=== PATIENT | male | born 1945 | race Caucasian/White ===

== ENCOUNTER 2017-07-24 08:51 | Inpatient (IN) | payer MEDICARE, OTHER ==
[~2017-07-24] VITALS: Ht 167.6 cm; Wt 100.3 kg
[~2017-07-24 08:51] MED LIST: AZIT250T6 PO; CETI10TA22 PO; CLOP75TA PO; DILT120C80 PO; Enoxaparin Sodium SQ; FLUT16SP NS; FLUT1DIS5 IH; HYDR-2758 PO; HYDR25TA9 PO; INSU100V8 SQ; ISOS30TA PO; LISI40TA PO; METF-620 PO; METO25TA4 PO; MOME220A6 IH; MONT10TA6 PO; OMEP40CA5 PO; ONDA4TAB10 SL; PRED50TA PO; PROAIR HFA8.5 GM IH; PROVENTIL HFA6.7 GM IH; Promethazine Hcl/Codeine PO; SIMV20TA3 PO; TAMS0.4C2 PO; WARF-78 PO; WARF10TA45 PO; WARF3TAB54 PO
--- NOTE | 2017-07-24 09:02 | EKG ---
[facility] [address] [place] [address] Test Date: 2017-07-24 Test Time: 08:56:25 Pat Name: JOLEEN ZIMMERMAN Department: Room: Gender: Male [employer]inder: : 1945 Requested By: JODI MCINTOSH Order Number: [id number] Reading MD: Jasen Parada Measurements Intervals [place] Rate: 84 P: OK: QRS: 76 QRSD: 138 T: -26 QT: 424 QTc: 505 Interpretive Statements SR PVC RBBB NON-SPECIFIC ST/T CHANGES Electronically Signed On 08-15-2017 14:24:39 CDT by Jasen Parada
--- NOTE | 2017-07-24 09:12 | PHYS DOC ---
Past Medical History Past Medical History: A-Fib, COPD, Diabetes-Type II, GERD, Lung Disease, [place] Additional Past Medical Histor: BLOOD IN STOOL. afib new 5/2 Past Surgical History: Knee Replacement Additional Past Surgical Histo: 3 stents , neck surg, left shoulder Additional Information: 1 ppd Alcohol Use: None Drug Use: None Adult General Chief Complaint Chief Complaint: CHEST WALL PAIN HPI HPI Patient is a 72 year old male with a history of A. fib, COPD, pancreatitis, diabetes and CAD with stents placed over 5 years ago presents the ED complaining of chest pain since 8 PM last night. States he was watching TV when the chest pain occurred. States the pain is sharp and rates the pain 8 out of 10. Associated symptoms include cough, shortness of breath and sore throat. Denies nausea/vomiting, dizziness, weakness, syncope, abdominal pain. Review of Systems Review of Systems Constitutional: Denies fever or chills [] Eyes: Denies change in visual acuity, redness, or eye pain [] HENT: Denies nasal congestion. Complains of sore throat. [] Respiratory: Complains of cough and shortness of breath[] Cardiovascular: No additional information not addressed in HPI [] GI: Denies abdominal pain, nausea, vomiting, bloody stools or diarrhea [] : Denies dysuria or hematuria [] Musculoskeletal: Denies back pain or joint pain [] Integument: Denies rash or skin lesions [] Neurologic: Denies headache, focal weakness or sensory changes [] Endocrine: Denies polyuria or polydipsia [] Current Medications Current Medications Current Medications Medications (Trade) Dose Ordered Sig/Jeffry Start Time Stop Time Status Last Admin Dose Admin Albuterol/ Ipratropium (Duoneb) 3 ml 1X ONCE 07/24/17 10:00 07/24/17 10:01 DC 07/24/17 10:29 3 ML Aspirin (Olga Lidia Aspirin) 325 mg 1X ONCE 07/24/17 09:15 07/24/17 09:16 DC 07/24/17 09:26 325 MG Famotidine (Pepcid) 20 mg STK-MED ONCE 07/24/17 09:16 07/24/17 09:17 DC Morphine Sulfate 4 mg 1X ONCE 07/24/17 09:15 07/24/17 09:16 DC 07/24/17 09:32 4 MG Allergies Allergies Allergies Coded Allergies Type Severity Reaction Last Updated Verified Penicillins Allergy Intermediate Hives 12/29/14 Yes Physical Exam Physical Exam Constitutional: Well developed, well nourished, no acute distress, non-toxic appearance. [] HENT: Normocephalic, atraumatic, bilateral external ears normal, oropharynx moist, MILD PHARYNGEAL ERYTHEMA, no oral exudates, nose normal. [] Eyes: PERRLA, EOMI, conjunctiva normal, no discharge. [] Neck: Normal range of motion, no tenderness, supple, no stridor. [] Cardiovascular:Heart rate regular rhythm, no murmur [] Lungs & Thorax: Bilateral breath sounds. MILD BILATERAL WHEEZING.[] Abdomen: Bowel sounds normal, soft, no tenderness, no masses, no pulsatile masses. [] Skin: Warm, dry, no erythema, no rash. [] Back: No tenderness, no CVA tenderness. [] Extremities: No tenderness, no cyanosis, no clubbing, ROM intact, no edema. [] Neurologic: Alert and oriented X 3, normal motor function, normal sensory function, no focal deficits noted. [] Psychologic: Affect normal, judgement normal, mood normal. [] Current Patient Data Vital Signs Vital Signs Date Time Temp Pulse Resp B/P (MAP) Pulse Ox O2 Delivery O2 Flow Rate FiO2 07/24/17 09:35 78 16 140/73 (95) 94 Room Air 07/24/17 09:03 98.5 98.5 Lab Values Laboratory Tests Test 07/24/17 09:20 07/24/17 09:40 07/24/17 09:41 Prothrombin Time 23.0 SEC (11.7-14.0) H Prothrombin Time INR 2.2 (0.8-1.1) H White Blood Count 9.4 x10^3/uL (4.0-11.0) Red Blood Count 5.14 x10^6/uL (4.30-5.70) Hemoglobin 15.6 g/dL (13.0-17.5) Hematocrit 44.6 % (39.0-53.0) Mean Corpuscular Volume 87 fL (79-100) Mean Corpuscular Hemoglobin 30 pg (25-35) Mean Corpuscular Hemoglobin Concent 35 g/dL (31-37) Red Cell Distribution Width 15.2 % (11.5-14.5) H Platelet Count 231 x10^3/uL (140-400) Neutrophils (%) (Auto) 62 % (31-73) Lymphocytes (%) (Auto) 21 % (24-48) L Monocytes (%) (Auto) 12 % (0-9) H Eosinophils (%) (Auto) 4 % (0-3) H Basophils (%) (Auto) 1 % (0-3) Neutrophils # (Auto) 5.9 x10^3uL (1.8-7.7) Lymphocytes # (Auto) 2.0 x10^3/uL (1.0-4.8) Monocytes # (Auto) 1.1 x10^3/uL (0.0-1.1) Eosinophils # (Auto) 0.3 x10^3/uL (0.0-0.7) Basophils # (Auto) 0.1 x10^3/uL (0.0-0.2) Sodium Level 139 mmol/L (136-145) Potassium Level 3.9 mmol/L (3.5-5.1) Chloride Level 103 mmol/L (98-107) Carbon Dioxide Level 29 mmol/L (21-32) Anion Gap 7 (6-14) Blood Urea Nitrogen 14 mg/dL (8-26) Creatinine 1.1 mg/dL (0.7-1.3) Estimated GFR (Cockcroft-Gault) 66.0 Glucose Level 169 mg/dL (70-99) H Calcium Level 9.0 mg/dL (8.5-10.1) Total Bilirubin 0.5 mg/dL (0.2-1.0) Direct Bilirubin 0.1 mg/dL (0.0-0.2) Aspartate Amino Transferase (AST) 20 U/L (15-37) Alanine Aminotransferase (ALT) 30 U/L (16-63) Alkaline Phosphatase 119 U/L (46-116) H Creatine Kinase 153 U/L (39-308) Creatine Kinase MB (Mass) 1.7 ng/mL (0.0-3.6) Creatine Kinase MB Relative Index 1.1 % (0-4) Troponin I Quantitative < 0.017 ng/mL (0.000-0.055) Total Protein 7.3 g/dL (6.4-8.2) Albumin 3.4 g/dL (3.4-5.0) Lipase 188 U/L (73-393) POC Troponin I 0.01 ng/ml (<0.08) Laboratory Tests 07/24/17 09:40 Laboratory Tests 07/24/17 09:40 EKG EKG Irregular rhythm at 84 bpm. PVC's. RBBB. No STEMI.[] Radiology/Procedures Radiology/Procedures PROCEDURE: CHEST AP ONLY Portable chest, 07/24/2017: History: Chest pain Comparison is made to a study from 09/14/2016. The heart size and pulmonary vascularity are normal. There is calcific plaquing of the aorta. No pulmonary infiltrate is seen. There is no evidence of pleural fluid. A surgical plate and screws is evident in the lower cervical spine. IMPRESSION: No acute cardiopulmonary abnormality is detected.[] Course & Med Decision Making Course & Med Decision Making Pertinent Labs and Imaging studies reviewed. (See chart for details) []Discussed case with Pulmonology ([facility]) and Cardiology ([facility]- patient sees outpatient). Will consult and see patient. Discussed case with hospitalist, Dr. Rae. Will admit and further manage patient. Patient stable for admission. Dragon Disclaimer Dragon Disclaimer This electronic medical record was generated, in whole or in part, using a voice recognition dictation system. Departure Departure Impression: Primary Impression: Chest pain Additional Impression: COPD exacerbation Disposition: ADMITTED INPATIENT Admitting Physician: Emma Rae Condition: STABLE Referrals: MELVIN LOUIS (PCP) Problem Qualifiers JODI MCINTOSH Jul 24, 2017 09:12
[2017-07-24] MEDS ORDERED: FAMOTIDINE 20 MG/2 ML VIAL IVP ONE (09:15)
[2017-07-24] MEDS ORDERED: MORPHINE SULFATE 4 MG/ML DISP.SYRIN. IV ONE (09:15)
[2017-07-24] MEDS ORDERED: ASPIRIN 325 MG TABLET PO ONE (09:15)
[2017-07-24] MEDS ORDERED: FAMOTIDINE 20 MG/2 ML VIAL ONE (09:16)
--- NOTE | 2017-07-24 09:26 | RAD ---
Portable chest, 07/24/2017: History: Chest pain Comparison is made to a study from 09/14/2016. The heart size and pulmonary vascularity are normal. There is calcific plaquing of the aorta. No pulmonary infiltrate is seen. There is no evidence of pleural fluid. A surgical plate and screws is evident in the lower cervical spine. IMPRESSION: No acute cardiopulmonary abnormality is detected.
[2017-07-24 09:48] LABS: BASO # 0.1 x10^3/uL (0.0-0.2); BASO % 1 % (0-3); EOS % 4 % (0-3); HEMATOCRIT 44.6 % (39.0-53.0); HEMOGLOBIN 15.6 g/dL (13.0-17.5); LYMPH % 21 % (24-48); MEAN CORPUSCULAR HEMOGLOBIN 30 pg (25-35); MEAN CORPUSCULAR HGB CONC 35 g/dL (31-37); MEAN CORPUSCULAR VOLUME 87 fL (79-100); MONO % 12 % (0-9); NEUT % 62 % (31-73); PLATELET COUNT 231 x10^3/uL (140-400); RED BLOOD COUNT 5.14 x10^6/uL (4.30-5.70); RED CELL DISTRIBUTION WIDTH 15.2 % (11.5-14.5); WHITE BLOOD COUNT 9.4 x10^3/uL (4.0-11.0)
[2017-07-24 09:55] LABS: CREATININE 1.1 mg/dL (0.7-1.3); POTASSIUM 3.9 mmol/L (3.5-5.1)
[2017-07-24] MEDS ORDERED: IPRATRPIUM/ALBUTEROL 0.5/2.5MG 3 ML NEBU. NEB ONE (10:00)
[2017-07-24 10:02] LABS: ALBUMIN 3.4 g/dL (3.4-5.0); DIRECT BILIRUBIN 0.1 mg/dL (0.0-0.2); TOTAL BILIRUBIN 0.5 mg/dL (0.2-1.0); TOTAL PROTEIN 7.3 g/dL (6.4-8.2)
[2017-07-24 10:09] LABS: CKMB MASS 1.7 ng/mL (0.0-3.6)
[2017-07-24] MEDS ORDERED: ONDANSETRON PF 4 MG/2 ML VIAL. IV PRN (10:30)
[2017-07-24] MEDS ORDERED: MORPHINE SULFATE 2 MG/ML DISP.SYRIN. IV PRN (10:30)
[2017-07-24] MEDS ORDERED: HYDROmorphone 2 MG/ML VIAL IV ONE (10:30)
[2017-07-24] MEDS ORDERED: methylPREDNISolone SOD SUCC PF 125 MG/2 ML VIAL. IV ONE (10:45)
[2017-07-24 12:45] VITALS: BP 133/79
--- NOTE | 2017-07-24 13:12 | PDOC2 ---
CARDIAC CONSULT DATE OF CONSULT Date of Consult DATE: 07/24/17 TIME: 12:42 REASON FOR CONSULT Reason for Consult: CP REFERRING PHYSICIAN Referring Physician: Abhishek SOURCE Source: Chart review, Patient HISTORY OF PRESENT ILLNESS HISTORY OF PRESENT ILLNESS This is a pleasant 72 yo male admitted for complains of chest pain. Reports this as sharp mid lower chest and reproducible and nonradiating. Reports that intractable coughing started about 2 days ago with increased production of sputum. No orthopnea or PND. No n/v/diaphoresis but CP started after significant coughing. Denies any dizziness or palpitations and has been compliant with medications except that he continues to smoke tobacco. No fever or chills. PAST MEDICAL HISTORY Cardiovascular: AFIB, HTN, NE, Hyperlipidemia Pulmonary: Asthma, COPD GI: GERD, Other (pancreatitis) Renal/: UTI Endocrine: Diabetes (2) PAST SURGICAL HISTORY Past Surgical History: Arthroscopy (RTC repair), Hernia Repair, Total knee replacement, Tonsillectomy, Other (PCI/PTCA; neck surgery) FAMILY HISTORY Family History: Hypertension SOCIAL HISTORY Smoke: <1 pack per day ALCOHOL: none Drugs: None CURRENT MEDICATIONS CURRENT MEDICATIONS Current Medications Medications (Trade) Dose Ordered Sig/Jeffry Route PRN Reason Start Time Stop Time Status Last Admin Dose Admin Aspirin (Olga Lidia Aspirin) 325 mg 1X ONCE PO 07/24/17 09:15 07/24/17 09:16 DC 07/24/17 09:26 Morphine Sulfate 4 mg 1X ONCE IV 07/24/17 09:15 07/24/17 09:16 DC 07/24/17 09:32 Famotidine (Pepcid) 20 mg 1X ONCE IVP 07/24/17 09:15 07/24/17 09:16 DC 07/24/17 09:28 Albuterol/ Ipratropium (Duoneb) 3 ml 1X ONCE NEB 07/24/17 10:00 07/24/17 10:01 DC 07/24/17 10:29 Hydromorphone HCl (Dilaudid) 0.5 mg 1X ONCE IV 07/24/17 10:30 07/24/17 10:31 DC 07/24/17 10:28 Methylprednisolone Sodium Succinate (SOLU-Medrol 125MG VIAL) 125 mg 1X ONCE IV 07/24/17 10:45 07/24/17 10:46 DC 07/24/17 11:43 ALLERGIES ALLERGIES: Coded Allergies: Penicillins (Verified Allergy, Intermediate, Hives, 12/29/14) ROS Review of System 14 point ROS evaluated with pertinent positives noted per HPI PHYSICAL EXAM General: Alert, Oriented X3, Cooperative, No acute distress HEENT: Atraumatic, Mucous membr. moist/pink Lungs: Other (diminished throughout) Heart: Regular rate (SR), Normal S1, Normal S2, Other (distant heart sounds) Abdomen: Soft, No tenderness, Other (truncal obesity) Extremities: No cyanosis, No edema Skin: No breakdown, No significant lesion Neuro: Normal speech, Sensation intact Psych/Mental Status: Mental status NL, Mood NL MUSCULOSKELETAL: Osteoarthritic changes both hands VITALS VITALS Vital Signs Date Time Temp Pulse Resp B/P (MAP) Pulse Ox O2 Delivery O2 Flow Rate FiO2 07/24/17 11:43 78 20 136/81 (99) 95 Room Air 07/24/17 09:03 98.5 98.5 LABS Lab: Laboratory Tests Test 07/24/17 09:40 White Blood Count 9.4 x10^3/uL (4.0-11.0) Red Blood Count 5.14 x10^6/uL (4.30-5.70) Hemoglobin 15.6 g/dL (13.0-17.5) Hematocrit 44.6 % (39.0-53.0) Mean Corpuscular Volume 87 fL (79-100) Mean Corpuscular Hemoglobin 30 pg (25-35) Mean Corpuscular Hemoglobin Concent 35 g/dL (31-37) Red Cell Distribution Width 15.2 % (11.5-14.5) Platelet Count 231 x10^3/uL (140-400) Neutrophils (%) (Auto) 62 % (31-73) Lymphocytes (%) (Auto) 21 % (24-48) Monocytes (%) (Auto) 12 % (0-9) Eosinophils (%) (Auto) 4 % (0-3) Basophils (%) (Auto) 1 % (0-3) Neutrophils # (Auto) 5.9 x10^3uL (1.8-7.7) Lymphocytes # (Auto) 2.0 x10^3/uL (1.0-4.8) Monocytes # (Auto) 1.1 x10^3/uL (0.0-1.1) Eosinophils # (Auto) 0.3 x10^3/uL (0.0-0.7) Basophils # (Auto) 0.1 x10^3/uL (0.0-0.2) Sodium Level 139 mmol/L (136-145) Potassium Level 3.9 mmol/L (3.5-5.1) Chloride Level 103 mmol/L (98-107) Carbon Dioxide Level 29 mmol/L (21-32) Anion Gap 7 (6-14) Blood Urea Nitrogen 14 mg/dL (8-26) Creatinine 1.1 mg/dL (0.7-1.3) Estimated GFR (Cockcroft-Gault) 66.0 Glucose Level 169 mg/dL (70-99) Calcium Level 9.0 mg/dL (8.5-10.1) Total Bilirubin 0.5 mg/dL (0.2-1.0) Direct Bilirubin 0.1 mg/dL (0.0-0.2) Aspartate Amino Transf (AST/SGOT) 20 U/L (15-37) Alanine Aminotransferase (ALT/SGPT) 30 U/L (16-63) Alkaline Phosphatase 119 U/L (46-116) Creatine Kinase 153 U/L (39-308) Creatine Kinase MB (Mass) 1.7 ng/mL (0.0-3.6) Creatine Kinase MB Relative Index 1.1 % (0-4) Troponin I Quantitative < 0.017 ng/mL (0.000-0.055) Total Protein 7.3 g/dL (6.4-8.2) Albumin 3.4 g/dL (3.4-5.0) Lipase 188 U/L (73-393) ECHOCARDIOGRAM ECHOCARDIOGRAM <Conclusion> The left ventricle is normal size. Left ventricle systolic function is normal. The Ejection Fraction is 50-55%. There is no significant aortic valvular stenosis. Doppler and Color Flow revealed no significant aortic regurgitation. Doppler and Color Flow revealed no mitral valve regurgitation noted. Doppler and Color Flow revealed trace to mild tricuspid regurgitation. The PA pressure was estimated at 21 mmHg. There is no evidence of significant pericardial effusion. DATE: 02/23/15 1431 STRESS TEST STRESS TEST Conclusion 1. No EKG evidence of stress-induced ischemia. 2. Nuclear imaging shows no reversible ischemia. 3. Nuclear imaging shows an infarct in the inferior lateral region. 4. Overall normal left ventricular systolic function with ejection fraction of 53% and slight inferior hypokinesis. 5. 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 DATE: 02/24/15 1250 ASSESSMENT/PLAN ASSESSMENT/PLAN 1. Atypical CP: initial troponin normal, EKG SR with RBBB, no acute changes by comparison. Noncardiac, likely MSK 2. AECOPD with continue tobaccoism 3. PAFIB: SR with PACs. 4. CAD: Last LHC 2010, last MPI 2014 5. HTN: controlled 6. DM2/ HLP 7. Chronic coumadin therapy. Recommendations 1. Continue home cardiac regimen including amiodarone and coumadin therapy. 2. Consult pulmonary 3. Follow up TTE and will note PAP 4. [facility], defer to [facility]. 5. Smoking cessation. Problems: KESHIA BROWN APRN Jul 24, 2017 13:12
[2017-07-24 13:29] LABS: INR 2.2 (0.8-1.1)
--- NOTE | 2017-07-24 14:32 | CARD ---
APPROVED REPORT EXAM: Two-dimensional and M-mode echocardiogram with Doppler and color Doppler. Other Information Quality : Average Rhythm : NSR with PVC's INDICATION Dyspnea Atrial Fibrillation 2D DIMENSIONS RVDd3.0 (2.9-3.5cm)Left Atrium(2D)3.9 (1.6-4.0cm) IVSd1.2 (0.7-1.1cm)Aortic Root(2D)3.1 (2.0-3.7cm) LVDd5.3 (3.9-5.9cm)LVOT Diameter2.4 (1.8-2.4cm) PWd1.2 (0.7-1.1cm)LVDs3.8 (2.5-4.0cm) FS (%) 27.7 %SV72.7 ml LVEF(%)53.3 (>50%) Aortic Valve AoV Peak Srikanth.102.4cm/sAoV VTI21.3cm AO Peak GR.4.2mmHgLVOT VTI 17.09cm AO Mean GR.2mmHgAVA (VTI)3.50cm2 Mitral Valve MV E Mzhntwhi12.0cm/sMV E Peak Gr.4mmHg MV DECEL [id number] A Almlekyb955.4cm/s MV E Mean Gr.2mmHgMV BAH41ob E/A Ratio0.6MV A [id number] MVA (PHT)4.58cm2 TDI Lateral E' P. V7.80cm/sMedial E' P. V7.11cm/s E/Lateral E'8.3E/Medial E'9.1 LEFT VENTRICLE The left ventricle is normal size. There is borderline concentric left ventricular hypertrophy. Left ventricle systolic function is normal. The Ejection Fraction is 50-55%. There is normal LV segmental wall motion. Tissue Doppler imaging reveals mild left ventricular diastolic dysfunction. Transmitral Doppler flow pattern is Grade I-abnormal relaxation pattern. There is no ventricular septal defect vi sualized. RIGHT VENTRICLE The right ventricle is normal size. The right ventricular systolic function is normal. ATRIA The left atrium size is normal. The right atrium size is normal. The interatrial septum is intact wit h no evidence for an atrial septal defect or patent foramen ovale as noted on 2-D or Doppler imaging. AORTIC VALVE The aortic valve is normal in structure and function. The aortic valve is trileaflet. Doppler and Col or Flow revealed no significant aortic regurgitation. There is no significant aortic valvular stenosi s. MITRAL VALVE Mitral annular calcification is borderline. There is no mitral valve stenosis. Doppler and Color Flow revealed trace mitral regurgitation. TRICUSPID VALVE The tricuspid valve is not well visualized. Doppler and Color Flow revealed no tricuspid valve regurg itation noted. There is no tricuspid valve stenosis. PULMONIC VALVE The pulmonic valve is not well visualized. Doppler and Color Flow revealed no pulmonic valvular regur gitation. There is no pulmonic valvular stenosis. GREAT VESSELS The aortic root is normal in size. The IVC is normal in size and collapses >50% with inspiration. PERICARDIAL EFFUSION There is no evidence of significant pericardial effusion. Critical Notification Critical Value: No <Conclusion> The left ventricle is normal size. Left ventricle systolic function is normal. The Ejection Fraction is 50-55%. There is borderline concentric left ventricular hypertrophy. There is no significant aortic valvular stenosis. Doppler and Color Flow revealed no significant aortic regurgitation. Doppler and Color Flow revealed trace mitral regurgitation. Doppler and Color Flow revealed no tricuspid valve regurgitation noted. There is no evidence of significant pericardial effusion.
--- NOTE | 2017-07-24 14:41 | PDOC ---
PULMONARY PROGRESS NOTES Vitals Vital Signs Date Time Temp Pulse Resp B/P (MAP) Pulse Ox O2 Delivery O2 Flow Rate FiO2 07/24/17 12:45 97.9 72 18 133/79 (97) 93 Room Air 97.9 General: Alert, No acute distress Lungs: Clear Cardiovascular: S1 Abdomen: Soft Extremities: No Edema Labs Laboratory Tests Test 07/24/17 09:20 07/24/17 09:40 Prothrombin Time 23.0 SEC (11.7-14.0) Prothromb Time International Ratio 2.2 (0.8-1.1) White Blood Count 9.4 x10^3/uL (4.0-11.0) Red Blood Count 5.14 x10^6/uL (4.30-5.70) Hemoglobin 15.6 g/dL (13.0-17.5) Hematocrit 44.6 % (39.0-53.0) Mean Corpuscular Volume 87 fL (79-100) Mean Corpuscular Hemoglobin 30 pg (25-35) Mean Corpuscular Hemoglobin Concent 35 g/dL (31-37) Red Cell Distribution Width 15.2 % (11.5-14.5) Platelet Count 231 x10^3/uL (140-400) Neutrophils (%) (Auto) 62 % (31-73) Lymphocytes (%) (Auto) 21 % (24-48) Monocytes (%) (Auto) 12 % (0-9) Eosinophils (%) (Auto) 4 % (0-3) Basophils (%) (Auto) 1 % (0-3) Neutrophils # (Auto) 5.9 x10^3uL (1.8-7.7) Lymphocytes # (Auto) 2.0 x10^3/uL (1.0-4.8) Monocytes # (Auto) 1.1 x10^3/uL (0.0-1.1) Eosinophils # (Auto) 0.3 x10^3/uL (0.0-0.7) Basophils # (Auto) 0.1 x10^3/uL (0.0-0.2) Sodium Level 139 mmol/L (136-145) Potassium Level 3.9 mmol/L (3.5-5.1) Chloride Level 103 mmol/L (98-107) Carbon Dioxide Level 29 mmol/L (21-32) Anion Gap 7 (6-14) Blood Urea Nitrogen 14 mg/dL (8-26) Creatinine 1.1 mg/dL (0.7-1.3) Estimated GFR (Cockcroft-Gault) 66.0 Glucose Level 169 mg/dL (70-99) Calcium Level 9.0 mg/dL (8.5-10.1) Total Bilirubin 0.5 mg/dL (0.2-1.0) Direct Bilirubin 0.1 mg/dL (0.0-0.2) Aspartate Amino Transf (AST/SGOT) 20 U/L (15-37) Alanine Aminotransferase (ALT/SGPT) 30 U/L (16-63) Alkaline Phosphatase 119 U/L (46-116) Creatine Kinase 153 U/L (39-308) Creatine Kinase MB (Mass) 1.7 ng/mL (0.0-3.6) Creatine Kinase MB Relative Index 1.1 % (0-4) Troponin I Quantitative < 0.017 ng/mL (0.000-0.055) Total Protein 7.3 g/dL (6.4-8.2) Albumin 3.4 g/dL (3.4-5.0) Lipase 188 U/L (73-393) Laboratory Tests Test 07/24/17 09:20 07/24/17 09:40 Prothrombin Time 23.0 SEC (11.7-14.0) Prothromb Time International Ratio 2.2 (0.8-1.1) White Blood Count 9.4 x10^3/uL (4.0-11.0) Red Blood Count 5.14 x10^6/uL (4.30-5.70) Hemoglobin 15.6 g/dL (13.0-17.5) Hematocrit 44.6 % (39.0-53.0) Mean Corpuscular Volume 87 fL (79-100) Mean Corpuscular Hemoglobin 30 pg (25-35) Mean Corpuscular Hemoglobin Concent 35 g/dL (31-37) Red Cell Distribution Width 15.2 % (11.5-14.5) Platelet Count 231 x10^3/uL (140-400) Neutrophils (%) (Auto) 62 % (31-73) Lymphocytes (%) (Auto) 21 % (24-48) Monocytes (%) (Auto) 12 % (0-9) Eosinophils (%) (Auto) 4 % (0-3) Basophils (%) (Auto) 1 % (0-3) Neutrophils # (Auto) 5.9 x10^3uL (1.8-7.7) Lymphocytes # (Auto) 2.0 x10^3/uL (1.0-4.8) Monocytes # (Auto) 1.1 x10^3/uL (0.0-1.1) Eosinophils # (Auto) 0.3 x10^3/uL (0.0-0.7) Basophils # (Auto) 0.1 x10^3/uL (0.0-0.2) Sodium Level 139 mmol/L (136-145) Potassium Level 3.9 mmol/L (3.5-5.1) Chloride Level 103 mmol/L (98-107) Carbon Dioxide Level 29 mmol/L (21-32) Anion Gap 7 (6-14) Blood Urea Nitrogen 14 mg/dL (8-26) Creatinine 1.1 mg/dL (0.7-1.3) Estimated GFR (Cockcroft-Gault) 66.0 Glucose Level 169 mg/dL (70-99) Calcium Level 9.0 mg/dL (8.5-10.1) Total Bilirubin 0.5 mg/dL (0.2-1.0) Direct Bilirubin 0.1 mg/dL (0.0-0.2) Aspartate Amino Transf (AST/SGOT) 20 U/L (15-37) Alanine Aminotransferase (ALT/SGPT) 30 U/L (16-63) Alkaline Phosphatase 119 U/L (46-116) Creatine Kinase 153 U/L (39-308) Creatine Kinase MB (Mass) 1.7 ng/mL (0.0-3.6) Creatine Kinase MB Relative Index 1.1 % (0-4) Troponin I Quantitative < 0.017 ng/mL (0.000-0.055) Total Protein 7.3 g/dL (6.4-8.2) Albumin 3.4 g/dL (3.4-5.0) Lipase 188 U/L (73-393) Medications Active Scripts Medications Dose Route/Sig Max Daily Dose Days Date Category Hydrocodone-Apap 5-325 (Hydrocodone Bit/Acetaminophen) 1 Each Tablet 2 Tab PO PRN Q6HRS PRN 09/11/16 Rx Zofran Odt (Ondansetron) 4 Mg Tab.rapdis 1 Tab SL Q8HRS 09/11/16 Rx Advair 500-50 Diskus (Fluticasone/Salmeterol) 1 Each Disk.w.dev 1 Puff IH BID 11/30/15 Reported Coumadin (Warfarin Sodium) 10 Mg Tablet 10 Mg PO DAILY 11/30/15 Reported Tamsulosin Hcl 0.4 Mg Cap.er.24h 1 Cap PO DAILY 11/30/15 Reported Proair Hfa Inhaler (Albuterol Sulfate) 8.5 Gm Hfa.aer.ad 2 Puff IH PRN Q4-6HRS PRN 11/30/15 Reported Lantus (Insulin Glargine,Hum.rec.anlog) 100 Unit/1 Ml Vial 35 Unit SQ QHS 30 08/04/14 Rx Metformin Hcl 1,000 Mg Tablet 1 Tab PO BID 08/03/14 Reported Metoprolol Tartrate 25 Mg Tablet 1 Tab PO BID 08/02/14 Reported Lisinopril 40 Mg Tablet 1 Tab PO BID 08/02/14 Reported Omeprazole 40 Mg Capsule.dr 1 Cap PO DAILY 08/02/14 Reported Hydrochlorothiazide Tablet (Hydrochlorothiazide) 25 Mg Tablet 1 Tab PO DAILY 08/02/14 Reported Simvastatin 20 Mg Tablet 1 Tab PO QHS 08/02/14 Reported Imdur (Isosorbide Mononitrate) 30 Mg Tab.er.24h 1 Tab PO DAILY 08/02/14 Reported Clopidogrel (Clopidogrel Bisulfate) 75 Mg Tablet 1 Tab PO DAILY 08/02/14 Reported Impression . DICTATED AECOPD SEE ORDERS THANKS AMAURI MITCHELL MD Jul 24, 2017 14:41
[2017-07-24 15:10] VITALS: BP 140/99
[2017-07-24] MEDS ORDERED: HYDROcodone/APAP 5/325MG 1 TAB TABLET PO PRN (15:15)
[2017-07-24] MEDS ORDERED: ONDANSETRON ODT 4 MG TAB.RAPDIS. PO PRN (15:15)
[2017-07-24] MEDS ORDERED: NON FORMULARY ITEM (Albuterol Sulfate (Proair Hfa Inhaler) 2 PUFF) IH PRN (15:15)
[2017-07-24] MEDS ORDERED: ALBUTEROL SULFATE 2.5 MG/3 ML NEBU. NEB PRN (15:15)
[2017-07-24] MEDS ORDERED: DEXTROSE 50% 25 GM / 50ML DISP.SYRIN. IV PRN (15:15)
[2017-07-24] MEDS ORDERED: WARFARIN 10 MG TABLET. PO SCH (16:00)
[2017-07-24] MEDS: INSULIN ASPART 300 UNITS/3 ML INSULN.PEN SQ SCH (17:53)
[2017-07-24] MEDS: ALBUTEROL SULFATE 2.5 MG/3 ML NEBU. NEB SCH (19:43)
[2017-07-24] MEDS: BUDESONIDE 0.5 MG/2 ML NEBU. NEB SCH (19:43)
[2017-07-24 19:55] VITALS: BP 144/75
[2017-07-24] MEDS ORDERED: INSULIN DETEMIR 300 UNITS/3 ML INSULN.PEN. SQ SCH (21:00)
[2017-07-24] MEDS ORDERED: NON FORMULARY ITEM (Fluticasone/Salmeterol (Advair 500-50 Diskus) 1 PUFF) IH SCH (21:00)
[2017-07-24] MEDS ORDERED: SIMVASTATIN 20 MG TABLET PO SCH (21:00)
[2017-07-24] MEDS: DOXYCYCLINE HYCLATE 100 MG TABLET PO SCH (21:23)
[2017-07-24] MEDS: LISINOPRIL 40 MG TABLET. PO SCH (21:23)
[2017-07-24] MEDS: METOPROLOL TART IMMED RELEASE 25 MG TABLET. PO SCH (21:24)
--- NOTE | 2017-07-24 21:29 | CONS ---
DATE OF CONSULTATION: 07/24/2017 ATTENDING PHYSICIAN: Dr. Rae. REASON FOR CONSULTATION: The patient is seen in pulmonary consultation at the request of Dr. Rae for progressive shortness of air, chest pain. HISTORY OF PRESENT ILLNESS: The patient is a 72-year-old with history of chronic obstructive pulmonary disease, hypertension, coronary artery disease with previous myocardial infarction, presented with chest pain across the chest, reproducible with cough, not similar to his previous myocardial infarction. The patient had increasing cough productive of discolored sputum, continues to smoke. He has had 1 previous acute exacerbation of chronic obstructive pulmonary disease back in 11/2015. He denies any hemoptysis. Several days ago he had some dry heaves and he brought up some mucus mixed in with blood. He thinks that that was mainly from the dry heaves. No fever, chills, night sweats. No paroxysmal nocturnal dyspnea or pedal edema. PAST MEDICAL HISTORY: Coronary artery disease with previous myocardial infarction status post stent placement, chronic AFib, hypertension, hyperlipidemia, chronic obstructive pulmonary disease, asthma, apparently had asthma prior to smoking, gastroesophageal reflux, pancreatitis, type 2 diabetes. PAST SURGICAL HISTORY: Status post arthroscopic repair of knee. He has had previous knee replacement, hernia repair, tonsillectomy, percutaneous coronary intervention and percutaneous transluminal coronary angioplasty. FAMILY HISTORY: Hypertension. No family history of asthma. ALLERGIES: PENICILLIN. 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 No significant consumption of alcohol. MEDICATIONS: List was reviewed. He is currently not on oxygen at home. He does use Symbicort and ProAir. REVIEW OF SYSTEMS: As indicated above, otherwise a 10-point system was reviewed and negative. PHYSICAL EXAMINATION: VITAL SIGNS: The patient was on room air with no respiratory distress at this time. HEENT: Eyes, the sclerae were nonicteric. NECK: Jugular venous distention was not elevated. No lymphadenopathy. CHEST: Full expansion. LUNGS: Coarse breath sounds with no wheezes. Adequate airway flow. CARDIOVASCULAR: Regular rate and rhythm with S1, S2, no S3. ABDOMEN: Soft, obese. EXTREMITIES: No clubbing, cyanosis or pitting edema. NEUROLOGIC: The patient was awake, alert, following commands. A detailed neuro exam was not performed. LABORATORY DATA: Reviewed. Electrolytes were normal. BUN and creatinine were normal. INR was 2.2. White count was normal. Hemoglobin was normal. Chest x-ray was normal. IMPRESSION: 1. Acute exacerbation of chronic obstructive pulmonary disease. 2. Progressive dyspnea secondary to above. 3. Chest pain, atypical, suspect secondary to costochondritis, doubt myocardial infarction. 4. Coronary artery disease with previous myocardial infarction. 5. Tobacco dependence. 6. Recent echo revealing normal ejection fraction. 7. Type 2 diabetes. PLAN: 1. Continue current medical management. 2. Monitor blood sugars while on steroids. 3. The patient instructed on the importance of discontinuing tobacco use. We will offer nicotine replacement as an outpatient. 4. Once discharged, follow up as an outpatient in 2-4 weeks. 5. Add doxycycline for acute nonspecific bronchitis. 6. Follow Cardiology input. I do appreciate the privilege in sharing in the patient's care. AMAURI MITCHELL MD DR: FREDY/claritza JOB#: [id number] / [id number]
[2017-07-24] MEDS ORDERED: INSULIN ASPART 300 UNITS/3 ML INSULN.PEN SQ ONE (22:30)
[2017-07-24 22:37] VITALS: BP 136/55
[2017-07-25] MEDS ORDERED: POTA20TA82 PO (01:51)
[2017-07-25] MEDS ORDERED: LORA10TA3 PO (01:51)
[2017-07-25] MEDS ORDERED: AMIO200T2 PO (01:51)
[2017-07-25] MEDS ORDERED: AMLO10TA2 PO (01:51)
[2017-07-25] MEDS ORDERED: CARB15DR3 EACHEYE (01:51)
[2017-07-25] MEDS ORDERED: BUDE10.22 IH (01:51)
[2017-07-25 03:06] VITALS: BP 139/76
[2017-07-25 05:37] LABS: BASO % 0 % (0-3); EOS % 0 % (0-3); HEMATOCRIT 44.7 % (39.0-53.0); HEMOGLOBIN 15.2 g/dL (13.0-17.5); LYMPH % 6 % (24-48); MEAN CORPUSCULAR HEMOGLOBIN 30 pg (25-35); MEAN CORPUSCULAR HGB CONC 34 g/dL (31-37); MEAN CORPUSCULAR VOLUME 87 fL (79-100); MONO % 5 % (0-9); NEUT % 89 % (31-73); PLATELET COUNT 242 x10^3/uL (140-400); RED BLOOD COUNT 5.12 x10^6/uL (4.30-5.70); RED CELL DISTRIBUTION WIDTH 14.8 % (11.5-14.5)
[2017-07-25] MEDS: PANTOPRAZOLE 40 MG TABLET.DR. PO SCH ×2 (05:47→09:09)
[2017-07-25 06:20] LABS: ALBUMIN 3.4 g/dL (3.4-5.0); CALCIUM 8.9 mg/dL (8.5-10.1); CHOLESTEROL/HDL RATIO 4.4; CREATININE 1.1 mg/dL (0.7-1.3); POTASSIUM 4.2 mmol/L (3.5-5.1); TOTAL BILIRUBIN 0.2 mg/dL (0.2-1.0); TOTAL PROTEIN 6.7 g/dL (6.4-8.2)
[2017-07-25 06:24] LABS: INR 2.4 (0.8-1.1); PROTHROMBIN TIME PATIENT 24.3 SEC (11.7-14.0)
[2017-07-25 07:00] VITALS: BP 120/78
[2017-07-25] MEDS: ALBUTEROL SULFATE 2.5 MG/3 ML NEBU. NEB SCH ×2 (07:47→11:38)
[2017-07-25] MEDS: BUDESONIDE 0.5 MG/2 ML NEBU. NEB SCH (07:47)
[2017-07-25] MEDS ORDERED: CLOPIDOGREL BISULFATE 75 MG TABLET PO SCH (08:00)
[2017-07-25 08:32] LABS: PLT ESTIMATE ADEQUATE (ADEQUATE)
[2017-07-25] MEDS ORDERED: NON FORMULARY ITEM (Omeprazole 1 CAP) PO SCH (09:00)
[2017-07-25] MEDS ORDERED: predniSONE 10 MG TABLET PO SCH (09:00)
[2017-07-25] MEDS ORDERED: hydroCHLOROthiazide 25 MG TABLET PO SCH (09:00)
[2017-07-25] MEDS ORDERED: ISOSORBIDE MONONITRATE ER 30 MG TAB.ER.24H PO SCH (09:00)
[2017-07-25] MEDS ORDERED: TAMSULOSIN 0.4 MG CAP.ER.24H. PO SCH (09:00)
[2017-07-25] MEDS ORDERED: AMIODARONE HCL 200 MG TABLET. PO SCH (09:00)
[2017-07-25] MEDS: METOPROLOL TART IMMED RELEASE 25 MG TABLET. PO SCH (09:10)
[2017-07-25] MEDS: DOXYCYCLINE HYCLATE 100 MG TABLET PO SCH (09:11)
[2017-07-25] MEDS: LISINOPRIL 40 MG TABLET. PO SCH (09:12)
[2017-07-25] MEDS: INSULIN ASPART 300 UNITS/3 ML INSULN.PEN SQ SCH (09:19)
[2017-07-25 11:00] VITALS: BP 138/70
[2017-07-25] MEDS ORDERED: PRED-220 PO (12:46)
[2017-07-25] MEDS ORDERED: DOXY100T PO (12:46)
--- NOTE | 2017-07-25 12:53 | PDOC ---
Provider Note Provider Note Pt seen H&P done. #[id number] COLEEN LOPEZ MD Jul 25, 2017 12:53
--- NOTE | 2017-07-25 13:04 | PDOC ---
PULMONARY PROGRESS NOTES Vitals Vital Signs Date Time Temp Pulse Resp B/P (MAP) Pulse Ox O2 Delivery O2 Flow Rate FiO2 07/25/17 11:39 98 Room Air 07/25/17 11:00 97.3 71 20 138/70 (92) 97.3 General: Alert, No acute distress Lungs: Clear Cardiovascular: S1 Abdomen: Soft Extremities: No Edema Labs Laboratory Tests Test 07/24/17 09:20 07/24/17 09:40 07/24/17 09:41 07/24/17 16:35 Prothrombin Time 23.0 SEC (11.7-14.0) Prothromb Time International Ratio 2.2 (0.8-1.1) White Blood Count 9.4 x10^3/uL (4.0-11.0) Red Blood Count 5.14 x10^6/uL (4.30-5.70) Hemoglobin 15.6 g/dL (13.0-17.5) Hematocrit 44.6 % (39.0-53.0) Mean Corpuscular Volume 87 fL (79-100) Mean Corpuscular Hemoglobin 30 pg (25-35) Mean Corpuscular Hemoglobin Concent 35 g/dL (31-37) Red Cell Distribution Width 15.2 % (11.5-14.5) Platelet Count 231 x10^3/uL (140-400) Neutrophils (%) (Auto) 62 % (31-73) Lymphocytes (%) (Auto) 21 % (24-48) Monocytes (%) (Auto) 12 % (0-9) Eosinophils (%) (Auto) 4 % (0-3) Basophils (%) (Auto) 1 % (0-3) Neutrophils # (Auto) 5.9 x10^3uL (1.8-7.7) Lymphocytes # (Auto) 2.0 x10^3/uL (1.0-4.8) Monocytes # (Auto) 1.1 x10^3/uL (0.0-1.1) Eosinophils # (Auto) 0.3 x10^3/uL (0.0-0.7) Basophils # (Auto) 0.1 x10^3/uL (0.0-0.2) Sodium Level 139 mmol/L (136-145) Potassium Level 3.9 mmol/L (3.5-5.1) Chloride Level 103 mmol/L (98-107) Carbon Dioxide Level 29 mmol/L (21-32) Anion Gap 7 (6-14) Blood Urea Nitrogen 14 mg/dL (8-26) Creatinine 1.1 mg/dL (0.7-1.3) Estimated GFR (Cockcroft-Gault) 66.0 Glucose Level 169 mg/dL (70-99) Calcium Level 9.0 mg/dL (8.5-10.1) Total Bilirubin 0.5 mg/dL (0.2-1.0) Direct Bilirubin 0.1 mg/dL (0.0-0.2) Aspartate Amino Transf (AST/SGOT) 20 U/L (15-37) Alanine Aminotransferase (ALT/SGPT) 30 U/L (16-63) Alkaline Phosphatase 119 U/L (46-116) Creatine Kinase 153 U/L (39-308) Creatine Kinase MB (Mass) 1.7 ng/mL (0.0-3.6) Creatine Kinase MB Relative Index 1.1 % (0-4) Troponin I Quantitative < 0.017 ng/mL (0.000-0.055) < 0.017 ng/mL (0.000-0.055) Total Protein 7.3 g/dL (6.4-8.2) Albumin 3.4 g/dL (3.4-5.0) Lipase 188 U/L (73-393) Bedside Troponin I 0.01 ng/ml (<0.08) Test 07/24/17 16:42 07/24/17 21:10 07/24/17 22:20 07/25/17 05:01 Glucose (Fingerstick) 247 mg/dL (70-99) 405 mg/dL (70-99) Troponin I Quantitative < 0.017 ng/mL (0.000-0.055) White Blood Count 17.0 x10^3/uL (4.0-11.0) Red Blood Count 5.12 x10^6/uL (4.30-5.70) Hemoglobin 15.2 g/dL (13.0-17.5) Hematocrit 44.7 % (39.0-53.0) Mean Corpuscular Volume 87 fL (79-100) Mean Corpuscular Hemoglobin 30 pg (25-35) Mean Corpuscular Hemoglobin Concent 34 g/dL (31-37) Red Cell Distribution Width 14.8 % (11.5-14.5) Platelet Count 242 x10^3/uL (140-400) Neutrophils (%) (Auto) 89 % (31-73) Lymphocytes (%) (Auto) 6 % (24-48) Monocytes (%) (Auto) 5 % (0-9) Eosinophils (%) (Auto) 0 % (0-3) Basophils (%) (Auto) 0 % (0-3) Neutrophils # (Auto) 15.1 x10^3uL (1.8-7.7) Lymphocytes # (Auto) 1.0 x10^3/uL (1.0-4.8) Monocytes # (Auto) 0.8 x10^3/uL (0.0-1.1) Eosinophils # (Auto) 0.0 x10^3/uL (0.0-0.7) Basophils # (Auto) 0.0 x10^3/uL (0.0-0.2) Segmented Neutrophils % 89 % (35-66) Lymphocytes % 5 % (24-48) Monocytes % 6 % (0-10) Platelet Estimate Adequate (ADEQUATE) Large Platelets Occ Prothrombin Time 24.3 SEC (11.7-14.0) Prothromb Time International Ratio 2.4 (0.8-1.1) Sodium Level 142 mmol/L (136-145) Potassium Level 4.2 mmol/L (3.5-5.1) Chloride Level 106 mmol/L (98-107) Carbon Dioxide Level 26 mmol/L (21-32) Anion Gap 10 (6-14) Blood Urea Nitrogen 21 mg/dL (8-26) Creatinine 1.1 mg/dL (0.7-1.3) Estimated GFR (Cockcroft-Gault) 66.0 BUN/Creatinine Ratio 19 (6-20) Glucose Level 202 mg/dL (70-99) Calcium Level 8.9 mg/dL (8.5-10.1) Total Bilirubin 0.2 mg/dL (0.2-1.0) Aspartate Amino Transf (AST/SGOT) 18 U/L (15-37) Alanine Aminotransferase (ALT/SGPT) 32 U/L (16-63) Alkaline Phosphatase 129 U/L (46-116) Total Protein 6.7 g/dL (6.4-8.2) Albumin 3.4 g/dL (3.4-5.0) Albumin/Globulin Ratio 1.0 (1.0-1.7) Triglycerides Level 76 mg/dL (0-150) Cholesterol Level 158 mg/dL (0-200) LDL Cholesterol, Calculated 107 mg/dL (0-100) VLDL Cholesterol, Calculated 15 mg/dL (0-40) Non-HDL Cholesterol Calculated 122 mg/dL (0-129) HDL Cholesterol 36 mg/dL (40-60) Cholesterol/HDL Ratio 4.4 Thyroid Stimulating Hormone (TSH) 0.510 uIU/mL (0.358-3.74) Test 07/25/17 08:12 07/25/17 11:10 Glucose (Fingerstick) 160 mg/dL (70-99) 306 mg/dL (70-99) Laboratory Tests Test 07/24/17 16:35 07/24/17 16:42 07/24/17 21:10 07/24/17 22:20 Troponin I Quantitative < 0.017 ng/mL (0.000-0.055) < 0.017 ng/mL (0.000-0.055) Glucose (Fingerstick) 247 mg/dL (70-99) 405 mg/dL (70-99) Test 07/25/17 05:01 07/25/17 08:12 07/25/17 11:10 White Blood Count 17.0 x10^3/uL (4.0-11.0) Red Blood Count 5.12 x10^6/uL (4.30-5.70) Hemoglobin 15.2 g/dL (13.0-17.5) Hematocrit 44.7 % (39.0-53.0) Mean Corpuscular Volume 87 fL (79-100) Mean Corpuscular Hemoglobin 30 pg (25-35) Mean Corpuscular Hemoglobin Concent 34 g/dL (31-37) Red Cell Distribution Width 14.8 % (11.5-14.5) Platelet Count 242 x10^3/uL (140-400) Neutrophils (%) (Auto) 89 % (31-73) Lymphocytes (%) (Auto) 6 % (24-48) Monocytes (%) (Auto) 5 % (0-9) Eosinophils (%) (Auto) 0 % (0-3) Basophils (%) (Auto) 0 % (0-3) Neutrophils # (Auto) 15.1 x10^3uL (1.8-7.7) Lymphocytes # (Auto) 1.0 x10^3/uL (1.0-4.8) Monocytes # (Auto) 0.8 x10^3/uL (0.0-1.1) Eosinophils # (Auto) 0.0 x10^3/uL (0.0-0.7) Basophils # (Auto) 0.0 x10^3/uL (0.0-0.2) Segmented Neutrophils % 89 % (35-66) Lymphocytes % 5 % (24-48) Monocytes % 6 % (0-10) Platelet Estimate Adequate (ADEQUATE) Large Platelets Occ Prothrombin Time 24.3 SEC (11.7-14.0) Prothromb Time International Ratio 2.4 (0.8-1.1) Sodium Level 142 mmol/L (136-145) Potassium Level 4.2 mmol/L (3.5-5.1) Chloride Level 106 mmol/L (98-107) Carbon Dioxide Level 26 mmol/L (21-32) Anion Gap 10 (6-14) Blood Urea Nitrogen 21 mg/dL (8-26) Creatinine 1.1 mg/dL (0.7-1.3) Estimated GFR (Cockcroft-Gault) 66.0 BUN/Creatinine Ratio 19 (6-20) Glucose Level 202 mg/dL (70-99) Calcium Level 8.9 mg/dL (8.5-10.1) Total Bilirubin 0.2 mg/dL (0.2-1.0) Aspartate Amino Transf (AST/SGOT) 18 U/L (15-37) Alanine Aminotransferase (ALT/SGPT) 32 U/L (16-63) Alkaline Phosphatase 129 U/L (46-116) Total Protein 6.7 g/dL (6.4-8.2) Albumin 3.4 g/dL (3.4-5.0) Albumin/Globulin Ratio 1.0 (1.0-1.7) Triglycerides Level 76 mg/dL (0-150) Cholesterol Level 158 mg/dL (0-200) LDL Cholesterol, Calculated 107 mg/dL (0-100) VLDL Cholesterol, Calculated 15 mg/dL (0-40) Non-HDL Cholesterol Calculated 122 mg/dL (0-129) HDL Cholesterol 36 mg/dL (40-60) Cholesterol/HDL Ratio 4.4 Thyroid Stimulating Hormone (TSH) 0.510 uIU/mL (0.358-3.74) Glucose (Fingerstick) 160 mg/dL (70-99) 306 mg/dL (70-99) Medications Active Scripts Medications Dose Route/Sig Max Daily Dose Days Date Category Hydrocodone-Apap 5-325 (Hydrocodone Bit/Acetaminophen) 1 Each Tablet 2 Tab PO PRN Q6HRS PRN 09/11/16 Rx Zofran Odt (Ondansetron) 4 Mg Tab.rapdis 1 Tab SL Q8HRS 09/11/16 Rx Advair 500-50 Diskus (Fluticasone/Salmeterol) 1 Each Disk.w.dev 1 Puff IH BID 11/30/15 Reported Coumadin (Warfarin Sodium) 10 Mg Tablet 10 Mg PO DAILY 11/30/15 Reported Tamsulosin Hcl 0.4 Mg Cap.er.24h 1 Cap PO DAILY 11/30/15 Reported Proair Hfa Inhaler (Albuterol Sulfate) 8.5 Gm Hfa.aer.ad 2 Puff IH PRN Q4-6HRS PRN 11/30/15 Reported Lantus (Insulin Glargine,Hum.rec.anlog) 100 Unit/1 Ml Vial 35 Unit SQ QHS 30 08/04/14 Rx Metformin Hcl 1,000 Mg Tablet 1 Tab PO BID 08/03/14 Reported Metoprolol Tartrate 25 Mg Tablet 1 Tab PO BID 08/02/14 Reported Lisinopril 40 Mg Tablet 1 Tab PO BID 08/02/14 Reported Omeprazole 40 Mg Capsule. 1 Cap PO DAILY 08/02/14 Reported Hydrochlorothiazide Tablet (Hydrochlorothiazide) 25 Mg Tablet 1 Tab PO DAILY 08/02/14 Reported Simvastatin 20 Mg Tablet 1 Tab PO QHS 08/02/14 Reported Imdur (Isosorbide Mononitrate) 30 Mg Tab.er.24h 1 Tab PO DAILY 08/02/14 Reported Clopidogrel (Clopidogrel Bisulfate) 75 Mg Tablet 1 Tab PO DAILY 08/02/14 Reported Impression . DICTATED AECOPD SEE ORDERS THANKS AMAURI MITCHELL MD Jul 25, 2017 13:04
--- NOTE | 2017-07-25 14:34 | HP ---
ADMIT DATE: 07/24/2017 LOCATION: 263. ATTENDING PHYSICIAN: Dr. Lopez. PRIMARY CARE PHYSICIAN: Dr. Root. REASON FOR ADMISSION TO THE HOSPITAL: Chest pain, chronic obstructive pulmonary disease with exacerbation. HISTORY OF PRESENT ILLNESS: The patient is a 72-year-old male patient with history of CAD, previous cardiac stents at least 3, is on Coumadin for combination of stents and irregular heart rhythm, history of COPD, chronic AFib and smokes 3 packs, but cut down to 1 pack now, coming in with shortness of breath and chest pain. Cardiac enzymes and EKG was negative, was found to have COPD with exacerbation, was given IV Solu-Medrol, seen by Pulmonology and Cardiology. The patient is feeling better, is anxious to go home. PAST MEDICAL HISTORY: AFib, COPD, diabetes insulin-dependent, GERD, cardiac stents. PAST SURGICAL HISTORY: Knee replacements, 3 stents, left shoulder surgery. ALLERGIES: PENICILLIN CAUSES RASH. SOCIAL HISTORY: Cut down to 1 pack from 3 packs for 30 years[address] Denies alcohol or street drugs. MEDICATIONS AT HOME: The patient is on amiodarone 200 mg daily, amlodipine 10 mg daily, Symbicort twice a day, loratadine 10 mg daily, potassium 20 mEq daily, ProAir 2 puffs 4 times daily, Plavix 75 mg daily, Advair 250/50 twice a day, hydrochlorothiazide 25 mg daily, hydrocodone q.6, insulin 30 units at bedtime Lantus, isosorbide 30 mg daily, lisinopril 40 mg daily, metoprolol 25 mg twice a day, omeprazole 40 mg daily, Zofran for nausea, simvastatin 20 mg 2 tablets at bedtime, so total 40 mg, Flomax 0.4 daily, Coumadin 10 mg daily. FAMILY HISTORY: Positive for diabetes, heart disease and COPD. REVIEW OF SYMPTOMS: CARDIAC: Chest pain, now resolved. Has some cough, very little yellow sputum. GASTROINTESTINAL: No nausea. Rest of the 14 systems was reviewed and negative. PHYSICAL EXAMINATION: VITAL SIGNS: At the time of admission shows temperature 98, pulse 80, respirations 16, blood pressure 155/80, 95% room air. HEENT: Head is atraumatic. Pupils are equal. Oral cavity, no teeth. NECK: Supple. Thyroid not enlarged. JVD not elevated. CHEST: Symmetrical. CARDIOVASCULAR: S1, S2. LUNGS: Occasional wheezing. ABDOMEN: Soft, no mass palpable. EXTERNAL GENITALIA: No Kraus. RECTAL: Deferred. EXTREMITIES: No calf tenderness, no edema. Pulses 1+. NEUROLOGIC: Cranial nerves intact. Power 5/5 in all extremities. LABORATORY DATA: Shows a white count of 9, hemoglobin 15, platelets 231. Electrolytes: Sodium 139, potassium 3.9, chloride 103, bicarbonate 29, BUN 14, creatinine 1.1, glucose 169. LFTs normal. Troponin was negative. Lipid profile: Cholesterol 158, LDL 107, HDL 36. TSH is 0.5, INR is 2.2. Chest x-ray shows no acute abnormality. EKG done, report is pending. Echocardiogram shows a good left ventricular function 50-55, LVH, no valvular disease. FINAL IMPRESSION: 1. Chest pain, looks like more of a skeleto-muscular pain. 2. Chronic obstructive pulmonary disease with acute exacerbation. 3. Chronic smoker, at least 3 packs for 30 years, now cut down to 1 pack. 4. Atrial fibrillation, on Coumadin. 5. Cardiac stents. No evidence of acute cardiac event at this point. 6. Insulin-dependent diabetes. DISPOSITION: Home. ACTIVITY: As tolerated. Start on IV Solu-Medrol, p.o. prednisone 30 mg tapering doses, doxycycline 10 mg twice daily for 5 days, told to cut down the Coumadin to half the dose but he is on antibiotics, can resume total dose after antibiotic is stopped. The patient is up to date on flu shot and pneumonia shot and smoking counseling was done. COLEEN LOPEZ MD DR: JUAN/claritza JOB#: [id number] / [id number] MELVIN Warner
--- NOTE | 2017-07-27 09:56 | PDOC ---
Provider Note Provider Note Discharge summary dictated. #[id number] COLEEN LOPEZ MD Jul 27, 2017 09:56
--- NOTE | 2017-07-27 14:48 | DS ---
DATE OF DISCHARGE: 07/25/2017 REASON FOR ADMISSION TO THE HOSPITAL: Chest pain and COPD with exacerbation. CONSULTATIONS: Олег Talley M.D. and Luigi Rosado M.D. PROCEDURES DONE: Echocardiogram. COMPLICATIONS NOTED: Note. HOSPITAL COURSE: The patient is a 72-year-old male who is a chronic smoker, COPD and also history of cardiac stents and Coumadin anticoagulation; came with chest pain. EKG and cardiac enzymes were negative, seen by Cardiology. It was more like a pulmonary problem, was seen by Pulmonology, was given IV Solu-Medrol, later changed to oral prednisone and he was feeling better. He was anxious to go home, discharged the next day. An echocardiogram shows ejection fraction 55%, left ventricular hypertrophy, no valvular disease, and the patient was discharged on p.o. prednisone and doxycycline. The patient is on Coumadin for chronic anticoagulation because of AFib and cardiac stents. His INR is therapeutic at 2.5. FINAL DIAGNOSES: 1. Noncardiac chest pain possible GERD. 2. Chronic obstructive pulmonary disease with acute exacerbation. 3. Chronic atrial fibrillation on coumadin ,inr therapeutic. 4. H/O Cardiac stents stable. 5. Smoking addiction , counseling down DISPOSITION: Home. See [facility] for discharge medications. Smoking counseling was done. The patient is recommended to get flu and pneumonia shots from his PCP. COLEEN LOPEZ MD DR: JUAN/claritza JOB#: [id number] / [id number] MELVIN Warner
== END 2017-07-25 13:35 | disposition home or self-care (01) | DRG 392 ==
LOC: ER 08:51 → 2 SOUTH 10:23
PROVIDERS: ADMIT Internal Medicine; ATTEND Internal Medicine
DX: K21.9 Gastro-esophageal reflux disease without esophagitis (principal); J44.1 Chronic obstructive pulmonary disease with (acute) exacerbation; I48.0 Paroxysmal atrial fibrillation; E11.9 Type 2 diabetes mellitus without complications; I25.2 Old myocardial infarction; I45.10 Unspecified right bundle-branch block; I10 Essential (primary) hypertension; E78.5 Hyperlipidemia, unspecified; F17.210 Nicotine dependence, cigarettes, uncomplicated; I25.10 Atherosclerotic heart disease of native coronary artery without angina pectoris; Z82.49 Family history of ischemic heart disease and other diseases of the circulatory system; Z82.5 Family history of asthma and other chronic lower respiratory diseases; Z83.3 Family history of diabetes mellitus; Z95.5 Presence of coronary angioplasty implant and graft; Z96.659 Presence of unspecified artificial knee joint; Z88.0 Allergy status to penicillin; Z79.01 Long term (current) use of anticoagulants
CPT/HCPCS: 36415; 71010; 80048; 80053; 80061; 80076; 82550; 82553; 82962; 83036; 83690; 84443; 84484; 85007; 85025; 85610; 93005; 93306; 94250; 94640; 96374; 96375; J1170; J1815; J2270; J2930; J7512; J7613; J7620; J7626; S0028; 99285-25

== ENCOUNTER 2017-07-29 18:32 | Emergency (ER) | payer MEDICARE, OTHER ==
[~2017-07-29] VITALS: Ht 170.2 cm; Wt 100.2 kg
[~2017-07-29 18:32] MED LIST changes: +AMIO200T2 PO; +AMLO10TA2 PO; +BUDE10.22 IH; +CARB15DR3 EACHEYE; +DOXY100T PO; +LORA10TA3 PO; +POTA20TA82 PO; +PRED-220 PO
[2017-07-29 18:40] VITALS: BP 129/67
--- NOTE | 2017-07-29 18:50 | PHYS DOC ---
Past Medical History Past Medical History: A-Fib, COPD, Diabetes-Type II, GERD, Lung Disease, AR Additional Past Medical Histor: BLOOD IN STOOL. afib new 5/ Past Surgical History: Knee Replacement Additional Past Surgical Histo: 3 stents , neck surg, left shoulder Alcohol Use: None Drug Use: None Adult General Chief Complaint Chief Complaint: EARACHE/EAR PAIN [facility] HPI Patient is a 72 year old male presents to the emergency department with complaints of sinus congestion and right ear discomfort. He states symptoms began yesterday. He is taking bddn-kfh-veexwen allergy medicine. He does smoke 2 packs cigarettes a day. He has no complaints of headache, visual disturbance. He has no neck pain. No fever. Review of Systems Review of Systems Constitutional: Denies fever or chills [] Eyes: Denies change in visual acuity, redness, or eye pain [] HENT: Right ear pain, nasal congestion Respiratory: Denies cough or shortness of breath [] Cardiovascular: No additional information not addressed in HPI [] GI: Denies abdominal pain, nausea, vomiting, bloody stools or diarrhea [] : Denies dysuria or hematuria [] Musculoskeletal: Denies back pain or joint pain [] Integument: Denies rash or skin lesions [] Neurologic: Denies headache, focal weakness or sensory changes [] Endocrine: Denies polyuria or polydipsia [] Allergies Allergies Allergies Coded Allergies Type Severity Reaction Last Updated Verified Penicillins Allergy Intermediate Hives 12/29/14 Yes Physical Exam Physical Exam Constitutional: Well developed, well nourished, no acute distress, non-toxic appearance. [] HENT: Normocephalic, atraumatic, bilateral external ears normal, right tympanic membrane with effusion, clear fluid, oropharynx moist, no oral exudates, nose normal. [] Eyes: PERRLA, EOMI, conjunctiva normal, no discharge. [] Neck: Normal range of motion, no tenderness, supple, no stridor. [] Cardiovascular:Heart rate regular rhythm, no murmur [] Lungs & Thorax: Bilateral breath sounds clear to auscultation [] Abdomen: Bowel sounds normal, soft, no tenderness, no masses, no pulsatile masses. [] Skin: Warm, dry, no erythema, no rash. [] Back: No tenderness, no CVA tenderness. [] Extremities: No tenderness, no cyanosis, no clubbing, ROM intact, no edema. [] Neurologic: Alert and oriented X 3, normal motor function, normal sensory function, no focal deficits noted. [] Psychologic: Affect normal, judgement normal, mood normal. [] EKG EKG [] Radiology/Procedures Radiology/Procedures [] Course & Med Decision Making Course & Med Decision Making Pertinent Labs and Imaging studies reviewed. (See chart for details) [] Dragon Disclaimer Dragon Disclaimer This electronic medical record was generated, in whole or in part, using a voice recognition dictation system. Departure Departure Impression: Primary Impression: Eustachian tube dysfunction Disposition: HOME, SELF-CARE Condition: STABLE Referrals: MELVIN LOUIS (PCP) Patient Instructions: Otalgia Additional Instructions: Continue to usual Flonase one squirt each nostril daily. [id number] sinus decongestant. Return to the emergency department his symptoms or concerns or worsening of current condition. Problem Qualifiers Primary Impression: Eustachian tube dysfunction Laterality: right Qualified Codes: H69.81 - Other specified disorders of eustachian tube, right ear WENCESLAO GUTIERREZ INSTALLER Jul 29, 2017 18:50
== END 2017-07-29 19:03 | disposition home or self-care (01) ==
LOC: ER 18:32
DX: H69.81 Other specified disorders of Eustachian tube, right ear (principal); R09.81 Nasal congestion; I48.91 Unspecified atrial fibrillation; J44.9 Chronic obstructive pulmonary disease, unspecified; E11.9 Type 2 diabetes mellitus without complications; K21.9 Gastro-esophageal reflux disease without esophagitis; I25.2 Old myocardial infarction; Z95.5 Presence of coronary angioplasty implant and graft; Z88.0 Allergy status to penicillin
CPT/HCPCS: 99281

== ENCOUNTER → 2018-07-13 | Outpatient (CLI) | payer MEDICARE ==
[2018-07-01 10:45] VITALS: BP 132/74
[~2018-07-13] MED LIST changes: -AMIO200T2 PO; +AMIO200T4 PO; -AMLO10TA2 PO; +AMLO10TA6 PO; +AMLO5TAB7 PO; +ASPI-630 PO; +FURO20TA3 PO; +GUAI600T47 PO; +LEVO500T59 PO; +LISI-130 PO; -LISI40TA PO; -METF-620 PO; +METF10007 PO; +WARF7.5T48 PO
--- NOTE | 2018-07-13 13:55 | RAD ---
PA and lateral chest x-ray compared to portable chest exam dated June 29, 2018 for left-sided chest pain, radiating down left arm, duration one day, history of COPD. FINDINGS: Heart size within normal limits. Dense atherosclerosis of the aortic arch is seen. Discoid atelectasis is present anteriorly in the left lower lung. No pneumothorax, pleural effusion, congestive heart failure, or focal pneumonic infiltrate is identified. No significant osseous abnormalities. IMPRESSION: 1. No acute cardiopulmonary abnormality. Electronically signed by: Clark Garcia MD (07/13/2018 1:52 PM) [id number]
== END | disposition home or self-care (01) ==
LOC: RAD 13:01
PROVIDERS: ATTEND Family Medicine
DX: J44.9 Chronic obstructive pulmonary disease, unspecified (principal); I70.0 Atherosclerosis of aorta; J98.11 Atelectasis; E11.9 Type 2 diabetes mellitus without complications; E78.5 Hyperlipidemia, unspecified; E78.00 Pure hypercholesterolemia, unspecified; K21.9 Gastro-esophageal reflux disease without esophagitis; I48.2 Chronic atrial fibrillation; I25.2 Old myocardial infarction; Z96.651 Presence of right artificial knee joint; Z79.4 Long term (current) use of insulin; Z87.891 Personal history of nicotine dependence; Z88.0 Allergy status to penicillin; Z83.3 Family history of diabetes mellitus; Z82.49 Family history of ischemic heart disease and other diseases of the circulatory system; Z82.5 Family history of asthma and other chronic lower respiratory diseases
CPT/HCPCS: 71046

== ENCOUNTER 2019-09-24 19:45 | Observation (INO) | payer MEDICARE ==
[~2019-09-24] VITALS: Ht 170.2 cm; Wt 99.0 kg
[~2019-09-24 19:45] MED LIST changes: +ALBU2.5V8 IH; -AMLO10TA6 PO; +AMLO10TA8 PO; +AMLO5TAB10 PO; -AMLO5TAB7 PO; +ATOR40TA59 PO; +BRIN8DRO OP; +CHOL100014 PO; -DILT120C80 PO; +DILT120C99 PO; +HYDR-2145 PO; -HYDR-2758 PO; +HYDR-2761 PO; -HYDR25TA9 PO; +LATA2.5D3 EACHEYE; +MONT10TA49 PO; -MONT10TA6 PO; +OMEP40CA45 PO; -OMEP40CA5 PO; +POTA20TA4 PO; -POTA20TA82 PO; -PROAIR HFA8.5 GM IH; +SIMV20TA18 PO; -SIMV20TA3 PO
[2019-09-24] MEDS ORDERED: HYDROcodone/APAP 5/325MG 1 TAB TABLET PO ONE (20:00)
[2019-09-24 20:25] LABS: BASO # 0.1 x10^3/uL (0.0-0.2); BASO % 1 % (0-3); EOS # 0.3 x10^3/uL (0.0-0.7); EOS % 3 % (0-3); HEMATOCRIT 38.6 % (39.0-53.0); HEMOGLOBIN 13.2 g/dL (13.0-17.5); LYMPH % 18 % (24-48); MEAN CORPUSCULAR HEMOGLOBIN 30 pg (25-35); MEAN CORPUSCULAR HGB CONC 34 g/dL (31-37); MEAN CORPUSCULAR VOLUME 87 fL (79-100); MONO # 1.1 x10^3/uL (0.0-1.1); MONO % 10 % (0-9); NEUT # 7.4 x10^3/uL (1.8-7.7); NEUT % 68 % (31-73); PLATELET COUNT 255 x10^3/uL (140-400); RED BLOOD COUNT 4.42 x10^6/uL (4.30-5.70); RED CELL DISTRIBUTION WIDTH 15.8 % (11.5-14.5); WHITE BLOOD COUNT 10.9 x10^3/uL (4.0-11.0)
[2019-09-24 20:33] LABS: CALCIUM 8.9 mg/dL (8.5-10.1); CREATININE 1.2 mg/dL (0.7-1.3); GFR 59.3
[2019-09-24 20:38] LABS: ALBUMIN 2.7 g/dL (3.4-5.0); ALBUMIN/GLOBULIN RATIO 0.7 (1.0-1.7); TOTAL BILIRUBIN 0.3 mg/dL (0.2-1.0); TOTAL PROTEIN 6.8 g/dL (6.4-8.2)
--- NOTE | 2019-09-24 21:53 | RAD ---
Exam: CT head INDICATION: Trauma TECHNIQUE: Sequential axial images through the head were obtained without the administration of IV contrast. Comparisons: None FINDINGS: No focal parenchymal lesion or hemorrhage is identified. There is no midline shift or sulcal effacement. Patchy hypodensities are noted in the periventricular white matter, favored represent small vessel ischemic change. No acute vascular territory infarction is identified. Poole-white distinction is preserved. The ventricular system is within normal limits without compression hydrocephalus. The basal cisterns are well maintained. Extracranial soft tissue scalp contusion overlying the right frontotemporal region. Partial opacification of the right maxillary sinus. No acute fractures. IMPRESSION: 1. Extra cranial soft tissue contusion overlying the right frontotemporal region without underlying osseous or intracranial abnormality. 2. Findings chronic small vessel ischemic change. 3. Sinus disease described above. Exposure: One or more of the following in the visualized dose reduction techniques were utilized for this examination: 1. Automated exposure control 2. Adjustment of the MA and/or KV according to patient size Use of iterative of reconstructive technique Electronically signed by: Eze Pierre MD (09/24/2019 9:50 PM) [id number]
[2019-09-24] MEDS ORDERED: ONDANSETRON PF 4 MG/2 ML VIAL. IV PRN (23:00)
[2019-09-24 23:30] VITALS: BP 131/68
--- NOTE | 2019-09-24 23:30 | NUR ---
Admit from ED to orth room 205 via with DX CHF, CP, Dizzy, Syncope. A/O x 4 on arrival. VSS. Stood and ambulated to bed from with steady gait. Oriented to room and call light. Reviewed POC to include carotid doppler, lab draws, FSBS and call for assist while out of bed. Patient verbalized understanding. Resting in bed with call light at hand.
[2019-09-25] MEDS ORDERED: HYDROcodone/APAP 5/325MG 1 TAB TABLET PO PRN (00:30)
[2019-09-25] MEDS ORDERED: INSULIN GLARGINE SYRINGE. SQ SCH ×2 (00:45→21:00)
[2019-09-25 01:05] LABS: PROTHROMBIN TIME PATIENT 32.4 SEC (11.7-14.0)
--- NOTE | 2019-09-25 01:29 | RAD ---
Procedure: Bilateral Carotid Duplex examination using B-mode, color flow and spectral Doppler was performed. Indication: Syncope Findings: Within the right carotid arterial system, there is intermittent atherosclerotic calcifications with atheromatous plaque. The Doppler velocities and waveforms are normal with a peak systolic velocity of 74 cm/s in the distal internal carotid artery. The ICA/CCA ratio is 0.9. The common carotid artery has a peak systolic velocity of 83 cm/sec. The external carotid artery has a peak systolic velocity of 121 cm/sec. There is antegrade flow in the right vertebral artery. Within the left carotid arterial system, there is intermittent atherosclerotic calcifications and atheromatous plaque. The Doppler velocities and waveforms are normal with a peak systolic velocity of 84 cm/s in the mid and distal internal carotid artery. The ICA/CCA ratio is 0.9.The common carotid artery has a peak systolic velocity of 95 cm/sec. The external carotid artery has a peak systolic velocity of 158 cm/sec. There is antegrade flow in the left vertebral artery. Impression: Increased velocities within the external carotid artery bilateral suggest underlying stenosis-<70 percent. Less than 50 percent stenosis bilateral internal carotid arteries. Degree of stenosis (%) ? normal: o ICA PSV is <125 cm/sec and no plaque or intimal thickening is visible sonographically o additional criteria include ICA/CCA PSV ratio <2.0 and ICA EDV <40 cm/sec ? <50% ICA stenosis: o ICA PSV is <125 cm/sec and plaque or intimal thickening is visible sonographically o additional criteria include ICA/CCA PSV ratio <2.0 and ICA EDV <40 cm/sec ? 50-69% ICA stenosis: o ICA PSV is 125-230 cm/sec and plaque is visible sonographically o additional criteria include ICA/CCA PSV ratio of 2.0-4.0 and ICA EDV of 40-100 cm/sec ? ?70% ICA stenosis but less than near occlusion: o ICA PSV is >230 cm/sec and visible plaque and luminal narrowing are seen at preciado-scale and colour Doppler ultrasound (the higher the Doppler parameters lie above the threshold of 230 cm/sec, the greater the likelihood of severe disease) o additional criteria include ICA/CCA PSV ratio >4 and ICA EDV >100 cm/sec ? near occlusion of the ICA: o velocity parameters may not apply, since velocities may be high, low, or undetectable o diagnosis is established primarily by demonstrating a markedly narrowed lumen at colour or power Doppler ultrasound ? total occlusion of the ICA: o no detectable patent lumen at preciado-scale US and no flow with spectral, power, and colour Doppler ultrasound o there may be compensatory increased velocity in the contralateral carotid [PSV = peak systolic velocity;?EDV = end diastolic velocity; ICA = internal carotid artery; CCA = common carotid artery] Electronically signed by: Delano Grimes MD (09/25/2019 1:26 AM) [facility]
[2019-09-25 03:00] VITALS: BP 123/66
--- NOTE | 2019-09-25 04:41 | PHYS DOC ---
Past Medical History Past Medical History: A-Fib, COPD, Diabetes-Type II, GERD, Lung Disease, [place] Additional Past Medical Histor: BLOOD IN STOOL. afib new 5/2 Past Surgical History: Knee Replacement, Other Additional Past Surgical Histo: 3 stents , neck surg, left shoulder; hernia Alcohol Use: None Drug Use: None Adult General Chief Complaint Chief Complaint: CHEST PAIN-CARDIAC NATURE HPI HPI Patient is a 74 year old male with history of COPD, A. fib and cad who presents with shortness of breath dizziness and syncopal episode at home. Patient states he was sitting up with table and became dizzy also consciousness. Patient denies headache, chest pain palpitations. No abdominal pain. No fever chills or sweats. No other acute symptoms or complaints. [] Review of Systems Review of Systems ROS as per HPI All other systems were reviewed and found to be within normal limits, except as documented in this note. Current Medications Current Medications Current Medications Medications (Trade) Dose Ordered Sig/Jeffry Start Time Stop Time Status Last Admin Dose Admin Acetaminophen/ Hydrocodone Bitart (Lortab 5/325) 1 tab 1X ONCE 09/24/19 20:00 09/24/19 20:01 DC 09/24/19 20:11 1 TAB Allergies Allergies Allergies Coded Allergies Type Severity Reaction Last Updated Verified Penicillins Allergy Intermediate Hives 12/29/14 Yes Physical Exam Physical Exam Constitutional: Well developed, well nourished, no acute distress, non-toxic appearance. [] HENT: Normocephalic, atraumatic, bilateral external ears normal, oropharynx moist, no oral exudates, nose normal. [] Eyes: PERRLA, EOMI, conjunctiva normal, no discharge. [] Neck: Normal range of motion, no tenderness, supple, no stridor. [] Cardiovascular:Heart rate regular rhythm, no murmur, peripheral edema [] Lungs & Thorax: Respirations nonlabored, coarse diminished breath sounds bilate rally. [] Abdomen: Bowel sounds normal, soft, no tenderness. [] Skin: Warm, dry, no erythema, no rash. [] Back: No tenderness. [] Extremities: No tenderness, no edema. [] Neurologic: Alert and oriented X 3, normal motor function, normal sensory function, no focal deficits noted. [] Psychologic: Affect normal, judgement normal, mood normal. [] Current Patient Data Vital Signs Vital Signs Date Time Temp Pulse Resp B/P (MAP) Pulse Ox O2 Delivery O2 Flow Rate FiO2 09/24/19 22:30 73 22 129/75 (93) 96 Nasal Cannula 2.0 09/24/19 19:45 98.8 98.8 Lab Values Laboratory Tests Test 09/24/19 19:52 White Blood Count 10.9 x10^3/uL (4.0-11.0) Red Blood Count 4.42 x10^6/uL (4.30-5.70) Hemoglobin 13.2 g/dL (13.0-17.5) Hematocrit 38.6 % (39.0-53.0) L Mean Corpuscular Volume 87 fL (79-100) Mean Corpuscular Hemoglobin 30 pg (25-35) Mean Corpuscular Hemoglobin Concent 34 g/dL (31-37) Red Cell Distribution Width 15.8 % (11.5-14.5) H Platelet Count 255 x10^3/uL (140-400) Neutrophils (%) (Auto) 68 % (31-73) Lymphocytes (%) (Auto) 18 % (24-48) L Monocytes (%) (Auto) 10 % (0-9) H Eosinophils (%) (Auto) 3 % (0-3) Basophils (%) (Auto) 1 % (0-3) Neutrophils # (Auto) 7.4 x10^3/uL (1.8-7.7) Lymphocytes # (Auto) 2.0 x10^3/uL (1.0-4.8) Monocytes # (Auto) 1.1 x10^3/uL (0.0-1.1) Eosinophils # (Auto) 0.3 x10^3/uL (0.0-0.7) Basophils # (Auto) 0.1 x10^3/uL (0.0-0.2) Prothrombin Time 32.4 SEC (11.7-14.0) H Prothrombin Time INR 3.2 (0.8-1.1) H Sodium Level 141 mmol/L (136-145) Potassium Level 4.0 mmol/L (3.5-5.1) Chloride Level 105 mmol/L (98-107) Carbon Dioxide Level 27 mmol/L (21-32) Anion Gap 9 (6-14) Blood Urea Nitrogen 21 mg/dL (8-26) Creatinine 1.2 mg/dL (0.7-1.3) Estimated GFR (Cockcroft-Gault) 59.3 BUN/Creatinine Ratio 18 (6-20) Glucose Level 179 mg/dL (70-99) H Calcium Level 8.9 mg/dL (8.5-10.1) Total Bilirubin 0.3 mg/dL (0.2-1.0) Aspartate Amino Transferase (AST) 15 U/L (15-37) Alanine Aminotransferase (ALT) 55 U/L (16-63) Alkaline Phosphatase 122 U/L (46-116) H Troponin I Quantitative < 0.017 ng/mL (0.000-0.055) GC-Dlk-T-Type Natriuretic Peptide 1247 pg/mL (0-124) H Total Protein 6.8 g/dL (6.4-8.2) Albumin 2.7 g/dL (3.4-5.0) L Albumin/Globulin Ratio 0.7 (1.0-1.7) L Laboratory Tests 09/24/19 19:52 Laboratory Tests 09/24/19 19:52 EKG EKG EKG: reviewed[] Radiology/Procedures Radiology/Procedures CXR: No acute cardiopulmonary disease. CT head: No intracranial injury per radiology report[] Course & Med Decision Making Course & Med Decision Making Pertinent Labs and Imaging studies reviewed. (See chart for details) [Syncope, no arrhythmia on monitor, vital signs stable. No focal neuro dficits. Etiology unclear. Dr. Rae to admit] Dragon Disclaimer Dragon Disclaimer This electronic medical record was generated, in whole or in part, using a voice recognition dictation system. Departure Departure Impression: Primary Impression: CHF exacerbation Additional Impression: Syncope Disposition: ADMITTED INPATIENT Condition: STABLE Referrals: MELVIN LOUIS (PCP) Problem Qualifiers RAPHAELGILBERTO RAMIRES Sep 25, 2019 04:41
--- NOTE | 2019-09-25 05:39 | EKG ---
[facility] [address] [place] [address] Test Date: 2019-09-24 Test Time: 19:49:50 Pat Name: JOLEEN ZIMMERMAN Department: Room: Gender: M [employer]: : 1945 Requested By: GILBEROT LIM Order Number: [id number] Reading MD: Measurements Intervals Weikert Rate: 82 P: 90 VT: 174 QRS: 82 QRSD: 132 T: 73 QT: 428 QTc: 504 Interpretive Statements SINUS RHYTHM VENTRICULAR PREMATURE COMPLEX(ES) RIGHT BUNDLE BRANCH BLOCK ABNORMAL ECG RI6.01 No previous ECG available for comparison
[2019-09-25 05:43] LABS: BASO # 0.1 x10^3/uL (0.0-0.2); BASO % 2 % (0-3); EOS # 0.4 x10^3/uL (0.0-0.7); EOS % 5 % (0-3); HEMOGLOBIN 12.8 g/dL (13.0-17.5); LYMPH # 1.7 x10^3/uL (1.0-4.8); LYMPH % 20 % (24-48); MEAN CORPUSCULAR HEMOGLOBIN 29 pg (25-35); MEAN CORPUSCULAR HGB CONC 33 g/dL (31-37); MEAN CORPUSCULAR VOLUME 89 fL (79-100); MONO % 12 % (0-9); NEUT # 5.2 x10^3/uL (1.8-7.7); NEUT % 62 % (31-73); PLATELET COUNT 251 x10^3/uL (140-400); RED BLOOD COUNT 4.37 x10^6/uL (4.30-5.70); RED CELL DISTRIBUTION WIDTH 15.7 % (11.5-14.5); WHITE BLOOD COUNT 8.4 x10^3/uL (4.0-11.0)
[2019-09-25 06:08] LABS: ALBUMIN 2.5 g/dL (3.4-5.0); ALBUMIN/GLOBULIN RATIO 0.6 (1.0-1.7); CALCIUM 8.4 mg/dL (8.5-10.1); GFR 73.2; POTASSIUM 4.2 mmol/L (3.5-5.1); TOTAL BILIRUBIN 0.3 mg/dL (0.2-1.0); TOTAL PROTEIN 6.6 g/dL (6.4-8.2)
--- NOTE | 2019-09-25 06:43 | RAD ---
EXAM: AP View of the chest DATE: 09/24/2019 8:10 PM INDICATION: Shortness of air COMPARISON: 09/03/2019, 04/12/2019 FINDINGS: The heart is not enlarged. Aortic calcifications are seen. Mediastinal and hilar contours are stable. No lobar consolidation. Minimal left lung base opacities likely atelectasis. No pleural effusion or pneumothorax. IMPRESSION: Minimal left lung base opacities likely atelectasis. No lobar consolidation. Electronically signed by: Delano Grimes MD (09/25/2019 6:41 AM) [facility]
--- NOTE | 2019-09-25 06:58 | NUR ---
Pharmacy Warfarin Dosing Note S:Pharmacy consulted to assist with anticoagulation therapy started 09/25/19 with target INR: 2 -3 O:JOLEEN ZIMMERMAN is a 74 year old M with Atrial Fibrillation LABS: Last INR: 3.2 Last HGB: 13.2 Last HCT: 39 Last PLT: 251 Last dose of 7.5 mg given on 09/23/19 at 1600 Previous Regimen: WARFARIN 7.5MG PO DAILY Vitamin K given: Drug Interaction Changes: Ongoing Drug Interactions: A:INR of 3.2 is above desired range. Target range for this patient is: 2 -3 P: Warfarin dose: HOLD 09/26 DOSE Bridge Therapy: None Next INR due 09/27/19 0500 Pharmacy anticoagulation service will continue to follow. MISTY BILLINGS RPH, 09/25/19 0658 Signed: 09/25/19 at 0701 by MISTY BILLINGS RPH PHA
[2019-09-25] MEDS ORDERED: ANTI-COAG MONITOR BY PHARMACY. MC PRN (07:00)
[2019-09-25 07:19] VITALS: BP 101/58
[2019-09-25] MEDS ORDERED: CETIRIZINE HCL 10 MG TABLET. PO PRN (09:00)
--- NOTE | 2019-09-25 10:05 | PDOC ---
CARDIO Progress Notes Date and Time Date of Service 09/25/2019 Time of Evaluation 0940 Subjective Subjective: No Chest Pain, No shortness of breath, No Palpitations, Other (CAMPA) Vitals Vitals Vital Signs Date Time Temp Pulse Resp B/P (MAP) Pulse Ox O2 Delivery O2 Flow Rate FiO2 09/25/19 07:19 98.5 64 20 101/58 (72) 99 Room Air 98.5 09/24/19 23:30 2.0 Weight Weight [ ] Input and Output Intake and Output Intake and Output 09/25/19 07:00 Intake Total 400 ml Output Total 500 ml Balance -100 ml Intake Oral 400 ml Output Urine Total 500 ml Laboratory Labs Laboratory Tests Test 09/24/19 19:52 09/25/19 00:50 09/25/19 05:10 09/25/19 07:22 White Blood Count 10.9 x10^3/uL (4.0-11.0) 8.4 x10^3/uL (4.0-11.0) Red Blood Count 4.42 x10^6/uL (4.30-5.70) 4.37 x10^6/uL (4.30-5.70) Hemoglobin 13.2 g/dL (13.0-17.5) 12.8 g/dL (13.0-17.5) Hematocrit 38.6 % (39.0-53.0) 39.0 % (39.0-53.0) Mean Corpuscular Volume 87 fL (79-100) 89 fL (79-100) Mean Corpuscular Hemoglobin 30 pg (25-35) 29 pg (25-35) Mean Corpuscular Hemoglobin Concent 34 g/dL (31-37) 33 g/dL (31-37) Red Cell Distribution Width 15.8 % (11.5-14.5) 15.7 % (11.5-14.5) Platelet Count 255 x10^3/uL (140-400) 251 x10^3/uL (140-400) Neutrophils (%) (Auto) 68 % (31-73) 62 % (31-73) Lymphocytes (%) (Auto) 18 % (24-48) 20 % (24-48) Monocytes (%) (Auto) 10 % (0-9) 12 % (0-9) Eosinophils (%) (Auto) 3 % (0-3) 5 % (0-3) Basophils (%) (Auto) 1 % (0-3) 2 % (0-3) Neutrophils # (Auto) 7.4 x10^3/uL (1.8-7.7) 5.2 x10^3/uL (1.8-7.7) Lymphocytes # (Auto) 2.0 x10^3/uL (1.0-4.8) 1.7 x10^3/uL (1.0-4.8) Monocytes # (Auto) 1.1 x10^3/uL (0.0-1.1) 1.0 x10^3/uL (0.0-1.1) Eosinophils # (Auto) 0.3 x10^3/uL (0.0-0.7) 0.4 x10^3/uL (0.0-0.7) Basophils # (Auto) 0.1 x10^3/uL (0.0-0.2) 0.1 x10^3/uL (0.0-0.2) Prothrombin Time 32.4 SEC (11.7-14.0) Prothromb Time International Ratio 3.2 (0.8-1.1) Sodium Level 141 mmol/L (136-145) 141 mmol/L (136-145) Potassium Level 4.0 mmol/L (3.5-5.1) 4.2 mmol/L (3.5-5.1) Chloride Level 105 mmol/L (98-107) 106 mmol/L (98-107) Carbon Dioxide Level 27 mmol/L (21-32) 27 mmol/L (21-32) Anion Gap 9 (6-14) 8 (6-14) Blood Urea Nitrogen 21 mg/dL (8-26) 21 mg/dL (8-26) Creatinine 1.2 mg/dL (0.7-1.3) 1.0 mg/dL (0.7-1.3) Estimated GFR (Cockcroft-Gault) 59.3 73.2 BUN/Creatinine Ratio 18 (6-20) 21 (6-20) Glucose Level 179 mg/dL (70-99) 115 mg/dL (70-99) Calcium Level 8.9 mg/dL (8.5-10.1) 8.4 mg/dL (8.5-10.1) Total Bilirubin 0.3 mg/dL (0.2-1.0) 0.3 mg/dL (0.2-1.0) Aspartate Amino Transf (AST/SGOT) 15 U/L (15-37) 17 U/L (15-37) Alanine Aminotransferase (ALT/SGPT) 55 U/L (16-63) 48 U/L (16-63) Alkaline Phosphatase 122 U/L (46-116) 109 U/L (46-116) Troponin I Quantitative < 0.017 ng/mL (0.000-0.055) FQ-Lyh-X-Type Natriuretic Peptide 1247 pg/mL (0-124) Total Protein 6.8 g/dL (6.4-8.2) 6.6 g/dL (6.4-8.2) Albumin 2.7 g/dL (3.4-5.0) 2.5 g/dL (3.4-5.0) Albumin/Globulin Ratio 0.7 (1.0-1.7) 0.6 (1.0-1.7) Glucose (Fingerstick) 126 mg/dL (70-99) 99 mg/dL (70-99) Physical Exam HEENT: Neck Supple W Full Motion Chest: Symmetric LUNGS: Other (diffuse faint exp wheeze, diminished) Heart: RRR (SR with PVCs) Abdomen: Soft N/T Extremities: No Edema, No Calf Tenderness Neurology: alert, oriented, follow commands Assessment Assessment HPI: This is a pleasant 74 yo male admitted for complains shortness of breath and passing out. He was seen less than a month ago and actually had a [facility] with noted CAD but no intervenable lesions. No orthopnea. Reports dyspnea with exertion but at the same time he has poor endurance with activity. He does have some cough and wheeze but no more that his usual. Although he was coughing more yesterday but mainly nonproductive. He was coughing while walking yesterday and felt dizzy and sat down on the chair and was coughing still and then he passed out. It was unclear how long he was unconscious but no other focal neuro symptoms associated with it and no palpitations. No fever or chills. He continues to smoke tobacco but has been compliant with his inhalers. 1. Syncope: likely cough induced vasovagal episode 2. Dyspnea: mainly due to COPD with continued smoking and poor endurance 3. PAFIB; maintaining SR. 4. CAD: 09/05/2019 [facility] revealed 3vd with small vessel ISR to LCx and mod ISR to mid LAD negative IFR suggestive of no physiologic significance of the restenosis. CP free 5. DM2/HLP: per PCP 6. Hx of ANUPAMA; CPAP intolerant 7. HTN: controlled 8. Chronic RBBB 9. Chronic diastolic CHF: compensated Recommendations 1. Secondary prevention measures. Continue plavix and coumadin 2. Continue with amiodarone. CT chest today noncontrast to further delineate any further contributor of his dyspnea 3. MCOT as outpt 4. Wt loss, smoking cessation, orthostatic readings 5. Consider PFTs to further obtain baseline and 6 min walk. Defer to PCP 6. Potential DC this afternoon KESHIA BROWN APRN Sep 25, 2019 10:05
--- NOTE | 2019-09-25 10:09 | PDOC ---
Provider Note Provider Note Pt seen.H&P dictated.#[id number]. COLEEN LOPEZ MD Sep 25, 2019 10:09
[2019-09-25 10:10] VITALS: BP 152/71
[2019-09-25] MEDS ORDERED: DOXYCYCLINE HYCLATE 100 MG TABLET PO ONE (10:15)
[2019-09-25] MEDS ORDERED: methylPREDNISolone SOD SUCC PF 125 MG/2 ML VIAL. IV ONE (10:15)
[2019-09-25] MEDS ORDERED: DEXTROSE 50% 25 GM / 50ML DISP.SYRIN. IV PRN (10:15)
[2019-09-25] MEDS ORDERED: DOXY100T PO (10:19)
[2019-09-25] MEDS ORDERED: PRED50TA PO (10:19)
--- NOTE | 2019-09-25 10:44 | HP ---
ADMIT DATE: 09/24/2019 REASON FOR ADMISSION TO THE HOSPITAL: Syncope. HISTORY OF PRESENT ILLNESS: The patient is a 74-year-old with history of COPD; chronic atrial fibrillation, on Coumadin; he also has cardiac stents. He was admitted 2 weeks ago for chest pain. At that time, had a cardiac catheterization that shows patent stent. Yesterday, he had taken nap and was getting up, he felt dizzy and then he passed out and hit his head. Luckily, there is no hematoma, fracture or intracranial bleed. The patient came to the ER, was evaluated and was admitted for syncopal evaluation. PAST MEDICAL HISTORY: As mentioned; has history of AFib, COPD, diabetes, GERD, cardiac stents. PAST SURGICAL HISTORY: Had cardiac stents, neck surgery, shoulder surgery, hernia repair, knee replacements. ALLERGIES: PENICILLIN. MEDICATIONS AT HOME: The patient is on albuterol inhaler nebulizer machine at home, amiodarone 200 mg daily, amlodipine 5 mg daily, atorvastatin 40 mg daily, Plavix 75 mg daily, insulin Lantus 35 at bedtime, isosorbide 30 mg daily, eyedrops latanoprost daily, lisinopril 40 mg daily, Flomax 0.4 daily, Coumadin 7.5 mg daily, Symbicort twice a day, vitamin D daily, loratadine 10 mg daily, metformin 1000 mg twice a day, potassium 20 mEq daily. FAMILY HISTORY: Positive for heart disease, COPD, had diabetes. SOCIAL HISTORY: Lives with his . Has smoked for at least 50 years, at least 1 pack. Denies alcohol. Denies any street drugs. REVIEW OF SYSTEMS: Complains of no chest pain, has some wheezing and dizziness. Rest of the 14-system was reviewed and negative. PHYSICAL EXAMINATION: GENERAL: The patient is not in any distress. VITAL SIGNS: Temperature 98, pulse 80, respirations 22, blood pressure 136/73, 92% on room air. HEENT: Had some soft tissue swelling on the forehead, but no ecchymosis, no bruising. Pupils equal. Oral cavity; no congestion. NECK: Supple. Thyroid not enlarged. JVD not elevated. CHEST: Symmetrical. CARDIOVASCULAR: S1, S2. No murmurs. LUNGS: Occasional wheezing. ABDOMEN: Soft, bowel sounds present, no mass palpable. EXTERNAL GENITALIA: No Kraus. EXTREMITIES: No calf tenderness, no edema. Pulses 1+. NEUROLOGIC: Moving all extremities. No focal deficits noted. LABORATORY DATA: Shows a white count of 11, hemoglobin 13, platelets 255. INR is 3.2. Electrolytes show sodium 141, potassium 4.0, chloride 105, bicarbonate 27, BUN 21, creatinine 1.2, glucose 179. LFTs normal. CT head; no fractures, no intracranial bleed. Chest x-ray; atelectasis, chronic COPD, carotid Doppler was negative. The patient had echocardiogram 2 weeks ago, which shows normal systolic function at 55% and the patient had a cardiac catheterization 2 weeks ago, shows 3-vessel coronary artery disease, stent restenosis, distal left circumflex, moderate restenosis of the LAD stent, but good blood flow. FINAL IMPRESSION: 1. Syncope vaso vegal?. 2. Known coronary artery disease, 3-vessel disease, medical management. 3. History of previous cardiac stents, does not need any intervention at this point, medical management. 4. Chronic obstructive pulmonary disease. 5. Diabetes. 6. Chronic atrial fibrillation, rate controlled on anticoagulation. 7. Chronic smoking. PLAN: At this time, Cardiology is consulted. Probably, the patient could be discharged home with outpatient Holter monitor and also orthostatic blood pressure checkup. Continue Coumadin and his cardiac medications. Smoking counseling was done. The patient is up-to-date on flu and pneumonia shots. COLEEN LOPEZ MD DR: JUAN/claritza JOB#: [id number] / [id number] MELVIN Warner
--- NOTE | 2019-09-25 10:44 | NUR ---
SS following up with discharge planning. SS reviewed pt chart. Pt is from home with spouse. Discharge order on the chart for home with self care.
[2019-09-25 10:45] LABS: PROTHROMBIN TIME PATIENT 33.4 SEC (11.7-14.0)
[2019-09-25] MEDS ORDERED: CHOLECALCIFEROL (VITAMIN D3) 1,000 UNIT TABLET PO SCH (11:00)
[2019-09-25] MEDS ORDERED: BRIMONIDINE 0.2% OPHTH SOLUTION 5ML BOTTLE. OU SCH (11:00)
[2019-09-25] MEDS ORDERED: POTASSIUM CHLORIDE 20 MEQ TABLET.ER. PO SCH (11:00)
[2019-09-25] MEDS ORDERED: amLODIPine BESYLATE 5 MG TABLET PO SCH (11:00)
[2019-09-25] MEDS ORDERED: CLOPIDOGREL BISULFATE 75 MG TABLET PO SCH (11:00)
[2019-09-25] MEDS ORDERED: DORZOLAMIDE 2% OPHTH SOLUTION 10ML BOTTLE. OU SCH (11:00)
[2019-09-25] MEDS ORDERED: AMIODARONE HCL 200 MG TABLET. PO SCH (11:00)
[2019-09-25] MEDS ORDERED: LISINOPRIL 20 MG TABLET PO SCH (11:00)
[2019-09-25] MEDS ORDERED: ISOSORBIDE MONONITRATE ER 30 MG TAB.ER.24H PO SCH (11:00)
[2019-09-25] MEDS ORDERED: INSULIN LISPRO 300 UNITS/3 ML VIAL. SQ SCH (12:00)
[2019-09-25] MEDS: ALBUTEROL SULFATE 2.5 MG/3 ML NEBU. NEB SCH ×2 (12:39→15:51)
[2019-09-25] MEDS: metFORMIN 500 MG TABLET PO SCH ×2 (13:25→17:00)
[2019-09-25 14:09] VITALS: BP 112/54
[2019-09-25 14:11] VITALS: BP_SYST 127; BP_SYST 128; BP_DIAS 63; BP_DIAS 65
--- NOTE | 2019-09-25 16:16 | RAD ---
Chest CT without contrast Clinical indications: COPD. Amiodarone therapy. Persistent dyspnea. COMPARISON: June 29, 2018. TECHNIQUE: Noncontrast helical CT scanning of the chest was performed. Without contrast, the sensitivity to detect organ pathology is decreased. PQRS compliance Statement One or more of the following individualized dose reduction techniques were utilized for this study: 1. Automated exposure control 2. Adjustment of the mA and/or kV according to patient size 3. Use of iterative reconstruction technique FINDINGS: No enlarged thoracic lymphadenopathy is evident. No focal aneurysmal dilatation of the thoracic aorta is seen. The heart size is normal and no pericardial effusion is seen. Calcified atheromatous disease of the coronary arteries is seen. Bilateral emphysema is seen with an upper lung zone predominance. There is peripheral subpleural interstitial lung infiltrates including honeycombing consistent with pulmonary fibrosis. Ill-defined groundglass lung infiltrate is seen within the lateral aspect of the right upper lobe and the lateral inferior aspect of the right middle lobe which are new. No hyperdense lung infiltrate is seen. There is a small left upper lobe lung nodule seen on image 20 and series 3 measuring 4 mm. There is a small peripheral lung nodule measuring 3 mm in size within the inferior segment lingula seen on image 41. Both of these findings were seen previously and are unchanged. On image 22, there is a small 3 mm lung nodule within the anterior aspect of the right upper lobe which is unchanged. No new lung nodule or lung mass is seen. The proximal bronchial tree is patent. No pleural effusion or pneumothorax is seen. No lytic process is seen. No adrenal mass is seen. Upper pole right renal cyst is seen. IMPRESSION: Bilateral emphysema and pulmonary fibrosis which was seen previously. New finding of groundglass lung infiltrates within the lateral aspect of the right upper lobe and the lateral and anterior aspect of the right middle lobe. This may be seen with distal airway infectious or inflammatory disease or alveolitis. Calcified atheromatous disease of the coronary arteries. Electronically signed by: Ulysses Maldonado MD (09/25/2019 4:13 PM) [facility]
[2019-09-25] MEDS ORDERED: METO25TA4 PO (16:53)
[2019-09-25] MEDS ORDERED: PRED-220 PO (16:56)
[2019-09-25 17:21] VITALS: BP 131/65
--- NOTE | 2019-09-25 17:25 | NUR ---
Discharge Note: JOLEEN ZIMMERMAN W [address] [place] [address] Discharge instructions and discharge home medications reviewed with Patient and a copy given. All questions have been answered and understanding verbalized. The following instructions and handouts were given: CP info, syncope info, smoking cessation info, discharge instructions. Discontinued lines and drains: Peripheral IV intact. Patient discharged to Home or Self Care with Friend via [facility] at 1725. New medications (prednisone, doxycycline, metoprolol) called into [facility] for patient.
--- NOTE | 2019-09-25 17:25 | NUR ---
Per Ulices Fofana, patient is supposed to see Dr. Rosado Wed. 10/02 at 0915 & patient was given card & told this information.
[2019-09-25] MEDS ORDERED: BUDESONIDE 0.5 MG/2 ML NEBU. NEB SCH (20:00)
[2019-09-25] MEDS ORDERED: DOXYCYCLINE HYCLATE 100 MG TABLET PO SCH (21:00)
[2019-09-25] MEDS ORDERED: ATORVASTATIN CALCIUM 40 MG TABLET. PO SCH (21:00)
[2019-09-25] MEDS ORDERED: LATANOPROST 0.005% OPHTH SOLUTION 2.5ML BOTTLE. OU SCH (21:00)
[2019-09-25] MEDS ORDERED: NON FORMULARY ITEM (Budesonide/Formoterol Fumarate (Symbicort 80-4.5 Mcg Inhaler) 2 PUFF) IH SCH (21:00)
[2019-09-25] MEDS ORDERED: METOPROLOL TART IMMED RELEASE 25 MG TABLET. PO SCH (21:00)
[2019-09-25] MEDS ORDERED: TAMSULOSIN 0.4 MG CAP.ER.24H. PO SCH (21:00)
[2019-09-26] MEDS ORDERED: predniSONE 20 MG TABLET PO SCH (09:00)
[2019-09-26] MEDS ORDERED: WARFARIN 7.5 MG TABLET. PO SCH (16:00)
--- NOTE | 2019-09-29 21:01 | PDOC ---
Provider Note Provider Note Discharge summary dictated.#[id number]. COLEEN LOPEZ MD Sep 29, 2019 21:01
--- NOTE | 2019-09-30 04:22 | DS ---
DATE OF DISCHARGE: 09/25/2019 ATTENDING PHYSICIAN: Emma Rae MD PRIMARY PHYSICIAN: Dr. Justine Root. REASON FOR ADMISSION TO THE HOSPITAL: Syncope. CONSULTATION: Dr. Boo Bennett. PROCEDURES DONE: CT head, carotid Dopplers and the CT chest. HOSPITAL COURSE: The patient is a 74-year-old male patient, recently was admitted to the hospital a week ago, had a cardiac catheterization shows patent stents. The patient had some previous stents and has a 3-vessel disease, had a recommended medical management. Continues to smoke, chronic COPD and chronic AFib, on Coumadin. He was trying to get out of his chair after a nap, he felt lightheaded, dizzy, passed out, hit his head, slight bruising, but no bleeding. CT head was negative. Carotid Doppler less than 30% stenosis and since the patient had a complete workup done recently, it was felt that he could be discharged home on outpatient Holter monitor. The patient had a CT of the chest, which showed some distal emphysema and scarring, continues to smoke, recommended to stop smoking and continue breathing treatments and would need outpatient sleep study. FINAL DIAGNOSES: 1. Syncope, probably vasovagal. 2. Chronic atrial fibrillation, rate controlled. 3. Coronary artery disease, previous stents, had a cardiac catheterization a week ago, shows some patent stents. Recommend medical management. 4. Chronic emphysema, chronic obstructive pulmonary disease. 5. Chronic smoker. 6. Chronic anticoagulation with therapeutic INRs. DISPOSITION: Home. Outpatient Holter monitor. Needs outpatient sleep study and the smoking counseling was done. EMMA RAE MD DR: JUAN/claritza JOB#: [id number] / [id number]
== END 2019-09-25 17:25 | disposition home or self-care (01) ==
LOC: ER 19:45 → 2 NORTH 22:30
PROVIDERS: ADMIT Internal Medicine; ATTEND Internal Medicine
DX: R55 Syncope and collapse (principal); I50.9 Heart failure, unspecified; I25.10 Atherosclerotic heart disease of native coronary artery without angina pectoris; J44.9 Chronic obstructive pulmonary disease, unspecified; E11.9 Type 2 diabetes mellitus without complications; I48.20 Chronic atrial fibrillation, unspecified; F17.200 Nicotine dependence, unspecified, uncomplicated; K21.9 Gastro-esophageal reflux disease without esophagitis; Z95.1 Presence of aortocoronary bypass graft; Z79.01 Long term (current) use of anticoagulants; Z96.653 Presence of artificial knee joint, bilateral; Z79.84 Long term (current) use of oral hypoglycemic drugs; Z98.890 Other specified postprocedural states
CPT/HCPCS: 36415; 70450; 71045; 71250; 80053; 82962; 83735; 83880; 84146; 84484; 85025; 85610; 93005; 93880; 94618; 94640; 96372; 96374; 97161; 99284; G0378; J1815; J2930; J7613; G0379

== ENCOUNTER 2019-11-23 14:02 | Observation (INO) | payer MEDICARE ==
[~2019-11-23] VITALS: Ht 170.2 cm; Wt 98.1 kg
[~2019-11-23 14:02] MED LIST changes: -CETI10TA22 PO; +CETI10TA24 PO; +DOXY100C2 PO; +PRED20TA PO
[2019-11-23] MEDS ORDERED: ASPIRIN CHEWABLE 81 MG TABLET. PO ONE (14:15)
--- NOTE | 2019-11-23 14:26 | RAD ---
Chest AP portable at 1410: Reason for examination: Chest pain. Comparison is made to previous study dated 11/01/2019. The heart size is normal. Mediastinum is unremarkable. Lung hagan are clear. No acute bony abnormalities are seen. Impression: No acute cardiopulmonary disease. Electronically signed by: Mary Guerrero MD (11/23/2019 2:23 PM) [id number]
[2019-11-23 14:34] LABS: BASO # 0.1 x10^3/uL (0.0-0.2); BASO % 1 % (0-3); EOS # 0.3 x10^3/uL (0.0-0.7); EOS % 3 % (0-3); HEMATOCRIT 39.9 % (39.0-53.0); HEMOGLOBIN 13.5 g/dL (13.0-17.5); LYMPH # 1.4 x10^3/uL (1.0-4.8); LYMPH % 16 % (24-48); MEAN CORPUSCULAR HEMOGLOBIN 30 pg (25-35); MEAN CORPUSCULAR HGB CONC 34 g/dL (31-37); MEAN CORPUSCULAR VOLUME 89 fL (79-100); MONO % 11 % (0-9); NEUT # 6.3 x10^3/uL (1.8-7.7); NEUT % 69 % (31-73); PLATELET COUNT 196 x10^3/uL (140-400); RED BLOOD COUNT 4.49 x10^6/uL (4.30-5.70); RED CELL DISTRIBUTION WIDTH 17.1 % (11.5-14.5); WHITE BLOOD COUNT 9.2 x10^3/uL (4.0-11.0)
[2019-11-23 14:41] LABS: CALCIUM 8.5 mg/dL (8.5-10.1); CREATININE 1.5 mg/dL (0.7-1.3); GFR 45.9; POTASSIUM 3.6 mmol/L (3.5-5.1)
--- NOTE | 2019-11-23 14:45 | PHYS DOC ---
Past Medical History Past Medical History: A-Fib, COPD, Diabetes-Type II, GERD, Hypertension, Lung Disease, [place] Additional Past Medical Histor: BLOOD IN STOOL. afib new 5/2 Past Surgical History: Knee Replacement, Other Additional Past Surgical Histo: 3 stents , neck surg, left shoulder; hernia Alcohol Use: None Drug Use: None Adult General Chief Complaint Chief Complaint: CHEST PAIN HPI HPI Patient is a 74 year old who presented ER today by private vehicle with complai nt of chest pain started last night and went away, this morning he started having chest pain again associated with some dizziness. Patient checked his blood sugar and it was elevated. Patient called his family doctor who told him to come to ER for evaluation. Patient has history of coronary artery disease, had several stent placed. Patient also has history of diabetes. He denies any history of blood clot disorder. Patient denies any cough or fever. He denies any abdominal pain, no nausea vomiting. aLL OTHER ros IS NEGATIVE UNLESS OTHERWISE NOTED IN hpi Review of Systems Review of Systems See above Current Medications Current Medications Current Medications Medications (Trade) Dose Ordered Sig/Jeffry Start Time Stop Time Status Last Admin Dose Admin Aspirin (Children'S Aspirin) 324 mg 1X ONCE 11/23/19 14:15 11/23/19 14:16 DC 11/23/19 15:39 324 MG Allergies Allergies Allergies Coded Allergies Type Severity Reaction Last Updated Verified Penicillins Allergy Intermediate Hives 12/29/14 Yes Physical Exam Physical Exam See above Constitutional: Well developed, well nourished, no acute distress, non-toxic appearance. [] HENT: Normocephalic, atraumatic, bilateral external ears normal, oropharynx moist, no oral exudates, nose normal. [] Eyes: PERRLA, EOMI, conjunctiva normal, no discharge. [] Neck: Normal range of motion, no tenderness, supple, no stridor. [] Cardiovascular:Heart rate regular rhythm, no murmur [] Lungs & Thorax: Bilateral breath sounds clear to auscultation [] Abdomen: Bowel sounds normal, soft, no tenderness, no masses, no pulsatile masses. [] Skin: Warm, dry, no erythema, no rash. [] Back: No tenderness, no CVA tenderness. [] Extremities: No tenderness, no cyanosis, no clubbing, ROM intact, no edema. [] Neurologic: Alert and oriented X 3, normal motor function, normal sensory function, no focal deficits noted. [] Psychologic: Affect normal, judgement normal, mood normal. [] Current Patient Data Vital Signs Vital Signs Date Time Temp Pulse Resp B/P (MAP) Pulse Ox O2 Delivery O2 Flow Rate FiO2 11/23/19 15:30 78 19 145/66 (92) 97 Room Air 11/23/19 14:10 97.5 97.5 Lab Values Laboratory Tests Test 11/23/19 14:15 11/23/19 15:40 White Blood Count 9.2 x10^3/uL (4.0-11.0) Red Blood Count 4.49 x10^6/uL (4.30-5.70) Hemoglobin 13.5 g/dL (13.0-17.5) Hematocrit 39.9 % (39.0-53.0) Mean Corpuscular Volume 89 fL (79-100) Mean Corpuscular Hemoglobin 30 pg (25-35) Mean Corpuscular Hemoglobin Concent 34 g/dL (31-37) Red Cell Distribution Width 17.1 % (11.5-14.5) H Platelet Count 196 x10^3/uL (140-400) Neutrophils (%) (Auto) 69 % (31-73) Lymphocytes (%) (Auto) 16 % (24-48) L Monocytes (%) (Auto) 11 % (0-9) H Eosinophils (%) (Auto) 3 % (0-3) Basophils (%) (Auto) 1 % (0-3) Neutrophils # (Auto) 6.3 x10^3/uL (1.8-7.7) Lymphocytes # (Auto) 1.4 x10^3/uL (1.0-4.8) Monocytes # (Auto) 1.0 x10^3/uL (0.0-1.1) Eosinophils # (Auto) 0.3 x10^3/uL (0.0-0.7) Basophils # (Auto) 0.1 x10^3/uL (0.0-0.2) Prothrombin Time 22.8 SEC (11.7-14.0) H Prothrombin Time INR 2.0 (0.8-1.1) H Activated Partial Thromboplast Time 36 SEC (24-38) Sodium Level 143 mmol/L (136-145) Potassium Level 3.6 mmol/L (3.5-5.1) Chloride Level 103 mmol/L (98-107) Carbon Dioxide Level 32 mmol/L (21-32) Anion Gap 8 (6-14) Blood Urea Nitrogen 20 mg/dL (8-26) Creatinine 1.5 mg/dL (0.7-1.3) H Estimated GFR (Cockcroft-Gault) 45.9 BUN/Creatinine Ratio 13 (6-20) Glucose Level 260 mg/dL (70-99) H Calcium Level 8.5 mg/dL (8.5-10.1) Magnesium Level 1.8 mg/dL (1.8-2.4) Total Bilirubin 0.5 mg/dL (0.2-1.0) Aspartate Amino Transferase (AST) 17 U/L (15-37) Alanine Aminotransferase (ALT) 35 U/L (16-63) Alkaline Phosphatase 94 U/L (46-116) Troponin I Quantitative 0.019 ng/mL (0.000-0.055) NE-Sir-M-Type Natriuretic Peptide 778 pg/mL (0-124) H Total Protein 6.0 g/dL (6.4-8.2) L Albumin 2.7 g/dL (3.4-5.0) L Albumin/Globulin Ratio 0.8 (1.0-1.7) L Lipase 170 U/L (73-393) Urine Collection Type Unknown Urine Color Yellow Urine Clarity Clear Urine pH 5.5 Urine Specific Brainard 1.025 Urine Protein 100 mg/dL (NEG-TRACE) Urine Glucose (UA) 500 mg/dL (NEG) Urine Ketones (Stick) Negative mg/dL (NEG) Urine Blood Negative (NEG) Urine Nitrite Negative (NEG) Urine Bilirubin Negative (NEG) Urine Urobilinogen Dipstick 1.0 mg/dL (0.2 mg/dL) Urine Leukocyte Esterase Negative (NEG) Urine RBC 0 /HPF (0-2) Urine WBC 1-4 /HPF (0-4) Urine Bacteria 0 /HPF (0-FEW) Urine Hyaline Casts Few /HPF Urine Mucus Marked /LPF Laboratory Tests 11/23/19 14:15 Laboratory Tests 11/23/19 14:15 EKG EKG EKG done at 1411 show heart rate of 77 beats per minute, sinus rhythm, no ST elevation. Radiology/Procedures Radiology/Procedures [][facility] [address] [place] [address] IMAGING REPORT Signed PATIENT: JOLEEN ZIMMERMAN ACCOUNT: [id number] : 1945 LOCATION: ER AGE: 74 SEX: M EXAM STATUS: PRE ER ORD. PHYSICIAN: JERRY ESPINO DO REASON: CHEST PAIN PROCEDURE: PORTABLE CHEST 1V Chest AP portable at 1410: Reason for examination: Chest pain. Comparison is made to previous study dated 11/01/2019. The heart size is normal. Mediastinum is unremarkable. Lung hagan are clear. No acute bony abnormalities are seen. Impression: No acute cardiopulmonary disease. Electronically signed by: Mary Lemus MD (11/23/2019 2:23 PM) [id number] DICTATED and SIGNED BY: MARY LEMUS MD DATE: 11/23/19 1423 Course & Med Decision Making Course & Med Decision Making Pertinent Labs and Imaging studies reviewed. (See chart for details) Patient is a 74-year-old male who was evaluated in the ER today due to chest pain associated with high blood sugar and dizziness. Patient's cardiac enzyme and EKG did not show any acute problem however he has high risk of for having coronary artery disease with previous history of coronary artery disease, we'll admit him to hospital for observation. Patient is pain-free at this time. Dragon Disclaimer Dragon Disclaimer This electronic medical record was generated, in whole or in part, using a voice recognition dictation system. Departure Departure Impression: Primary Impression: Chest pain Disposition: 09 ADMITTED INPATIENT Admitting Physician: Emma Rae Condition: STABLE (TALKED WITH DR. JUAN RAMON PRETTY) Referrals: MELVIN LOUIS (PCP) The HEART Score for CP Pts HEART Score for Chest Pain: HEART Score for Chest Pain Response (Comments) Value History Moderately Suspicious 1 Age > 65 2 Risk Factors >3 Risk Factors or Hx CAD 2 Troponin < Normal Limit 0 Total 5 Risk Factors: Risk Factors: DM, Current or recent (<one month) smoker, HTN, HLP, family history of CAD, obesity. Risk Scores: Score 0 - 3: 2.5% MACE over next 6 weeks - Discharge Home Score 4 - 6: 20.3% MACE over next 6 weeks - Admit for Clinical Observation Score 7 - 10: 72.7% MACE over next 6 weeks - Early Invasive Strategies JERRY ESPINO DO Nov 23, 2019 14:45
[2019-11-23 14:46] LABS: ALBUMIN 2.7 g/dL (3.4-5.0); ALBUMIN/GLOBULIN RATIO 0.8 (1.0-1.7); MAGNESIUM 1.8 mg/dL (1.8-2.4); TOTAL BILIRUBIN 0.5 mg/dL (0.2-1.0)
[2019-11-23 14:55] LABS: PROTHROMBIN TIME PATIENT 22.8 SEC (11.7-14.0)
[2019-11-23 15:55] LABS: BILIRUBIN,URINE NEGATIVE (NEG); CLARITY,URINE CLEAR; COLOR,URINE YELLOW; NITRITE,URINE NEGATIVE (NEG); PH,URINE 5.5; PROTEIN,URINE 100 mg/dL (NEG-TRACE)
[2019-11-23 16:02] LABS: BACTERIA,URINE 0 /HPF (0-FEW); HYALINE CASTS, URINE FEW /HPF; RBC,URINE 0 /HPF (0-2)
[2019-11-23 18:43] VITALS: BP 155/96
[2019-11-23] MEDS ORDERED: ALBUTEROL SULFATE 2.5 MG/3 ML NEBU. NEB PRN (20:00)
[2019-11-23] MEDS: BRIMONIDINE 0.2% OPHTH SOLUTION 5ML BOTTLE. OU SCH (20:52)
[2019-11-23] MEDS: DORZOLAMIDE 2% OPHTH SOLUTION 10ML BOTTLE. OU SCH (20:52)
[2019-11-23] MEDS: METOPROLOL TART IMMED RELEASE 25 MG TABLET. PO SCH (20:52)
[2019-11-23] MEDS ORDERED: WARFARIN 7.5 MG TABLET. PO SCH (21:00)
[2019-11-23] MEDS ORDERED: INSULIN GLARGINE SYRINGE. SQ SCH (21:00)
[2019-11-23] MEDS ORDERED: ATORVASTATIN CALCIUM 40 MG TABLET. PO SCH (21:00)
[2019-11-23 22:20] VITALS: BP 123/65
[2019-11-24 02:40] VITALS: BP 128/67
[2019-11-24 05:16] LABS: HEMATOCRIT 39.5 % (39.0-53.0); HEMOGLOBIN 12.9 g/dL (13.0-17.5); RED BLOOD COUNT 4.39 x10^6/uL (4.30-5.70); RED CELL DISTRIBUTION WIDTH 17.2 % (11.5-14.5); WHITE BLOOD COUNT 8.3 x10^3/uL (4.0-11.0)
[2019-11-24 05:32] LABS: CALCIUM 8.6 mg/dL (8.5-10.1)
[2019-11-24 05:33] LABS: CREATININE 1.2 mg/dL (0.7-1.3); GFR 59.3; POTASSIUM 3.8 mmol/L (3.5-5.1)
[2019-11-24 07:00] VITALS: BP 128/60
[2019-11-24] MEDS: ALBUTEROL SULFATE 2.5 MG/3 ML NEBU. NEB SCH ×2 (07:55→11:15)
[2019-11-24] MEDS ORDERED: metFORMIN 500 MG TABLET PO SCH (08:00)
[2019-11-24] MEDS ORDERED: BUDESONIDE 0.5 MG/2 ML NEBU. NEB SCH (08:00)
[2019-11-24] MEDS: DORZOLAMIDE 2% OPHTH SOLUTION 10ML BOTTLE. OU SCH (08:39)
[2019-11-24] MEDS: BRIMONIDINE 0.2% OPHTH SOLUTION 5ML BOTTLE. OU SCH (08:39)
[2019-11-24] MEDS: METOPROLOL TART IMMED RELEASE 25 MG TABLET. PO SCH (08:40)
[2019-11-24] MEDS ORDERED: ISOSORBIDE MONONITRATE ER 30 MG TAB.ER.24H PO SCH (09:00)
[2019-11-24] MEDS ORDERED: CETIRIZINE HCL 10 MG TABLET. PO PRN (09:00)
[2019-11-24] MEDS ORDERED: LISINOPRIL 20 MG TABLET PO SCH (09:00)
[2019-11-24] MEDS ORDERED: POTASSIUM CHLORIDE 20 MEQ TABLET.ER. PO SCH (09:00)
[2019-11-24] MEDS ORDERED: CHOLECALCIFEROL (VITAMIN D3) 1,000 UNIT TABLET PO SCH (09:00)
[2019-11-24] MEDS ORDERED: TAMSULOSIN 0.4 MG CAP.ER.24H. PO SCH (09:00)
[2019-11-24] MEDS ORDERED: CLOPIDOGREL BISULFATE 75 MG TABLET PO SCH (09:00)
[2019-11-24 10:32] VITALS: BP 110/60
--- NOTE | 2019-11-24 10:42 | CONS ---
DATE OF CONSULTATION: 11/24/2019 REASON FOR CONSULTATION: Chest pain. HISTORY OF PRESENT ILLNESS: The patient is a 74-year-old man with past medical history as noted below, coming to the hospital in the setting of chest pain. He was actually recently discharged from the hospital at the beginning of October for COPD exacerbation. He also had extensive cardiac evaluation over the last month and a half, which did not reveal any critical pathology. The patient reported some chest pain, came to the ER and had negative cardiac enzymes and the single aspirin relieved all his discomfort. He did not have any persistent angina. This morning, he is ambulating without any significant problems. Denies any syncope, palpitations, orthopnea, or PND. PAST MEDICAL HISTORY: 1. Syncope, likely induced due to vasovagal episode in the past. 2. Chronic dyspnea related to COPD and diastolic heart failure. 3. Paroxysmal atrial fibrillation, currently in sinus rhythm. 4. Coronary artery disease, status post left heart catheterization in 08/2019 with small-vessel disease and no obvious intervenable lesions and negative IFR of the LAD. 5. Type 2 diabetes. 6. Dyslipidemia. 7. History of obstructive sleep apnea, unable to tolerate CPAP. 8. Hypertension. 9. Chronic diastolic heart failure. SOCIAL HISTORY: Continues to smoke approximately a pack a day. He is on oxygen at nighttime and lives alone at home. No other illicit drug use or excessive alcohol use. FAMILY HISTORY: Noncontributory. ALLERGIES: PENICILLIN. CURRENT CARDIOVASCULAR MEDICATIONS: As follows: 1. Lisinopril 40 mg daily. 2. Imdur 30 mg daily. 3. Plavix 75 mg daily. 4. Warfarin 7.5 as directed. 5. Metoprolol 25 mg p.o. b.i.d. 6. Atorvastatin 40 mg daily. REVIEW OF SYSTEMS: Negative unless otherwise mentioned above in HPI. PHYSICAL EXAMINATION: VITAL SIGNS: Afebrile, 120/80, 95% on 2 liters nasal cannula. GENERAL: He is alert and oriented, no acute distress. HEAD AND NECK: Grossly unremarkable. No carotid bruits. CARDIAC: Regular rate and rhythm without any obvious murmurs noted. LUNGS: With bilateral rhonchi and occasional end-expiratory wheezing. ABDOMEN: Obese, protuberant, nontender, without any fluid waves. NEUROLOGIC: No focal deficits. MUSCULOSKELETAL: No obvious trauma. EXTREMITIES: A 2+ radial pulses, 1+ pedal pulses without any significant edema. SKIN: Without any obvious rashes. DIAGNOSTIC STUDIES: Hemoglobin, platelets, creatinine, cardiac enzymes are negative. INR is 2.0. Chest x-ray demonstrates no obvious new pathology. Cardiac catheterization in 08/2019 as noted above. Echocardiogram dated 09/03/2019 reveals normal LV systolic function without any significant pulmonary hypertension. IMPRESSION: Chest pain, atypical in nature without any obvious critical abnormalities noted on examination, EKG and laboratory studies. RECOMMENDATIONS: From a purely cardiovascular standpoint, no further testing is necessary as he had extensive testing within the last 3 months. Continue current medical therapy. He will follow up in the office as previously scheduled. Thank you for this consultation. Please call with any further questions. ELBA BROWN MD DR: ZENON/claritza JOB#: [id number] / [id number]
--- NOTE | 2019-11-24 10:43 | PDOC ---
Provider Note Provider Note Combined history and physical and discharge summary dictated #[id number] JUAN RAMON PRETTY MD Nov 24, 2019 10:43
[2019-11-24] MEDS ORDERED: DOXY100C2 PO (10:45)
--- NOTE | 2019-11-24 10:47 | DISCH ---
DISCHARGE INSTRUCTIONS Condition on Discharge Condition on Discharge: Stable Activity After Discharge Activity Instructions for Disc: Activity as tolerated, Avoid exertion Lifting Instructions after Dis: No heavy lifting, No pulling or pushing, Do not lift >10 pounds Exercise Instruction after Dis: Progress as tolerated Weight Bearing Status after Di: As tolerated Diet after Discharge Diet after Discharge: Diabetic No Calorie Level (cardiac) Diet Texture: Regular Liquid Texture: Thin Liquid Swallowing Supervision: None needed Checks after Discharge Checks after discharge: Check blood press - daily, Check blood sugar, ac/hs, Check your Temp as needed, Weigh Yourself Daily Contacting the DRMikey after DC Call your doctor for: Concerns you may have Follow-Up Follow up with: Dr. Root in 3 days Treatment/Equipment after DC Adaptive Equipment Issued: None JUAN RAMON PRETTY MD Nov 24, 2019 10:46
--- NOTE | 2019-11-24 11:00 | HP ---
ADMIT DATE: 11/24/2019 COMBINED HISTORY AND PHYSICAL AND DISCHARGE SUMMARY HISTORY OF PRESENT ILLNESS: This 74 years old male, who was recently admitted to this institution for exacerbation of COPD and who has a history of COPD, AFib, coronary artery disease, started having chest pains yesterday. He has been having cough and congestion with yellow mucus for the last 2 weeks. called me and stated that he was cold and clammy, had some swelling of the legs and had chest pains and some discoloration of the lower extremities. Because of that, ambulance was called and the patient was sent to the Emergency Room. In the Emergency Room, the patient was evaluated. Cardiac enzymes are within normal limits. Chest x-ray did not show any acute changes; however, because of being a high-risk patient, he was admitted for further evaluation and management. REVIEW OF SYSTEMS: At present time, the patient is complaining of cough and congestion. He does not have any chest pains. He denies any dyspnea, palpitations, dizziness, and diaphoresis at this time. He is feeling better. Other systems reviewed and are negative. The patient denies any nausea, vomiting, heartburn, diarrhea. PAST MEDICAL HISTORY: The patient is known to have history of atrial fibrillation; on Coumadin, coronary artery disease; had 3 stents about 8 years ago, hypertension, hyperlipidemia, COPD, gastroesophageal reflux disease, anxiety, depression, and chronic back pain. PAST SURGICAL HISTORY: Had umbilical hernia repair, total knee replacement, tonsillectomy, cervical disk surgery, rotator cuff surgery on the left side from injury 15 years ago, history of cardiac catheterization and stent placement 8 years ago and had 3 stents. FAMILY HISTORY: Positive for hypertension. SOCIAL HISTORY: Smokes 1 pack per day for 30-40 years. No history of alcoholism or drug abuse. ALLERGIES: THE PATIENT IS ALLERGIC TO PENICILLIN. MEDICATIONS: Reviewed and reconciled. PHYSICAL EXAMINATION: GENERAL: The patient is an elderly male, who is alert, oriented, not in acute distress. VITAL SIGNS: Temperature 96.8, pulse 78 per minute, respirations 18 per minute, blood pressure 155/96 mmHg. The patient is alert and oriented. HEENT: Throat: Mild congestion. Eyes: Pupils reacting to light. SKIN: Warm and dry. There is no cyanosis. NECK: Supple. JVP normal. No thyromegaly. LUNGS: Decreased breath sounds at bases. No wheezing. CARDIOVASCULAR: S1, S2 regular. ABDOMEN: Soft, nontender. No guarding. No rigidity. Bowel sounds present. EXTREMITIES: No edema. CENTRAL NERVOUS SYSTEM: Alert and oriented. LABORATORY FINDINGS: WBC count 9.2, hemoglobin 13.5 yesterday, hemoglobin is 12.9 today. Sodium 143, potassium 3.6, BUN 20, creatinine 1.5, glucose 260. BNP 778. Troponin 0.019, 0.045. Albumin 2.7. INR is 2. Urinalysis negative. Chest x-ray: No acute changes. FINAL DIAGNOSES: 1. Chest pain, myocardial infarction ruled out. 2. Coronary artery disease. 3. Atrial fibrillation. 4. Acute bronchitis. 5. Chronic obstructive pulmonary disease. 6. Hypertension. 7. Gastroesophageal reflux disease. PLAN: The patient is clinically stable. Cardiology consultation has been obtained with Dr. Parada. If it is okay with the merchandise complaint adjuster, we will discharge him today. DISPOSITION: Home. I will discharge him on current medications as well as doxycycline 100 mg twice a day with food for 7 days. The patient is on Coumadin, so his INR will need to be monitored. He has an appointment with his primary care physician, Dr. Root, in 3 days. He will follow up in [address] Root. For medication and transfer discharge orders, please refer to the orders. DISPOSITION: Home with self-care. Long-term as well as short-term prognosis is poor. JUAN RAMON PRETTY MD DR: MARLON/claritza JOB#: [id number] / [id number]
--- NOTE | 2019-11-24 12:30 | NUR ---
Pt discharged to home. All discharge instructions reviewed with pt. New script for antibiotics faxed to pharmacy. IV and tele d/c'd prior to discharge. Pt denies further needs. Pt assisted to car via wheelchair and staff.
--- NOTE | 2019-11-25 10:58 | EKG ---
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
== END 2019-11-24 12:37 | disposition home or self-care (01) ==
LOC: ER 14:02 → 2 SOUTH 17:00
PROVIDERS: ADMIT Internal Medicine; ATTEND Internal Medicine
DX: R07.89 Other chest pain (principal); I25.10 Atherosclerotic heart disease of native coronary artery without angina pectoris; I48.91 Unspecified atrial fibrillation; J20.9 Acute bronchitis, unspecified; J44.9 Chronic obstructive pulmonary disease, unspecified; I10 Essential (primary) hypertension; E11.9 Type 2 diabetes mellitus without complications; E78.5 Hyperlipidemia, unspecified; K21.9 Gastro-esophageal reflux disease without esophagitis; I25.2 Old myocardial infarction; F41.9 Anxiety disorder, unspecified; F32.9 Major depressive disorder, single episode, unspecified; F17.210 Nicotine dependence, cigarettes, uncomplicated; Z79.01 Long term (current) use of anticoagulants; Z95.1 Presence of aortocoronary bypass graft; Z96.659 Presence of unspecified artificial knee joint
CPT/HCPCS: 36415; 71045; 80048; 80053; 81001; 82962; 83690; 83735; 83880; 84484; 85025; 85027; 85610; 85730; 93005; 94640; 94760; 96372; 99284; G0378; J1815; J7613; J7626; G0379

== ENCOUNTER 2019-11-28 09:56 | Emergency (ER) | payer MEDICARE ==
[~2019-11-28] VITALS: Ht 170.2 cm; Wt 97.2 kg
[2019-11-28 10:40] VITALS: BP 124/64
--- NOTE | 2019-11-28 11:39 | PHYS DOC ---
Past Medical History Past Medical History: A-Fib, COPD, Diabetes-Type II, GERD, Hypertension, Lung Disease, [place] Additional Past Medical Histor: BLOOD IN STOOL. afib new 5/2 Past Surgical History: Knee Replacement, Other Additional Past Surgical Histo: 3 stents , neck surg, left shoulder; hernia Smoking Status: Current Every Day Smoker Alcohol Use: None Drug Use: None Adult General Chief Complaint Chief Complaint: Neck Pain HPI HPI Patient is a 74 year old, accompanied by his who presents to the emergency department with complaints of bilateral neck pain for the last 3 days. PT states he woke up with the pain. He has had pain like this before but it usually goes away after a day or two. He reports a history of previous cervical spinal fusion and plate placement 15 years ago. He denies any recent injury or fall. Patient denies any numbness, tingling, weakness, or decreased range of motion of his upper extremities. He currently rates his pain a 9/10 on the pain scale, he has been taking tylenol at home without relief. The pain is worse with movement and palpation. He denies any fever, cough, shortness of breath, chest pain, headache, vision change, dizziness, or palpitations. All other ROS is neg unless otherwise noted in HPI. Review of Systems Review of Systems See Above Current Medications Current Medications Current Medications Medications (Trade) Dose Ordered Sig/Jeffry Start Time Stop Time Status Last Admin Dose Admin Acetaminophen/ Hydrocodone Bitart (Lortab 5/325) 1 tab 1X ONCE 11/28/19 12:30 11/28/19 12:31 DC 11/28/19 12:29 1 TAB Cyclobenzaprine HCl (Flexeril) 10 mg 1X ONCE 11/28/19 12:00 11/28/19 12:01 DC 11/28/19 11:51 10 MG Dexamethasone Sodium Phosphate (Decadron) 10 mg 1X ONCE 11/28/19 11:45 11/28/19 11:46 DC 11/28/19 11:42 10 MG Orphenadrine Citrate (Norflex) 60 mg 1X ONCE 11/28/19 11:45 11/28/19 11:46 DC Allergies Allergies Allergies Coded Allergies Type Severity Reaction Last Updated Verified Penicillins Allergy Intermediate Hives 12/29/14 Yes Physical Exam Physical Exam See Above Constitutional: Well developed, well nourished, no acute distress, non-toxic appearance. [] HENT: Normocephalic, atraumatic, bilateral external ears normal, nose normal. [] Eyes: PERRLA, EOMI, conjunctiva normal, no discharge. [] Neck: Normal range of motion, no stridor. [] Cardiovascular:Heart rate regular rhythm Lungs & Thorax: Bilateral breath sounds clear to auscultation, Respirations even and unlabored, no retractions, no respiratory distress [] Skin: Warm, dry, no erythema, no rash. [] Back: No bony tenderness, bilateral paracervical TTP Extremities: No cyanosis, ROM intact, no edema; bilateral upper extremity strength and public health technologist equal[] Neurologic: Alert and oriented X 3, no focal deficits noted. [] Psychologic: Affect normal, judgement normal, mood normal. [] Current Patient Data Vital Signs Vital Signs Date Time Temp Pulse Resp B/P (MAP) Pulse Ox O2 Delivery O2 Flow Rate FiO2 11/28/19 12:29 16 99 Room Air 11/28/19 10:40 97.4 98 124/64 (84) 97.4 EKG EKG [] Radiology/Procedures Radiology/Procedures [] Course & Med Decision Making Course & Med Decision Making Pertinent Labs and Imaging studies reviewed. (See chart for details) Pt reports a little relief from meds given in the ER. States he would like to go home with prescriptions as he is unable to get comfortable on ER cart. Prescriptions written for flexeril, meloxicam, and norco 5/325 tabs #10. Ice or heat prn pain encouraged. Follow up with PCP in 1-2 days. Return to the ER if symptoms worsen, you develop a fever, numbness, tingling, weakness, headache, or vision changes. [] Dragon Disclaimer Dragon Disclaimer This electronic medical record was generated, in whole or in part, using a voice recognition dictation system. Departure Departure Impression: Primary Impression: Neck pain with history of cervical spinal surgery Additional Impressions: Neck pain without injury Neck pain, bilateral posterior Disposition: 01 HOME, SELF-CARE Condition: STABLE Referrals: MELVIN LOUIS (PCP) Patient Instructions: Cervical Sprain, [id number] Additional Instructions: Fill prescription(s) and use as directed. Recommend application of ice, elevation, and rest. Follow up with you primary care doctor in 1-2 days. Return to the ER if your symptoms worsen, or you develop a fever, numbness, tingling, weakness, headache, or vision changes. [] Scripts Meloxicam (MELOXICAM) 15 Mg Tablet 1 TAB PO DAILY for 7 Days, #7 TAB 0 Refills Prov: LISBETH CRUZ APRN 11/28/19 Hydrocodone Bit/Acetaminophen (HYDROCODONE-APAP 5-325 ) 1 Tab Tablet 1 TAB PO PRN Q6HRS PRN for PAIN for 3 Days, #10 TAB 0 Refills Prov: LISBETH CRUZ APRN 11/28/19 Cyclobenzaprine Hcl (CYCLOBENZAPRINE HCL) 10 Mg Tablet 1 TAB PO TID, #30 TAB 0 Refills Prov: LISBETH CRUZ APRN 11/28/19 Problem Qualifiers LISBETH CRUZ APRN Nov 28, 2019 11:39
[2019-11-28] MEDS: ORPHENADRINE CITRATE 60 MG/2 ML VIAL. IM ONE ×2 (11:42→11:45)
[2019-11-28] MEDS ORDERED: DEXAMETHASONE SOD PHOS 20 MG/5 ML VIAL. PO ONE (11:45)
[2019-11-28] MEDS ORDERED: CYCLOBENZAPRINE 10 MG TABLET. PO ONE (12:00)
[2019-11-28] MEDS ORDERED: HYDROcodone/APAP 5/325MG 1 TAB TABLET PO ONE (12:30)
[2019-11-28] MEDS ORDERED: MELO15TA23 PO (13:27)
[2019-11-28] MEDS ORDERED: HYDR-2761 PO (13:27)
[2019-11-28] MEDS ORDERED: CYCL10TA2 PO (13:27)
== END 2019-11-28 13:42 | disposition home or self-care (01) ==
LOC: ER 09:56
DX: M54.2 Cervicalgia (principal); I48.91 Unspecified atrial fibrillation; J44.9 Chronic obstructive pulmonary disease, unspecified; E11.9 Type 2 diabetes mellitus without complications; K21.9 Gastro-esophageal reflux disease without esophagitis; F17.200 Nicotine dependence, unspecified, uncomplicated; I10 Essential (primary) hypertension; I25.2 Old myocardial infarction; Z95.5 Presence of coronary angioplasty implant and graft; Z88.0 Allergy status to penicillin
CPT/HCPCS: 99284; J1100; J2360

== ENCOUNTER 2019-12-11 10:29 | Day surgery (SDC) | payer MEDICARE ==
[~2019-12-11 10:29] MED LIST changes: +BENZOCAINE ONE 20% MUCOSAL SPRAY. MM; +CYCL10TA2 PO; +DABI150C PO; +FLUT1DIS IH; +IV RINGERS,LACTATED 1000ML 1,000 ML IV SCH; +LIDOCAINE 2% TOPICAL JELLY 30GM TUBE. TP ONE; +LIDOCAINE 2% VISCOUS 15 ML SOLUTION. SWSW ONE; +MELO15TA23 PO; +MULT-735 PO; +PROVENTIL HFA6.7 G2 INH
[2019-12-11] MEDS ORDERED: PROPOFOL 20 ML IV ONE (13:03)
[2019-12-11 14:35] VITALS: BP 140/69
--- NOTE | 2019-12-12 13:37 | CARD ---
MR#: [id number] Date of Study: 12/11/2019 Ordering Physician: DENISE TOMLINSON, Referring Physician: DENISE TOMLINSON, Tech: Marcy Barboza APPROVED REPORT EXAM: Transesophageal echocardiogram with color flow Doppler. INDICATION Atrial Fibrillation RISK FACTORS Hypertension Hyperlipidemia Diabetes Smoking Reason For Test : Rule out Intracardiac Thrombus. PROCEDURE After obtaining informed consent, patient underwent transesophageal echo in the PACU. Type of Sedation : General Anesthesia Sedation was administered by Elvin Benedict. Sedation was achieved with Propofol 200mg intravenously. Transesophageal probe was inserted and advanced into esophagus by Denise Tomlinson MD. The KATLIN was performed without complications. Throughout the procedure, the blood pressure, pulse oximetry, cardiac rhythm, and rate were monitored . The patient tolerated the procedure without adverse effects. Recovery from general anesthesia was une ventful and vital signs were stable. LEFT VENTRICLE The left ventricle is normal size. There is mild concentric left ventricular hypertrophy. The left ve ntricular systolic function is normal and the ejection fraction is within normal range. The Ejection Fraction is 50-55%. The left ventricular diastolic function and filling is normal for age. No left ve ntricle thrombus noted on this study. RIGHT VENTRICLE The right ventricle is normal size. There is normal right ventricular wall thickness. The right ventr icular systolic function is normal. ATRIA The left atrium size is normal. The right atrium size is normal. The interatrial septum is intact wit h no evidence for an atrial septal defect or patent foramen ovale as noted on 2-D or Doppler imaging. There is no thrombus noted in the left atrial appendage. AORTIC VALVE The aortic valve is thickened but opens well. Doppler and Color Flow revealed no significant aortic r egurgitation. There is no significant aortic valvular stenosis. MITRAL VALVE The mitral valve is thickened but opens well. There is no evidence of mitral valve prolapse. There is no mitral valve stenosis. Doppler and Color-flow revealed trace mitral regurgitation. TRICUSPID VALVE The tricuspid valve is normal in structure and function. Doppler and Color Flow revealed no tricuspid valve regurgitation noted. There is no tricuspid valve stenosis. PULMONIC VALVE The pulmonary valve is normal in structure and function. Doppler and Color Flow revealed no pulmonic valvular regurgitation. GREAT VESSELS The aortic root is normal in size. Critical Notification Critical Value: No <Conclusion> The left ventricle is normal size. The left ventricular systolic function is normal and the ejection fraction is within normal range. The Ejection Fraction is 50-55%. There is mild concentric left ventricular hypertrophy. The interatrial septum is intact with no evidence for an atrial septal defect or patent foramen ovale as noted on 2-D or Doppler imaging. There is no thrombus noted in the left atrial appendage. Doppler and Color Flow revealed no significant aortic regurgitation. There is no significant aortic valvular stenosis. Doppler and Color-flow revealed trace mitral regurgitation. The tricuspid valve is normal in structure and function. Signed by : Denise Tomlinson MD Electronically Approved : 12/11/2019 15:51:27
== END 2019-12-11 14:40 | disposition home or self-care (01) ==
LOC: SURG 10:29
PROVIDERS: ATTEND Internal Medicine Cardiovascular Disease
DX: I48.91 Unspecified atrial fibrillation (principal); I34.0 Nonrheumatic mitral (valve) insufficiency; I10 Essential (primary) hypertension; E78.5 Hyperlipidemia, unspecified; E11.9 Type 2 diabetes mellitus without complications; Z79.899 Other long term (current) drug therapy; Z87.891 Personal history of nicotine dependence; Z79.84 Long term (current) use of oral hypoglycemic drugs
CPT/HCPCS: 82962; 93312; 93325; J2704

== ENCOUNTER 2021-02-11 10:18 | Emergency (ER) | payer MEDICARE, MEDICAID ==
[~2021-02-11] VITALS: Ht 170.2 cm; Wt 100.0 kg
[~2021-02-11 10:18] MED LIST changes: -AMIO200T4 PO; +AMIO200T6 PO; +AMLO-186 PO; +AMLO-187 PO; -AMLO10TA8 PO; -AMLO5TAB10 PO; -BENZOCAINE ONE 20% MUCOSAL SPRAY. MM; -CETI10TA24 PO; +CETI10TA74 PO; -IV RINGERS,LACTATED 1000ML 1,000 ML IV SCH; -LIDOCAINE 2% TOPICAL JELLY 30GM TUBE. TP ONE; -LIDOCAINE 2% VISCOUS 15 ML SOLUTION. SWSW ONE; +NYST15CR TP; -WARF-78 PO; +WARF5TAB2 PO
[2021-02-11] MEDS ORDERED: HYDR-2761 PO (10:41)
--- NOTE | 2021-02-11 10:42 | PHYS DOC ---
Past Medical History Past Medical History: A-Fib, COPD, Diabetes-Type II, GERD, Hypertension, Lung Disease, [place] Additional Past Medical Histor: BLOOD IN STOOL. afib new 5/2 Past Surgical History: Cholecystectomy, Knee Replacement, Other Additional Past Surgical Histo: 3 stents , neck surg, left shoulder; hernia Smoking Status: Current Every Day Smoker Alcohol Use: None Drug Use: None General Adult EDM: Chief Complaint: Knee pain HPI: HPI: 75-year-old male presenting the emergency department today with knee pain on the right. His pain is been present for 6 months but worsened today. He was having trouble putting weight on it. He denies any recent traumatic injury. He describes the pain is sharp shooting moderate nonradiating without alleviating factors. He denies any numbness weakness or tingling of the foot. The pain is in the proximal part of the knee mostly in the muscular region however he is mildly tender on the lateral portions of his knee. Review of systems negative for chest pain shortness of breath vomiting fevers chills. He denies unilateral leg swelling hemoptysis or new rashes. All other review of systems negative. ED course: 75-year-old male presenting with right knee pain. X-rays ordered. X-rays unremarkable. On K tracks the patient has recently received hydrocodone 30 tablets. We will not prescribe opiates as he already has some at home. Jemal wrap applied. Crutches offered. The patient has been examined and was not found to have an emergency medical condition. The patient was then discharged home in stable condition to follow up with their primary care physician over the next 1-2 days. They were to return if their symptoms worsened or if they were concerned for any reason. They were also instructed to return to the emergency department if they were unable to get the recommended and appropriate follow-up. [id number] discharge instructions and return precautions were given. Patient's questions were answered to their satisfaction. Patient is comfortable with plan. Heart Score: C/O Chest Pain: N/A Risk Factors: Risk Factors: DM, Current or recent (<one month) smoker, HTN, HLP, family history of CAD, obesity. Risk Scores: Score 0 - 3: 2.5% MACE over next 6 weeks - Discharge Home Score 4 - 6: 20.3% MACE over next 6 weeks - Admit for Clinical Observation Score 7 - 10: 72.7% MACE over next 6 weeks - Early Invasive Strategies Allergies: Allergies: Allergies Coded Allergies Type Severity Reaction Last Updated Verified Penicillins Allergy Intermediate Hives 12/11/19 Yes Physical Exam: PE: Constitutional: Well developed, well nourished, no acute distress, non-toxic appearance. [] HENT: Normocephalic, atraumatic, bilateral external ears normal, oropharynx moist, no oral exudates, nose normal. [] Eyes: PERRLA, EOMI, conjunctiva normal, no discharge. [] Neck: Normal range of motion, no tenderness, supple, no stridor. [] Cardiovascular:Heart rate regular rhythm, no murmur [] Lungs & Thorax: Bilateral breath sounds clear to auscultation [] Abdomen: Bowel sounds normal, soft, no tenderness, no masses, no pulsatile masses. [] Skin: Warm, dry, no erythema, no rash. [] Back: No tenderness, no CVA tenderness. [] Extremities: The patient's right lower extremity is normal in appearance. Palpable pulse distally with 2-second cap refill. Normal motor and sensory function of the foot. The knee is normal in appearance without an effusion. He is nontender of the patella. Mild tenderness in the lateral and medial portions of the knee. Normal range of motion of the knee joint. Tender to palpation in the m usculature of the distal quadriceps and quadriceps tendon. Patient is able to extend at the knee joint with 5 out of 5 strength and flex the knee joint with 5 out of 5 strength. The hip is nontender with normal range of motion of the hip. No rash. Normal skin overlying. Not warm to touch in the joints. The remainder the extremities are unremarkable nontender atraumatic and ne urovascular intact. Neurologic: Alert and oriented X 3, normal motor function, normal sensory function, no focal deficits noted. [] Psychologic: Affect normal, judgement normal, mood normal. [] EKG: EKG: [] Radiology/Procedures: Radiology/Procedures: [] Course & Med Decision Making: Course & Med Decision Making Pertinent Labs and Imaging studies reviewed. (See chart for details) [] Dragon Disclaimer: Dragon Disclaimer: This electronic medical record was generated, in whole or in part, using a voice recognition dictation system. Departure Departure Impression: Primary Impression: Knee pain, right Disposition: 01 HOME / SELF CARE / HOMELESS Condition: STABLE Referrals: COLEEN LOPEZ MD (PCP) Patient Instructions: Knee Pain Additional Instructions: EMERGENCY DEPARTMENT GENERAL DISCHARGE INSTRUCTIONS Follow-up with your primary physician in 1 to 2 days. Return to the emergency department if you have any new or concerning findings. Thank you for coming to [facility] Emergency Department (ED) today and trusting us with you care. We trust that you had a positive experience in our Emergency Department. If you wish to speak to the department management, you may call the Director at [phone]. Follow up is important in emergency/acute care visits. This condition should be evaluated by your primary care physician and any necessary consulting services for continued management within a few days (1-2) after discharge. Return to the emergency department if you have any new or concerning symptoms including but not limited to fever, chills, nausea, vomiting, intractable pain, any new rashes, chest pain, shortness of breath, uncontrolled bleeding, difficulty breathing, and/or vision loss. 1. Do you have a private Doctor? If you do not have a private doctor, please ask for a resource list of physicians or clinics that may be able to assist you with follow up care. 2. If a lab test or culture has been done and does not come back immediately, your results will be reviewed and you will be notified if you need a change in treatment. 3. Your care today has been supervised by a physician who is specially trained in emergency care. Many problems require more than one evaluation for a complete diagnosis and treatment. We recommend that you schedule your follow up appointment as recommended to ensure complete treatment of you illness or injury. If you are unable to obtain follow up care and continue to have a problem, or if your condition worsens, we recommend that you return to the ED. 4. We are not able to safely determine your condition over the phone nor are we able to give sound medical advice over the phone. For these safety reasons, if you call for medical advice we will ask you to come to the ED for further evaluation. IF YOUR SYMPTOMS WORSEN OR NEW SYMPTOMS DEVELOP, OR YOU HAVE CONCERNS ABOUT YOUR CONDITION; OR IF YOUR CONDITION WORSENS WHILE YOU ARE WAITING FOR YOUR FOLLOW UP APPOINTMENT; EITHER CONTACT YOUR PRIMARY CARE DOCTOR, THE PHYSICIAN WHOSE NAME AND NUMBER YOU WERE GIVEN, OR RETURN TO THE ED IMMEDIATELY. INDIA BLANCHARD MD Feb 11, 2021 10:42
--- NOTE | 2021-02-11 11:10 | RAD ---
EXAM: Right knee, 3 views. HISTORY: Pain. COMPARISON: None. FINDINGS: 3 views of the right knee are obtained. There is a right knee arthroplasty in expected posi tion. There is a small right knee effusion. There is no fracture, dislocation or subluxation. IMPRESSION: 1. Right knee arthroplasty in expected position. 2. Small right knee effusion. Electronically signed by: Urszula Ruby MD (02/11/2021 11:08 AM) [id number]
[2021-02-11 11:48] VITALS: BP 172/81
== END 2021-02-11 11:50 | disposition home or self-care (01) ==
LOC: ER 10:18
DX: M25.561 Pain in right knee (principal); I48.20 Chronic atrial fibrillation, unspecified; J44.9 Chronic obstructive pulmonary disease, unspecified; E11.9 Type 2 diabetes mellitus without complications; I10 Essential (primary) hypertension; I25.2 Old myocardial infarction; F17.200 Nicotine dependence, unspecified, uncomplicated; Z90.49 Acquired absence of other specified parts of digestive tract; Z98.890 Other specified postprocedural states; Z88.0 Allergy status to penicillin
CPT/HCPCS: 73562; 99283

== ENCOUNTER → 2021-07-12 | Outpatient (CLI) | payer MEDICAID, MEDICARE, OTHER ==
[~2021-07-12] MED LIST changes: +ALBU2.5V14 NEB; +ALOG25TA2 PO; +BUDE10.2 IH; +CHOL200010 PO; +CYAN25008 PO; -DOXY100C2 PO; +DOXY100C3 PO; +LATA7.5D OU; -OMEP40CA45 PO; +OMEP40CA7 PO; +PANT40TA6 PO; +TAMS0.4C97 PO; +WARF7.5T45 PO
[2021-07-12 08:55] LABS: BASO # 0.1 x10^3/uL (0.0-0.2); BASO % 1 % (0-3); EOS # 0.4 x10^3/uL (0.0-0.7); EOS % 4 % (0-3); HEMATOCRIT 42.3 % (39.0-53.0); HEMOGLOBIN 14.1 g/dL (13.0-17.5); LYMPH % 16 % (24-48); MEAN CORPUSCULAR HEMOGLOBIN 30 pg (25-35); MEAN CORPUSCULAR HGB CONC 33 g/dL (31-37); MEAN CORPUSCULAR VOLUME 89 fL (79-100); MONO # 1.1 x10^3/uL (0.0-1.1); MONO % 9 % (0-9); NEUT # 8.6 x10^3/uL (1.8-7.7); NEUT % 71 % (31-73); PLATELET COUNT 244 x10^3/uL (140-400); RED BLOOD COUNT 4.78 x10^6/uL (4.30-5.70); RED CELL DISTRIBUTION WIDTH 15.5 % (11.5-14.5); WHITE BLOOD COUNT 12.1 x10^3/uL (4.0-11.0)
[2021-07-12 09:07] LABS: ALBUMIN 3.4 g/dL (3.4-5.0); CALCIUM 8.9 mg/dL (8.5-10.1); CREATININE 1.2 mg/dL (0.7-1.3); POTASSIUM 4.2 mmol/L (3.5-5.1)
--- NOTE | 2021-07-12 12:31 | EKG ---
[facility] [address] [place] [address] Test Date: 2021-07-12 Test Time: 11:31:03 Pat Name: JOLEEN ZIMMERMAN Department: Room: Gender: Weight Inspector: Namita : 1945 Requested By: MORTEZA KWAN Order Number: [id number] Reading MD: Олег Tomlinson Measurements Intervals [place] Rate: 69 P: 90 OR: 204 QRS: 73 QRSD: 140 T: 38 QT: 486 QTc: 523 Interpretive Statements SINUS RHYTHM PREMATURE VENTRICULAR COMPLEX RIGHT BUNDLE BRANCH BLOCK Electronically Signed On 07-14-2021 14:21:32 CDT by Олег Tomlinson
[2021-07-13 01:08] LABS: HEMOGLOBIN A1C 7.4 % (4.8-5.6)
--- NOTE | 2021-07-13 14:00 | RAD ---
AP and Lateral Views of the Chest 07/12/2021 12:14 PM Indication: Reason: joint prehab class-hx cad, copd-preop evaluation for right hip placement / Comparison: Chest radiograph September 22, 2020 Findings: There is no focal consolidation or infiltrate identified. Aortic calcification noted. Heart size is normal. There is no evidence of pneumothorax or pleural effusion. No acute osseous abnormali ties are identified. Impression: No evidence of acute cardiopulmonary process. Electronically signed by: Rashi Sanchez MD (07/13/2021 8:43 AM) [id number]
== END ==
LOC: SURGPAT 11:48
PROVIDERS: ATTEND Orthopaedic Surgery
DX: Z01.818 Encounter for other preprocedural examination (principal); I45.10 Unspecified right bundle-branch block; R94.31 Abnormal electrocardiogram [ECG] [EKG]; M16.11 Unilateral primary osteoarthritis, right hip; I70.0 Atherosclerosis of aorta
CPT/HCPCS: 36415; 71046; 80048; 82040; 82306; 83036; 85025; 85610; 85651; 85730; 87641; 93005

== ENCOUNTER 2021-08-02 06:13 | Inpatient (IN) | payer OTHER ==
[2021-07-19 17:27] VITALS: BP 156/75
[~2021-08-02] VITALS: Ht 170.2 cm; Wt 95.3 kg
[2021-08-02] VITALS (9 sets, daily range): BP systolic 103–125; BP diastolic 45–72
[~2021-08-02 06:13] MED LIST changes: +ACETAMINOPHEN 500 MG TABLET PO PRN; +AMIO200T53 PO; -AMIO200T6 PO; +CLINDAMYCIN 900MG PREMIX 50 ML IV PRN; +CYCL10TA19 PO; -CYCL10TA2 PO; +GABAPENTIN 300 MG CAPSULE. PO PRN; +HYDROmorphone 2 MG/ML VIAL IVP PRN; +IV RINGERS,LACTATED 1000ML 1,000 ML IV SCH; +MELOXICAM 7.5 MG TABLET PO PRN; +PROCHLORPERAZINE 10 MG/2 ML VIAL. IVP PRN; +TRANEXAMIC ACID 1,000 MG in IV NS 50ML -- 1ST BAG INJ ONE; +TV=62ml MORPHINE 5 MG, KETOROLAC 30 MG, ROPIV, EPI INT ART ONE; +fentaNYL PF VIAL 100 MCG/2 ML VIAL IVP PRN
[2021-08-02] MEDS ORDERED: TRANEXAMIC ACID in NS IVPB 0 ML ONE (06:55)
[2021-08-02] MEDS ORDERED: TRANEXAMIC ACID in NS IVPB 50 ML ONE (06:55)
[2021-08-02] MEDS: INSULIN LISPRO 100 UNIT/ML 3ML VIAL for OP,RR ONLY. SQ PRN ×3 (07:07→11:25)
[2021-08-02] MEDS ORDERED: LIDOCAINE 2% PF 5 ML VIAL. ONE (07:10)
[2021-08-02] MEDS ORDERED: PROPOFOL 10 MG/ML (20ML) VIAL. IV ONE (07:10)
[2021-08-02] MEDS ORDERED: DEXAMETHASONE SOD PHOS 4 MG/ML VIAL ONE (07:11)
[2021-08-02] MEDS ORDERED: ONDANSETRON PF 4 MG/2 ML VIAL. ONE (07:11)
[2021-08-02] MEDS ORDERED: ROCURONIUM 100 MG/10 ML VIAL. ONE (07:13)
[2021-08-02] MEDS ORDERED: fentaNYL PF VIAL 250 MCG/5 ML VIAL ONE (07:13)
[2021-08-02 07:22] LABS: PROTHROMBIN TIME PATIENT 13.7 SEC (11.7-14.0)
[2021-08-02] MEDS ORDERED: GLYCOPYRROLATE 1 MG/5 ML VIAL. ONE (07:57)
[2021-08-02] MEDS ORDERED: NEOSTIGMINE METHYLSULFATE 5 MG/5 ML SYRINGE. ONE (07:58)
[2021-08-02] MEDS ORDERED: TRANEXAMIC ACID 1,000 MG in IV NS 50ML -- 2ND BAG INJ ONE (08:00)
[2021-08-02] MEDS ORDERED: PHENYLEPHRINE in 0.9% NACL PF 1 MG/10 ML SYRINGE. IV ONE (08:10)
[2021-08-02] MEDS ORDERED: ePHEDrine PF IN SALINE 50 MG/10 ML SYRINGE. IV ONE (08:27)
--- NOTE | 2021-08-02 08:52 | PDOC4 ---
OPERATIVE NOTE Date: Date: Aug 02, 2021 Pre-Op Diagnosis: Severe degenerative joint disease right hip Post-Op Diagnosis: Same Procedure Performed: Right total hip arthroplasty Surgeon: Heena Anesthesia Type: General Blood Loss: 100 cc Specimans Obtained: Femoral head Findings: See dictation Complications: None Operative Note: Size 5 femur 56 mm acetabular shell F liner -5 femoral head MORTEZA KWAN Jr. DO Aug 02, 2021 08:51
[2021-08-02] MEDS ORDERED: fentaNYL PF VIAL 100 MCG/2 ML VIAL ONE ×2 (09:20→11:40)
[2021-08-02] MEDS ORDERED: MORPHINE SULFATE 2 MG/ML INJ. ONE (09:20)
[2021-08-02] MEDS: fentaNYL PF VIAL 100 MCG/2 ML VIAL IVP PRN ×5 (09:24→11:51)
[2021-08-02] MEDS: MORPHINE SULFATE 2 MG/ML INJ. IVP PRN ×2 (09:25→09:39)
--- NOTE | 2021-08-02 11:11 | OP ---
DATE OF SURGERY: 08/02/2021 PREOPERATIVE DIAGNOSIS: Severe degenerative joint disease, right hip. POSTOPERATIVE DIAGNOSIS: Severe degenerative joint disease, right hip. PROCEDURE: Right total hip arthroplasty. COMPONENTS: Mehran and a B 56 acetabular shell with an F polyethylene liner, a -5 mm femoral head and a size 5 femur. SURGEON: Mark Naik Jr, DO TRACK SURFACING MACHINE OPERATOR: Diego Ching. ANESTHESIA: General. COMPLICATIONS: None. ESTIMATED BLOOD LOSS: 100 mL. Standard dictation for first sampler. DESCRIPTION OF PROCEDURE: The patient was taken to the operative suite, given general anesthetic, placed in lateral decubitus position after anesthesia was given. This was held with appropriate positioner. The right hip was then prepped and draped in a sterile fashion. Standard anterolateral approach to the hip was undertaken with incision through skin and subcutaneous tissues. Superficial bleeding was coagulated using a Bovie knife. This was split in line with the skin incision along the area of the iliotibial band. This was retracted anteriorly and posteriorly and the inferior portion of the gluteus medius and minimus were removed. The superior remaining intact. This was appropriately retracted and the capsule was identified of the hip. This was opened up in an H fashion and after this was completely released along the periphery of the labrum and this was dislocated. This was then measured 1 fingerbreadth above the lesser trochanter and the cut was made to remove that portion of the neck and the head. It was severely arthritic in both the acetabular as well as femoral sides. This was measured to be 52-53 mm and then reaming began at size 48 and continued at [address] up to size 56. This was noted to be appropriate for full coverage of the acetabulum and actually excellent bone was noted to be bleeding at this point. No soft points anteriorly or posteriorly; however. Therefore, the acetabular component was impacted and noted to be very stable. One screw of 25 mm in length was used to fixate the cup further and had excellent purchase. The trial cup was then placed and then gill box fixer was used to open up the femoral canal. The IM guide was then placed and removed and broaching began at size 0 and continued up to size 5. Size 5 was the most appropriate size, filled the canals very tight; therefore trialled at 0 and then -2.5 to - 5. This was noted to be stable at -2.5, very tight at 0. Therefore, the trial was then subsequently removed on the femoral side and the acetabular trial was removed. The actual F liner was then placed and impacted. The femoral component was then impacted. This was trialed again, but -5 was noted to be the most appropriate. Therefore, this was noted to be very stable throughout the arc of motion with extremes of motion and pistoning was excellent for position. The actual femoral head was then placed and impacted and noted to be secured on the femoral component and then relocated. Again, extremes of motion were noted without any abnormalities or instabilities at this point. This was copiously irrigated and suctioned dry. Capsule was then reapproximated in an interrupted fashion using #1 Ethibond. The same Ethibond was then used to secure back the gluteus medius and minimus to the original insertion sites into the greater trochanteric region. The iliotibial band was then reapproximated using the running barbed suture. Superficial tissues were reapproximated. Skin was reapproximated. A sterile dressing was applied as well as the suction dressing. The patient was then taken from the operative bed to the postoperative bed, taken to the PACU in stable condition. SHWETHA DR: Harris TID: [id number]
[2021-08-02] MEDS ORDERED: INSULIN LISPRO 100 UNIT/ML 3ML VIAL for OP,RR ONLY. SQ ONE ×3 (11:30)
[2021-08-02] MEDS ORDERED: fentaNYL PF VIAL 100 MCG/2 ML VIAL IVP PRN ×3 (11:45→12:00)
[2021-08-02] MEDS ORDERED: 0.9 % SODIUM CHLORIDE 10 ML DISP.SYRIN. IV PRN (11:45)
[2021-08-02] MEDS: IV NORMAL SALINE 1000ML BAG 1,000 ML IV SCH (11:45)
[2021-08-02] MEDS ORDERED: MORPHINE SULFATE 2 MG/ML INJ. IVP PRN ×2 (11:45)
[2021-08-02] MEDS ORDERED: diphenhydrAMINE 50 MG/ML VIAL IVP PRN (11:45)
[2021-08-02] MEDS: CLINDAMYCIN 900MG PREMIX 50 ML IV SCH ×2 (12:57→17:53)
[2021-08-02] MEDS: MULTIVITAMIN with MINERAL TABLET. PO SCH ×2 (12:59→17:49)
[2021-08-02] MEDS: SENNOSIDES/DOCUSATE 8.6/50MG TABLET. PO SCH (12:59)
[2021-08-02] MEDS: ONDANSETRON PF 4 MG/2 ML VIAL. IVP SCH ×3 (12:59→17:52)
--- NOTE | 2021-08-02 13:34 | RAD ---
EXAM: Right hip one view. HISTORY: Arthroplasty. COMPARISON: 06/30/2021. FINDINGS: A right total hip arthroplasty is in expected alignment. The acetabular component is fixed by one screw and the femoral component uncemented. No fractures are identified. Soft tissue gas and a drain are noted. IMPRESSION: 1. Right total hip arthroplasty in expected alignment. Electronically signed by: Dayday Patten MD (08/02/2021 1:32 PM) [id number]
[2021-08-02] MEDS ORDERED: NON FORMULARY ITEM (Albuterol Sulfate (Proventil Hfa) 1 PUFF) INH PRN (16:15)
[2021-08-02] MEDS ORDERED: ALBUTEROL SULFATE 2.5 MG/3 ML NEBU. NEB PRN (16:30)
[2021-08-02] MEDS: FERROUS SULFATE 325 MG TABLET. PO SCH (17:48)
[2021-08-02] MEDS: metFORMIN 500 MG TABLET PO SCH (17:48)
[2021-08-02] MEDS: WARFARIN 7.5 MG TABLET. PO SCH (17:49)
[2021-08-02] MEDS: oxyCODONE/APAP 5/325 1 TAB TABLET PO PRN (17:50)
--- NOTE | 2021-08-02 18:14 | NUR ---
received from recovery per bed. he is planning on going to his sisters to recover. vital signs have been stable. he is rating his pain 5-6. he has been medicated with fentanyl and a Percocet. meal given. he has good sensation, motion and pulses bilateral lower extremities. ambulated to the doorway and back with PT and rn; tolerated fair.
[2021-08-02] MEDS: BUDESONIDE 0.5 MG/2 ML NEBU. NEB SCH (20:14)
[2021-08-02] MEDS: ALBUTEROL SULFATE 2.5 MG/3 ML NEBU. NEB SCH (20:14)
[2021-08-02] MEDS ORDERED: NON FORMULARY ITEM (Budesonide/Formoterol Fumarate (Symbicort 160-4.5 Mcg Inhaler) 2 PUFF) IH SCH (21:00)
[2021-08-02] MEDS ORDERED: NON FORMULARY ITEM (Albuterol Sulfate (Albuterol Sulfate Conc Neb Soln) 2.5 MG) NEB SCH (21:00)
[2021-08-02] MEDS: LATANOPROST 0.005% OPHTH SOLUTION 2.5ML BOTTLE. OU SCH (21:04)
[2021-08-02] MEDS: METOPROLOL TART IMMED RELEASE 25 MG TABLET. PO SCH (21:05)
[2021-08-02] MEDS: SIMVASTATIN 20 MG TABLET PO SCH (21:05)
[2021-08-02] MEDS: oxyCODONE IR 5 MG TABLET PO PRN (21:06)
[2021-08-02] MEDS: INSULIN GLARGINE SYRINGE. SQ SCH (21:10)
[2021-08-02] MEDS ORDERED: DEXTROSE 50% 25 GM / 50ML DISP.SYRIN. IV PRN (22:45)
[2021-08-03] VITALS (7 sets, daily range): BP systolic 76–124; BP diastolic 41–64
[2021-08-03] MEDS: CLINDAMYCIN 900MG PREMIX 50 ML IV SCH (01:02)
[2021-08-03 04:49] LABS: HEMATOCRIT 38.2 % (39.0-53.0); HEMOGLOBIN 12.6 g/dL (13.0-17.5)
--- NOTE | 2021-08-03 04:55 | NUR ---
Patient had attempted to void multiple times and declined straight catheter. At 0435 bladder scan done and revealed 576. Straight catheter placed using sterile technique and Patient tolerated procedure without any complaints. Straight catheter removed at this time and 475 cc clear lobo urine removed. Paitent denies any c/o at this time.
[2021-08-03 04:56] LABS: PROTHROMBIN TIME PATIENT 14.6 SEC (11.7-14.0)
[2021-08-03] MEDS: ONDANSETRON PF 4 MG/2 ML VIAL. IVP SCH (05:34)
[2021-08-03] MEDS: traMADol 50 MG TABLET PO SCH ×3 (05:34→18:20)
[2021-08-03] MEDS: GABAPENTIN 100 MG CAPSULE. PO SCH ×3 (05:34→23:54)
[2021-08-03] MEDS: BUDESONIDE 0.5 MG/2 ML NEBU. NEB SCH ×2 (07:36→20:22)
[2021-08-03] MEDS: ALBUTEROL SULFATE 2.5 MG/3 ML NEBU. NEB SCH ×4 (07:37→20:22)
[2021-08-03] MEDS: metFORMIN 500 MG TABLET PO SCH ×2 (08:00→18:20)
[2021-08-03] MEDS: MELOXICAM 7.5 MG TABLET PO SCH (08:31)
[2021-08-03] MEDS: METOPROLOL TART IMMED RELEASE 25 MG TABLET. PO SCH ×2 (08:32→21:00)
[2021-08-03] MEDS: FERROUS SULFATE 325 MG TABLET. PO SCH ×2 (08:32→18:20)
[2021-08-03] MEDS: AMIODARONE HCL 200 MG TABLET. PO SCH (08:32)
[2021-08-03] MEDS: LINAGLIPTIN 5 MG TABLET PO SCH (08:32)
[2021-08-03] MEDS: POTASSIUM CHLORIDE 20 MEQ TABLET.ER. PO SCH (08:34)
[2021-08-03] MEDS: LISINOPRIL 20 MG TABLET PO SCH (08:34)
[2021-08-03] MEDS: CYANOCOBALAMIN (VITAMIN B-12) 100 MCG TABLET. PO SCH (08:34)
[2021-08-03] MEDS: ASPIRIN 325 MG TABLET PO SCH (08:35)
[2021-08-03] MEDS: ISOSORBIDE MONONITRATE ER 30 MG TAB.ER.24H PO SCH (08:35)
[2021-08-03] MEDS: SENNOSIDES/DOCUSATE 8.6/50MG TABLET. PO SCH (08:35)
[2021-08-03] MEDS: CHOLECALCIFEROL (VITAMIN D3) 1,000 UNIT TABLET PO SCH (08:35)
[2021-08-03] MEDS: TAMSULOSIN 0.4 MG CAP.ER.24H. PO SCH (08:36)
[2021-08-03] MEDS: CETIRIZINE HCL 10 MG TABLET. PO SCH (08:36)
[2021-08-03] MEDS: ACETAMINOPHEN 500 MG TABLET PO SCH ×3 (08:36→21:26)
[2021-08-03] MEDS: INSULIN LISPRO 300 UNITS/3 ML VIAL. SQ SCH ×3 (08:45→18:25)
[2021-08-03] MEDS: oxyCODONE/APAP 5/325 1 TAB TABLET PO PRN ×2 (08:46→20:31)
--- NOTE | 2021-08-03 09:36 | PDOC ---
Provider Note Date of Service: DATE: 08/03/21 TIME: 09:35 Provider Note Pt seen , H&P dictated. spoke with ortho yesterday. Justifications for Admission Other Justification COLEEN LOPEZ MD Aug 03, 2021 09:36
--- NOTE | 2021-08-03 10:04 | PDOC ---
Provider Note Date of Service: DATE: 08/03/21 TIME: 10:03 Provider Note Patient seen and evaluated today. There postop and undergoing postoperative treatment. No interval complications. Status post hip replacement postop day 1 Vital signs are stable and patient is afebrile No acute distress Hip dressing clean dry intact. Negative Debora and Jalil Diagnosis and plan: Postop day 1 status post total hip arthroplasty Patient is orthopedically stable although struggling a little bit with some mildly low blood pressure. He can be discharged home when more medically stable. He is going to be transferred to the joint unit today. Justifications for Admission Other Justification MELISSA THORNTON DO Aug 03, 2021 10:04 am
--- NOTE | 2021-08-03 10:20 | CONS ---
DATE OF CONSULTATION: 08/03/2021 MEDICAL CONSULTATION REASON FOR ADMISSION TO THE HOSPITAL: Elective admission for right total hip arthroplasty REASON FOR CONSULTATION: Primary care followup, history of COPD, AFib and diabetes. HISTORY OF PRESENT ILLNESS: The patient is a 76-year-old male with history of chronic COPD, history of hypertension, coronary artery disease, atrial fibrillation, on Coumadin, diabetes, previous strokes. The patient has DJD of the hip. The patient has seen orthopedics and scheduled for a total right hip arthroplasty. The patient did have surgery and I was asked to see for medical management. PAST MEDICAL HISTORY: As mentioned, the patient was last in the hospital in September for a stroke, has a history of atrial fibrillation, CAD, hypertension, [place], hyperlipidemia, COPD, sleep apnea, GERD, diabetes. PAST SURGICAL HISTORY: Cataract surgery, hernia repair, total knee replacement, tonsillectomy, cardiac stent, rotator cuff surgery, cervical neck fusion, vasectomy. ALLERGIES: ALLERGY TO PENICILLIN, CAUSES HIVES. FAMILY HISTORY: Positive for cancers and strokes and heart disease in the family. SOCIAL HISTORY: Half a pack to 1 pack for at least 40 years, quit drinking 15 years ago. The patient is ambulating at home. MEDICATIONS: At home, the patient is on meloxicam, hydrocodone, cyclobenzaprine, Lantus, Coumadin, amlodipine 5 mg, multivitamin, amiodarone, Proventil, Advair, metoprolol, Plavix, atorvastatin, vitamin D, metformin, loratadine, potassium, Flomax, ProAir, lisinopril. REVIEW OF SYMPTOMS: The patient feels better and denies any chest pain, shortness of breath, has some occasional wheezing. PHYSICAL EXAMINATION: VITAL SIGNS: On examination today, temperature 97, pulse 65, respirations 20, blood pressure 108/60, 95 on 2 liters. HEENT: Head is atraumatic. Pupils equal. Oral cavity, no dentures. NECK: Supple. Thyroid not enlarged. JVD not elevated. CARDIOVASCULAR: S1, S2. LUNGS: Occasional wheezing in both lungs posteriorly. ABDOMEN: Soft. EXTERNAL GENITALIA: Kraus was removed this morning. EXTREMITIES: No calf tenderness. Incision in the right hip did not examine at this time. NEUROLOGIC: Cranial nerves intact. Upper extremities normal strength. Lower extremities did not examine. LABORATORY DATA: Hemoglobin 12.6. INR 1.1. Blood sugars 157-200. FINAL IMPRESSION: 1. Status post right hip total replacement, total hip arthroplasty, postoperative day #1. 2. History of chronic obstructive pulmonary disease. 3. Diabetes. 4. Atrial fibrillation. 5. History of coronary artery disease. 6. History of previous strokes. PLAN: At this time, the patient is doing well post surgery. Continue breathing treatments, DVT prophylaxis with Coumadin and PT/OT, rehabilitation and see how he does, blood sugars and keep it around 150 to less than 200 and see how he improves. Again, thank you, Dr. Naik for allowing me to participate in the care of this patient. JUAN/AMBER DR: Mahad TID: [id number]
--- NOTE | 2021-08-03 11:00 | NUR ---
assumed care after Kingsley transferred to room 454. wants to go home today but was unable to void and is hypotensive. remains hypotensive at this time. denies dizzinees or lightheadedness. am care completed. up in recliner. does become soa with activity
[2021-08-03] MEDS: IV NORMAL SALINE 1000ML BAG 1,000 ML IV SCH (11:45)
--- NOTE | 2021-08-03 12:01 | NUR ---
Pharmacy Warfarin Dosing Note S: Pharmacy consulted to assist with anticoagulation therapy started SPAR FINISHER O: ERASMOJOLEEN W is a 76 year old M with Atrial Fibrillation LABS: Last INR: 1.1 Last HGB: 12.6 Last HCT: 38.2 Last dose of 7.5 mg given on 08/02/21 at 1749 Ongoing Drug Interactions: ASA, MOBIC, AMIODARONE A:INR of 1.1 is below desired range. Target range for this patient is: 2 -3 P: Warfarin dose: 7.5 mg PO DAILY (HOME REGIMEN) Bridge Therapy: None Next INR due 08/04/21 AM Pharmacy anticoagulation service will continue to follow. EVAN GALARZA [facility], 08/03/21 1203
--- NOTE | 2021-08-03 16:00 | NUR ---
unable to void at this time. bladder scan completed states that he has 500 cc. straight cath completed and returned 200 cc dk lobo urine. He has drink 1.5 pitcher of water to day but blood pressure remains hypotensive
[2021-08-03] MEDS ORDERED: IV NORMAL SALINE 1000ML BAG 500 ML IV SCH (16:45)
--- NOTE | 2021-08-03 16:45 | NUR ---
spoke with Dr. Naik regarding hypotension. obtained order for a bolus of fluid and to notify Dr. Rae if this does not help. Kingsley was encouraged to drink fluids.
[2021-08-03] MEDS: WARFARIN 7.5 MG TABLET. PO SCH (18:20)
--- NOTE | 2021-08-03 18:30 | NUR ---
bolus almost completed. resting in recliner. denies complaints at this time
[2021-08-03] MEDS: SIMVASTATIN 20 MG TABLET PO SCH (20:31)
[2021-08-03] MEDS: INSULIN GLARGINE SYRINGE. SQ SCH (20:37)
[2021-08-03] MEDS: LATANOPROST 0.005% OPHTH SOLUTION 2.5ML BOTTLE. OU SCH (21:26)
[2021-08-04] VITALS (8 sets, daily range): BP systolic 100–135; BP diastolic 44–76
[2021-08-04] MEDS: ACETAMINOPHEN 500 MG TABLET PO SCH ×4 (03:11→20:46)
--- NOTE | 2021-08-04 03:56 | NUR ---
BP 109/44. Assisted to stand at bedside, unable to urinate. Scrotum is swollen, pt states it's "not new". Bladder scan shows 174cc urine. Encouraged pt to drink more water. NS running 40cc/hr. CAMPA trying to get OOB. + harsh cough.
[2021-08-04] MEDS: traMADol 50 MG TABLET PO SCH ×2 (07:19)
[2021-08-04] MEDS: BUDESONIDE 0.5 MG/2 ML NEBU. NEB SCH ×2 (07:38→19:51)
[2021-08-04] MEDS: ALBUTEROL SULFATE 2.5 MG/3 ML NEBU. NEB SCH ×4 (07:38→19:51)
[2021-08-04] MEDS: INSULIN LISPRO 300 UNITS/3 ML VIAL. SQ SCH ×3 (08:00→17:00)
[2021-08-04] MEDS: CHOLECALCIFEROL (VITAMIN D3) 1,000 UNIT TABLET PO SCH (08:20)
[2021-08-04] MEDS: TAMSULOSIN 0.4 MG CAP.ER.24H. PO SCH (08:20)
[2021-08-04] MEDS: MELOXICAM 7.5 MG TABLET PO SCH (08:20)
[2021-08-04] MEDS: POTASSIUM CHLORIDE 20 MEQ TABLET.ER. PO SCH (08:21)
[2021-08-04] MEDS: CYANOCOBALAMIN (VITAMIN B-12) 100 MCG TABLET. PO SCH (08:21)
[2021-08-04] MEDS: FERROUS SULFATE 325 MG TABLET. PO SCH (08:22)
[2021-08-04] MEDS: LINAGLIPTIN 5 MG TABLET PO SCH (08:22)
[2021-08-04] MEDS: metFORMIN 500 MG TABLET PO SCH (08:22)
[2021-08-04] MEDS: AMIODARONE HCL 200 MG TABLET. PO SCH (08:22)
[2021-08-04] MEDS: ONDANSETRON PF 4 MG/2 ML VIAL. IVP PRN (08:25)
[2021-08-04] MEDS: SENNOSIDES/DOCUSATE 8.6/50MG TABLET. PO SCH (08:26)
[2021-08-04] MEDS: ASPIRIN 325 MG TABLET PO SCH (08:26)
[2021-08-04] MEDS: MULTIVITAMIN with MINERAL TABLET. PO SCH (08:26)
[2021-08-04] MEDS: oxyCODONE IR 5 MG TABLET PO PRN ×4 (08:26→20:46)
[2021-08-04] MEDS: CETIRIZINE HCL 10 MG TABLET. PO SCH (08:26)
[2021-08-04 09:00] LABS: BASO # 0.1 x10^3/uL (0.0-0.2); BASO % 1 % (0-3); EOS # 0.1 x10^3/uL (0.0-0.7); EOS % 1 % (0-3); HEMATOCRIT 30.4 % (39.0-53.0); HEMOGLOBIN 10.3 g/dL (13.0-17.5); LYMPH # 1.2 x10^3/uL (1.0-4.8); LYMPH % 8 % (24-48); MEAN CORPUSCULAR HEMOGLOBIN 31 pg (25-35); MEAN CORPUSCULAR HGB CONC 34 g/dL (31-37); MEAN CORPUSCULAR VOLUME 90 fL (79-100); MONO # 1.9 x10^3/uL (0.0-1.1); MONO % 13 % (0-9); NEUT # 11.8 x10^3/uL (1.8-7.7); NEUT % 78 % (31-73); PLATELET COUNT 206 x10^3/uL (140-400); RED BLOOD COUNT 3.38 x10^6/uL (4.30-5.70); RED CELL DISTRIBUTION WIDTH 15.8 % (11.5-14.5)
[2021-08-04 09:04] LABS: PROTHROMBIN TIME PATIENT 17.4 SEC (11.7-14.0)
[2021-08-04 09:10] LABS: CALCIUM 7.9 mg/dL (8.5-10.1); CREATININE 2.6 mg/dL (0.7-1.3); GFR 24.2; POTASSIUM 4.1 mmol/L (3.5-5.1)
[2021-08-04 10:14] LABS: % BANDS 2 % (0-9); % EOS 2 % (0-5); % LYMPHS 10 % (24-48); % MONOS 11 % (0-10); % SEGS 75 % (35-66); PLT ESTIMATE ADEQUATE (ADEQUATE)
[2021-08-04] MEDS: ISOSORBIDE MONONITRATE ER 30 MG TAB.ER.24H PO SCH (10:38)
[2021-08-04] MEDS: METOPROLOL TART IMMED RELEASE 25 MG TABLET. PO SCH ×2 (10:39→20:48)
--- NOTE | 2021-08-04 10:59 | NUR ---
Patient this morning presents with urinary retention, nausea, productive cough, headache, abdominal pain, and some dizziness. Dr Naik saw patient at bedside and assessed him this AM. Zofran ordered and given. BP medication was delayed in administration and only partially given due to dizziness and low BPs post op. Will continue to monitor. Patient has an elevated BUN and creatinine this AM along with his urinary retention. Dr Rae suggested a macias catheter to be inserted till tomorrow to help rest the patients kidneys/bladder and Dr Naik was called and agreed with him. Orders placed. 16F Macias catheter was inserted per sterile technique by this nurse around 1030 with 600 ml of straw/cloudy urine produced. Stat lock placed on patients left leg to secure catheter. Patient constipated and complaining of abdominal pain this morning during AM assessment. Order placed for KUB per Dr Rae.
--- NOTE | 2021-08-04 11:07 | PDOC ---
PROGRESS NOTES Date of Service: DATE: 08/04/21 TIME: 11:04 Subjective Subjective nausea ,no appetite,problems with urination Objective Objective Vital Signs Date Time Temp Pulse Resp B/P (MAP) Pulse Ox O2 Delivery O2 Flow Rate FiO2 08/04/21 10:39 87 120/47 08/04/21 08:56 93 Nasal Cannula 2.0 08/04/21 07:19 20 08/04/21 06:29 98.6 98.6 l Intake and Output 08/04/21 07:00 Intake Total 1790 ml Output Total 150 ml Balance 1640 ml Intake Oral 1790 ml Output Urine Total 150 ml Physical Exam Abdomen: Other (distended) Heart: Normal S1 Extremities: No clubbing General: Alert HEENT: Atraumatic Lungs: Clear to auscultation MUSCULOSKELETAL: No deformity, Osteoarthritic changes both hands, Other Neuro: Normal speech Psych/Mental Status: Mental status NL Skin: No breakdown Assessment Assessment FINAL IMPRESSION: 1. Status post right hip total replacement, total hip arthroplasty, postoperative day #2. 2. History of chronic obstructive pulmonary disease. 3. Diabetes. 4. Atrial fibrillation. 5. History of coronary artery disease. 6. History of previous strokes. PLAN: bladder retention,had to staight cath last night. abd distention,KUB. bladder scan ,straight cath prn cr 2.4 went up , wbc 15 went up iv fluids spoke with RN At this time, the patient is doing well post surgery. Continue breathing treatments, DVT prophylaxis with Coumadin and PT/OT, rehabilitation and see how he does, blood sugars and keep it around 150 to less than 200 and see how he improves. Comment Review of Relevant I have reviewed the following items david (where applicable) has been applied. Labs Laboratory Tests Test 08/03/21 11:42 08/03/21 16:30 08/03/21 20:00 08/04/21 06:03 Glucose (Fingerstick) 121 mg/dL (70-99) 216 mg/dL (70-99) 184 mg/dL (70-99) 98 mg/dL (70-99) Test 08/04/21 08:00 White Blood Count 15.0 x10^3/uL (4.0-11.0) Red Blood Count 3.38 x10^6/uL (4.30-5.70) Hemoglobin 10.3 g/dL (13.0-17.5) Hematocrit 30.4 % (39.0-53.0) Mean Corpuscular Volume 90 fL (79-100) Mean Corpuscular Hemoglobin 31 pg (25-35) Mean Corpuscular Hemoglobin Concent 34 g/dL (31-37) Red Cell Distribution Width 15.8 % (11.5-14.5) Platelet Count 206 x10^3/uL (140-400) Neutrophils (%) (Auto) 78 % (31-73) Lymphocytes (%) (Auto) 8 % (24-48) Monocytes (%) (Auto) 13 % (0-9) Eosinophils (%) (Auto) 1 % (0-3) Basophils (%) (Auto) 1 % (0-3) Neutrophils # (Auto) 11.8 x10^3/uL (1.8-7.7) Lymphocytes # (Auto) 1.2 x10^3/uL (1.0-4.8) Monocytes # (Auto) 1.9 x10^3/uL (0.0-1.1) Eosinophils # (Auto) 0.1 x10^3/uL (0.0-0.7) Basophils # (Auto) 0.1 x10^3/uL (0.0-0.2) Segmented Neutrophils % 75 % (35-66) Band Neutrophils % 2 % (0-9) Lymphocytes % 10 % (24-48) Monocytes % 11 % (0-10) Eosinophils % 2 % (0-5) Platelet Estimate Adequate (ADEQUATE) Prothrombin Time 17.4 SEC (11.7-14.0) Prothromb Time International Ratio 1.4 (0.8-1.1) Sodium Level 138 mmol/L (136-145) Potassium Level 4.1 mmol/L (3.5-5.1) Chloride Level 102 mmol/L (98-107) Carbon Dioxide Level 25 mmol/L (21-32) Anion Gap 11 (6-14) Blood Urea Nitrogen 42 mg/dL (8-26) Creatinine 2.6 mg/dL (0.7-1.3) Estimated GFR (Cockcroft-Gault) 24.2 Glucose Level 113 mg/dL (70-99) Calcium Level 7.9 mg/dL (8.5-10.1) Medications Current Medications Ondansetron HCl (Zofran) 4 mg PRN Q6HRS PRN IVP NAUSEA/VOMITING Last administered on 08/04/21at 08:25; Start 08/04/21 at 08:15 Sodium Chloride 500 ml @ 250 mls/hr Q2H IV Last administered on 08/03/21at 16:45; Start 08/03/21 at 16:45; Stop 08/03/21 at 18:44; Status DC Vitals/I & O Vital Sign - Last 24 Hours 08/03/21 08/03/21 08/03/21 08/03/21 11:48 11:50 13:28 14:33 Temp 98.4 97.3 98.4 97.3 Pulse 73 75 68 Resp 22 24 B/P (MAP) 77/43 (54) 76/46 (56) 86/48 (61) Pulse Ox 97 96 92 O2 Delivery Nasal Cannula Nasal Cannula Nasal Cannula O2 Flow Rate 2.0 2.0 2.0 08/03/21 08/03/21 08/03/21 08/03/21 18:50 19:00 20:00 20:23 Temp 98.3 98.3 Pulse 88 Resp 20 24 B/P (MAP) 92/41 (58) Pulse Ox 96 96 O2 Delivery Nasal Cannula Nasal Cannula Nasal Cannula O2 Flow Rate 2.0 2.0 2.0 08/03/21 08/03/21 08/03/21 08/04/21 20:31 21:14 22:51 03:00 Temp 98.6 98.8 98.6 98.8 Pulse 77 81 Resp 24 16 20 22 B/P (MAP) 102/53 (69) 109/44 (65) Pulse Ox 93 93 O2 Delivery Nasal Cannula Nasal Cannula Nasal Cannula O2 Flow Rate 2.0 2.0 2.0 08/04/21 08/04/21 08/04/21 08/04/21 06:29 07:19 07:40 07:49 Temp 98.6 98.6 Pulse 90 Resp 21 20 B/P (MAP) 107/62 (77) Pulse Ox 93 93 93 O2 Delivery Nasal Cannula Nasal Cannula Nasal Cannula Nasal Cannula O2 Flow Rate 2.0 2.0 2.0 2.0 08/04/21 08/04/21 08/04/21 08/04/21 07:50 08:22 08:26 08:56 Pulse 79 B/P (MAP) 113/61 Pulse Ox 93 93 O2 Delivery Nasal Cannula Nasal Cannula Nasal Cannula O2 Flow Rate 2.0 2.0 2.0 08/04/21 08/04/21 10:38 10:39 Pulse 87 87 B/P (MAP) 120/47 120/47 Intake and Output 08/03/21 08/03/21 08/04/21 15:00 23:00 07:00 Intake Total 560 ml 1230 ml Output Total 150 ml 0 ml Balance 560 ml 1080 ml 0 ml Justifications for Admission Other Justification COLEEN LOPEZ MD Aug 04, 2021 11:07
[2021-08-04] MEDS: IV NORMAL SALINE 1000ML BAG 1,000 ML IV SCH ×2 (11:13→13:24)
[2021-08-04] MEDS: LISINOPRIL 20 MG TABLET PO SCH (12:03)
--- NOTE | 2021-08-04 13:38 | RAD ---
Supine abdomen. HISTORY: Urinary retention Supine view was taken of the abdomen. Bladder is mildly distended. There is gas in the colon possible mild ileus. There is no small bowel obstruction. There are no abnormal calcifications. Patient's had a cholecystectomy. Stomach is also mildly distended. IMPRESSION: 1. Mild distention of the colon. 2. Mild bladder distention. 3. No bowel obstruction or other acute finding. Electronically signed by: Lan Rojas MD (08/04/2021 1:36 PM) [facility]
[2021-08-04] MEDS: WARFARIN 7.5 MG TABLET. PO SCH (15:32)
[2021-08-04] MEDS ORDERED: cefTRIAXone IV Push 1 GM VIAL. IVP SCH (18:00)
[2021-08-04 18:49] LABS: BILIRUBIN,URINE SMALL (NEG); CLARITY,URINE TURBID; COLOR,URINE AMBER; NITRITE,URINE NEGATIVE (NEG); PROTEIN,URINE 100 mg/dL (NEG-TRACE)
[2021-08-04 19:02] LABS: BACTERIA,URINE 0 /HPF (0-FEW); RBC,URINE >40 /HPF (0-2)
[2021-08-04 19:04] LABS: AMORPHOUS SEDIMENT,UR PRESENT /HPF; GRANULAR CASTS,URINE MODERATE /HPF; HYALINE CASTS, URINE FEW /HPF; WAXY CASTS,URINE OCCASIONAL /HPF
[2021-08-04] MEDS: SIMVASTATIN 20 MG TABLET PO SCH (20:46)
[2021-08-04] MEDS: LATANOPROST 0.005% OPHTH SOLUTION 2.5ML BOTTLE. OU SCH (20:48)
[2021-08-04] MEDS: INSULIN GLARGINE SYRINGE. SQ SCH (20:54)
--- NOTE | 2021-08-04 21:28 | RAD ---
CT scan abdomen and pelvis without contrast 08/04/2021 CLINICAL HISTORY: Abdominal pain with distention, nausea and constipation. TECHNIQUE: Unenhanced, contiguous, 5 mm axial sections were obtained through the abdomen and pelvis. One or more of the following individualized dose reduction techniques were utilized for this study: 1. Automated exposure control. 2. Adjustment of the mA and/or kV according to patient size. 3. Use of iterative reconstruction technique. FINDINGS: Comparison study is dated 09/14/2016. Images through the lung bases demonstrate mild cardiomegaly. Areas of atelectasis and/or infiltrate i s seen involving both lower lobes, right greater than left. The liver, spleen, pancreas, adrenal glands and left kidney are within normal limits. A 6.2 cm rounde d low-attenuation lesion is involving superior pole of the right kidney. This likely represents a cys t. No further imaging evaluation is recommended. This is unchanged. Atherosclerotic calcification abdominal aorta is seen. The abdominal aorta tapers normally. Surgical clips are seen within the gallbladder fossa consistent with a cholecystectomy. Air and stool are seen throughout the colon. The appendix is well-visualized and within normal limits. Images through the pelvis demonstrate the urinary bladder to be contracted. A Kraus catheter is seen within the urinary bladder. Calcifications are seen within the prostate gland. No free fluid is noted . The patient is post right DEX. Very mild S-shaped curvature of the thoracolumbar spine is seen. Deg enerative changes are seen involving the lower thoracic and throughout the lumbar spine along with th e left hip. IMPRESSION: No acute abnormality is seen. Electronically signed by: Danielito Herrera MD (08/04/2021 9:25 PM) [id number]
[2021-08-05] MEDS: oxyCODONE IR 5 MG TABLET PO PRN (01:03)
[2021-08-05] MEDS: ACETAMINOPHEN 500 MG TABLET PO SCH ×4 (02:30→21:29)
[2021-08-05] MEDS: IV NORMAL SALINE 1000ML BAG 1,000 ML IV SCH ×3 (02:31→22:34)
[2021-08-05 02:34] VITALS: BP 134/60
[2021-08-05] MEDS: ONDANSETRON PF 4 MG/2 ML VIAL. IVP PRN ×3 (03:30→18:02)
[2021-08-05 06:14] VITALS: BP 154/56
--- NOTE | 2021-08-05 06:20 | NUR ---
Patient had episode of watery Emesis reddish brown in color. Wall suction and Yonker at bedside for PRN use. Speciment sent to lab. Patient verbalized some relief of discomfort post emesis. Cool cloth placed on forehead for comfort.
--- NOTE | 2021-08-05 06:25 | NUR ---
Page to Dr. Rae's service regarding emesis. Essie at Dr. Rea's service stated she would contact Dr. Rae.
[2021-08-05 06:56] LABS: GASTRIC OB PAT POSITIVE (NEG)
[2021-08-05] MEDS: BUDESONIDE 0.5 MG/2 ML NEBU. NEB SCH (07:17)
[2021-08-05] MEDS: ALBUTEROL SULFATE 2.5 MG/3 ML NEBU. NEB SCH ×3 (07:17→17:26)
--- NOTE | 2021-08-05 07:18 | NUR ---
Second call placed to Dr. Rae's service regarding emesis.
[2021-08-05] MEDS: PANTOPRAZOLE IV PUSH 40 MG VIAL. IVP SCH (07:52)
[2021-08-05] MEDS: ASPIRIN 325 MG TABLET PO SCH (08:00)
[2021-08-05] MEDS: INSULIN LISPRO 300 UNITS/3 ML VIAL. SQ SCH ×3 (08:00→17:00)
--- NOTE | 2021-08-05 08:00 | NUR ---
RESTS QUIETLY IN BED. HE HAD A COUPLE OF EMESIS OF REDDISH BROWN LIQUID. 1ST DOSE OF PROTONIX GIVEN. STATES HIS STOMACH HURTS ABDOMEN DISTENDED AND TENDER TO TOUCH IN THE LOWER QUADRANTS. ALVARADO PATENT WITH YELLOW URINE PATRICK ARZOLA AND ROHIT (GI) ARE HERE AND UPDATE GIVEN.
[2021-08-05 08:45] LABS: BASO # 0.1 x10^3/uL (0.0-0.2); BASO % 1 % (0-3); EOS % 0 % (0-3); HEMATOCRIT 30.1 % (39.0-53.0); HEMOGLOBIN 9.8 g/dL (13.0-17.5); LYMPH # 0.7 x10^3/uL (1.0-4.8); LYMPH % 5 % (24-48); MEAN CORPUSCULAR HEMOGLOBIN 29 pg (25-35); MEAN CORPUSCULAR HGB CONC 33 g/dL (31-37); MEAN CORPUSCULAR VOLUME 90 fL (79-100); MONO # 1.4 x10^3/uL (0.0-1.1); MONO % 10 % (0-9); NEUT # 12.8 x10^3/uL (1.8-7.7); NEUT % 85 % (31-73); PLATELET COUNT 236 x10^3/uL (140-400); RED BLOOD COUNT 3.35 x10^6/uL (4.30-5.70); RED CELL DISTRIBUTION WIDTH 15.6 % (11.5-14.5); WHITE BLOOD COUNT 14.9 x10^3/uL (4.0-11.0)
[2021-08-05 08:48] LABS: CALCIUM 8.1 mg/dL (8.5-10.1); CREATININE 1.7 mg/dL (0.7-1.3); GFR 39.5; POTASSIUM 4.4 mmol/L (3.5-5.1)
[2021-08-05] MEDS: AMIODARONE HCL 200 MG TABLET. PO SCH (09:00)
[2021-08-05] MEDS: MULTIVITAMIN with MINERAL TABLET. PO SCH (09:00)
[2021-08-05] MEDS: SENNOSIDES/DOCUSATE 8.6/50MG TABLET. PO SCH (09:00)
[2021-08-05] MEDS: TAMSULOSIN 0.4 MG CAP.ER.24H. PO SCH (09:00)
[2021-08-05] MEDS: LINAGLIPTIN 5 MG TABLET PO SCH (09:00)
[2021-08-05] MEDS: ISOSORBIDE MONONITRATE ER 30 MG TAB.ER.24H PO SCH (09:00)
[2021-08-05] MEDS: CYANOCOBALAMIN (VITAMIN B-12) 100 MCG TABLET. PO SCH (09:00)
[2021-08-05] MEDS: CHOLECALCIFEROL (VITAMIN D3) 1,000 UNIT TABLET PO SCH (09:00)
[2021-08-05] MEDS: CETIRIZINE HCL 10 MG TABLET. PO SCH (09:00)
[2021-08-05] MEDS: LISINOPRIL 20 MG TABLET PO SCH (09:00)
[2021-08-05] MEDS: METOPROLOL TART IMMED RELEASE 25 MG TABLET. PO SCH ×2 (09:00→21:29)
[2021-08-05 09:11] LABS: PROTHROMBIN TIME PATIENT 22.5 SEC (11.7-14.0)
--- NOTE | 2021-08-05 09:15 | PDOC ---
PROGRESS NOTES Date of Service: DATE: 08/05/21 TIME: 09:09 Subjective Subjective PERSISTENT N/V Objective Objective Vital Signs Date Time Temp Pulse Resp B/P (MAP) Pulse Ox O2 Delivery O2 Flow Rate FiO2 08/05/21 07:56 Nasal Cannula 2.0 08/05/21 06:14 98.3 90 20 154/56 (88) 93 98.3 Intake and Output 08/05/21 07:00 Intake Total 460 ml Output Total 850 ml Balance -390 ml Intake Oral 460 ml Output Urine Total 700 ml Emesis 150 ml Physical Exam Abdomen: Other (distended) Heart: Normal S1 Extremities: No clubbing General: Alert HEENT: Atraumatic Lungs: Clear to auscultation MUSCULOSKELETAL: No deformity, Osteoarthritic changes both hands, Other Neuro: Normal speech Psych/Mental Status: Mental status NL Skin: No breakdown Assessment Assessment FINAL IMPRESSION: persistent N/V bladder retention possible upper GI bleed 1. Status post right hip total replacement, total hip arthroplasty, postoperative day #3. 2. History of chronic obstructive pulmonary disease. 3. Diabetes. 4. Atrial fibrillation. 5. History of coronary artery disease. 6. History of previous strokes. PLAN:Ct scan -ve KUB mild illeus. wbc 15 cr 1.7 down from 2.5 GI consult ID consult macias placed for bladder retention abd distention,KUB. iv fluids spoke with RN Comment Review of Relevant I have reviewed the following items david (where applicable) has been applied. Labs Laboratory Tests Test 08/04/21 11:22 08/04/21 16:39 08/04/21 17:40 08/04/21 20:51 Glucose (Fingerstick) 151 mg/dL (70-99) 141 mg/dL (70-99) 170 mg/dL (70-99) Urine Collection Type Unknown Urine Color Suzanna Urine Clarity Turbid Urine pH 5.0 (<5.0-8.0) Urine Specific Bascom 1.025 (1.000-1.030) Urine Protein 100 mg/dL (NEG-TRACE) Urine Glucose (UA) Negative mg/dL (NEG) Urine Ketones (Stick) Negative mg/dL (NEG) Urine Blood Large (NEG) Urine Nitrite Negative (NEG) Urine Bilirubin Small (NEG) Urine Urobilinogen Dipstick 1.0 mg/dL (0.2 mg/dL) Urine Leukocyte Esterase Small (NEG) Urine RBC >40 /HPF (0-2) Urine WBC 5-10 /HPF (0-4) Urine Squamous Epithelial Cells Few /LPF Urine Transitional Epithelial Cells Few /LPF Urine Amorphous Sediment Present /HPF Urine Bacteria 0 /HPF (0-FEW) Urine Hyaline Casts Few /HPF Urine Granular Casts Moderate /HPF Urine Waxy Casts Occasional /HPF Urine Mucus Mod /LPF Test 08/05/21 06:00 08/05/21 06:34 08/05/21 08:30 Gastric Fluid Occult Blood Positive (NEG) Glucose (Fingerstick) 142 mg/dL (70-99) White Blood Count 14.9 x10^3/uL (4.0-11.0) Red Blood Count 3.35 x10^6/uL (4.30-5.70) Hemoglobin 9.8 g/dL (13.0-17.5) Hematocrit 30.1 % (39.0-53.0) Mean Corpuscular Volume 90 fL (79-100) Mean Corpuscular Hemoglobin 29 pg (25-35) Mean Corpuscular Hemoglobin Concent 33 g/dL (31-37) Red Cell Distribution Width 15.6 % (11.5-14.5) Platelet Count 236 x10^3/uL (140-400) Neutrophils (%) (Auto) 85 % (31-73) Lymphocytes (%) (Auto) 5 % (24-48) Monocytes (%) (Auto) 10 % (0-9) Eosinophils (%) (Auto) 0 % (0-3) Basophils (%) (Auto) 1 % (0-3) Neutrophils # (Auto) 12.8 x10^3/uL (1.8-7.7) Lymphocytes # (Auto) 0.7 x10^3/uL (1.0-4.8) Monocytes # (Auto) 1.4 x10^3/uL (0.0-1.1) Eosinophils # (Auto) 0.0 x10^3/uL (0.0-0.7) Basophils # (Auto) 0.1 x10^3/uL (0.0-0.2) Sodium Level 141 mmol/L (136-145) Potassium Level 4.4 mmol/L (3.5-5.1) Chloride Level 105 mmol/L (98-107) Carbon Dioxide Level 28 mmol/L (21-32) Anion Gap 8 (6-14) Blood Urea Nitrogen 46 mg/dL (8-26) Creatinine 1.7 mg/dL (0.7-1.3) Estimated GFR (Cockcroft-Gault) 39.5 Glucose Level 161 mg/dL (70-99) Calcium Level 8.1 mg/dL (8.5-10.1) Medications Current Medications Ceftriaxone Sodium (Rocephin) 1 gm Q24H IVP Last administered on 08/04/21at 20:48; Start 08/04/21 at 18:00 Pantoprazole Sodium (PROTONIX VIAL for IV PUSH) 40 mg DAILYAC IVP Last administered on 08/05/21at 07:52; Start 08/05/21 at 08:00 Vitals/I & O Vital Sign - Last 24 Hours 08/04/21 08/04/21 08/04/21 08/04/21 09:58 10:37 10:38 10:39 Temp 98.0 98.0 Pulse 87 87 87 87 Resp 22 B/P (MAP) 132/57 (82) 135/76 (95) 120/47 120/47 Pulse Ox 95 O2 Delivery Nasal Cannula O2 Flow Rate 2.0 08/04/21 08/04/21 08/04/21 08/04/21 11:10 11:45 12:01 12:03 Temp 98.7 98.7 Pulse 78 84 Resp 22 B/P (MAP) 129/64 (85) 120/65 Pulse Ox 93 O2 Delivery Nasal Cannula Nasal Cannula Nasal Cannula O2 Flow Rate 2.0 2.0 2.0 08/04/21 08/04/21 08/04/21 08/04/21 12:04 12:31 15:02 15:55 Temp 98.4 98.4 Pulse 84 83 Resp 20 B/P (MAP) 120/65 117/58 (77) Pulse Ox 93 94 95 O2 Delivery Nasal Cannula Room Air Nasal Cannula O2 Flow Rate 2.0 2.0 08/04/21 08/04/21 08/04/21 08/04/21 17:35 18:05 18:41 19:38 Temp 98.4 98.4 Pulse 76 Resp 20 B/P (MAP) 126/63 (84) Pulse Ox 95 93 93 O2 Delivery Nasal Cannula Nasal Cannula Room Air Nasal Cannula O2 Flow Rate 2.0 2.0 2.0 2.0 08/04/21 08/04/21 08/04/21 08/04/21 19:50 20:46 20:48 21:16 Pulse 84 Resp 18 B/P (MAP) 130/65 Pulse Ox 94 94 O2 Delivery Nasal Cannula Nasal Cannula Nasal Cannula O2 Flow Rate 2.0 2.0 2.0 08/04/21 08/05/21 08/05/21 08/05/21 23:16 01:03 01:33 02:34 Temp 98.2 98.6 98.2 98.6 Pulse 107 82 Resp 22 18 16 16 B/P (MAP) 100/54 (69) 134/60 (84) Pulse Ox 91 91 91 89 O2 Delivery Nasal Cannula Nasal Cannula Nasal Cannula Nasal Cannula O2 Flow Rate 2.0 2.0 2.0 2.0 08/05/21 08/05/21 08/05/21 02:40 06:14 07:56 Temp 98.3 98.3 Pulse 83 90 Resp 18 20 B/P (MAP) 154/56 (88) Pulse Ox 93 93 O2 Delivery Nasal Cannula Nasal Cannula O2 Flow Rate 2.0 2.0 2.0 Intake and Output 08/04/21 08/04/21 08/05/21 15:00 23:00 07:00 Intake Total 240 ml 120 ml 100 ml Output Total 700 ml 150 ml Balance 240 ml -580 ml -50 ml Justifications for Admission Other Justification COLEEN LOPEZ MD Aug 05, 2021 09:15
--- NOTE | 2021-08-05 09:16 | PDOC2 ---
GI CONSULT Date of Service: DATE: 08/05/21 TIME: 09:16 Reason For Consult: positive gastric occult HPI: HPI: 76 y/o male s/p right total hip arthroplasty on 08/02/21. Vomiting yesterday - "red-black." Also had NETO. Imaging unrevealing for acute issue. Vomiting ongoing this morning - now "black." He reports mid/upper abdominal discomfort. He is quite drowsy, falling asleep during interview. No stools during admission. Started on IV PPI. Hgb 12.6 to 10.3 to 9.8. BUN 46 today (42 yesterday). Denies reflux/heartburn, dysphagia, chronic n/v or abd pain, diarrhea, hematochezia, melena, or weight loss. Has occasional constipation. From previous encounter, had EGD and colonoscopy w/ Dr. Hays ~6-7 years ago "somewhere else." Can see colonoscopy report from 2014 done for rectal bleeding - noted diverticulosis. H/o pancreatitis in 2015. S/p cholecystectomy since. Denies liver history. H/o A Fib on Coumadin - held before surgery, resumed post-op. Also received Meloxicam and ASA post-op. INR 1.4. On amiodarone. Denies NSAID use at home - says took hydrocodone. A1c was 7.4 in 06/2021. D/w nurse - some hypotension earlier this week, not now. PMH: PMH: A Fib, MA, CAD w/ stents, CHF, DM, HTN, HLD, CVA neck surgery, umbilical hernia repair, left rotator cuff repair, knee replacement, tonsillectomy, cholecystectomy FH: Family History: Cancer Social History: Smoke: <1 pack per day ALCOHOL: other (previously heavy, none for 15 years) Drugs: None ROS: GEN: Denies fevers, chills, sweats HEENT: Denies blurred vision, sore throat CV: Denies chest pain RESP: Denies shortness of air, cough GI: Per HPI : Denies hematuria, dysuria ENDO: Denies weight changes NEURO: Denies confusion, dizziness MSK: hip pain SKIN: Denies jaundice, pruritus Vitals: Vitals: Vital Signs Date Time Temp Pulse Resp B/P (MAP) Pulse Ox O2 Delivery O2 Flow Rate FiO2 08/05/21 07:56 Nasal Cannula 2.0 08/05/21 06:14 98.3 90 20 154/56 (88) 93 98.3 Labs: Labs: Laboratory Tests Test 08/04/21 11:22 08/04/21 16:39 08/04/21 17:40 08/04/21 20:51 Glucose (Fingerstick) 151 mg/dL (70-99) 141 mg/dL (70-99) 170 mg/dL (70-99) Urine Collection Type Unknown Urine Color Suzanna Urine Clarity Turbid Urine pH 5.0 (<5.0-8.0) Urine Specific Dilliner 1.025 (1.000-1.030) Urine Protein 100 mg/dL (NEG-TRACE) Urine Glucose (UA) Negative mg/dL (NEG) Urine Ketones (Stick) Negative mg/dL (NEG) Urine Blood Large (NEG) Urine Nitrite Negative (NEG) Urine Bilirubin Small (NEG) Urine Urobilinogen Dipstick 1.0 mg/dL (0.2 mg/dL) Urine Leukocyte Esterase Small (NEG) Urine RBC >40 /HPF (0-2) Urine WBC 5-10 /HPF (0-4) Urine Squamous Epithelial Cells Few /LPF Urine Transitional Epithelial Cells Few /LPF Urine Amorphous Sediment Present /HPF Urine Bacteria 0 /HPF (0-FEW) Urine Hyaline Casts Few /HPF Urine Granular Casts Moderate /HPF Urine Waxy Casts Occasional /HPF Urine Mucus Mod /LPF Test 08/05/21 06:00 08/05/21 06:34 08/05/21 08:30 Gastric Fluid Occult Blood Positive (NEG) Glucose (Fingerstick) 142 mg/dL (70-99) White Blood Count 14.9 x10^3/uL (4.0-11.0) Red Blood Count 3.35 x10^6/uL (4.30-5.70) Hemoglobin 9.8 g/dL (13.0-17.5) Hematocrit 30.1 % (39.0-53.0) Mean Corpuscular Volume 90 fL (79-100) Mean Corpuscular Hemoglobin 29 pg (25-35) Mean Corpuscular Hemoglobin Concent 33 g/dL (31-37) Red Cell Distribution Width 15.6 % (11.5-14.5) Platelet Count 236 x10^3/uL (140-400) Neutrophils (%) (Auto) 85 % (31-73) Lymphocytes (%) (Auto) 5 % (24-48) Monocytes (%) (Auto) 10 % (0-9) Eosinophils (%) (Auto) 0 % (0-3) Basophils (%) (Auto) 1 % (0-3) Neutrophils # (Auto) 12.8 x10^3/uL (1.8-7.7) Lymphocytes # (Auto) 0.7 x10^3/uL (1.0-4.8) Monocytes # (Auto) 1.4 x10^3/uL (0.0-1.1) Eosinophils # (Auto) 0.0 x10^3/uL (0.0-0.7) Basophils # (Auto) 0.1 x10^3/uL (0.0-0.2) Sodium Level 141 mmol/L (136-145) Potassium Level 4.4 mmol/L (3.5-5.1) Chloride Level 105 mmol/L (98-107) Carbon Dioxide Level 28 mmol/L (21-32) Anion Gap 8 (6-14) Blood Urea Nitrogen 46 mg/dL (8-26) Creatinine 1.7 mg/dL (0.7-1.3) Estimated GFR (Cockcroft-Gault) 39.5 Glucose Level 161 mg/dL (70-99) Calcium Level 8.1 mg/dL (8.5-10.1) Allergies: Coded Allergies: Penicillins (Verified Allergy, Intermediate, Hives, 08/02/21) Medications: Current Medications Medications (Trade) Dose Ordered Sig/Jeffry Route PRN Reason Start Time Stop Time Status Last Admin Dose Admin Ceftriaxone Sodium (Rocephin) 1 gm Q24H IVP 08/04/21 18:00 08/04/21 20:48 Pantoprazole Sodium (PROTONIX VIAL for IV PUSH) 40 mg DAILYAC IVP 08/05/21 08:00 08/05/21 07:52 Imaging: Imaging: CT A/P 08/04 IMPRESSION: No acute abnormality is seen. KUB 08/04 IMPRESSION: 1. Mild distention of the colon. 2. Mild bladder distention. 3. No bowel obstruction or other acute finding. CXR 08/02 IMPRESSION: 1. Right total hip arthroplasty in expected alignment. PE: GEN: uncomfortable HEENT: Atraumatic, PERRL LUNGS: coarse anteriorly, NC HEART: irregular ABD: quiet, some distention, periumbilical discomfort EXTREMITY: No edema SKIN: No rashes, no jaundice NEURO/PSYCH: lethargic A/P: A/P: Vomiting/hematemesis, upper abdominal discomfort Anemia, NETO, leukocytosis CRC screen - ?last in 2014 Diverticulosis Occasional constipation S/p cholecystectomy H/o pancreatitis - prior to cholecystectomy, also alcohol history H/o A Fib and CAD - Coumadin held, ASA stopped H/o DM - A1c >7 last month -- Imaging unrevealing, ongoing vomiting, Hgb drifting. Continue PPI, monitor Hgb. Check LFTs and lipase. Continue NPO for now; if vomiting recurs, consider NG tube - nurse thinks pt might be resistant to this. Address constipation as able; consider Relistor. Discussed w/ Dr. Tirado. ROHIT CROWDER Aug 05, 2021 09:16
--- NOTE | 2021-08-05 09:38 | PDOC ---
Infectious Disease Note Vital Sign Vital Signs Vital Signs Date Time Temp Pulse Resp B/P (MAP) Pulse Ox O2 Delivery O2 Flow Rate FiO2 08/05/21 07:56 Nasal Cannula 2.0 08/05/21 06:14 98.3 90 20 154/56 (88) 93 98.3 Labs Lab Laboratory Tests Test 08/04/21 11:22 08/04/21 16:39 08/04/21 17:40 08/04/21 20:51 Glucose (Fingerstick) 151 mg/dL (70-99) 141 mg/dL (70-99) 170 mg/dL (70-99) Urine Collection Type Unknown Urine Color Suzanna Urine Clarity Turbid Urine pH 5.0 (<5.0-8.0) Urine Specific Gamaliel 1.025 (1.000-1.030) Urine Protein 100 mg/dL (NEG-TRACE) Urine Glucose (UA) Negative mg/dL (NEG) Urine Ketones (Stick) Negative mg/dL (NEG) Urine Blood Large (NEG) Urine Nitrite Negative (NEG) Urine Bilirubin Small (NEG) Urine Urobilinogen Dipstick 1.0 mg/dL (0.2 mg/dL) Urine Leukocyte Esterase Small (NEG) Urine RBC >40 /HPF (0-2) Urine WBC 5-10 /HPF (0-4) Urine Squamous Epithelial Cells Few /LPF Urine Transitional Epithelial Cells Few /LPF Urine Amorphous Sediment Present /HPF Urine Bacteria 0 /HPF (0-FEW) Urine Hyaline Casts Few /HPF Urine Granular Casts Moderate /HPF Urine Waxy Casts Occasional /HPF Urine Mucus Mod /LPF Test 08/05/21 06:00 08/05/21 06:34 08/05/21 08:30 Gastric Fluid Occult Blood Positive (NEG) Glucose (Fingerstick) 142 mg/dL (70-99) White Blood Count 14.9 x10^3/uL (4.0-11.0) Red Blood Count 3.35 x10^6/uL (4.30-5.70) Hemoglobin 9.8 g/dL (13.0-17.5) Hematocrit 30.1 % (39.0-53.0) Mean Corpuscular Volume 90 fL (79-100) Mean Corpuscular Hemoglobin 29 pg (25-35) Mean Corpuscular Hemoglobin Concent 33 g/dL (31-37) Red Cell Distribution Width 15.6 % (11.5-14.5) Platelet Count 236 x10^3/uL (140-400) Neutrophils (%) (Auto) 85 % (31-73) Lymphocytes (%) (Auto) 5 % (24-48) Monocytes (%) (Auto) 10 % (0-9) Eosinophils (%) (Auto) 0 % (0-3) Basophils (%) (Auto) 1 % (0-3) Neutrophils # (Auto) 12.8 x10^3/uL (1.8-7.7) Lymphocytes # (Auto) 0.7 x10^3/uL (1.0-4.8) Monocytes # (Auto) 1.4 x10^3/uL (0.0-1.1) Eosinophils # (Auto) 0.0 x10^3/uL (0.0-0.7) Basophils # (Auto) 0.1 x10^3/uL (0.0-0.2) Sodium Level 141 mmol/L (136-145) Potassium Level 4.4 mmol/L (3.5-5.1) Chloride Level 105 mmol/L (98-107) Carbon Dioxide Level 28 mmol/L (21-32) Anion Gap 8 (6-14) Blood Urea Nitrogen 46 mg/dL (8-26) Creatinine 1.7 mg/dL (0.7-1.3) Estimated GFR (Cockcroft-Gault) 39.5 Glucose Level 161 mg/dL (70-99) Calcium Level 8.1 mg/dL (8.5-10.1) Objective Assessment pt seen, consult dictated Plan Plan of Care / POLLO NGUYEN MD Aug 05, 2021 09:38
--- NOTE | 2021-08-05 10:12 | CONS ---
DATE OF CONSULTATION: 08/05/2021 REQUESTING PHYSICIAN: Emma Rae MD REASON FOR CONSULTATION: Leukocytosis and possible aspiration after hip replacement. HISTORY OF PRESENT ILLNESS: This is a 76-year-old gentleman who was electively admitted for right total hip replacement. The patient's postoperative course was complicated by having unable to urinate, required Kraus catheter and then he has been vomiting in the last 2 days. His white count increased to 15,000. Creatinine was actually higher 2.6, which has improved to 1.7. Urinalysis was more bloody than infection and no cultures have been taken. The patient had abdominal CT, which was unremarkable and currently the patient is receiving Rocephin since yesterday. PAST MEDICAL HISTORY: Positive for gastroesophageal reflux disease, diabetes mellitus, sleep apnea, obesity, COPD, atrial fibrillation, coronary artery disease, hypertension. The patient is on home oxygen, mainly at night 2 liters. SOCIAL HISTORY: The patient continues to still smoke, no alcohol use or drug use. ALLERGIES: LISTED ALLERGIC TO PENICILLIN CAUSE HIVES. CURRENT MEDICATIONS: Reviewed. REVIEW OF SYSTEMS: As per the HPI. All other systems reviewed and are negative. The patient has not had any bowel movement and at least 5 or 6 vomiting he has had. The most recent one just now is coffee-ground emesis. PHYSICAL EXAMINATION: GENERAL: Alert, oriented gentleman, who does not feel well. VITAL SIGNS: Temperature 98.3, pulse 90, respirations 20, blood pressure 154/56. HEENT: Both pupils are round and reacting. No conjunctival lesion. No lesion in the mouth. NECK: Supple, no JVP, no lymphadenopathy. LUNGS: Clear. HEART: S1, S2, regular. ABDOMEN: Soft, nontender, no organomegaly. EXTREMITIES: No edema or cyanosis. SKIN: Unremarkable. NEUROLOGIC: The patient is alert, awake, and appropriate. No focal neurologic deficit. LABORATORY DATA: White count is 14.9. BUN and creatinine is 46 and 1.7. Urinalysis more than 40 rbc's, 5-[address] unremarkable. The abdominal CT had a lower part of the chest showing area of atelectasis and/or infiltrate seen in both the lower lobes, right more than left. IMPRESSION: 1. Leukocytosis. It may have been reactive to vomiting. It may have been secondary to steroids that he received during surgery. 2. Multiple vomiting, worrisome for aspiration. 3. Right hip arthroplasty. 4. Acute kidney injury, slowly improving. 5. Diabetes. 6. Hypertension. 7. Chronic obstructive pulmonary disease. 8. Coronary artery disease. 9. Atrial fibrillation. RECOMMENDATIONS: Would discontinue Rocephin and start meropenem. Supportive care. Try to obtain sputum if it is possible, chest x-ray and we will continue with hydration and continue to follow. Thank you very much, Dr. Rae, for giving me opportunity to participate in this patient's care. SOLE DR: Chrystal TID: [id number]
[2021-08-05 11:14] VITALS: BP_SYST 161; BP_DIAS 5; BP_DIAS 75
[2021-08-05 11:14] LABS: ALBUMIN 2.5 g/dL (3.4-5.0); DIRECT BILIRUBIN 0.9 mg/dL (0.0-0.2); TOTAL BILIRUBIN 1.3 mg/dL (0.2-1.0); TOTAL PROTEIN 6.4 g/dL (6.4-8.2)
--- NOTE | 2021-08-05 11:16 | NUR ---
AFTER LAST EMESIS AGREED TO TRY THE NG TUBE. ATTEMPTED TO PLACE THE NG IN THE LEFT NARE AND IMMEDIATELY SAID "NO". RESTS IN BED WITH EYES CLOSED. SAMPLE SAVED FOR ROHIT
[2021-08-05] MEDS: WARFARIN 7.5 MG TABLET. PO SCH (12:29)
[2021-08-05] MEDS: MEROPENEM 500 MG in IV NORMAL SALINE 50ML 50 ML IV SCH ×2 (12:39→22:34)
--- NOTE | 2021-08-05 14:00 | NUR ---
up to the recliner. tolerated well. no emesisi from 1130 this am. colleen continues. spoke with sister and .
[2021-08-05 15:13] VITALS: BP 148/72
--- NOTE | 2021-08-05 16:00 | NUR ---
awakened form nap in recliner. transfers to bed with assist of 1.
--- NOTE | 2021-08-05 16:05 | RAD ---
EXAM: CHEST ONE VIEW. HISTORY: Aspiration. COMPARISON: 07/12/2021. FINDINGS: A frontal view of the chest is obtained. Interstitial opacities in the right greater than left bases are new since the prior study. There is m ild volume loss in the right base. There is no pneumothorax or pleural effusion. The heart is mildly enlarged. There are atherosclerotic calcifications of the aorta. Changes of cervical fusion are noted . IMPRESSION: 1. Interstitial opacities in the right greater than left bases are consistent with atypical pneumonia or rapid development of interstitial lung disease. 2. Mild cardiomegaly. Electronically signed by: Dayday Patten MD (08/05/2021 4:03 PM) [id number]
--- NOTE | 2021-08-05 18:00 | NUR ---
rests quietly in bed visits with and sisters. no further emesis since this am. have given a sip of water x2 per request (no emesis) iv fluids continue will trnasfer to room 434 per management. condition and spirits appear better.
[2021-08-05 19:00] VITALS: BP 172/75
--- NOTE | 2021-08-05 19:35 | NUR ---
rests with eyes closed. zofran ivp given.iv fluids continue. new antibiotics started. cont to refused ng.
--- NOTE | 2021-08-05 21:10 | NUR ---
Received a phone call fro person claiming to be Patient's daughter requesting information on Patient 's status. RN requested HIPPA code. person on phone stated they did not have code. Informed her I could not give out information without code.
--- NOTE | 2021-08-05 21:15 | NUR ---
Went in Patient's room and informed him person claiming to be daughter requested information and did not have code. HIPPA code given to Patient to give to family he wanted to receive information. Patient stated he would give daughter code.
--- NOTE | 2021-08-05 21:20 | NUR ---
Patient's daughter called and provided HIPPA code. Daughters questions answered regarding Patient. Patient daughter asked questions RN unable to answer regarding doctors plans. Informed daughter if she wanted those questions answered she could talk with doctor when he comes to see Patient. Patient's daughter stated she would come in shortly after 0700 to see Patient.
[2021-08-05] MEDS: SIMVASTATIN 20 MG TABLET PO SCH (21:29)
[2021-08-05] MEDS: INSULIN GLARGINE SYRINGE. SQ SCH (21:29)
[2021-08-05] MEDS: LATANOPROST 0.005% OPHTH SOLUTION 2.5ML BOTTLE. OU SCH (21:33)
[2021-08-05] MEDS: HYDROmorphone 2 MG/ML VIAL IVP PRN (22:06)
[2021-08-05 23:00] VITALS: BP 161/69
[2021-08-06] MEDS: ONDANSETRON PF 4 MG/2 ML VIAL. IVP PRN ×4 (00:47→20:36)
[2021-08-06] MEDS: HYDROmorphone 2 MG/ML VIAL IVP PRN ×3 (02:17→20:44)
[2021-08-06] MEDS: ACETAMINOPHEN 500 MG TABLET PO SCH ×4 (02:17→20:37)
[2021-08-06 03:00] VITALS: BP 134/66
[2021-08-06] MEDS: MEROPENEM 500 MG in IV NORMAL SALINE 50ML 50 ML IV SCH ×3 (05:47→22:28)
[2021-08-06 07:15] VITALS: BP 189/77
[2021-08-06 07:45] LABS: BASO % 0 % (0-3); EOS % 0 % (0-3); HEMATOCRIT 29.4 % (39.0-53.0); HEMOGLOBIN 9.7 g/dL (13.0-17.5); LYMPH % 5 % (24-48); MEAN CORPUSCULAR HEMOGLOBIN 30 pg (25-35); MEAN CORPUSCULAR HGB CONC 33 g/dL (31-37); MEAN CORPUSCULAR VOLUME 89 fL (79-100); MONO # 2.1 x10^3/uL (0.0-1.1); MONO % 11 % (0-9); NEUT # 16.2 x10^3/uL (1.8-7.7); NEUT % 84 % (31-73); PLATELET COUNT 292 x10^3/uL (140-400); PROTHROMBIN TIME PATIENT 22.7 SEC (11.7-14.0); RED BLOOD COUNT 3.29 x10^6/uL (4.30-5.70); RED CELL DISTRIBUTION WIDTH 15.7 % (11.5-14.5); WHITE BLOOD COUNT 19.3 x10^3/uL (4.0-11.0)
[2021-08-06 07:57] LABS: ALBUMIN 2.5 g/dL (3.4-5.0); DIRECT BILIRUBIN 0.5 mg/dL (0.0-0.2); TOTAL BILIRUBIN 0.9 mg/dL (0.2-1.0); TOTAL PROTEIN 6.7 g/dL (6.4-8.2)
[2021-08-06] MEDS: INSULIN LISPRO 300 UNITS/3 ML VIAL. SQ SCH ×3 (08:00→17:00)
[2021-08-06 08:02] LABS: ALBUMIN 2.6 g/dL (3.4-5.0); ALBUMIN/GLOBULIN RATIO 0.8 (1.0-1.7); CALCIUM 7.9 mg/dL (8.5-10.1); CREATININE 1.2 mg/dL (0.7-1.3); POTASSIUM 3.4 mmol/L (3.5-5.1); TOTAL BILIRUBIN 0.9 mg/dL (0.2-1.0); TOTAL PROTEIN 5.9 g/dL (6.4-8.2)
[2021-08-06] MEDS: PANTOPRAZOLE IV PUSH 40 MG VIAL. IVP SCH (08:09)
[2021-08-06] MEDS: LISINOPRIL 20 MG TABLET PO SCH ×2 (09:00→10:37)
[2021-08-06] MEDS: CHOLECALCIFEROL (VITAMIN D3) 1,000 UNIT TABLET PO SCH (09:00)
[2021-08-06] MEDS: TAMSULOSIN 0.4 MG CAP.ER.24H. PO SCH (09:00)
[2021-08-06] MEDS: ISOSORBIDE MONONITRATE ER 30 MG TAB.ER.24H PO SCH (09:00)
[2021-08-06] MEDS: AMIODARONE HCL 200 MG TABLET. PO SCH (09:00)
[2021-08-06] MEDS: SENNOSIDES/DOCUSATE 8.6/50MG TABLET. PO SCH (09:00)
[2021-08-06] MEDS: CYANOCOBALAMIN (VITAMIN B-12) 100 MCG TABLET. PO SCH (09:00)
[2021-08-06] MEDS: MULTIVITAMIN with MINERAL TABLET. PO SCH (09:00)
[2021-08-06] MEDS: LINAGLIPTIN 5 MG TABLET PO SCH (09:00)
[2021-08-06] MEDS: CETIRIZINE HCL 10 MG TABLET. PO SCH (09:00)
[2021-08-06] MEDS: METOPROLOL TART IMMED RELEASE 25 MG TABLET. PO SCH ×3 (09:00→20:37)
--- NOTE | 2021-08-06 09:09 | PDOC ---
Infectious Disease Note Subjective Subjective Patient is feeling good. Did not have any complaints he is ready to work with the therapist JEB RUSS No nausea vomiting diarrhea chest pain shortness of breath Vital Sign Vital Signs Vital Signs Date Time Temp Pulse Resp B/P (MAP) Pulse Ox O2 Delivery O2 Flow Rate FiO2 08/06/21 07:15 98.1 93 22 189/77 (114) 95 Nasal Cannula 2.0 98.1 Physical Exam PHYSICAL EXAM GENERAL: Alert, oriented gentleman, who does not feel well. VITAL SIGNS: Stable HEENT: Both pupils are round and reacting. No conjunctival lesion. No lesion in the mouth. NECK: Supple, no JVP, no lymphadenopathy. LUNGS: Clear. HEART: S1, S2, regular. ABDOMEN: Soft, nontender, no organomegaly. EXTREMITIES: No edema or cyanosis. SKIN: Unremarkable. NEUROLOGIC: The patient is alert, awake, and appropriate. No focal neurologic deficit. Labs Lab Laboratory Tests Test 08/05/21 11:38 08/05/21 17:30 08/05/21 20:36 08/06/21 06:50 Glucose (Fingerstick) 173 mg/dL (70-99) 175 mg/dL (70-99) 158 mg/dL (70-99) Sodium Level 142 mmol/L (136-145) Potassium Level 3.4 mmol/L (3.5-5.1) Chloride Level 103 mmol/L (98-107) Carbon Dioxide Level 26 mmol/L (21-32) Anion Gap 13 (6-14) Blood Urea Nitrogen 24 mg/dL (8-26) Creatinine 1.2 mg/dL (0.7-1.3) Estimated GFR (Cockcroft-Gault) 59.0 BUN/Creatinine Ratio 20 (6-20) Glucose Level 189 mg/dL (70-99) Calcium Level 7.9 mg/dL (8.5-10.1) Total Bilirubin 0.9 mg/dL (0.2-1.0) Aspartate Amino Transf (AST/SGOT) 102 U/L (15-37) Alanine Aminotransferase (ALT/SGPT) 267 U/L (16-63) Alkaline Phosphatase 198 U/L (46-116) Total Protein 5.9 g/dL (6.4-8.2) Albumin 2.6 g/dL (3.4-5.0) Albumin/Globulin Ratio 0.8 (1.0-1.7) Test 08/06/21 06:55 08/06/21 07:19 White Blood Count 19.3 x10^3/uL (4.0-11.0) Red Blood Count 3.29 x10^6/uL (4.30-5.70) Hemoglobin 9.7 g/dL (13.0-17.5) Hematocrit 29.4 % (39.0-53.0) Mean Corpuscular Volume 89 fL (79-100) Mean Corpuscular Hemoglobin 30 pg (25-35) Mean Corpuscular Hemoglobin Concent 33 g/dL (31-37) Red Cell Distribution Width 15.7 % (11.5-14.5) Platelet Count 292 x10^3/uL (140-400) Neutrophils (%) (Auto) 84 % (31-73) Lymphocytes (%) (Auto) 5 % (24-48) Monocytes (%) (Auto) 11 % (0-9) Eosinophils (%) (Auto) 0 % (0-3) Basophils (%) (Auto) 0 % (0-3) Neutrophils # (Auto) 16.2 x10^3/uL (1.8-7.7) Lymphocytes # (Auto) 1.0 x10^3/uL (1.0-4.8) Monocytes # (Auto) 2.1 x10^3/uL (0.0-1.1) Eosinophils # (Auto) 0.0 x10^3/uL (0.0-0.7) Basophils # (Auto) 0.0 x10^3/uL (0.0-0.2) Prothrombin Time 22.7 SEC (11.7-14.0) Prothromb Time International Ratio 2.0 (0.8-1.1) Total Bilirubin 0.9 mg/dL (0.2-1.0) Direct Bilirubin 0.5 mg/dL (0.0-0.2) Aspartate Amino Transf (AST/SGOT) 98 U/L (15-37) Alanine Aminotransferase (ALT/SGPT) 260 U/L (16-63) Alkaline Phosphatase 191 U/L (46-116) Total Protein 6.7 g/dL (6.4-8.2) Albumin 2.5 g/dL (3.4-5.0) Glucose (Fingerstick) 198 mg/dL (70-99) Objective Assessment IMPRESSION: 1. Leukocytosis. It may have been reactive to vomiting. It may have been secondary to steroids that he received during surgery. 2. Multiple vomiting, worrisome for aspiration. 3. Right hip arthroplasty. 4. Acute kidney injury, slowly improving. 5. Diabetes. 6. Hypertension. 7. Chronic obstructive pulmonary disease. 8. Coronary artery disease. 9. Atrial fibrillation. Plan Plan of Care Continue antibiotics for the time being soon to be able to change to p.o. cefdinir d/w Dr Butch NGUYEN,POLLO Gill MD Aug 06, 2021 09:08
--- NOTE | 2021-08-06 09:27 | PDOC ---
PROGRESS NOTES Date of Service: DATE: 08/06/21 TIME: 09:25 Subjective Subjective pt feels better Objective Objective Vital Signs Date Time Temp Pulse Resp B/P (MAP) Pulse Ox O2 Delivery O2 Flow Rate FiO2 08/06/21 07:15 98.1 93 22 189/77 (114) 95 Nasal Cannula 2.0 98.1 Intake and Output 08/06/21 07:00 Output Total 4340 ml Balance -4340 ml Output Urine Total 3550 ml Emesis 790 ml Physical Exam Abdomen: Other (distended) Heart: Normal S1 Extremities: No clubbing General: Alert HEENT: Atraumatic Lungs: Clear to auscultation MUSCULOSKELETAL: No deformity, Osteoarthritic changes both hands, Other Neuro: Normal speech Psych/Mental Status: Mental status NL Skin: No breakdown Assessment Assessment FINAL IMPRESSION: persistent N/V subsiding bladder retention possible upper GI bleed from vomiting 1. Status post right hip total replacement, total hip arthroplasty, postoperative day #3. 2. History of chronic obstructive pulmonary disease. 3. Diabetes. 4. Atrial fibrillation. 5. History of coronary artery disease. 6. History of previous strokes. PLAN:d/c macias in am iv antibiotics. Ct scan -ve KUB mild illeus. wbc 19,lft 100 range cr 1.2 down from 2.5 GI consult ID consult macias placed for bladder retention abd distention,KUB. iv fluids spoke with RN Comment Review of Relevant I have reviewed the following items david (where applicable) has been applied. Labs Laboratory Tests Test 08/05/21 11:38 08/05/21 17:30 08/05/21 20:36 08/06/21 06:50 Glucose (Fingerstick) 173 mg/dL (70-99) 175 mg/dL (70-99) 158 mg/dL (70-99) Sodium Level 142 mmol/L (136-145) Potassium Level 3.4 mmol/L (3.5-5.1) Chloride Level 103 mmol/L (98-107) Carbon Dioxide Level 26 mmol/L (21-32) Anion Gap 13 (6-14) Blood Urea Nitrogen 24 mg/dL (8-26) Creatinine 1.2 mg/dL (0.7-1.3) Estimated GFR (Cockcroft-Gault) 59.0 BUN/Creatinine Ratio 20 (6-20) Glucose Level 189 mg/dL (70-99) Calcium Level 7.9 mg/dL (8.5-10.1) Total Bilirubin 0.9 mg/dL (0.2-1.0) Aspartate Amino Transf (AST/SGOT) 102 U/L (15-37) Alanine Aminotransferase (ALT/SGPT) 267 U/L (16-63) Alkaline Phosphatase 198 U/L (46-116) Total Protein 5.9 g/dL (6.4-8.2) Albumin 2.6 g/dL (3.4-5.0) Albumin/Globulin Ratio 0.8 (1.0-1.7) Test 08/06/21 06:55 08/06/21 07:19 White Blood Count 19.3 x10^3/uL (4.0-11.0) Red Blood Count 3.29 x10^6/uL (4.30-5.70) Hemoglobin 9.7 g/dL (13.0-17.5) Hematocrit 29.4 % (39.0-53.0) Mean Corpuscular Volume 89 fL (79-100) Mean Corpuscular Hemoglobin 30 pg (25-35) Mean Corpuscular Hemoglobin Concent 33 g/dL (31-37) Red Cell Distribution Width 15.7 % (11.5-14.5) Platelet Count 292 x10^3/uL (140-400) Neutrophils (%) (Auto) 84 % (31-73) Lymphocytes (%) (Auto) 5 % (24-48) Monocytes (%) (Auto) 11 % (0-9) Eosinophils (%) (Auto) 0 % (0-3) Basophils (%) (Auto) 0 % (0-3) Neutrophils # (Auto) 16.2 x10^3/uL (1.8-7.7) Lymphocytes # (Auto) 1.0 x10^3/uL (1.0-4.8) Monocytes # (Auto) 2.1 x10^3/uL (0.0-1.1) Eosinophils # (Auto) 0.0 x10^3/uL (0.0-0.7) Basophils # (Auto) 0.0 x10^3/uL (0.0-0.2) Prothrombin Time 22.7 SEC (11.7-14.0) Prothromb Time International Ratio 2.0 (0.8-1.1) Total Bilirubin 0.9 mg/dL (0.2-1.0) Direct Bilirubin 0.5 mg/dL (0.0-0.2) Aspartate Amino Transf (AST/SGOT) 98 U/L (15-37) Alanine Aminotransferase (ALT/SGPT) 260 U/L (16-63) Alkaline Phosphatase 191 U/L (46-116) Total Protein 6.7 g/dL (6.4-8.2) Albumin 2.5 g/dL (3.4-5.0) Glucose (Fingerstick) 198 mg/dL (70-99) Medications Current Medications Linezolid/Dextrose 300 ml @ 300 mls/hr Q12HR IV Last administered on 08/06/21at 08:09; Start 08/05/21 at 10:00 Meropenem 500 mg/ Sodium Chloride 50 ml @ 100 mls/hr Q8HRS IV Last administered on 08/06/21at 05:47; Start 08/05/21 at 14:00 Vitals/I & O Vital Sign - Last 24 Hours 08/05/21 08/05/21 08/05/21 08/05/21 11:14 15:13 19:00 20:00 Temp 99.6 100.2 98.2 99.6 100.2 98.2 Pulse 98 94 93 Resp 22 20 24 B/P (MAP) 161/75 (103) 148/72 (97) 172/75 (107) Pulse Ox 95 95 93 O2 Delivery Nasal Cannula Nasal Cannula Nasal Cannula Nasal Cannula O2 Flow Rate 2.0 2.0 3.0 2.0 08/05/21 08/05/21 08/05/21 08/06/21 22:06 22:36 23:00 02:17 Temp 97.7 97.7 Pulse 100 Resp 18 20 18 B/P (MAP) 161/69 (99) Pulse Ox 93 93 91 91 O2 Delivery Nasal Cannula Nasal Cannula Nasal Cannula Nasal Cannula O2 Flow Rate 2.0 2.0 3.0 3.0 08/06/21 08/06/21 08/06/21 02:47 03:00 07:15 Temp 98.0 98.1 98.0 98.1 Pulse 101 93 Resp 20 22 B/P (MAP) 134/66 (88) 189/77 (114) Pulse Ox 92 95 O2 Delivery Nasal Cannula Nasal Cannula Nasal Cannula O2 Flow Rate 3.0 3.0 2.0 Intake and Output 08/05/21 08/05/21 08/06/21 15:00 23:00 07:00 Output Total 550 ml 2890 ml 900 ml Balance -550 ml -2890 ml -900 ml Justifications for Admission Other Justification COLEEN LOPEZ MD Aug 06, 2021 09:27
--- NOTE | 2021-08-06 09:53 | PDOC ---
Date of Service: DATE: 08/06/21 TIME: 09:41 Subjective: Subjective: Feels better. "Little bit" of vomiting. Hungry. Objective: Objective: No stools charted. Declined NGT yesterday. Vital Signs: Vital Signs Date Time Temp Pulse Resp B/P (MAP) Pulse Ox O2 Delivery O2 Flow Rate FiO2 08/06/21 07:15 98.1 93 22 189/77 (114) 95 Nasal Cannula 2.0 98.1 Labs: Laboratory Tests Test 08/05/21 11:38 08/05/21 17:30 08/05/21 20:36 08/06/21 06:50 Glucose (Fingerstick) 173 mg/dL 175 mg/dL 158 mg/dL Sodium Level 142 mmol/L Potassium Level 3.4 mmol/L Chloride Level 103 mmol/L Carbon Dioxide Level 26 mmol/L Anion Gap 13 Blood Urea Nitrogen 24 mg/dL Creatinine 1.2 mg/dL Estimated GFR (Cockcroft-Gault) 59.0 BUN/Creatinine Ratio 20 Glucose Level 189 mg/dL Calcium Level 7.9 mg/dL Total Bilirubin 0.9 mg/dL Aspartate Amino Transf (AST/SGOT) 102 U/L Alanine Aminotransferase (ALT/SGPT) 267 U/L Alkaline Phosphatase 198 U/L Total Protein 5.9 g/dL Albumin 2.6 g/dL Albumin/Globulin Ratio 0.8 Test 08/06/21 06:55 08/06/21 07:19 White Blood Count 19.3 x10^3/uL Red Blood Count 3.29 x10^6/uL Hemoglobin 9.7 g/dL Hematocrit 29.4 % Mean Corpuscular Volume 89 fL Mean Corpuscular Hemoglobin 30 pg Mean Corpuscular Hemoglobin Concent 33 g/dL Red Cell Distribution Width 15.7 % Platelet Count 292 x10^3/uL Neutrophils (%) (Auto) 84 % Lymphocytes (%) (Auto) 5 % Monocytes (%) (Auto) 11 % Eosinophils (%) (Auto) 0 % Basophils (%) (Auto) 0 % Neutrophils # (Auto) 16.2 x10^3/uL Lymphocytes # (Auto) 1.0 x10^3/uL Monocytes # (Auto) 2.1 x10^3/uL Eosinophils # (Auto) 0.0 x10^3/uL Basophils # (Auto) 0.0 x10^3/uL Prothrombin Time 22.7 SEC Prothromb Time International Ratio 2.0 Total Bilirubin 0.9 mg/dL Direct Bilirubin 0.5 mg/dL Aspartate Amino Transf (AST/SGOT) 98 U/L Alanine Aminotransferase (ALT/SGPT) 260 U/L Alkaline Phosphatase 191 U/L Total Protein 6.7 g/dL Albumin 2.5 g/dL Glucose (Fingerstick) 198 mg/dL Imaging: CXR 08/05 IMPRESSION: 1. Interstitial opacities in the right greater than left bases are consistent with atypical pneumonia or rapid development of interstitial lung disease. 2. Mild cardiomegaly. PE: GEN: NAD LUNGS: CTAB HEART: RRR ABD: periumbilical discomfort, emesis basin w/ saliva and small amount of dark brown-black material NEURO/PSYCH: A & O 3 - more alert today A/P: Vomiting/hematemesis, upper abdominal discomfort - improving Leukocytosis - worse Anemia - Hgb drift from admission, stable from yesterday Abnormal LFTs, mildly elevated lipase - h/o pancreatitis, s/p alpa, CT unrevealing H/o A Fib, CAD, and DM - Coumadin held, on amiodarone - INR 2 -- Okay to try advancing diet, will also check KUB. PO PPI as able. Follow labs. Consider Relistor. Justicifation of Admission Dx: Justifications for Admission: Justification of Admission Dx: Yes Stroke - Ischemic: Stroke-Ischemic ROHIT CROWDER Aug 06, 2021 09:53
--- NOTE | 2021-08-06 10:11 | NUR ---
ICU charge nurse notified of patients positive sepsis screen
[2021-08-06] MEDS: IV NORMAL SALINE 1000ML BAG 1,000 ML IV SCH (10:21)
[2021-08-06 11:00] VITALS: BP 167/57
--- NOTE | 2021-08-06 13:09 | RAD ---
Supine abdomen. HISTORY: Vomiting Supine view was taken of the abdomen. Portable technique is limited. There is nonspecific bowel gas p attern. Definitive ileus or obstruction is not identified. Patient's had a cholecystectomy. IMPRESSION: 1. Nonspecific bowel gas pattern in the midabdomen. 2. Moderate stool in colon. 3. Limited portable study. Electronically signed by: Lan Rojas MD (08/06/2021 1:06 PM) [facility]
[2021-08-06] MEDS ORDERED: POLYETHYLENE GLYCOL 3350 17 GM PACKET. PO PRN (13:30)
[2021-08-06 15:13] VITALS: BP 168/70
[2021-08-06] MEDS ORDERED: METOCLOPRAMIDE HCL 10 MG/2 ML VIAL. IVP PRN (15:30)
--- NOTE | 2021-08-06 15:30 | NUR ---
Dr. Rae notified of unavailability of the IV form of Phenergan, telephone orders received
[2021-08-06 19:10] VITALS: BP 127/56
[2021-08-06] MEDS: LACTOBACILLUS RHAMNOSUS GG 1 CAPSULE. PO SCH (20:36)
[2021-08-06] MEDS: SIMVASTATIN 20 MG TABLET PO SCH (20:37)
[2021-08-06] MEDS: LATANOPROST 0.005% OPHTH SOLUTION 2.5ML BOTTLE. OU SCH (20:46)
[2021-08-06] MEDS: INSULIN GLARGINE SYRINGE. SQ SCH (20:46)
[2021-08-06 23:42] VITALS: BP 123/57
[2021-08-07] MEDS: IV NORMAL SALINE 1000ML BAG 1,000 ML IV SCH ×2 (01:17→12:05)
[2021-08-07] MEDS: ACETAMINOPHEN 500 MG TABLET PO SCH ×4 (03:00→21:03)
[2021-08-07 03:35] VITALS: BP 97/59
[2021-08-07] MEDS: MEROPENEM 500 MG in IV NORMAL SALINE 50ML 50 ML IV SCH ×3 (05:41→22:31)
[2021-08-07 07:00] VITALS: BP 123/56
[2021-08-07] MEDS: INSULIN LISPRO 300 UNITS/3 ML VIAL. SQ SCH ×3 (08:00→17:00)
[2021-08-07 08:05] LABS: BASO # 0.1 x10^3/uL (0.0-0.2); BASO % 0 % (0-3); EOS # 0.2 x10^3/uL (0.0-0.7); EOS % 1 % (0-3); HEMATOCRIT 30.1 % (39.0-53.0); HEMOGLOBIN 9.7 g/dL (13.0-17.5); LYMPH # 1.3 x10^3/uL (1.0-4.8); LYMPH % 8 % (24-48); MEAN CORPUSCULAR HEMOGLOBIN 29 pg (25-35); MEAN CORPUSCULAR HGB CONC 32 g/dL (31-37); MEAN CORPUSCULAR VOLUME 90 fL (79-100); MONO # 2.4 x10^3/uL (0.0-1.1); MONO % 15 % (0-9); NEUT # 11.8 x10^3/uL (1.8-7.7); NEUT % 75 % (31-73); PLATELET COUNT 287 x10^3/uL (140-400); RED BLOOD COUNT 3.35 x10^6/uL (4.30-5.70); RED CELL DISTRIBUTION WIDTH 15.5 % (11.5-14.5); WHITE BLOOD COUNT 15.8 x10^3/uL (4.0-11.0)
[2021-08-07 08:13] LABS: PROTHROMBIN TIME PATIENT 22.4 SEC (11.7-14.0)
[2021-08-07] MEDS: PANTOPRAZOLE IV PUSH 40 MG VIAL. IVP SCH (08:33)
[2021-08-07] MEDS: CYANOCOBALAMIN (VITAMIN B-12) 100 MCG TABLET. PO SCH (08:36)
[2021-08-07] MEDS: METOPROLOL TART IMMED RELEASE 25 MG TABLET. PO SCH ×2 (08:36→21:04)
[2021-08-07] MEDS: AMIODARONE HCL 200 MG TABLET. PO SCH (08:36)
[2021-08-07] MEDS: CHOLECALCIFEROL (VITAMIN D3) 1,000 UNIT TABLET PO SCH (08:36)
[2021-08-07] MEDS: LACTOBACILLUS RHAMNOSUS GG 1 CAPSULE. PO SCH ×2 (08:36→21:03)
[2021-08-07] MEDS: TAMSULOSIN 0.4 MG CAP.ER.24H. PO SCH (08:37)
[2021-08-07] MEDS: CETIRIZINE HCL 10 MG TABLET. PO SCH (08:37)
[2021-08-07] MEDS: MULTIVITAMIN with MINERAL TABLET. PO SCH (08:37)
[2021-08-07] MEDS: LISINOPRIL 20 MG TABLET PO SCH (08:37)
[2021-08-07] MEDS: LINAGLIPTIN 5 MG TABLET PO SCH (08:37)
[2021-08-07 08:38] LABS: ALBUMIN 2.3 g/dL (3.4-5.0); ALBUMIN/GLOBULIN RATIO 0.6 (1.0-1.7); CREATININE 1.2 mg/dL (0.7-1.3); TOTAL BILIRUBIN 0.7 mg/dL (0.2-1.0); TOTAL PROTEIN 6.4 g/dL (6.4-8.2)
[2021-08-07] MEDS: SENNOSIDES/DOCUSATE 8.6/50MG TABLET. PO SCH (08:38)
[2021-08-07] MEDS: ISOSORBIDE MONONITRATE ER 30 MG TAB.ER.24H PO SCH (09:00)
--- NOTE | 2021-08-07 09:46 | PDOC ---
IM PROGRESS NOTES- Subjective Subjective Complaints of hip pain. No complaints of dyspnea or abdominal pain. No complaints of nausea or vomiting. Objective Vitals/I&O Vital Signs Date Time Temp Pulse Resp B/P (MAP) Pulse Ox O2 Delivery O2 Flow Rate FiO2 08/07/21 09:00 82 97/59 08/07/21 07:00 98.1 16 91 Nasal Cannula 3.0 98.1 I & O 08/06/21 08/06/21 08/07/21 15:00 23:00 07:00 Intake Total 120 ml 150 ml Output Total 1250 ml 300 ml Balance 120 ml -1250 ml -150 ml Physical Exam Physical Exam General Appearance - alert and in no distress Chest - decreased breath sounds at bases Heart - S1 and S2 normal Abdomen - soft, non tender Neurological - alert and oriented Musculoskeletal - generalized weakness Extremities - no edema. Status post left hip surgery. Labs Laboratory Tests Test 08/06/21 11:36 08/06/21 16:59 08/06/21 20:08 08/07/21 07:40 Glucose (Fingerstick) 208 mg/dL (70-99) H 192 mg/dL (70-99) H 176 mg/dL (70-99) H White Blood Count 15.8 x10^3/uL (4.0-11.0) H Red Blood Count 3.35 x10^6/uL (4.30-5.70) L Hemoglobin 9.7 g/dL (13.0-17.5) L Hematocrit 30.1 % (39.0-53.0) L Mean Corpuscular Volume 90 fL (79-100) Mean Corpuscular Hemoglobin 29 pg (25-35) Mean Corpuscular Hemoglobin Concent 32 g/dL (31-37) Red Cell Distribution Width 15.5 % (11.5-14.5) H Platelet Count 287 x10^3/uL (140-400) Neutrophils (%) (Auto) 75 % (31-73) H Lymphocytes (%) (Auto) 8 % (24-48) L Monocytes (%) (Auto) 15 % (0-9) H Eosinophils (%) (Auto) 1 % (0-3) Basophils (%) (Auto) 0 % (0-3) Neutrophils # (Auto) 11.8 x10^3/uL (1.8-7.7) H Lymphocytes # (Auto) 1.3 x10^3/uL (1.0-4.8) Monocytes # (Auto) 2.4 x10^3/uL (0.0-1.1) H Eosinophils # (Auto) 0.2 x10^3/uL (0.0-0.7) Basophils # (Auto) 0.1 x10^3/uL (0.0-0.2) Prothrombin Time 22.4 SEC (11.7-14.0) H Prothrombin Time INR 2.0 (0.8-1.1) H Sodium Level 145 mmol/L (136-145) Potassium Level 4.0 mmol/L (3.5-5.1) Chloride Level 107 mmol/L (98-107) Carbon Dioxide Level 31 mmol/L (21-32) Anion Gap 7 (6-14) Blood Urea Nitrogen 29 mg/dL (8-26) H Creatinine 1.2 mg/dL (0.7-1.3) Estimated GFR (Cockcroft-Gault) 59.0 BUN/Creatinine Ratio 24 (6-20) H Glucose Level 162 mg/dL (70-99) H Calcium Level 8.0 mg/dL (8.5-10.1) L Iron Level 20 ug/dL (65-175) L Total Iron Binding Capacity 183 ug/dL (250-450) L Iron Saturation 11 % (15-34) L Total Bilirubin 0.7 mg/dL (0.2-1.0) Aspartate Amino Transferase (AST) 55 U/L (15-37) H Alanine Aminotransferase (ALT) 167 U/L (16-63) H Alkaline Phosphatase 151 U/L (46-116) H Total Protein 6.4 g/dL (6.4-8.2) Albumin 2.3 g/dL (3.4-5.0) L Albumin/Globulin Ratio 0.6 (1.0-1.7) L Test 08/07/21 08:27 Glucose (Fingerstick) 162 mg/dL (70-99) H Laboratory Tests 08/07/21 07:40 Laboratory Tests 08/07/21 07:40 Meds Current Medications Medications (Trade) Dose Ordered Sig/Jeffry Route PRN Reason Start Time Stop Time Status Last Admin Dose Admin Lactobacillus Rhamnosus (Culturelle) 1 cap BID PO 08/06/21 21:00 08/07/21 08:36 Metoclopramide HCl (Reglan Vial) 10 mg PRN Q6HRS PRN IVP NAUSEA/VOMITING 2ND CHOICE 08/06/21 15:30 08/06/21 15:33 Assessment Assessment FINAL IMPRESSION: persistent N/V subsiding bladder retention possible upper GI bleed from vomiting 1. Status post right hip total replacement, total hip arthroplasty, postoperative day #3. 2. History of chronic obstructive pulmonary disease. 3. Diabetes. 4. Atrial fibrillation. 5. History of coronary artery disease. 6. History of previous strokes. PLAN: Urinary retention. Monitor bladder scan. Doing better. Urine culture is negative. Possible aspiration. Leukocytosis improving. on Zyvox and meropenem. WBC count is 15.8. Status post right total Hip arthroplasty. Anemia. Patient has iron deficiency. B12 level is pending. Patient also had recent surgery. Upper GI bleeding. Stool Hemoccult is positive. Diabetes controlled. Atrial fibrillation. INR is 2 Nausea and vomiting are improving. Plan Plan For more details regarding further plans, please refer to the orders. Justifications for Admission Other Justification JUAN RAMON PRETTY MD Aug 07, 2021 09:46
[2021-08-07 11:00] VITALS: BP 116/67
--- NOTE | 2021-08-07 13:21 | NUR ---
Pharmacy Warfarin Dosing Note S:Pharmacy consulted to assist with anticoagulation therapy started with target INR: 2 -3 O:ERASMOJOLEEN W is a 76 year old M with Atrial Fibrillation LABS: Last INR: 2.0 Last HGB: 9.7 Last HCT: 30.1 Last PLT: 287 Last dose of Hold given on 08/04/21 at 1532 Previous Regimen: 7.5mg PO DAILY AT HOME Vitamin K given: N Drug Interaction Changes: Same Interacting Drug Ongoing Drug Interactions: ASA, MOBIC, AMIODARONE A:INR of 2.0 is within desired range. Target range for this patient is: 2 -3 P: Warfarin dose: 7.5 mg Today at 1600. Bridge Therapy: None Next INR due tomorrow. Pharmacy anticoagulation service will continue to follow. Rock Cano [facility], 08/07/21 [id number]
[2021-08-07 15:00] VITALS: BP 109/56
[2021-08-07] MEDS ORDERED: WARFARIN 7.5 MG TABLET. PO ONE (16:00)
[2021-08-07 19:00] VITALS: BP 123/67
[2021-08-07] MEDS: LATANOPROST 0.005% OPHTH SOLUTION 2.5ML BOTTLE. OU SCH (21:00)
[2021-08-07] MEDS: SIMVASTATIN 20 MG TABLET PO SCH (21:03)
[2021-08-07] MEDS: INSULIN GLARGINE SYRINGE. SQ SCH (21:11)
[2021-08-07 23:00] VITALS: BP 144/63
[2021-08-08] MEDS: IV NORMAL SALINE 1000ML BAG 1,000 ML IV SCH ×2 (01:08→07:01)
[2021-08-08 03:00] VITALS: BP 104/65
[2021-08-08] MEDS: ACETAMINOPHEN 500 MG TABLET PO SCH ×5 (03:17→21:13)
[2021-08-08] MEDS: MEROPENEM 500 MG in IV NORMAL SALINE 50ML 50 ML IV SCH ×3 (06:58→22:04)
[2021-08-08] MEDS: PANTOPRAZOLE IV PUSH 40 MG VIAL. IVP SCH (06:58)
[2021-08-08 07:00] VITALS: BP 162/72
[2021-08-08] MEDS: INSULIN LISPRO 300 UNITS/3 ML VIAL. SQ SCH ×3 (08:00→16:38)
[2021-08-08 08:35] LABS: BASO # 0.1 x10^3/uL (0.0-0.2); BASO % 1 % (0-3); EOS # 0.6 x10^3/uL (0.0-0.7); EOS % 4 % (0-3); HEMATOCRIT 27.8 % (39.0-53.0); HEMOGLOBIN 9.3 g/dL (13.0-17.5); LYMPH # 1.1 x10^3/uL (1.0-4.8); LYMPH % 8 % (24-48); MEAN CORPUSCULAR HEMOGLOBIN 30 pg (25-35); MEAN CORPUSCULAR HGB CONC 33 g/dL (31-37); MEAN CORPUSCULAR VOLUME 90 fL (79-100); MONO # 1.8 x10^3/uL (0.0-1.1); MONO % 13 % (0-9); NEUT # 10.6 x10^3/uL (1.8-7.7); NEUT % 75 % (31-73); PLATELET COUNT 297 x10^3/uL (140-400); RED BLOOD COUNT 3.08 x10^6/uL (4.30-5.70); RED CELL DISTRIBUTION WIDTH 15.5 % (11.5-14.5); WHITE BLOOD COUNT 14.1 x10^3/uL (4.0-11.0)
[2021-08-08 08:45] LABS: ALBUMIN/GLOBULIN RATIO 0.5 (1.0-1.7); CALCIUM 7.5 mg/dL (8.5-10.1); CREATININE 1.1 mg/dL (0.7-1.3); GFR 65.3; POTASSIUM 3.1 mmol/L (3.5-5.1); TOTAL BILIRUBIN 0.6 mg/dL (0.2-1.0); TOTAL PROTEIN 5.8 g/dL (6.4-8.2)
[2021-08-08] MEDS: SENNOSIDES/DOCUSATE 8.6/50MG TABLET. PO SCH (09:00)
[2021-08-08] MEDS: LACTOBACILLUS RHAMNOSUS GG 1 CAPSULE. PO SCH ×2 (09:00→20:42)
--- NOTE | 2021-08-08 10:30 | PDOC ---
IM PROGRESS NOTES- Subjective Subjective Complaints of hip pain. No complaints of dyspnea or abdominal pain. No complaints of nausea or vomiting. Objective Vitals/I&O Vital Signs Date Time Temp Pulse Resp B/P (MAP) Pulse Ox O2 Delivery O2 Flow Rate FiO2 08/08/21 07:00 97.5 83 22 162/72 (102) 98 Nasal Cannula 3.0 97.5 I & O 08/07/21 08/07/21 08/08/21 15:00 23:00 07:00 Intake Total 150 ml 120 ml Output Total 300 ml 600 ml Balance -150 ml -480 ml Physical Exam Physical Exam General Appearance - alert and in no distress Chest - decreased breath sounds at bases Heart - S1 and S2 normal Abdomen - soft, non tender Neurological - alert and oriented Musculoskeletal - generalized weakness Extremities - no edema Labs Laboratory Tests Test 08/07/21 11:36 08/07/21 16:58 08/07/21 20:18 08/08/21 06:06 Glucose (Fingerstick) 193 mg/dL (70-99) H 121 mg/dL (70-99) H 120 mg/dL (70-99) H 100 mg/dL (70-99) H Test 08/08/21 07:45 White Blood Count 14.1 x10^3/uL (4.0-11.0) H Red Blood Count 3.08 x10^6/uL (4.30-5.70) L Hemoglobin 9.3 g/dL (13.0-17.5) L Hematocrit 27.8 % (39.0-53.0) L Mean Corpuscular Volume 90 fL (79-100) Mean Corpuscular Hemoglobin 30 pg (25-35) Mean Corpuscular Hemoglobin Concent 33 g/dL (31-37) Red Cell Distribution Width 15.5 % (11.5-14.5) H Platelet Count 297 x10^3/uL (140-400) Neutrophils (%) (Auto) 75 % (31-73) H Lymphocytes (%) (Auto) 8 % (24-48) L Monocytes (%) (Auto) 13 % (0-9) H Eosinophils (%) (Auto) 4 % (0-3) H Basophils (%) (Auto) 1 % (0-3) Neutrophils # (Auto) 10.6 x10^3/uL (1.8-7.7) H Lymphocytes # (Auto) 1.1 x10^3/uL (1.0-4.8) Monocytes # (Auto) 1.8 x10^3/uL (0.0-1.1) H Eosinophils # (Auto) 0.6 x10^3/uL (0.0-0.7) Basophils # (Auto) 0.1 x10^3/uL (0.0-0.2) Sodium Level 146 mmol/L (136-145) H Potassium Level 3.1 mmol/L (3.5-5.1) L Chloride Level 108 mmol/L (98-107) H Carbon Dioxide Level 33 mmol/L (21-32) H Anion Gap 5 (6-14) L Blood Urea Nitrogen 23 mg/dL (8-26) Creatinine 1.1 mg/dL (0.7-1.3) Estimated GFR (Cockcroft-Gault) 65.3 BUN/Creatinine Ratio 21 (6-20) H Glucose Level 101 mg/dL (70-99) H Calcium Level 7.5 mg/dL (8.5-10.1) L Total Bilirubin 0.6 mg/dL (0.2-1.0) Aspartate Amino Transferase (AST) 42 U/L (15-37) H Alanine Aminotransferase (ALT) 114 U/L (16-63) H Alkaline Phosphatase 125 U/L (46-116) H Total Protein 5.8 g/dL (6.4-8.2) L Albumin 2.0 g/dL (3.4-5.0) L Albumin/Globulin Ratio 0.5 (1.0-1.7) L Laboratory Tests 08/08/21 07:45 Laboratory Tests 08/08/21 07:45 Meds Current Medications Medications (Trade) Dose Ordered Sig/Jeffry Route PRN Reason Start Time Stop Time Status Last Admin Dose Admin Warfarin Sodium (Coumadin) 7.5 mg 1X WARF ONCE PO 08/07/21 16:00 08/07/21 16:01 DC 08/07/21 18:04 Assessment Assessment FINAL IMPRESSION: persistent N/V subsiding bladder retention possible upper GI bleed from vomiting 1. Status post right hip total replacement, total hip arthroplasty, postoperative day #3. 2. History of chronic obstructive pulmonary disease. 3. Diabetes. 4. Atrial fibrillation. 5. History of coronary artery disease. 6. History of previous strokes. PLAN: Urinary retention. Monitor bladder scan. Doing better. Urine culture is negative. Possible aspiration. Leukocytosis improving. on Zyvox and meropenem. WBC count is 14.1 Status post right total Hip arthroplasty. Anemia. Patient has iron deficiency. Patient also had recent surgery. Upper GI bleeding. Stool Hemoccult is positive. Diabetes controlled. Atrial fibrillation. INR is 2 Nausea and vomiting are improving. Hypernatremia-sodium 146. Discontinue IV fluids. Creatinine is 1.1. Hypokalemia-potassium 3.1. Replace potassium. Recheck labs in a.m. Encouraged to drink more fluids. Plan Plan For more details regarding further plans, please refer to the orders. Justifications for Admission Other Justification JUAN RAMON PRETTY MD Aug 08, 2021 10:30
[2021-08-08] MEDS: CHOLECALCIFEROL (VITAMIN D3) 1,000 UNIT TABLET PO SCH (10:53)
[2021-08-08] MEDS: CETIRIZINE HCL 10 MG TABLET. PO SCH (10:53)
[2021-08-08] MEDS: POTASSIUM CHLORIDE 20 MEQ TABLET.ER. PO SCH ×2 (10:53→15:36)
[2021-08-08] MEDS: LINAGLIPTIN 5 MG TABLET PO SCH (10:53)
[2021-08-08] MEDS: CYANOCOBALAMIN (VITAMIN B-12) 100 MCG TABLET. PO SCH (10:53)
[2021-08-08] MEDS: TAMSULOSIN 0.4 MG CAP.ER.24H. PO SCH (10:54)
[2021-08-08] MEDS: LISINOPRIL 20 MG TABLET PO SCH (10:54)
[2021-08-08] MEDS: METOPROLOL TART IMMED RELEASE 25 MG TABLET. PO SCH ×2 (10:54→20:42)
[2021-08-08] MEDS: AMIODARONE HCL 200 MG TABLET. PO SCH (10:54)
[2021-08-08] MEDS: MULTIVITAMIN with MINERAL TABLET. PO SCH (10:54)
[2021-08-08] MEDS: ISOSORBIDE MONONITRATE ER 30 MG TAB.ER.24H PO SCH (10:55)
[2021-08-08] MEDS ORDERED: SENN-209 PO (13:34)
[2021-08-08] MEDS ORDERED: CEFD300C PO (13:34)
[2021-08-08] MEDS ORDERED: ONDA4TAB12 PO (13:34)
[2021-08-08] MEDS ORDERED: LACT1CAP19 PO (13:34)
--- NOTE | 2021-08-08 13:38 | SNU/HH DC ---
DISCHARGE WITH HOME HEALTH DISCHARGE INFORMATION: Condition on Discharge: Stable HOME HEALTH: Face to Face: I certify this patient is under my care and that I, or a nurse practitioner or physician's assistant broker working with me, had a face to face encounter that meets the physician face to face encounter requirements with this patient on 08/08/21. RN For Eval/Treatment: Yes Physical Therapy For: Evalulation/Treatment Occupational Therapy For: Evaluation/Treatment Pt Meets Homebound Status: Poor coordination w/ amb. POST DISCHARGE ORDERS: Activity Instructions for Disc: Activity as tolerated, Walk in house Weight Bearing Status after Di: No restrictions, Full weight bearing Bathing Instructions: Shower-keep dressing dry, No Tub Bath until see DIET AFTER DISCHARGE: ADA (Cardiac) Wound/Incision Care: Ice to area for comfort, Keep wound/cast CDI, Do not change dressing Other wound/incision instructi: remove battery pack MondayAugust 09 unscrew tubing tape end downwards CHECKS AFTER DISCHARGE: Checks after discharge: Check blood sugar, ac/hs Comment: coumadin follow normal routine see MD that ordered FOLLOW-UP: PCP to follow Home Health: Yes Follow up with: in 5 days Follow Up With: call [phone] for a 2 week post op appt with Dr. Hoyt Warfarin Follow UP: see that ordered coumadin for atrial fib TREATMENT/EQUIPMENT ORDERS: Adaptive Equipment Issued: Front wheeled walker CERTIFICATION STATEMENT: Certification Statement: Certification Statement: Based on the above finding, I certify that this patient is confined to the home and needs intermittent prison care, physical therapy and/or speech therapy, or continues to need occupational therapy.~ This patient is under my care, and I have initiated the establishment of the plan of care.~ This patient will be followed by myself or a community physician who will periodically review the plan of care. Home Meds Active Scripts Ondansetron (ONDANSETRON ODT) 4 Mg Tab.rapdis, 1 TAB PO PRN Q6-8HRS for nausea, #16 TAB Prov:JUAN RAMON PRETTY MD 08/08/21 Cefdinir (CEFDINIR) 300 Mg Capsule, 1 CAP PO BID for aspiration, #14 CAP Prov:JUAN RAMON PRETTY MD 08/08/21 Sennosides/Docusate Sodium (Stool Softener-Stimulant Lax) 1 Each Tablet, 1 TAB PO DAILY for constipation for 30 Days, #30 TAB Prov:JUAN RAMON PRETTY MD 08/08/21 Lactobacillus Rhamnosus Gg (CULTURELLE) 1 Each Cap.sprink, 1 CAP PO BID for antibiotic use for 15 Days, #30 CAP Prov:JUAN RAMON PRETTY MD 08/08/21 Insulin Glargine,Hum.rec.anlog (LANTUS) 100 Unit/1 Ml Vial, 35 UNIT SQ QHS for 30 Days, VIAL Prov:DIAN CARMEN DEXTER 08/04/14 Reported Medications Latanoprost/Pf (Latanoprost 0.005% Eye Drop) 7.5 Ml Drops, 1 DROP OU QHS for GLAUCOMA, DROP 07/19/21 Budesonide/Formoterol Fumarate (SYMBICORT 160-4.5 MCG INHALER) 10.2 Gm Hfa.aer.ad, 2 PUFF IH BID for TREAT ASTHMA, #1 INHALER 5 Refills 07/19/21 Loratadine (LORATADINE) 10 Mg Tablet, 10 MG PO DAILY for ALLERGY RELIEF, TAB 07/19/21 Cyanocobalamin (Vitamin B-12) (Vitamin B12) 2,500 Mcg Tablet, 200 MCG PO DAILY for SUPPLEMENT, TAB 07/19/21 Cholecalciferol (Vitamin D3) (Vitamin D3) 50 Mcg Capsule, 50 MCG PO DAILY for SUPPLEMENT, CAP 07/19/21 Alogliptin Benzoate (Alogliptin) 25 Mg Tablet, 25 MG PO DAILY for DIABETES, TAB 07/19/21 Albuterol Sulfate (ALBUTEROL SULFATE CONC NEB SOLN) 2.5 Mg/0.5 Ml Vial.neb, 2.5 MG NEB BID for FOR ASTHMA, EACH 0 Refills 07/19/21 Tamsulosin Hcl (FLOMAX) 0.4 Mg Cap.er.24h, 0.4 MG PO DAILY for PROSTATE ISSUES, TAB 07/19/21 Warfarin Sodium (WARFARIN SODIUM) 7.5 Mg Tablet, 7.5 MG PO DAILY for BLOOD THINNER FOR AFIB, TAB 07/19/21 Simvastatin (SIMVASTATIN) 20 Mg Tablet, 20 MG PO HS for FOR CHOLESTEROL, #30 TAB 0 Refills 07/19/21 Amlodipine Besylate (AMLODIPINE BESYLATE) 5 Mg Tablet, 5 MG PO DAILY for HTN, TAB 12/10/19 Amiodarone Hcl (AMIODARONE HCL) 200 Mg Tablet, 1 TAB PO DAILY for Atrial Fib, #90 TAB 1 Refill 12/10/19 Albuterol Sulfate (Proventil Hfa) 6.7 Gm Hfa.aer.ad, 1 PUFF INH PRN Q6HRS PRN for SHORTNESS OF BREATH, INHALER 12/10/19 Metoprolol Tartrate (METOPROLOL TARTRATE) 25 Mg Tablet, 1 TAB PO BID for BP, #60 TAB 2 Refills 09/25/19 Metformin Hcl (METFORMIN HCL) 1,000 Mg Tablet, 1000 MG PO BIDWMEALS for DIABETES, TAB 01/08/18 Potassium Chloride (POTASSIUM CHLORIDE ) 20 Meq Tablet.er, 20 MEQ PO DAILY for SUPPLEMENT, TAB.SR 07/25/17 Lisinopril (LISINOPRIL) 40 Mg Tablet, 20 MG PO DAILY for heart, blood pressure, #30 TAB 5 Refills 08/02/14 Isosorbide Mononitrate (IMDUR) 30 Mg Tab.er.24h, 1 TAB PO DAILY for angina, #30 TAB 5 Refills 08/02/14 JUAN RAMON PRETTY MD Aug 08, 2021 13:38
--- NOTE | 2021-08-08 14:56 | NUR ---
Pharmacy Warfarin Dosing Note S:Pharmacy consulted to assist with anticoagulation therapy started with target INR: 2 -3 O:ERASMOJOLEEN W is a 76 year old M with Atrial Fibrillation LABS: Last INR: 2.0 Last HGB: 9.3 Last HCT: 27.8 Last PLT: 297 Last dose of 7.5 mg given on 08/07/21 at 1804 Previous Regimen: 7.5mg PO DAILY AT HOME Vitamin K given: N Drug Interaction Changes: Same Interacting Drug Ongoing Drug Interactions: ASA, MOBIC, AMIODARONE A:INR of 2.0 is within desired range. Target range for this patient is: 2 -3 P: Warfarin dose: 7.5 mg Today at 1600. Bridge Therapy: None Next INR due tomorrow. Pharmacy anticoagulation service will continue to follow. Rock Cano [facility], 08/08/21 [id number]
[2021-08-08 15:23] VITALS: BP 110/56
[2021-08-08] MEDS ORDERED: WARFARIN 7.5 MG TABLET. PO ONE (16:00)
[2021-08-08 18:42] VITALS: BP 144/53
[2021-08-08] MEDS: SIMVASTATIN 20 MG TABLET PO SCH (20:44)
[2021-08-08] MEDS: INSULIN GLARGINE SYRINGE. SQ SCH (20:46)
[2021-08-08] MEDS: LATANOPROST 0.005% OPHTH SOLUTION 2.5ML BOTTLE. OU SCH (21:00)
[2021-08-08] MEDS: ZOLPIDEM 5 MG TABLET. PO PRN (22:04)
[2021-08-08 23:35] VITALS: BP 140/65
[2021-08-09] MEDS: ACETAMINOPHEN 500 MG TABLET PO SCH ×4 (03:14→21:00)
[2021-08-09 03:39] VITALS: BP 152/58
[2021-08-09 04:26] LABS: BASO # 0.1 x10^3/uL (0.0-0.2); BASO % 0 % (0-3); EOS # 0.5 x10^3/uL (0.0-0.7); EOS % 3 % (0-3); HEMATOCRIT 25.5 % (39.0-53.0); HEMOGLOBIN 8.3 g/dL (13.0-17.5); LYMPH # 1.5 x10^3/uL (1.0-4.8); LYMPH % 10 % (24-48); MEAN CORPUSCULAR HEMOGLOBIN 29 pg (25-35); MEAN CORPUSCULAR HGB CONC 33 g/dL (31-37); MEAN CORPUSCULAR VOLUME 89 fL (79-100); MONO # 1.9 x10^3/uL (0.0-1.1); MONO % 12 % (0-9); NEUT # 11.4 x10^3/uL (1.8-7.7); NEUT % 75 % (31-73); PLATELET COUNT 317 x10^3/uL (140-400); RED BLOOD COUNT 2.86 x10^6/uL (4.30-5.70); RED CELL DISTRIBUTION WIDTH 15.3 % (11.5-14.5); WHITE BLOOD COUNT 15.3 x10^3/uL (4.0-11.0)
[2021-08-09 04:29] LABS: PROTHROMBIN TIME PATIENT 32.5 SEC (11.7-14.0)
[2021-08-09 04:36] LABS: CALCIUM 7.8 mg/dL (8.5-10.1); CREATININE 0.9 mg/dL (0.7-1.3); GFR 82.3
[2021-08-09 04:38] LABS: POTASSIUM 2.8 mmol/L (3.5-5.1)
--- NOTE | 2021-08-09 04:47 | NUR ---
Dr. Leslie Hays notified regarding critical potassium lab value of 2.8. Orders given for oral potassium and IV potassium.
[2021-08-09] MEDS ORDERED: POTASSIUM CHLORIDE 20 MEQ TABLET.ER. PO ONE (05:00)
[2021-08-09] MEDS: MEROPENEM 500 MG in IV NORMAL SALINE 50ML 50 ML IV SCH ×3 (05:09→22:50)
[2021-08-09] MEDS: POTASSIUM CHLORIDE 10MEQ 100 ML IV SCH ×5 (05:41→09:10)
[2021-08-09 07:00] VITALS: BP 149/64
[2021-08-09] MEDS: INSULIN LISPRO 300 UNITS/3 ML VIAL. SQ SCH ×3 (08:00→17:00)
--- NOTE | 2021-08-09 08:35 | PDOC ---
IM PROGRESS NOTES- Subjective Subjective Complaints of hip pain. No complaints of dyspnea or abdominal pain. No complaints of nausea,diarrhea or vomiting. Objective Vitals/I&O Vital Signs Date Time Temp Pulse Resp B/P (MAP) Pulse Ox O2 Delivery O2 Flow Rate FiO2 08/09/21 03:39 97.7 73 18 152/58 (89) 92 Nasal Cannula 2.0 97.7 I & O 08/08/21 08/08/21 08/09/21 15:00 23:00 07:00 Intake Total 240 ml Balance 240 ml Physical Exam Physical Exam General Appearance - alert and in no distress Chest - decreased breath sounds at bases Heart - S1 and S2 normal Abdomen - soft, non tender Neurological - alert and oriented Musculoskeletal - generalized weakness Extremities - no edema Labs Laboratory Tests Test 08/08/21 12:39 08/08/21 16:34 08/08/21 20:36 08/09/21 03:15 Glucose (Fingerstick) 125 mg/dL (70-99) H 120 mg/dL (70-99) H 117 mg/dL (70-99) H White Blood Count 15.3 x10^3/uL (4.0-11.0) H Red Blood Count 2.86 x10^6/uL (4.30-5.70) L Hemoglobin 8.3 g/dL (13.0-17.5) L Hematocrit 25.5 % (39.0-53.0) L Mean Corpuscular Volume 89 fL (79-100) Mean Corpuscular Hemoglobin 29 pg (25-35) Mean Corpuscular Hemoglobin Concent 33 g/dL (31-37) Red Cell Distribution Width 15.3 % (11.5-14.5) H Platelet Count 317 x10^3/uL (140-400) Neutrophils (%) (Auto) 75 % (31-73) H Lymphocytes (%) (Auto) 10 % (24-48) L Monocytes (%) (Auto) 12 % (0-9) H Eosinophils (%) (Auto) 3 % (0-3) Basophils (%) (Auto) 0 % (0-3) Neutrophils # (Auto) 11.4 x10^3/uL (1.8-7.7) H Lymphocytes # (Auto) 1.5 x10^3/uL (1.0-4.8) Monocytes # (Auto) 1.9 x10^3/uL (0.0-1.1) H Eosinophils # (Auto) 0.5 x10^3/uL (0.0-0.7) Basophils # (Auto) 0.1 x10^3/uL (0.0-0.2) Prothrombin Time 32.5 SEC (11.7-14.0) H Prothrombin Time INR 3.3 (0.8-1.1) H Sodium Level 146 mmol/L (136-145) H Potassium Level 2.8 mmol/L (3.5-5.1) *L Chloride Level 109 mmol/L (98-107) H Carbon Dioxide Level 33 mmol/L (21-32) H Anion Gap 4 (6-14) L Blood Urea Nitrogen 19 mg/dL (8-26) Creatinine 0.9 mg/dL (0.7-1.3) Estimated GFR (Cockcroft-Gault) 82.3 Glucose Level 55 mg/dL (70-99) L Calcium Level 7.8 mg/dL (8.5-10.1) L Laboratory Tests 08/09/21 03:15 Laboratory Tests 08/09/21 03:15 Meds Current Medications Medications (Trade) Dose Ordered Sig/Jeffry Route PRN Reason Start Time Stop Time Status Last Admin Dose Admin Potassium Chloride (Klor-Con) 20 meq [id number] PO 08/08/21 10:30 08/08/21 15:36 Warfarin Sodium (Coumadin) 7.5 mg 1X WARF ONCE PO 08/08/21 16:00 08/08/21 16:01 DC 08/08/21 15:36 Potassium Chloride (Klor-Con) 40 meq 1X ONCE PO 08/09/21 05:00 08/09/21 05:01 DC 08/09/21 05:05 Potassium Chloride/Water 100 ml @ 100 mls/hr Q1H IV 08/09/21 05:15 08/09/21 09:14 08/09/21 07:55 Assessment Assessment FINAL IMPRESSION: persistent N/V subsiding bladder retention possible upper GI bleed from vomiting 1. Status post right hip total replacement, total hip arthroplasty, postoperative day #3. 2. History of chronic obstructive pulmonary disease. 3. Diabetes. 4. Atrial fibrillation. 5. History of coronary artery disease. 6. History of previous strokes. PLAN: Urinary retention. Monitor bladder scan. Doing better. Urine culture is negative. Possible aspiration. Leukocytosis improving. on Zyvox and meropenem. WBC count is 15.3. Getting worse Status post right total Hip arthroplasty. Anemia. Patient has iron deficiency. Patient also had recent surgery. Upper GI bleeding. Stool Hemoccult is positive. Diabetes controlled. Atrial fibrillation. INR is 2 Nausea and vomiting are improving. Hypernatremia-sodium 146 discontinue IV fluids. Creatinine is improving. Hypokalemia-potassium 2.8. Replace potassium. Getting worse even with potassium replacement. Recheck labs in a.m. still on clear liquid diet. Advance diet as tolerated. Encouraged to drink more fluids. Plan Plan For more details regarding further plans, please refer to the orders. Justifications for Admission Other Justification JUAN RAMON PRETTY MD Aug 09, 2021 08:35
[2021-08-09] MEDS: MULTIVITAMIN with MINERAL TABLET. PO SCH (09:00)
[2021-08-09] MEDS: PANTOPRAZOLE IV PUSH 40 MG VIAL. IVP SCH (09:07)
[2021-08-09] MEDS: CHOLECALCIFEROL (VITAMIN D3) 1,000 UNIT TABLET PO SCH (09:31)
[2021-08-09] MEDS: SENNOSIDES/DOCUSATE 8.6/50MG TABLET. PO SCH (09:31)
[2021-08-09] MEDS: LACTOBACILLUS RHAMNOSUS GG 1 CAPSULE. PO SCH ×2 (09:31→21:00)
[2021-08-09] MEDS: LISINOPRIL 20 MG TABLET PO SCH (09:32)
[2021-08-09] MEDS: CYANOCOBALAMIN (VITAMIN B-12) 100 MCG TABLET. PO SCH (09:32)
[2021-08-09] MEDS: ISOSORBIDE MONONITRATE ER 30 MG TAB.ER.24H PO SCH (09:32)
[2021-08-09] MEDS: LINAGLIPTIN 5 MG TABLET PO SCH (09:32)
[2021-08-09] MEDS: TAMSULOSIN 0.4 MG CAP.ER.24H. PO SCH (09:32)
[2021-08-09] MEDS: POTASSIUM CHLORIDE 20 MEQ TABLET.ER. PO SCH ×2 (09:33→14:38)
[2021-08-09] MEDS: CETIRIZINE HCL 10 MG TABLET. PO SCH (09:33)
[2021-08-09] MEDS: AMIODARONE HCL 200 MG TABLET. PO SCH (09:33)
[2021-08-09] MEDS: METOPROLOL TART IMMED RELEASE 25 MG TABLET. PO SCH ×2 (09:33→21:00)
--- NOTE | 2021-08-09 10:53 | PDOC ---
Date of Service: DATE: 08/09/21 TIME: 10:48 Subjective: Subjective: Feels better - doesn't like clear liquid diet, stooling 2-3 times daily - "disgusted" because he was only supposed to be here a couple days, wants to feel better. Objective: Objective: 1 stool charted yesterday. No reports of bleeding. Vital Signs: Vital Signs Date Time Temp Pulse Resp B/P (MAP) Pulse Ox O2 Delivery O2 Flow Rate FiO2 08/09/21 09:33 61 149/64 08/09/21 07:00 97.5 18 96 Nasal Cannula 2.0 97.5 Labs: Laboratory Tests Test 08/08/21 12:39 08/08/21 16:34 08/08/21 20:36 Glucose (Fingerstick) 125 mg/dL (70-99) 120 mg/dL (70-99) 117 mg/dL (70-99) PE: GEN: NAD - walks slowly w/ walker to chair from restroom w/ staff monitoring LUNGS: diminished, NC 2L HEART: RRR ABD: S/ND/NT - "it's fine!!" NEURO/PSYCH: A & O 3, frustrated but cooperative A/P: S/p hip surgery Vomiting/hematemesis, upper abdominal discomfort - resolved ACD/PRATIK Hypokalemia Abnormal LFTs (improving), mildly elevated lipase - h/o pancreatitis, s/p alpa, CT unrevealing H/o A Fib on Coumadin - INR 3.3 DM -- Plans to advance diet per nurse - observe on this. Continue PPI - change to PO. Consider addition of iron. Monitor stooling - check C Diff if having diarrhea. Justicifation of Admission Dx: Justifications for Admission: Justification of Admission Dx: Yes Stroke - Ischemic: Stroke-Ischemic ROHIT CROWDER Aug 09, 2021 10:53
[2021-08-09 11:00] VITALS: BP 109/62
--- NOTE | 2021-08-09 14:46 | NUR ---
Pharmacy Warfarin Dosing Note S:Pharmacy consulted to assist with anticoagulation therapy started with target INR: 2 -3 O:ERASMOJOLEEN W is a 76 year old M with Atrial Fibrillation LABS: Last INR: 3.3 Last HGB: 8.3 Last HCT: 27.8 Last PLT: 317 Last dose of 7.5 mg given on 08/08/21 at 1804 Previous Regimen: 7.5mg PO DAILY AT HOME Vitamin K given: N Drug Interaction Changes: Same Interacting Drug Ongoing Drug Interactions: ASA, MOBIC, AMIODARONE A:INR of 3.3 is above desired range. Target range for this patient is: 2 -3 P: Warfarin dose: Hold Today at 1600 Bridge Therapy: None Next INR due IN AM Pharmacy anticoagulation service will continue to follow. KHANH OWENS [facility], 08/09/21 [id number]
[2021-08-09 14:53] VITALS: BP 131/59
--- NOTE | 2021-08-09 18:44 | NUR ---
Patient at 1700 was vomiting bright red blood about 25 ccs and stool was solid tarry. Butch Solis called with orders to get H and H tonight and CBC, INR in the am call with results. Patient said he is light headed. patient is npo at this time.
[2021-08-09 19:00] VITALS: BP 122/58
[2021-08-09 19:05] LABS: HEMATOCRIT 23.4 % (39.0-53.0); HEMOGLOBIN 7.7 g/dL (13.0-17.5)
[2021-08-09] MEDS: ONDANSETRON PF 4 MG/2 ML VIAL. IVP PRN (20:48)
[2021-08-09] MEDS: ZOLPIDEM 5 MG TABLET. PO PRN (20:56)
[2021-08-09] MEDS: LATANOPROST 0.005% OPHTH SOLUTION 2.5ML BOTTLE. OU SCH (21:00)
[2021-08-09] MEDS: SIMVASTATIN 20 MG TABLET PO SCH (21:00)
[2021-08-09] MEDS: INSULIN GLARGINE SYRINGE. SQ SCH (22:00)
[2021-08-09 23:00] VITALS: BP 127/54
[2021-08-10] VITALS (21 sets, daily range): BP systolic 99–157; BP diastolic 38–108
[2021-08-10] MEDS: ACETAMINOPHEN 500 MG TABLET PO SCH ×4 (03:00→21:00)
[2021-08-10] MEDS: ONDANSETRON PF 4 MG/2 ML VIAL. IVP PRN ×2 (05:35→17:31)
[2021-08-10] MEDS: MEROPENEM 500 MG in IV NORMAL SALINE 50ML 50 ML IV SCH ×3 (05:36→22:23)
--- NOTE | 2021-08-10 05:50 | NUR ---
Patient states he had a "black stool" last night, and a ez colored small amount of emesis. "More nauseous than anything." In recliner, Zoan given.
[2021-08-10] MEDS ORDERED: PANTOPRAZOLE 40 MG TABLET.DR. PO SCH (07:30)
[2021-08-10] MEDS: INSULIN LISPRO 300 UNITS/3 ML VIAL. SQ SCH ×3 (08:00→17:00)
[2021-08-10 08:02] LABS: BASO % 0 % (0-3); EOS # 0.1 x10^3/uL (0.0-0.7); EOS % 1 % (0-3); HEMATOCRIT 21.2 % (39.0-53.0); LYMPH # 1.4 x10^3/uL (1.0-4.8); LYMPH % 9 % (24-48); MEAN CORPUSCULAR HEMOGLOBIN 30 pg (25-35); MEAN CORPUSCULAR HGB CONC 33 g/dL (31-37); MEAN CORPUSCULAR VOLUME 91 fL (79-100); MONO # 1.4 x10^3/uL (0.0-1.1); MONO % 9 % (0-9); NEUT # 13.1 x10^3/uL (1.8-7.7); NEUT % 81 % (31-73); PLATELET COUNT 375 x10^3/uL (140-400); RED BLOOD COUNT 2.34 x10^6/uL (4.30-5.70); RED CELL DISTRIBUTION WIDTH 15.2 % (11.5-14.5); WHITE BLOOD COUNT 16.1 x10^3/uL (4.0-11.0)
[2021-08-10 08:12] LABS: PROTHROMBIN TIME PATIENT 34.1 SEC (11.7-14.0)
[2021-08-10 08:17] LABS: CALCIUM 7.6 mg/dL (8.5-10.1); CREATININE 1.1 mg/dL (0.7-1.3); GFR 65.3; POTASSIUM 3.9 mmol/L (3.5-5.1)
--- NOTE | 2021-08-10 08:47 | PDOC ---
Date of Service: DATE: 08/10/21 TIME: 08:42 Subjective: Subjective: Feels bad - wants something to be done today because he's sick of this shit and needs to be fixed. Objective: Objective: Dr. Rae called this morning - coffee-ground emesis, melena, anemia, INR 3.5 on Coumadin post hip surgery and h/o A Fib - wondering about EGD. Vital Signs: Vital Signs Date Time Temp Pulse Resp B/P (MAP) Pulse Ox O2 Delivery O2 Flow Rate FiO2 08/10/21 03:00 98.1 79 16 99/41 (60) 96 Nasal Cannula 2.0 98.1 Labs: Laboratory Tests Test 08/09/21 12:29 08/09/21 16:51 08/09/21 18:52 08/09/21 21:18 Glucose (Fingerstick) 106 mg/dL 112 mg/dL 194 mg/dL Hemoglobin 7.7 g/dL Hematocrit 23.4 % Test 08/10/21 07:35 White Blood Count 16.1 x10^3/uL Red Blood Count 2.34 x10^6/uL Hemoglobin 7.0 g/dL Hematocrit 21.2 % Mean Corpuscular Volume 91 fL Mean Corpuscular Hemoglobin 30 pg Mean Corpuscular Hemoglobin Concent 33 g/dL Red Cell Distribution Width 15.2 % Platelet Count 375 x10^3/uL Neutrophils (%) (Auto) 81 % Lymphocytes (%) (Auto) 9 % Monocytes (%) (Auto) 9 % Eosinophils (%) (Auto) 1 % Basophils (%) (Auto) 0 % Neutrophils # (Auto) 13.1 x10^3/uL Lymphocytes # (Auto) 1.4 x10^3/uL Monocytes # (Auto) 1.4 x10^3/uL Eosinophils # (Auto) 0.1 x10^3/uL Basophils # (Auto) 0.0 x10^3/uL Prothrombin Time 34.1 SEC Prothromb Time International Ratio 3.5 Sodium Level 149 mmol/L Potassium Level 3.9 mmol/L Chloride Level 110 mmol/L Carbon Dioxide Level 30 mmol/L Anion Gap 9 Blood Urea Nitrogen 36 mg/dL Creatinine 1.1 mg/dL Estimated GFR (Cockcroft-Gault) 65.3 Glucose Level 167 mg/dL Calcium Level 7.6 mg/dL PE: GEN: in chair, looks weak LUNGS: clear, NC HEART: mildly tachycardic ABD: stable in appearance - emesis basin w/ watery black liquid NEURO/PSYCH: A & O 3, frustrated A/P: Dark emesis, melena - recurrent Anemia - worse w/ elevated BUN S/p hip replacement, h/o A Fib - INR 3.5 on Coumadin -- Transferring to ICU. Will order transfusions/vit K. NPO, IV PPI, hold anti-coagulation. D/w Dr. Tirado - correct coagulopathy before EGD. D/w ICU nurse. Update: plan for EGD w/ Dr. Ridley this afternoon - cannot be done before 3:00 p.m. and could be later per anesthesia. Justicifation of Admission Dx: Justifications for Admission: Justification of Admission Dx: Yes Stroke - Ischemic: Stroke-Ischemic ROHIT CROWDER Aug 10, 2021 08:47
[2021-08-10] MEDS: CHOLECALCIFEROL (VITAMIN D3) 1,000 UNIT TABLET PO SCH (09:00)
[2021-08-10] MEDS: LACTOBACILLUS RHAMNOSUS GG 1 CAPSULE. PO SCH ×2 (09:00→21:00)
[2021-08-10] MEDS ORDERED: diphenhydrAMINE HCL 25 MG CAPSULE PO PRN (09:00)
[2021-08-10] MEDS: TAMSULOSIN 0.4 MG CAP.ER.24H. PO SCH (09:00)
[2021-08-10] MEDS ORDERED: ACETAMINOPHEN 325 MG TABLET. PO PRN (09:00)
[2021-08-10] MEDS: POTASSIUM CHLORIDE 20 MEQ TABLET.ER. PO SCH ×2 (09:00→14:00)
[2021-08-10] MEDS: AMIODARONE HCL 200 MG TABLET. PO SCH (09:00)
[2021-08-10] MEDS: CYANOCOBALAMIN (VITAMIN B-12) 100 MCG TABLET. PO SCH (09:00)
[2021-08-10] MEDS: CETIRIZINE HCL 10 MG TABLET. PO SCH (09:00)
[2021-08-10] MEDS: ISOSORBIDE MONONITRATE ER 30 MG TAB.ER.24H PO SCH (09:00)
[2021-08-10] MEDS ORDERED: PHYTONADIONE 10 MG/ML AMPUL. SQ ONE (09:00)
[2021-08-10] MEDS: LINAGLIPTIN 5 MG TABLET PO SCH (09:00)
[2021-08-10] MEDS: MULTIVITAMIN with MINERAL TABLET. PO SCH (09:00)
[2021-08-10] MEDS: LISINOPRIL 20 MG TABLET PO SCH (09:00)
[2021-08-10] MEDS: SENNOSIDES/DOCUSATE 8.6/50MG TABLET. PO SCH (09:00)
[2021-08-10] MEDS: METOPROLOL TART IMMED RELEASE 25 MG TABLET. PO SCH ×2 (09:00→21:00)
[2021-08-10] MEDS ORDERED: diphenhydrAMINE ORAL ELIXIR 12.5 MG/5 ML ML PO PRN (09:00)
--- NOTE | 2021-08-10 09:01 | PDOC ---
PROGRESS NOTES Date of Service: DATE: 08/10/21 TIME: 08:52 Subjective Subjective pt had nausea and vomiting since last evening, dark colored vomits and black stools. Objective Objective Vital Signs Date Time Temp Pulse Resp B/P (MAP) Pulse Ox O2 Delivery O2 Flow Rate FiO2 08/10/21 08:48 97.5 90 18 105/38 (60) 93 Nasal Cannula 3.0 97.5 Intake and Output 08/10/21 07:00 Intake Total 100 ml Balance 100 ml Intake Oral 100 ml # Voids 2 # Bowel Movements 1 Physical Exam Abdomen: Other (distended) Heart: Normal S1 Extremities: No clubbing General: Alert HEENT: Atraumatic Lungs: Clear to auscultation MUSCULOSKELETAL: No deformity, Osteoarthritic changes both hands, Other Neuro: Normal speech Psych/Mental Status: Mental status NL Skin: No breakdown Assessment Assessment FINAL IMPRESSION: possible upper GI bleed from vomiting 1. Status post right hip total replacement, total hip arthroplasty,POD#9 2. History of chronic obstructive pulmonary disease. 3. Diabetes. 4. Atrial fibrillation. 5. History of coronary artery disease. 6. History of previous strokes. PLAN:transfer to ICU trnasfuse1 u prbc,Hb 7.0 wbc 16 still elevated. hold coumadin inr 3.5, may have to give FFP. spoke with GI, iv protonix. spoke with RN. pot -normal Possible aspiration. Leukocytosis improving. on Zyvox and meropenem. WBC count is 15.3. Getting worse Status post right total Hip arthroplasty. Anemia. Patient has iron deficiency. Patient also had recent surgery. Upper GI bleeding. Stool Hemoccult is positive. Diabetes controlled. Atrial fibrillation. INR is 2 Nausea and vomiting are improving. Hypernatremia-sodium 146 discontinue IV fluids. Creatinine is improving. Hypokalemia-potassium 2.8. Replace potassium. Getting worse even with potassium replacement. Recheck labs in a.m. still on clear liquid diet. Advance diet as tolerated. Encouraged to drink more fluids. Comment Review of Relevant I have reviewed the following items david (where applicable) has been applied. Labs Laboratory Tests Test 08/09/21 12:29 08/09/21 16:51 08/09/21 18:52 08/09/21 21:18 Glucose (Fingerstick) 106 mg/dL (70-99) 112 mg/dL (70-99) 194 mg/dL (70-99) Hemoglobin 7.7 g/dL (13.0-17.5) Hematocrit 23.4 % (39.0-53.0) Test 08/10/21 07:35 White Blood Count 16.1 x10^3/uL (4.0-11.0) Red Blood Count 2.34 x10^6/uL (4.30-5.70) Hemoglobin 7.0 g/dL (13.0-17.5) Hematocrit 21.2 % (39.0-53.0) Mean Corpuscular Volume 91 fL (79-100) Mean Corpuscular Hemoglobin 30 pg (25-35) Mean Corpuscular Hemoglobin Concent 33 g/dL (31-37) Red Cell Distribution Width 15.2 % (11.5-14.5) Platelet Count 375 x10^3/uL (140-400) Neutrophils (%) (Auto) 81 % (31-73) Lymphocytes (%) (Auto) 9 % (24-48) Monocytes (%) (Auto) 9 % (0-9) Eosinophils (%) (Auto) 1 % (0-3) Basophils (%) (Auto) 0 % (0-3) Neutrophils # (Auto) 13.1 x10^3/uL (1.8-7.7) Lymphocytes # (Auto) 1.4 x10^3/uL (1.0-4.8) Monocytes # (Auto) 1.4 x10^3/uL (0.0-1.1) Eosinophils # (Auto) 0.1 x10^3/uL (0.0-0.7) Basophils # (Auto) 0.0 x10^3/uL (0.0-0.2) Prothrombin Time 34.1 SEC (11.7-14.0) Prothromb Time International Ratio 3.5 (0.8-1.1) Sodium Level 149 mmol/L (136-145) Potassium Level 3.9 mmol/L (3.5-5.1) Chloride Level 110 mmol/L (98-107) Carbon Dioxide Level 30 mmol/L (21-32) Anion Gap 9 (6-14) Blood Urea Nitrogen 36 mg/dL (8-26) Creatinine 1.1 mg/dL (0.7-1.3) Estimated GFR (Cockcroft-Gault) 65.3 Glucose Level 167 mg/dL (70-99) Calcium Level 7.6 mg/dL (8.5-10.1) Microbiology 08/04/21 Urine Culture - Final, Complete Medications Current Medications Pantoprazole Sodium (Protonix) 40 mg DAILYAC PO ; Start 08/10/21 at 07:30 Warfarin Sodium (Coumadin - No Dose Today) 1 each 1X WARF ONCE MC ; Start 08/09/21 at 16:00; Stop 08/09/21 at 16:01; Status DC Vitals/I & O Vital Sign - Last 24 Hours 08/09/21 08/09/21 08/09/21 08/09/21 09:00 09:32 09:32 09:33 Pulse 61 61 61 61 B/P (MAP) 149/64 149/64 149/64 149/64 08/09/21 08/09/21 08/09/21 08/09/21 09:33 11:00 14:53 19:00 Temp 98.2 97.9 98.1 98.2 97.9 98.1 Pulse 61 74 78 78 Resp 18 18 22 B/P (MAP) 149/64 109/62 (78) 131/59 (83) 122/58 (79) Pulse Ox 94 90 92 O2 Delivery Nasal Cannula Room Air Nasal Cannula O2 Flow Rate 2.0 08/09/21 08/09/21 08/10/21 08/10/21 20:00 23:00 03:00 08:48 Temp 97.4 98.1 97.5 97.4 98.1 97.5 Pulse 82 79 90 Resp 18 16 18 B/P (MAP) 127/54 (78) 99/41 (60) 105/38 (60) Pulse Ox 99 96 93 O2 Delivery Nasal Cannula Nasal Cannula Nasal Cannula Nasal Cannula O2 Flow Rate 3.0 2.0 2.0 3.0 Intake and Output 08/09/21 08/09/21 08/10/21 15:00 23:00 07:00 Intake Total 100 ml Balance 100 ml Justifications for Admission Other Justification COLEEN LOPEZ MD Aug 10, 2021 09:01
[2021-08-10] MEDS: PANTOPRAZOLE SODIUM IV DRIP 80 MG in IV NORMAL SALINE 100ML 100 ML IV SCH ×2 (10:10→21:04)
[2021-08-10 10:19] LABS: RED BLOOD COUNT 2.31 x10^6/uL (4.30-5.70); RED CELL DISTRIBUTION WIDTH 15.6 % (11.5-14.5); WHITE BLOOD COUNT 15.7 x10^3/uL (4.0-11.0)
[2021-08-10 10:26] LABS: HEMOGLOBIN 6.8 g/dL (13.0-17.5)
[2021-08-10] MEDS ORDERED: METOCLOPRAMIDE HCL 10 MG/2 ML VIAL. IVP ONE (13:00)
[2021-08-10] MEDS ORDERED: LIDOCAINE 2% PF 5 ML VIAL. ONE (16:08)
[2021-08-10] MEDS ORDERED: PROPOFOL 10 MG/ML (20ML) VIAL. IV ONE ×3 (16:08→16:43)
--- NOTE | 2021-08-10 16:53 | PDOC4 ---
PROCEDURE Procedure EGD Indication: acute anemia/hematemesis/melena Meds: per anesthesia Findings: E--Exudative esophagitis 30-40cm (GEJ). G--Small amount hematin; no lesions. Huge clot in pylorus, occluding. Unable to dislodge/move after attempting forceps, alligator forceps, rattooth forceps and snare. D--able to squeeze by clot some into bulb. Glimpse of erosive changes; unable to visualize more. Could not push clot distally. Dean. well. IMP: Severe esophagitis Suspect lesion in bulb; unable to visualize due to clot and unable to dislodge clot. REC: Continue PPI drip. Replace NG/NPO If active bleeding per NG, ask IR to see and embolize. Monitor hemoglobin. CARIE FRASER MD Aug 10, 2021 16:53
[2021-08-10] MEDS: HYDROmorphone 2 MG/ML VIAL IVP PRN (17:32)
[2021-08-10] MEDS: SIMVASTATIN 20 MG TABLET PO SCH (21:00)
[2021-08-10] MEDS: LATANOPROST 0.005% OPHTH SOLUTION 2.5ML BOTTLE. OU SCH (21:00)
[2021-08-10] MEDS: INSULIN GLARGINE SYRINGE. SQ SCH (21:00)
[2021-08-11] VITALS (15 sets, daily range): BP systolic 90–145; BP diastolic 41–67
[2021-08-11] MEDS: ONDANSETRON PF 4 MG/2 ML VIAL. IVP PRN ×4 (01:15→23:59)
[2021-08-11] MEDS: HYDROmorphone 2 MG/ML VIAL IVP PRN ×4 (01:32→23:59)
[2021-08-11] MEDS: ACETAMINOPHEN 500 MG TABLET PO SCH ×4 (02:32→21:00)
[2021-08-11 04:22] LABS: BASO # 0.1 x10^3/uL (0.0-0.2); BASO % 0 % (0-3); EOS # 0.3 x10^3/uL (0.0-0.7); EOS % 2 % (0-3); HEMATOCRIT 24.8 % (39.0-53.0); HEMOGLOBIN 8.2 g/dL (13.0-17.5); LYMPH # 1.9 x10^3/uL (1.0-4.8); LYMPH % 10 % (24-48); MEAN CORPUSCULAR HEMOGLOBIN 30 pg (25-35); MEAN CORPUSCULAR HGB CONC 33 g/dL (31-37); MEAN CORPUSCULAR VOLUME 89 fL (79-100); MONO % 11 % (0-9); NEUT # 14.9 x10^3/uL (1.8-7.7); NEUT % 78 % (31-73); PLATELET COUNT 337 x10^3/uL (140-400); RED BLOOD COUNT 2.79 x10^6/uL (4.30-5.70); RED CELL DISTRIBUTION WIDTH 15.1 % (11.5-14.5); WHITE BLOOD COUNT 19.2 x10^3/uL (4.0-11.0)
[2021-08-11 04:27] LABS: PROTHROMBIN TIME PATIENT 21.8 SEC (11.7-14.0)
[2021-08-11 04:39] LABS: CALCIUM 7.4 mg/dL (8.5-10.1); GFR 72.8; POTASSIUM 3.6 mmol/L (3.5-5.1)
[2021-08-11] MEDS: MEROPENEM 500 MG in IV NORMAL SALINE 50ML 50 ML IV SCH ×3 (06:00→22:00)
[2021-08-11] MEDS: PANTOPRAZOLE SODIUM IV DRIP 80 MG in IV NORMAL SALINE 100ML 100 ML IV SCH ×2 (07:36→17:59)
[2021-08-11] MEDS: INSULIN LISPRO 300 UNITS/3 ML VIAL. SQ SCH ×3 (08:00→17:00)
[2021-08-11] MEDS: AMIODARONE HCL 200 MG TABLET. PO SCH (08:31)
[2021-08-11] MEDS: METOPROLOL TART IMMED RELEASE 25 MG TABLET. PO SCH ×2 (08:31→21:00)
[2021-08-11] MEDS: ISOSORBIDE MONONITRATE ER 30 MG TAB.ER.24H PO SCH (08:31)
[2021-08-11] MEDS: LACTOBACILLUS RHAMNOSUS GG 1 CAPSULE. PO SCH ×2 (08:39→21:00)
[2021-08-11] MEDS: POTASSIUM CHLORIDE 20 MEQ TABLET.ER. PO SCH ×2 (08:40→14:12)
[2021-08-11] MEDS: LISINOPRIL 20 MG TABLET PO SCH (08:40)
[2021-08-11] MEDS: TAMSULOSIN 0.4 MG CAP.ER.24H. PO SCH (08:40)
[2021-08-11] MEDS: CYANOCOBALAMIN (VITAMIN B-12) 100 MCG TABLET. PO SCH (08:41)
[2021-08-11] MEDS: CHOLECALCIFEROL (VITAMIN D3) 1,000 UNIT TABLET PO SCH (08:41)
[2021-08-11] MEDS: LINAGLIPTIN 5 MG TABLET PO SCH (08:41)
[2021-08-11] MEDS: SENNOSIDES/DOCUSATE 8.6/50MG TABLET. PO SCH (08:41)
[2021-08-11] MEDS: MULTIVITAMIN with MINERAL TABLET. PO SCH (08:41)
[2021-08-11] MEDS: CETIRIZINE HCL 10 MG TABLET. PO SCH (08:41)
--- NOTE | 2021-08-11 09:21 | PDOC ---
PROGRESS NOTES Date of Service: DATE: 08/11/21 TIME: 09:21 Subjective Subjective seen in the ICU ,NGTpresent Objective Objective Vital Signs Date Time Temp Pulse Resp B/P (MAP) Pulse Ox O2 Delivery O2 Flow Rate FiO2 08/11/21 08:40 90 133/66 08/11/21 08:30 18 Nasal Cannula 2.0 08/11/21 06:00 94 08/11/21 04:00 98.3 98.3 Intake and Output 08/11/21 07:00 Intake Total 977 ml Output Total 3500 ml Balance -2523 ml IV Total 525 ml Blood Product IV Normal Saline Flush 452 ml Gastric Drainage Total 3500 ml # Voids 4 # Bowel Movements 4 Physical Exam Abdomen: Soft, Other (distended) Heart: Normal S1 Extremities: No clubbing General: Alert HEENT: Atraumatic Lungs: Clear to auscultation MUSCULOSKELETAL: No deformity, Osteoarthritic changes both hands, Other Neuro: Normal speech Psych/Mental Status: Mental status NL Skin: No breakdown Assessment Assessment FINAL IMPRESSION: upper GI bleed ,Huge clot in pylorus seen on EGD 08/10/21 1. Status post right hip total replacement, total hip arthroplasty,POD#10 2. History of chronic obstructive pulmonary disease. 3. Diabetes. 4. Atrial fibrillation. 5. History of coronary artery disease. 6. History of previous strokes. PLAN:transferred to ICU transfused 2 u prbc,Hb 8.0 wbc 19 reactive hold coumadin inr 1.9,was given vit K spoke with GI, iv protonix+protnic infusion. spoke with RN. d/c IV antibiotics after today dose , finished 7 days antibiotics Possible aspiration. Leukocytosis improving. on Zyvox and meropenem. WBC count is 15.3. Getting worse Status post right total Hip arthroplasty. Anemia. Patient has iron deficiency. Patient also had recent surgery. Upper GI bleeding. Stool Hemoccult is positive. Diabetes controlled. Atrial fibrillation. INR is 2 Nausea and vomiting are improving. Hypernatremia-sodium 146 discontinue IV fluids. Creatinine is improving. Hypokalemia-potassium 2.8. Replace potassium. Getting worse even with potassium replacement. Recheck labs in a.m. still on clear liquid diet. Advance diet as tolerated. Encouraged to drink more fluids. Comment Review of Relevant I have reviewed the following items david (where applicable) has been applied. Labs Laboratory Tests Test 08/10/21 09:53 08/10/21 18:30 08/10/21 21:04 08/11/21 03:45 White Blood Count 15.7 x10^3/uL (4.0-11.0) 19.2 x10^3/uL (4.0-11.0) Red Blood Count 2.31 x10^6/uL (4.30-5.70) 2.79 x10^6/uL (4.30-5.70) Hemoglobin 6.8 g/dL (13.0-17.5) 8.3 g/dL (13.0-17.5) 8.2 g/dL (13.0-17.5) Hematocrit 20.7 % (39.0-53.0) 24.8 % (39.0-53.0) Mean Corpuscular Volume 90 fL (79-100) 89 fL (79-100) Mean Corpuscular Hemoglobin 29 pg (25-35) 30 pg (25-35) Mean Corpuscular Hemoglobin Concent 33 g/dL (31-37) 33 g/dL (31-37) Red Cell Distribution Width 15.6 % (11.5-14.5) 15.1 % (11.5-14.5) Platelet Count 378 x10^3/uL (140-400) 337 x10^3/uL (140-400) Glucose (Fingerstick) 132 mg/dL (70-99) Neutrophils (%) (Auto) 78 % (31-73) Lymphocytes (%) (Auto) 10 % (24-48) Monocytes (%) (Auto) 11 % (0-9) Eosinophils (%) (Auto) 2 % (0-3) Basophils (%) (Auto) 0 % (0-3) Neutrophils # (Auto) 14.9 x10^3/uL (1.8-7.7) Lymphocytes # (Auto) 1.9 x10^3/uL (1.0-4.8) Monocytes # (Auto) 2.0 x10^3/uL (0.0-1.1) Eosinophils # (Auto) 0.3 x10^3/uL (0.0-0.7) Basophils # (Auto) 0.1 x10^3/uL (0.0-0.2) Prothrombin Time 21.8 SEC (11.7-14.0) Prothromb Time International Ratio 1.9 (0.8-1.1) Sodium Level 149 mmol/L (136-145) Potassium Level 3.6 mmol/L (3.5-5.1) Chloride Level 111 mmol/L (98-107) Carbon Dioxide Level 33 mmol/L (21-32) Anion Gap 5 (6-14) Blood Urea Nitrogen 23 mg/dL (8-26) Creatinine 1.0 mg/dL (0.7-1.3) Estimated GFR (Cockcroft-Gault) 72.8 Glucose Level 132 mg/dL (70-99) Calcium Level 7.4 mg/dL (8.5-10.1) Test 08/11/21 08:37 Glucose (Fingerstick) 133 mg/dL (70-99) Microbiology 08/04/21 Urine Culture - Final, Complete Medications Current Medications Lidocaine HCl (Lidocaine Pf 2% Vial) 5 ml STK-MED ONCE .ROUTE ; Start 08/10/21 at 16:08; Stop 08/10/21 at 16:09; Status DC Metoclopramide HCl (Reglan Vial) 10 mg 1X ONCE IVP Last administered on 08/10/21at 13:34; Start 08/10/21 at 13:00; Stop 08/10/21 at 13:01; Status DC Propofol (Diprivan) 200 mg STK-MED ONCE IV ; Start 08/10/21 at 16:08; Stop 08/10/21 at 16:09; Status DC Propofol (Diprivan) 200 mg STK-MED ONCE IV ; Start 08/10/21 at 16:27; Stop 08/10/21 at 16:28; Status DC Propofol (Diprivan) 200 mg STK-MED ONCE IV ; Start 08/10/21 at 16:43; Stop 08/10/21 at 16:43; Status DC Warfarin Sodium (Coumadin - No Dose Today) 1 each 1X WARF ONCE MC Last administered on 08/10/21at 16:00; Start 08/10/21 at 16:00; Stop 08/10/21 at 16:01; Status DC Vitals/I & O Vital Sign - Last 24 Hours 08/10/21 08/10/21 08/10/21/19/21 11:00 11:22 11:37 12:00 Temp 98.0 97.5 98.0 98.0 97.5 98.0 Pulse 83 86 83 Resp 18 16 18 B/P (MAP) 135/65 (88) 131/65 137/55 Pulse Ox 98 O2 Delivery Nasal Cannula Nasal Cannula O2 Flow Rate 2.0 2.0 08/10/21 08/10/21 08/10/21 08/10/21 12:55 13:00 13:10 14:00 Temp 98.2 97.5 97.5 98.2 97.5 97.5 Pulse 87 86 87 88 Resp 16 20 16 18 B/P (MAP) 137/58 137/58 (84) 145/66 145/66 (92) Pulse Ox 99 95 O2 Delivery Nasal Cannula Nasal Cannula O2 Flow Rate 2.0 3.0 08/10/21 08/10/21 08/10/21 08/10/21 14:23 15:00 15:16 15:42 Temp 97.5 97.8 98.6 97.5 97.8 98.6 Pulse 87 92 90 86 Resp 20 14 B/P (MAP) 145/66 154/68 (96) 154/68 Pulse Ox 95 100 O2 Delivery Nasal Cannula O2 Flow Rate 3.0 08/10/21 08/10/21 08/10/21 08/10/21 15:46 16:00 16:09 16:48 Temp 97.7 98.1 97.7 98.1 Pulse 96 78 Resp 16 B/P (MAP) 157/74 116/89 Pulse Ox 100 O2 Delivery Nasal Cannula Nasal Cannula Nasal Cannula O2 Flow Rate 3.0 3.0 6 08/10/21 08/10/21 08/10/21 08/10/21 16:49 17:00 17:07 17:32 Temp 98.1 98.1 Pulse 81 77 84 Resp 20 16 20 16 B/P (MAP) 116/89 143/108 (120) 133/63 Pulse Ox 95 93 95 O2 Delivery Nasal Cannula Room Air Nasal Cannula O2 Flow Rate 3.0 08/10/21 08/10/21 08/10/21 08/10/21 18:00 19:00 20:00 20:00 Temp 98.3 98.3 Pulse 84 83 80 Resp 16 13 24 B/P (MAP) 145/72 (96) 117/54 (75) Pulse Ox 94 98 98 O2 Delivery Nasal Cannula Nasal Cannula Nasal Cannula Nasal Cannula O2 Flow Rate 3.0 3.0 3.0 3.0 08/10/21 08/10/21 08/10/21 08/11/21 21:00 22:00 23:00 00:00 Pulse 82 82 90 Resp 27 16 10 B/P (MAP) 133/62 (85) 107/43 (64) 107/43 (64) Pulse Ox 97 96 96 O2 Delivery Nasal Cannula Nasal Cannula Nasal Cannula Nasal Cannula O2 Flow Rate 3.0 3.0 3.0 3.0 08/11/21 08/11/21 08/11/21 08/11/21 00:00 01:00 02:00 03:00 Temp 98.3 98.3 Pulse 84 80 76 81 Resp 21 23 10 28 B/P (MAP) 120/53 (75) 122/63 (82) 90/41 (57) 120/51 (74) Pulse Ox 96 97 94 95 O2 Delivery Nasal Cannula Nasal Cannula Nasal Cannula Nasal Cannula O2 Flow Rate 3.0 3.0 3.0 3.0 08/11/21 08/11/21 08/11/21 08/11/21 04:00 04:00 05:00 06:00 Temp 98.3 98.3 Pulse 89 86 81 Resp 14 12 25 B/P (MAP) 131/57 (81) 92/49 (63) 140/49 (79) Pulse Ox 94 94 94 O2 Delivery Nasal Cannula Nasal Cannula Nasal Cannula Nasal Cannula O2 Flow Rate 3.0 3.0 3.0 3.0 08/11/21 08/11/21 08/11/21 08/11/21 08:30 08:31 08:31 08:31 Pulse 80 85 80 Resp 18 B/P (MAP) 133/66 133/66 133/66 O2 Delivery Nasal Cannula O2 Flow Rate 2.0 08/11/21 08/11/21 08:40 08:40 Pulse 80 90 B/P (MAP) 133/66 133/66 Intake and Output 08/10/21 08/10/21 08/11/21 15:00 23:00 07:00 Intake Total 452 ml 350 ml 175 ml Output Total 1000 ml 1800 ml 700 ml Balance -548 ml -1450 ml -525 ml Justifications for Admission Other Justification COLEEN LOPEZ MD Aug 11, 2021 09:21
--- NOTE | 2021-08-11 10:28 | PDOC ---
Date of Service: DATE: 08/11/21 TIME: 10:18 Subjective: Subjective: "I'm here." We discussed EGD findings. Denies abd pain and nausea. Objective: Objective: D/w nurse - about 700cc from NGT last night, also had a black stool (says not concerned for blood). Vital Signs: Vital Signs Date Time Temp Pulse Resp B/P (MAP) Pulse Ox O2 Delivery O2 Flow Rate FiO2 08/11/21 08:40 90 133/66 08/11/21 08:30 18 Nasal Cannula 2.0 08/11/21 06:00 94 08/11/21 04:00 98.3 98.3 Labs: Laboratory Tests Test 08/10/21 18:30 08/10/21 21:04 08/11/21 03:45 08/11/21 08:37 Hemoglobin 8.3 g/dL 8.2 g/dL Glucose (Fingerstick) 132 mg/dL 133 mg/dL White Blood Count 19.2 x10^3/uL Red Blood Count 2.79 x10^6/uL Hematocrit 24.8 % Mean Corpuscular Volume 89 fL Mean Corpuscular Hemoglobin 30 pg Mean Corpuscular Hemoglobin Concent 33 g/dL Red Cell Distribution Width 15.1 % Platelet Count 337 x10^3/uL Neutrophils (%) (Auto) 78 % Lymphocytes (%) (Auto) 10 % Monocytes (%) (Auto) 11 % Eosinophils (%) (Auto) 2 % Basophils (%) (Auto) 0 % Neutrophils # (Auto) 14.9 x10^3/uL Lymphocytes # (Auto) 1.9 x10^3/uL Monocytes # (Auto) 2.0 x10^3/uL Eosinophils # (Auto) 0.3 x10^3/uL Basophils # (Auto) 0.1 x10^3/uL Prothrombin Time 21.8 SEC Prothromb Time International Ratio 1.9 Sodium Level 149 mmol/L Potassium Level 3.6 mmol/L Chloride Level 111 mmol/L Carbon Dioxide Level 33 mmol/L Anion Gap 5 Blood Urea Nitrogen 23 mg/dL Creatinine 1.0 mg/dL Estimated GFR (Cockcroft-Gault) 72.8 Glucose Level 132 mg/dL Calcium Level 7.4 mg/dL Imaging: EGD 08/11 E--Exudative esophagitis 30-40cm (GEJ). G--Small amount hematin; no lesions. Huge clot in pylorus, occluding. Unable to dislodge/move after attempting forceps, alligator forceps, rattooth forceps and snare. D--able to squeeze by clot some into bulb. Glimpse of erosive changes; unable to visualize more. Could not push clot distally. Dean. well. IMP: Severe esophagitis Suspect lesion in bulb; unable to visualize due to clot and unable to dislodge clot. REC: Continue PPI drip. Replace NG/NPO If active bleeding per NG, ask IR to see and embolize. Monitor hemoglobin. PE: GEN: NAD - up in recliner - was asleep LUNGS: clear, NC 2L HEART: RRR ABD: soft, non-tender, NGT w/ darkish watery output NEURO/PSYCH: A & O 3, less grumpy today A/P: Severe esophagitis, suspected lesion in duod bulb w/ clot/outlet obstruction Anemia - improved w/ transfusions Recent hip surgery, h/o A Fib -- Difficult situation. Continue NGT and IV PPI for now. Transfuse as needed. Will ask for heme/onc opinion. Justicifation of Admission Dx: Justifications for Admission: Justification of Admission Dx: Yes Stroke - Ischemic: Stroke-Ischemic ROHIT CROWDER Aug 11, 2021 10:28
--- NOTE | 2021-08-11 10:55 | NUR ---
Pharmacy Warfarin Dosing Note S:Pharmacy consulted to assist with anticoagulation therapy started with target INR: 2 -3 O:ERASMOJOLEEN W is a 76 year old M with Atrial Fibrillation LABS: Last INR: 1.9 Last HGB: 8.2 Last HCT: 248. Last PLT: 337 Last dose of 7.5 mg given on 08/08/21 at 1804 Previous Regimen: 7.5mg PO DAILY AT HOME Vitamin K given: Y 10 MG SQ on 08/10 Drug Interaction Changes: Same Interacting Drug Ongoing Drug Interactions: ASA, MOBIC, AMIODARONE A:INR of 1.9 is below desired range. Target range for this patient is: 2 -3 P: Warfarin dose: Hold Today Bridge Therapy: None Next INR due 08/12/21 Pharmacy anticoagulation service will continue to follow. CARLO JACKSON RPH, 08/11/21 [id number]
--- NOTE | 2021-08-11 14:13 | NUR ---
1200- contacted wound care about patient's Santos drain not working correctly. Per wound care I removed Santos drain and placed surgical Auquacel AG dressing on incision Patients incision approximated, no visible stitches and was clean and dry.
[2021-08-11] MEDS: SIMVASTATIN 20 MG TABLET PO SCH (21:00)
[2021-08-11] MEDS: LATANOPROST 0.005% OPHTH SOLUTION 2.5ML BOTTLE. OU SCH (22:00)
[2021-08-11] MEDS: INSULIN GLARGINE SYRINGE. SQ SCH (23:24)
[2021-08-12] MEDS: ACETAMINOPHEN 500 MG TABLET PO SCH ×4 (03:00→19:52)
[2021-08-12 03:10] VITALS: BP 133/57
[2021-08-12] MEDS: PANTOPRAZOLE SODIUM IV DRIP 80 MG in IV NORMAL SALINE 100ML 100 ML IV SCH ×3 (06:20→20:41)
[2021-08-12 07:00] VITALS: BP 137/58
[2021-08-12 07:40] LABS: HEMATOCRIT 20.7 % (39.0-53.0)
[2021-08-12] MEDS: INSULIN LISPRO 300 UNITS/3 ML VIAL. SQ SCH ×3 (08:00→17:00)
[2021-08-12] MEDS: CYANOCOBALAMIN (VITAMIN B-12) 100 MCG TABLET. PO SCH (09:00)
[2021-08-12] MEDS: MULTIVITAMIN with MINERAL TABLET. PO SCH (09:00)
[2021-08-12] MEDS: ISOSORBIDE MONONITRATE ER 30 MG TAB.ER.24H PO SCH (09:00)
[2021-08-12] MEDS: LISINOPRIL 20 MG TABLET PO SCH (09:00)
[2021-08-12] MEDS: METOPROLOL TART IMMED RELEASE 25 MG TABLET. PO SCH ×2 (09:00→19:52)
[2021-08-12] MEDS: SENNOSIDES/DOCUSATE 8.6/50MG TABLET. PO SCH (09:00)
[2021-08-12] MEDS: CETIRIZINE HCL 10 MG TABLET. PO SCH (09:00)
[2021-08-12] MEDS: TAMSULOSIN 0.4 MG CAP.ER.24H. PO SCH (09:00)
[2021-08-12] MEDS: LACTOBACILLUS RHAMNOSUS GG 1 CAPSULE. PO SCH ×2 (09:00→19:53)
[2021-08-12] MEDS: POTASSIUM CHLORIDE 20 MEQ TABLET.ER. PO SCH ×2 (09:00→14:00)
[2021-08-12] MEDS: AMIODARONE HCL 200 MG TABLET. PO SCH (09:00)
[2021-08-12] MEDS: LINAGLIPTIN 5 MG TABLET PO SCH (09:00)
[2021-08-12] MEDS: CHOLECALCIFEROL (VITAMIN D3) 1,000 UNIT TABLET PO SCH (09:00)
--- NOTE | 2021-08-12 09:18 | PDOC ---
PROGRESS NOTES Date of Service: DATE: 08/12/21 TIME: 09:11 Subjective Subjective pt is mad and grumpy,saying that i came for hip replacement , now after 10 days i cannot eat,do anything myself. Objective Objective Vital Signs Date Time Temp Pulse Resp B/P (MAP) Pulse Ox O2 Delivery O2 Flow Rate FiO2 08/12/21 03:10 98.1 82 14 133/57 (82) 90 Nasal Cannula 4.0 98.1 l Intake and Output 08/12/21 07:00 Intake Total 729.1 ml Balance 729.1 ml Intake Oral 0 ml IV Total 565.1 ml Other 164 ml # Bowel Movements 5 Physical Exam Abdomen: Soft, Other (distended) Heart: Normal S1 Extremities: No clubbing General: Alert HEENT: Atraumatic Lungs: Clear to auscultation MUSCULOSKELETAL: No deformity, Osteoarthritic changes both hands, Other Neuro: Normal speech Psych/Mental Status: Other (grumpy, does not remember yesterdays events) Skin: No breakdown Assessment Assessment FINAL IMPRESSION: upper GI bleed ,Huge clot sitting in pylorus and causing obstruction , clot overlying ulcer seen on EGD 08/10/21 1. Status post right hip total replacement, total hip arthroplasty,POD#11 2. History of chronic obstructive pulmonary disease. 3. Diabetes. 4. Atrial fibrillation. 5. History of coronary artery disease. 6. History of previous strokes. PLAN:transferred out of ICU transfused 2 u prbc,Hb 8.0 stable wbc 19 reactive , todays labs pending holding coumadin due to bleed , inr pending spoke with GI nurse practitioner, iv protonix+protnic infusion.NGT to suction rehab consult dr trotter d/trudy IV antibiotics , finished 7 days antibiotics. pt grumpy ,not able to accept aidee fact that he has issues with his stomach ulcer and bleeding and that we can feed him . Comment Review of Relevant I have reviewed the following items david (where applicable) has been applied. Labs Laboratory Tests Test 08/11/21 11:46 08/11/21 12:00 08/11/21 18:23 08/11/21 18:50 Glucose (Fingerstick) 148 mg/dL (70-99) 121 mg/dL (70-99) Hemoglobin 8.0 g/dL (13.0-17.5) 8.1 g/dL (13.0-17.5) Test 08/11/21 21:18 08/12/21 07:24 Glucose (Fingerstick) 118 mg/dL (70-99) 152 mg/dL (70-99) Microbiology 08/04/21 Urine Culture - Final, Complete Medications Current Medications Warfarin Sodium (Coumadin - No Dose Today) 1 each 1X WARF ONCE MC Last administered on 08/11/21at 16:00; Start 08/11/21 at 16:00; Stop 08/11/21 at 16:01; Status DC Vitals/I & O Vital Sign - Last 24 Hours 08/11/21 08/11/21 08/11/21 08/11/21 10:00 12:00 13:19 15:41 Temp 98.4 98.4 Pulse 76 64 Resp 14 14 16 B/P (MAP) 134/56 (82) 126/65 (85) Pulse Ox 95 97 97 95 O2 Delivery Nasal Cannula Nasal Cannula Nasal Cannula Nasal Cannula O2 Flow Rate 2.0 3.0 3.0 3.0 08/11/21 08/11/21 08/11/21 08/11/21 16:00 16:14 20:20 20:30 Temp 98.4 97.4 98.4 97.4 Pulse 62 75 Resp 16 16 20 B/P (MAP) 142/62 (88) 133/52 (79) Pulse Ox 96 96 92 O2 Delivery Nasal Cannula Nasal Cannula Nasal Cannula Nasal Cannula O2 Flow Rate 3.0 3.0 3.0 3.0 08/11/21 08/11/21 08/12/21 08/12/21 23:45 23:59 00:29 03:10 Temp 97.6 98.1 97.6 98.1 Pulse 84 82 Resp 20 14 B/P (MAP) 145/64 (91) 133/57 (82) Pulse Ox 90 92 92 90 O2 Delivery Nasal Cannula Nasal Cannula Nasal Cannula Nasal Cannula O2 Flow Rate 4.0 3.0 3.0 4.0 Intake and Output 08/11/21 08/11/21 08/12/21 15:00 23:00 07:00 Intake Total 75 ml 654.1 ml 0 ml Balance 75 ml 654.1 ml 0 ml Justifications for Admission Other Justification COLEEN LOPEZ MD Aug 12, 2021 09:18
[2021-08-12 09:47] LABS: CALCIUM 7.5 mg/dL (8.5-10.1); CREATININE 0.9 mg/dL (0.7-1.3); GFR 82.3; POTASSIUM 3.9 mmol/L (3.5-5.1)
[2021-08-12 09:54] LABS: BASO # 0.1 x10^3/uL (0.0-0.2); BASO % 1 % (0-3); EOS # 0.4 x10^3/uL (0.0-0.7); EOS % 2 % (0-3); HEMATOCRIT 24.3 % (39.0-53.0); HEMOGLOBIN 7.8 g/dL (13.0-17.5); LYMPH # 1.8 x10^3/uL (1.0-4.8); LYMPH % 10 % (24-48); MEAN CORPUSCULAR HEMOGLOBIN 29 pg (25-35); MEAN CORPUSCULAR HGB CONC 32 g/dL (31-37); MEAN CORPUSCULAR VOLUME 90 fL (79-100); MONO # 1.9 x10^3/uL (0.0-1.1); MONO % 10 % (0-9); NEUT # 14.9 x10^3/uL (1.8-7.7); NEUT % 78 % (31-73); PLATELET COUNT 344 x10^3/uL (140-400); RED CELL DISTRIBUTION WIDTH 15.3 % (11.5-14.5); WHITE BLOOD COUNT 19.1 x10^3/uL (4.0-11.0)
[2021-08-12 09:56] LABS: PROTHROMBIN TIME PATIENT 15.5 SEC (11.7-14.0)
[2021-08-12] MEDS: HYDROmorphone 2 MG/ML VIAL IVP PRN ×2 (10:06→15:31)
--- NOTE | 2021-08-12 10:35 | NUR ---
THIS SENSITIZED PAPER TESTER ENTERED PATIENTS' ROOM TO FIND HIM SITTING UP IN THE CHAIR AT THE BEDSIDE AND NG TUBE ON THE FLOOR, WHEN QUESTIONED ABOUT THE NG TUBE HE SAID THAT HE DID NOT KNOW THAT IT HAD CAME OUT, WILL INFORM DR. FRASER.
[2021-08-12 11:00] VITALS: BP 115/46
[2021-08-12] MEDS: IPRATRPIUM/ALBUTEROL 0.5/2.5MG 3 ML NEBU. NEB SCH ×3 (12:11→20:00)
--- NOTE | 2021-08-12 12:42 | CONS ---
DATE OF CONSULTATION: 08/12/2021 ATTENDING PHYSICIAN: Emma Rae MD REASON FOR CONSULTATION: The patient was seen at the request of Dr. Rae for rehab evaluation. HISTORY OF PRESENT ILLNESS: This is a 76-year-old male with known chronic obstructive pulmonary disease, uses oxygen at nighttime 2 liters per minute by nasal cannula; also with known hypertension; coronary artery disease; atrial fibrillation, on Coumadin; diabetes mellitus; previous strokes; degenerative joint disease of hip and status post right total knee arthroplasty. He was admitted on 08/02/2021 and had right total hip arthroplasty done. Postop, he was participating in therapy and making progress, then he started having some epigastric area discomfort. The patient was found with severe esophagitis and EGD revealed exudative esophagitis 30-40 cm gastroesophageal junction; small amount of hematin, no lesions; huge clot in pylorus occluding unable to dislodge and move after attempting forceps, alligator forceps, rat tooth forceps and snare; able to squeeze clot some into bulb glimpse of erosive area, just unable to visualize more, could not push the clot distally. These are the findings as per EGD done on 08/10/2021. The patient right now is on only ice chips by mouth and NG tube in place. He wants to eat. He had a good bowel movement yesterday. He denies any trouble with bladder control. He admits some upper abdominal area discomfort. The patient wants to eat and get around. He lived with his family in a mobile home, had 2 steps with railing to enter and prior to the present hospitalization used a cane to walk. PHYSICAL EXAMINATION: Today revealed an elderly male. He is alert, oriented to time, place, person and circumstance, follows commands appropriately. Moves all 4 extremities voluntarily where he had 4+/5 grade muscle strength and deep tendon reflexes are 1-2+ and symmetrical and he had equal perception of touch and pinprick sensation bilaterally. He had dressing to his right hip operative wound area. He had old healed scar over right knee where he had total knee arthroplasty. The patient had somewhat protuberant abdomen. NG tube in place and receiving oxygen by nasal cannula. No significant pain on movement of his right hip joint. I have not tested his ambulation skills. I saw him while he is in bedside recliner. ASSESSMENT: Elderly male status post right total hip arthroplasty for treatment of painful degenerative joint disease of right hip onset 08/02/2021, postop period upper gastrointestinal bleeding from erosive esophagitis and gastritis with protuberant abdomen and abdominal pain. RECOMMENDATIONS: To get him up as tolerated. Whenever he can start eating, he should be able to go home or go to a fpc care unit if he qualifies for continued care. Dr. Rae, I appreciate asking me to participate in the care of this interesting patient. I will be glad to see him for followup with you on as needed basis. ASHLEY/MIRNA/DARLINE DR: ASHLEY/claritza TID: [id number]
--- NOTE | 2021-08-12 14:29 | PDOC ---
G I PROGRESS NOTE Subjective No specific complaints. Wants "outta here". Has not vomited. Pulled out NG last night. Objective Reports of little out NG. No Heme consult yet. Physical Exam Lungs clear anteriorly. RRR Abdomen soft, protuberant, non-tender. Review of Relevant I have reviewed the following items david (where applicable) has been applied. Labs Laboratory Tests Test 08/10/21 18:30 08/10/21 21:04 08/11/21 03:45 08/11/21 08:37 Hemoglobin 8.3 g/dL (13.0-17.5) 8.2 g/dL (13.0-17.5) Glucose (Fingerstick) 132 mg/dL (70-99) 133 mg/dL (70-99) White Blood Count 19.2 x10^3/uL (4.0-11.0) Red Blood Count 2.79 x10^6/uL (4.30-5.70) Hematocrit 24.8 % (39.0-53.0) Mean Corpuscular Volume 89 fL (79-100) Mean Corpuscular Hemoglobin 30 pg (25-35) Mean Corpuscular Hemoglobin Concent 33 g/dL (31-37) Red Cell Distribution Width 15.1 % (11.5-14.5) Platelet Count 337 x10^3/uL (140-400) Neutrophils (%) (Auto) 78 % (31-73) Lymphocytes (%) (Auto) 10 % (24-48) Monocytes (%) (Auto) 11 % (0-9) Eosinophils (%) (Auto) 2 % (0-3) Basophils (%) (Auto) 0 % (0-3) Neutrophils # (Auto) 14.9 x10^3/uL (1.8-7.7) Lymphocytes # (Auto) 1.9 x10^3/uL (1.0-4.8) Monocytes # (Auto) 2.0 x10^3/uL (0.0-1.1) Eosinophils # (Auto) 0.3 x10^3/uL (0.0-0.7) Basophils # (Auto) 0.1 x10^3/uL (0.0-0.2) Prothrombin Time 21.8 SEC (11.7-14.0) Prothromb Time International Ratio 1.9 (0.8-1.1) Sodium Level 149 mmol/L (136-145) Potassium Level 3.6 mmol/L (3.5-5.1) Chloride Level 111 mmol/L (98-107) Carbon Dioxide Level 33 mmol/L (21-32) Anion Gap 5 (6-14) Blood Urea Nitrogen 23 mg/dL (8-26) Creatinine 1.0 mg/dL (0.7-1.3) Estimated GFR (Cockcroft-Gault) 72.8 Glucose Level 132 mg/dL (70-99) Calcium Level 7.4 mg/dL (8.5-10.1) Test 08/11/21 11:46 08/11/21 12:00 08/11/21 18:23 08/11/21 18:50 Glucose (Fingerstick) 148 mg/dL (70-99) 121 mg/dL (70-99) Hemoglobin 8.0 g/dL (13.0-17.5) 8.1 g/dL (13.0-17.5) Test 08/11/21 21:18 08/12/21 07:24 08/12/21 09:20 08/12/21 09:25 Glucose (Fingerstick) 118 mg/dL (70-99) 152 mg/dL (70-99) Sodium Level 150 mmol/L (136-145) Potassium Level 3.9 mmol/L (3.5-5.1) Chloride Level 111 mmol/L (98-107) Carbon Dioxide Level 31 mmol/L (21-32) Anion Gap 8 (6-14) Blood Urea Nitrogen 20 mg/dL (8-26) Creatinine 0.9 mg/dL (0.7-1.3) Estimated GFR (Cockcroft-Gault) 82.3 Glucose Level 144 mg/dL (70-99) Calcium Level 7.5 mg/dL (8.5-10.1) White Blood Count 19.1 x10^3/uL (4.0-11.0) Red Blood Count 2.70 x10^6/uL (4.30-5.70) Hemoglobin 7.8 g/dL (13.0-17.5) Hematocrit 24.3 % (39.0-53.0) Mean Corpuscular Volume 90 fL (79-100) Mean Corpuscular Hemoglobin 29 pg (25-35) Mean Corpuscular Hemoglobin Concent 32 g/dL (31-37) Red Cell Distribution Width 15.3 % (11.5-14.5) Platelet Count 344 x10^3/uL (140-400) Neutrophils (%) (Auto) 78 % (31-73) Lymphocytes (%) (Auto) 10 % (24-48) Monocytes (%) (Auto) 10 % (0-9) Eosinophils (%) (Auto) 2 % (0-3) Basophils (%) (Auto) 1 % (0-3) Neutrophils # (Auto) 14.9 x10^3/uL (1.8-7.7) Lymphocytes # (Auto) 1.8 x10^3/uL (1.0-4.8) Monocytes # (Auto) 1.9 x10^3/uL (0.0-1.1) Eosinophils # (Auto) 0.4 x10^3/uL (0.0-0.7) Basophils # (Auto) 0.1 x10^3/uL (0.0-0.2) Prothrombin Time 15.5 SEC (11.7-14.0) Prothromb Time International Ratio 1.2 (0.8-1.1) Test 08/12/21 10:55 Glucose (Fingerstick) 142 mg/dL (70-99) Laboratory Tests Test 08/11/21 18:23 08/11/21 18:50 08/11/21 21:18 08/12/21 07:24 Glucose (Fingerstick) 121 mg/dL (70-99) 118 mg/dL (70-99) 152 mg/dL (70-99) Hemoglobin 8.1 g/dL (13.0-17.5) Test 08/12/21 09:20 08/12/21 09:25 08/12/21 10:55 Sodium Level 150 mmol/L (136-145) Potassium Level 3.9 mmol/L (3.5-5.1) Chloride Level 111 mmol/L (98-107) Carbon Dioxide Level 31 mmol/L (21-32) Anion Gap 8 (6-14) Blood Urea Nitrogen 20 mg/dL (8-26) Creatinine 0.9 mg/dL (0.7-1.3) Estimated GFR (Cockcroft-Gault) 82.3 Glucose Level 144 mg/dL (70-99) Calcium Level 7.5 mg/dL (8.5-10.1) White Blood Count 19.1 x10^3/uL (4.0-11.0) Red Blood Count 2.70 x10^6/uL (4.30-5.70) Hemoglobin 7.8 g/dL (13.0-17.5) Hematocrit 24.3 % (39.0-53.0) Mean Corpuscular Volume 90 fL (79-100) Mean Corpuscular Hemoglobin 29 pg (25-35) Mean Corpuscular Hemoglobin Concent 32 g/dL (31-37) Red Cell Distribution Width 15.3 % (11.5-14.5) Platelet Count 344 x10^3/uL (140-400) Neutrophils (%) (Auto) 78 % (31-73) Lymphocytes (%) (Auto) 10 % (24-48) Monocytes (%) (Auto) 10 % (0-9) Eosinophils (%) (Auto) 2 % (0-3) Basophils (%) (Auto) 1 % (0-3) Neutrophils # (Auto) 14.9 x10^3/uL (1.8-7.7) Lymphocytes # (Auto) 1.8 x10^3/uL (1.0-4.8) Monocytes # (Auto) 1.9 x10^3/uL (0.0-1.1) Eosinophils # (Auto) 0.4 x10^3/uL (0.0-0.7) Basophils # (Auto) 0.1 x10^3/uL (0.0-0.2) Prothrombin Time 15.5 SEC (11.7-14.0) Prothromb Time International Ratio 1.2 (0.8-1.1) Glucose (Fingerstick) 142 mg/dL (70-99) Microbiology 08/04/21 Urine Culture - Final, Complete Medications Current Medications Fentanyl Citrate (Fentanyl 2ml Vial) 25 mcg PRN Q5MIN PRN IVP MILD PAIN 1-3 Last administered on 08/02/21at 11:51; Start 08/02/21 at 06:00; Stop 08/03/21 at 05:59; Status DC Fentanyl Citrate (Fentanyl 2ml Vial) 50 mcg PRN Q5MIN PRN IVP MODERATE PAIN 4- 6; Start 08/02/21 at 06:00; Stop 08/03/21 at 05:59; Status DC Morphine Sulfate (Morphine Sulfate) 1 mg PRN Q10MIN PRN IVP SEVERE PAIN 7-10 Last administered on 08/02/21at 09:39; Start 08/02/21 at 06:00; Stop 08/03/21 at 05:59; Status DC Ringer's Solution 1,000 ml @ 30 mls/hr Q24H IV Last administered on 08/02/21at 07:04; Start 08/02/21 at 06:00; Stop 08/02/21 at 17:59; Status DC Hydromorphone HCl (Dilaudid) 0.5 mg PRN Q10MIN PRN IVP SEVERE PAIN 7-10, 2nd CHOICE; Start 08/02/21 at 06:00; Stop 08/03/21 at 05:59; Status DC Prochlorperazine Edisylate (Compazine) 5 mg PACU PRN PRN IVP NAUSEA, MRX1; S tart 08/02/21 at 06:00; Stop 08/03/21 at 05:59; Status DC Morphine Sulfate 5 mg/Ketorolac Tromethamine 30 mg/Ropivacaine 60 ml/Epinephrine HCl 0.5 mg/ Miscellaneous 63 ml @ 63 mls/hr 1X PERIOP ONCE INT ART ; Start 08/02/21 at 06:00; Stop 08/02/21 at 07:00; Status DC Meloxicam (Mobic) 15 mg 1X PREOP PRN PO PRIOR TO PROCEDURE Last administered on 08/02/21at 07:05; Start 08/02/21 at 06:00; Stop 08/02/21 at 18:00; Status DC Gabapentin (Neurontin) 300 mg 1X PREOP PRN PO PRIOR TO PROCEDURE Last adminis tered on 08/02/21at 07:06; Start 08/02/21 at 06:00; Stop 08/02/21 at 18:00; Status DC Acetaminophen (Tylenol) 1,000 mg 1X PREOP PRN PO PRIOR TO PROCEDURE Last administered on 08/02/21at 07:05; Start 08/02/21 at 06:00; Stop 08/02/21 at 18:00; Status DC Clindamycin Phosphate 50 ml @ 100 mls/hr 1X PREOP PRN IV PRIOR TO PROCEDURE Last administered on 08/02/21at 07:40; Start 08/02/21 at 06:00; Stop 08/02/21 at 18:00; Status DC Tranexamic Acid 50 ml @ 50 mls/hr 1X PERIOP ONCE INJ ; Start 08/02/21 at 06:00; Stop 08/02/21 at 07:00; Status DC Tranexamic Acid 50 ml @ 50 mls/hr 1X PERIOP ONCE INJ ; Start 08/02/21 at 08:00; Stop 08/02/21 at 08:59; Status DC Tranexamic Acid 0 ml @ As Directed STK-MED ONCE .ROUTE ; Start 08/02/21 at 06:55; Stop 08/02/21 at 06:55; Status DC Tranexamic Acid 50 ml @ As Directed STK-MED ONCE .ROUTE ; Start 08/02/21 at 06:55; Stop 08/02/21 at 06:56; Status Cancel Insulin Human Lispro (HumaLOG VIAL for OP,RR ONLY) 0-10 units PRN Q1HR PRN SQ PER PROTOCOL Last administered on 08/02/21at 11:25; Start 08/02/21 at 07:00; Stop 08/03/21 at 06:59; Status DC Propofol (Diprivan) 200 mg STK-MED ONCE IV ; Start 08/02/21 at 07:10; Stop 08/02/21 at 07:10; Status DC Lidocaine HCl (Lidocaine Pf 2% Vial) 5 ml STK-MED ONCE .ROUTE ; Start 08/02/21 at 07:10; Stop 08/02/21 at 07:11; Status DC Dexamethasone Sodium Phosphate (Decadron) 4 mg STK-MED ONCE .ROUTE ; Start 08/02/21 at 07:11; Stop 08/02/21 at 07:11; Status DC Ondansetron HCl (Zofran) 4 mg STK-MED ONCE .ROUTE ; Start 08/02/21 at 07:11; Stop 08/02/21 at 07:11; Status DC Rocuronium [place] (Zemuron) 100 mg STK-MED ONCE .ROUTE ; Start 08/02/21 at 07:13; Stop 08/02/21 at 07:13; Status DC Fentanyl Citrate (Fentanyl 5ml Vial) 250 mcg STK-MED ONCE .ROUTE ; Start 08/02/21 at 07:13; Stop 08/02/21 at 07:13; Status DC Glycopyrrolate (Robinul) 1 mg STK-MED ONCE .ROUTE ; Start 08/02/21 at 07:57; Stop 08/02/21 at 07:57; Status DC Neostigmine [place] (Neostigmine Methylsulfate) 5 mg STK-MED ONCE .ROUTE ; Start 08/02/21 at 07:58; Stop 08/02/21 at 07:58; Status DC Phenylephrine HCl (PHENYLEPHRINE in 0.9% NACL PF) 1 mg STK-MED ONCE IV ; Start 08/02/21 at 08:10; Stop 08/02/21 at 08:10; Status DC Ephedrine Sulfate (ePHEDrine PF IN SALINE SYRINGE) 50 mg STK-MED ONCE IV ; Start 08/02/21 at 08:27; Stop 08/02/21 at 08:28; Status DC Fentanyl Citrate (Fentanyl 2ml Vial) 100 mcg STK-MED ONCE .ROUTE ; Start 08/02/21 at 09:20; Stop 08/02/21 at 09:20; Status DC Morphine Sulfate (Morphine Sulfate) 2 mg STK-MED ONCE .ROUTE ; Start 08/02/21 at 09:20; Stop 08/02/21 at 09:20; Status DC Morphine Sulfate (Morphine Sulfate) 2 mg PRN Q2HR PRN IVP PAIN; Start 08/02/21 at 11:45; Status Cancel Hydromorphone HCl (Dilaudid) 0.4 mg PRN Q4HRS PRN IVP PAIN Last administered on 08/12/21at 10:06; Start 08/02/21 at 11:45 Oxycodone/ Acetaminophen (Percocet 5/325) 1 tab PRN Q4HRS PRN PO PAIN Last administered on 08/03/21at 20:31; Start 08/02/21 at 11:45; Stop 08/05/21 at 09:19; Status DC Fentanyl Citrate (Fentanyl 2ml Vial) 100 mcg STK-MED ONCE .ROUTE ; Start 08/02/21 at 11:40; Stop 08/02/21 at 11:41; Status DC Morphine Sulfate (Morphine Sulfate) 2 mg PRN Q1HR PRN IVP PAIN-SEE COMMENTS; Start 08/02/21 at 11:45; Stop 08/05/21 at 09:19; Status DC Fentanyl Citrate (Fentanyl 2ml Vial) 25 mcg PRN Q1HR PRN IVP PAIN, 2nd CHOICE; Start 08/02/21 at 11:45; Stop 08/02/21 at 12:15; Status DC Diphenhydramine HCl (Benadryl) 25 mg PRN Q6HRS PRN IVP ITCHING; Start 08/02/21 at 11:45 Multivitamins (Thera M Plus) 1 tab DAILY PO Last administered on 08/09/21at 09:00; Start 08/02/21 at 12:00 Senna/Docusate Sodium (Senna Plus) 1 tab DAILY PO Last administered on 08/09/21at 09:31; Start 08/02/21 at 12:00 Ferrous Sulfate (Feosol) 325 mg BIDWMEALS PO Last administered on 08/04/21at 08:22; Start 08/02/21 at 17:00; Stop 08/04/21 at 11:11; Status DC Sodium Chloride 1,000 ml @ 100 mls/hr Q10H IV Last administered on 08/08/21at 07:01; Start 08/02/21 at 11:45; Stop 08/08/21 at 10:29; Status DC Clindamycin Phosphate 50 ml @ 100 mls/hr Q6H IV Last administered on 08/03/21at 01:02; Start 08/02/21 at 13:00; Stop 08/03/21 at 01:29; Status DC Zolpidem Tartrate (Ambien) 5 mg PRN QHS PRN PO INSOMNIA, MAY REPEAT IN 1HR Last administered on 08/09/21at 20:56; Start 08/02/21 at 11:45 Sodium Chloride (Normal Saline Flush) 10 ml QSHIFT PRN IV AFTER MEDS AND BLOOD DRAWS; Start 08/02/21 at 11:45 Acetaminophen (Tylenol) 1,000 mg Q6H PO Last administered on 08/09/21at 14:36; Start 08/03/21 at 09:00 Meloxicam (Mobic) 15 mg DAILY PO Last administered on 08/04/21at 08:20; Start 08/03/21 at 09:00; Stop 08/04/21 at 11:11; Status DC Tramadol HCl (Ultram) 50 mg Q6H PO Last administered on 08/04/21at 07:19; Start 08/03/21 at 06:00; Stop 08/04/21 at 11:11; Status DC Gabapentin (Neurontin) 100 mg Q12H PO Last administered on 08/03/21at 18:20; Start 08/03/21 at 06:00; Stop 08/03/21 at 23:56; Status DC Ondansetron HCl (Zofran) 4 mg Q6HRS IVP Last administered on 08/02/21at 17:52; Start 08/02/21 at 12:00; Stop 08/03/21 at 06:01; Status DC Oxycodone HCl (Roxicodone) 5 mg PRN Q4HRS PRN PO Pain score 4-6 Last administered on 08/05/21at 01:03; Start 08/02/21 at 11:45; Stop 08/05/21 at 0 9:19; Status DC Aspirin (Olga Lidia Aspirin) 325 mg DAILYWBKFT PO Last administered on 08/04/21at 08:26; Start 08/03/21 at 08:00; Stop 08/05/21 at 15:18; Status DC Fentanyl Citrate (Fentanyl 2ml Vial) 25 mcg PRN Q2HR PRN IVP PAIN; Start 08/02/21 at 12:00; Stop 08/05/21 at 09:19; Status DC Fentanyl Citrate (Fentanyl 2ml Vial) 50 mcg PRN Q2HR PRN IVP SEVERE PAIN; Start 08/02/21 at 12:00; Stop 08/05/21 at 09:19; Status DC Insulin Glargine (Lantus Syringe) 35 unit QHS SQ Last administered on 08/11/21at 23:24; Start 08/02/21 at 21:00 Linagliptin (Tradjenta) 5 mg DAILY PO Last administered on 08/09/21at 09:32; Start 08/03/21 at 09:00 Metformin HCl (Glucophage) 1,000 mg BIDWMEALS PO Last administered on 08/04/21at 08:22; Start 08/02/21 at 17:00; Stop 08/04/21 at 11:11; Status DC Amiodarone HCl (Cordarone) 200 mg DAILY PO Last administered on 08/11/21 08:31; Start 08/03/21 at 09:00 Amlodipine Besylate (Norvasc) 5 mg DAILY PO Last administered on 08/09/21at 09:00; Start 08/03/21 at 09:00 Isosorbide Mononitrate (Imdur) 30 mg DAILY PO Last administered on 08/11/21at 08:31; Start 08/03/21 at 09:00 Lisinopril (Prinivil) 20 mg DAILY PO Last administered on 08/09/21 09:32; Start 08/03/21 at 09:00 Metoprolol Tartrate (Lopressor) 25 mg BID PO Last administered on 08/11/21 08:31; Start 08/02/21 at 21:00 Potassium Chloride (Klor-Con) 20 meq DAILY PO Last administered on 08/04/21at 08:21; Start 08/03/21 at 09:00; Stop 08/04/21 at 11:11; Status DC Simvastatin (Zocor) 20 mg HS PO Last administered on 08/08/21at 20:44; Start 08/02/21 at 21:00 Tamsulosin HCl (Flomax) 0.4 mg DAILY PO Last administered on 08/09/21at 09:32; Start 08/03/21 at 09:00 Warfarin Sodium (Coumadin) 7.5 mg DAILY16 PO Last administered on 08/04/21at 15:32; Start 08/02/21 at 17:00; Stop 08/05/21 at 15:15; Status DC Non-Formulary Medication (Albuterol Sulfate (Albuterol Sulfate Conc Neb Soln)) 2.5 mg BID NEB ; Start 08/02/21 at 21:00; Status UNV Non-Formulary Medication (Albuterol Sulfate (Proventil Hfa)) 1 puff PRN Q6HRS PRN INH SHORTNESS OF BREATH; Start 08/02/21 at 16:15; Status UNV Non-Formulary Medication (Budesonide/ Formoterol Fumarate (Symbicort 160-4.5 Mcg Inhaler)) 2 puff BID IH ; Start 08/02/21 at 21:00; Status UNV Vitamin D (Vitamin D3) 2,000 unit DAILY PO Last administered on 08/09/21at 09:31; Start 08/03/21 at 09:00 Cyanocobalamin (Vitamin B-12) 200 mcg DAILY PO Last administered on 08/09/21at 09:32; Start 08/03/21 at 09:00 Latanoprost (Xalatan) 1 drop QHS OU Last administered on 08/11/21at 22:00; St art 08/02/21 at 21:00 Cetirizine HCl (ZyrTEC) 10 mg DAILY PO Last administered on 08/09/21at 09:33; Start 08/03/21 at 09:00 Warfarin Sodium (Coumadin Per Pharmacy) 1 each PRN DAILY PRN MC SEE COMMENTS Last administered on 08/11/21at 10:54; Start 08/02/21 at 16:30 Budesonide (Pulmicort) 0.5 mg RTBID NEB Last administered on 08/04/21at 19:51; Start 08/02/21 at 20:00; Stop 08/05/21 at 17:30; Status DC Albuterol Sulfate (Ventolin Neb Soln) 2.5 mg RTQID NEB Last administered on 08/04/21at 19:51; Start 08/02/21 at 20:00; Stop 08/05/21 at 17:30; Status DC Albuterol Sulfate (Ventolin Neb Soln) 2.5 mg PRN Q6HRS PRN NEB SHORTNESS OF BREATH Last administered on 08/08/21at 11:35; Start 08/02/21 at 16:30 Insulin Human Lispro (HumaLOG) 0-5 UNITS TIDWMEALS SQ Last administered on 08/07/21at 12:10; Start 08/03/21 at 08:00 Dextrose (Dextrose 50%-Water Syringe) 12.5 gm PRN Q15MIN PRN IV SEE COMMENTS; Start 08/02/21 at 22:45 Insulin Human Lispro (HumaLOG VIAL for OP,RR ONLY) 4 unit STK-MED ONCE SQ ; Start 08/02/21 at 11:30; Stop 08/03/21 at 16:34; Status DC Insulin Human Lispro (HumaLOG VIAL for OP,RR ONLY) 4 unit STK-MED ONCE SQ ; Start 08/02/21 at 11:30; Stop 08/03/21 at 16:34; Status DC Insulin Human Lispro (HumaLOG VIAL for OP,RR ONLY) 4 unit STK-MED ONCE SQ ; Start 08/02/21 at 11:30; Stop 08/03/21 at 16:34; Status DC Sodium Chloride 500 ml @ 250 mls/hr Q2H IV Last administered on 08/03/21at 16:45; Start 08/03/21 at 16:45; Stop 08/03/21 at 18:44; Status DC Ondansetron HCl (Zofran) 4 mg PRN Q6HRS PRN IVP NAUSEA/VOMITING Last administered on 08/11/21at 23:59; Start 08/04/21 at 08:15 Ceftriaxone Sodium (Rocephin) 1 gm Q24H IVP Last administered on 08/04/21at 20:48; Start 08/04/21 at 18:00; Stop 08/05/21 at 09:40; Status DC Pantoprazole Sodium (PROTONIX VIAL for IV PUSH) 40 mg DAILYAC IVP Last administered on 08/09/21at 09:07; Start 08/05/21 at 08:00; Stop 08/09/21 at 10:54; Status DC Meropenem 500 mg/ Sodium Chloride 50 ml @ 100 mls/hr Q8HRS IV Last administered on 08/11/21at 22:00; Start 08/05/21 at 14:00; Stop 08/11/21 at 22:00; Status DC Linezolid/Dextrose 300 ml @ 300 mls/hr Q12HR IV Last administered on 08/11/21at 22:02; Start 08/05/21 at 10:00; Stop 08/11/21 at 22:00; Status DC Warfarin Sodium (Coumadin - No Dose Today) 1 each 1X WARF ONCE MC ; Start 08/06/21 at 16:00; Stop 08/06/21 at 16:01; Status DC Lactobacillus Rhamnosus (Culturelle) 1 cap BID PO Last administered on 08/09/21at 09:31; Start 08/06/21 at 21:00 Polyethylene Glycol (miraLAX PACKET) 17 gm PRN DAILY PRN PO CONSTIPATION; Start 08/06/21 at 13:30 Metoclopramide HCl (Reglan Vial) 10 mg PRN Q6HRS PRN IVP NAUSEA/VOMITING 2ND CHOICE Last administered on 08/06/21at 15:33; Start 08/06/21 at 15:30; Stop 08/10/21 at 12:54; Status DC Warfarin Sodium (Coumadin) 7.5 mg 1X WARF ONCE PO Last administered on 08/07/21at 18:04; Start 08/07/21 at 16:00; Stop 08/07/21 at 16:01; Status DC Potassium Chloride (Klor-Con) 20 meq BID92 PO Last administered on 08/09/21at 14:38; Start 08/08/21 at 10:30 Warfarin Sodium (Coumadin) 7.5 mg 1X WARF ONCE PO Last administered on 08/08/21at 15:36; Start 08/08/21 at 16:00; Stop 08/08/21 at 16:01; Status DC Potassium Chloride (Klor-Con) 40 meq 1X ONCE PO Last administered on 08/09/21at 05:05; Start 08/09/21 at 05:00; Stop 08/09/21 at 05:01; Status DC Potassium Chloride/Water 100 ml @ 100 mls/hr Q1H IV Last administered on 08/09/21at 09:10; Start 08/09/21 at 05:15; Stop 08/09/21 at 09:14; Status DC Warfarin Sodium (Coumadin - No Dose Today) 1 each 1X WARF ONCE MC ; Start 08/09/21 at 16:00; Stop 08/09/21 at 16:01; Status DC Pantoprazole Sodium (Protonix) 40 mg DAILYAC PO ; Start 08/10/21 at 07:30; Stop 08/10/21 at 08:59; Status DC Acetaminophen (Tylenol) 650 mg 1X PRN PRN PO PRE-TRANSFUSION; Start 08/10/21 at 09:00; Stop 08/11/21 at 08:59; Status DC Diphenhydramine HCl (Benadryl Oral Elixir) 12.5 mg 1X PRN PRN PO PRE- TRANSFUSION; Start 08/10/21 at 09:00; Stop 08/11/21 at 08:59; Status DC Diphenhydramine HCl (Benadryl) 25 mg PRN 1X PRN PO PRE-TRANSFUSION; Start 08/10/21 at 09:00; Stop 08/11/21 at 08:59; Status DC Pantoprazole Sodium 80 mg/ Sodium Chloride 100 ml @ 10 mls/hr Q10H IV Last administered on 08/12/21at 06:20; Start 08/10/21 at 09:00 Phytonadione (Vitamin K Ampule) 10 mg 1X ONCE SQ Last administered on 08/10/21at 10:09; Start 08/10/21 at 09:00; Stop 08/10/21 at 09:01; Status DC Metoclopramide HCl (Reglan Vial) 10 mg 1X ONCE IVP Last administered on 08/10/21at 13:34; Start 08/10/21 at 13:00; Stop 08/10/21 at 13:01; Status DC Warfarin Sodium (Coumadin - No Dose Today) 1 each 1X WARF ONCE MC Last administered on 08/10/21at 16:00; Start 08/10/21 at 16:00; Stop 08/10/21 at 16:01; Status DC Propofol (Diprivan) 200 mg STK-MED ONCE IV ; Start 08/10/21 at 16:08; Stop 08/10/21 at 16:09; Status DC Lidocaine HCl (Lidocaine Pf 2% Vial) 5 ml STK-MED ONCE .ROUTE ; Start 08/10/21 at 16:08; Stop 08/10/21 at 16:09; Status DC Propofol (Diprivan) 200 mg STK-MED ONCE IV ; Start 08/10/21 at 16:27; Stop 08/10/21 at 16:28; Status DC Propofol (Diprivan) 200 mg STK-MED ONCE IV ; Start 08/10/21 at 16:43; Stop 08/10/21 at 16:43; Status DC Warfarin Sodium (Coumadin - No Dose Today) 1 each 1X WARF ONCE MC Last administered on 08/11/21at 16:00; Start 08/11/21 at 16:00; Stop 08/11/21 at 16:01; Status DC Albuterol/ Ipratropium (Duoneb) 3 ml RTQID NEB Last administered on 08/12/21at 12:11; Start 08/12/21 at 09:15 Active Scripts Active Ondansetron Odt (Ondansetron) 4 Mg Tab.rapdis 1 Tab PO PRN Q6-8HRS Cefdinir 300 Mg Capsule 1 Cap PO BID Stool Softener-Stimulant Lax (Sennosides/Docusate Sodium) 1 Each Tablet 1 Tab PO DAILY 30 Days Culturelle (Lactobacillus Rhamnosus Gg) 1 Each Cap.sprink 1 Cap PO BID 15 Days Lantus (Insulin Glargine,Hum.rec.anlog) 100 Unit/1 Ml Vial 35 Unit SQ QHS 30 Days Reported Latanoprost 0.005% Eye Drop (Latanoprost/Pf) 7.5 Ml Drops 1 Drop OU QHS Symbicort 160-4.5 Mcg Inhaler (Budesonide/Formoterol Fumarate) 10.2 Gm Hfa.aer.ad 2 Puff IH BID Loratadine 10 Mg Tablet 10 Mg PO DAILY Vitamin B12 (Cyanocobalamin (Vitamin B-12)) 2,500 Mcg Tablet 200 Mcg PO DAILY Vitamin D3 (Cholecalciferol (Vitamin D3)) 50 Mcg Capsule 50 Mcg PO DAILY Alogliptin (Alogliptin Benzoate) 25 Mg Tablet 25 Mg PO DAILY Albuterol Sulfate Conc Neb Soln (Albuterol Sulfate) 2.5 Mg/0.5 Ml Vial.neb 2.5 Mg NEB BID Flomax (Tamsulosin Hcl) 0.4 Mg Cap.er.24h 0.4 Mg PO DAILY Warfarin Sodium 7.5 Mg Tablet 7.5 Mg PO DAILY Simvastatin 20 Mg Tablet 20 Mg PO HS Amlodipine Besylate 5 Mg Tablet 5 Mg PO DAILY Amiodarone Hcl 200 Mg Tablet 1 Tab PO DAILY Proventil Hfa (Albuterol Sulfate) 6.7 Gm Hfa.aer.ad 1 Puff INH PRN Q6HRS PRN Metoprolol Tartrate 25 Mg Tablet 1 Tab PO BID Metformin Hcl 1,000 Mg Tablet 1,000 Mg PO BIDWMEALS Potassium Chloride (Potassium Chloride) 20 Meq Tablet.er 20 Meq PO DAILY Lisinopril 40 Mg Tablet 20 Mg PO DAILY Imdur (Isosorbide Mononitrate) 30 Mg Tab.er.24h 1 Tab PO DAILY Vitals/I & O Vital Sign - Last 24 Hours 08/11/21 08/11/21 08/11/21 08/11/21 15:41 16:00 16:14 20:20 Temp 98.4 98.4 Pulse 62 Resp 16 16 16 B/P (MAP) 142/62 (88) Pulse Ox 95 96 96 O2 Delivery Nasal Cannula Nasal Cannula Nasal Cannula Nasal Cannula O2 Flow Rate 3.0 3.0 3.0 3.0 08/11/21 08/11/21 08/11/21 08/12/21 20:30 23:45 23:59 00:29 Temp 97.4 97.6 97.4 97.6 Pulse 75 84 Resp 20 20 B/P (MAP) 133/52 (79) 145/64 (91) Pulse Ox 92 90 92 92 O2 Delivery Nasal Cannula Nasal Cannula Nasal Cannula Nasal Cannula O2 Flow Rate 3.0 4.0 3.0 3.0 08/12/21 08/12/21 08/12/21 08/12/21 03:10 07:00 10:06 10:45 Temp 98.1 97.9 98.1 97.9 Pulse 82 84 Resp 14 24 19 20 B/P (MAP) 133/57 (82) 137/58 (84) Pulse Ox 90 93 93 93 O2 Delivery Nasal Cannula Nasal Cannula Nasal Cannula Nasal Cannula O2 Flow Rate 4.0 2.0 2.0 2.0 08/12/21 12:11 Pulse Ox 93 O2 Delivery Nasal Cannula O2 Flow Rate 2.0 Intake and Output 08/11/21 08/11/21 08/12/21 15:00 23:00 07:00 Intake Total 75 ml 654.1 ml 0 ml Balance 75 ml 654.1 ml 0 ml Assessment UGI bleeding. Seems stable at present; cause unknown. GOO from clot--unclearly resolved. Pulled out NG. Severe esophagitis. Plan of Care Note Will try to leave NG out. If vomits, back in. Would not feed or give po meds. Await heme opinion re: any way to lyse the clots. Once seems non-obstructed should probably consider repeat EGD. Would not anti-coagulate. Justicifation of Admission Dx: Justifications for Admission: Justification of Admission Dx: Yes Stroke - Ischemic: Stroke-Ischemic CARIE FRASER MD Aug 12, 2021 14:29
[2021-08-12 15:00] VITALS: BP 114/48
[2021-08-12 19:00] VITALS: BP 133/56
[2021-08-12] MEDS: SIMVASTATIN 20 MG TABLET PO SCH (19:52)
[2021-08-12] MEDS: LATANOPROST 0.005% OPHTH SOLUTION 2.5ML BOTTLE. OU SCH (20:35)
[2021-08-12] MEDS: INSULIN GLARGINE SYRINGE. SQ SCH (20:40)
[2021-08-12 23:00] VITALS: BP 150/71
[2021-08-13] MEDS: HYDROmorphone 2 MG/ML VIAL IVP PRN ×2 (02:07→15:37)
[2021-08-13 03:00] VITALS: BP 129/37
[2021-08-13] MEDS: ACETAMINOPHEN 500 MG TABLET PO SCH ×4 (03:00→22:58)
[2021-08-13 07:00] VITALS: BP 149/65
[2021-08-13 07:04] LABS: BASO % 0 % (0-3); EOS # 0.3 x10^3/uL (0.0-0.7); EOS % 2 % (0-3); HEMATOCRIT 23.4 % (39.0-53.0); HEMOGLOBIN 7.6 g/dL (13.0-17.5); LYMPH % 11 % (24-48); MEAN CORPUSCULAR HEMOGLOBIN 29 pg (25-35); MEAN CORPUSCULAR HGB CONC 32 g/dL (31-37); MEAN CORPUSCULAR VOLUME 90 fL (79-100); MONO # 1.9 x10^3/uL (0.0-1.1); MONO % 11 % (0-9); NEUT # 13.9 x10^3/uL (1.8-7.7); NEUT % 77 % (31-73); PLATELET COUNT 345 x10^3/uL (140-400); RED BLOOD COUNT 2.61 x10^6/uL (4.30-5.70); RED CELL DISTRIBUTION WIDTH 15.3 % (11.5-14.5); WHITE BLOOD COUNT 18.1 x10^3/uL (4.0-11.0)
[2021-08-13 07:27] LABS: CALCIUM 7.6 mg/dL (8.5-10.1); CREATININE 1.1 mg/dL (0.7-1.3); GFR 65.3; POTASSIUM 3.4 mmol/L (3.5-5.1)
[2021-08-13 07:41] LABS: PROTHROMBIN TIME PATIENT 14.4 SEC (11.7-14.0)
[2021-08-13] MEDS: IPRATRPIUM/ALBUTEROL 0.5/2.5MG 3 ML NEBU. NEB SCH ×4 (07:53→20:55)
[2021-08-13] MEDS: INSULIN LISPRO 300 UNITS/3 ML VIAL. SQ SCH ×3 (08:00→17:00)
[2021-08-13] MEDS: LACTOBACILLUS RHAMNOSUS GG 1 CAPSULE. PO SCH ×2 (09:00→22:58)
[2021-08-13] MEDS: METOPROLOL TART IMMED RELEASE 25 MG TABLET. PO SCH ×2 (09:00→22:58)
--- NOTE | 2021-08-13 09:18 | PDOC ---
PROGRESS NOTES Date of Service DATE: 08/13/21 TIME: 09:16 Subjective Subjective No new complaints. He is eager to eat and go home. Objective Objective Vital Signs Date Time Temp Pulse Resp B/P (MAP) Pulse Ox O2 Delivery O2 Flow Rate FiO2 08/13/21 07:55 97 Room Air 08/13/21 07:00 97.9 80 18 149/65 (93) 2.0 97.9 Intake and Output 08/13/21 07:00 Intake Total 636 ml Balance 636 ml Intake Oral 0 ml Blood Product IV Normal Saline Flush 636 ml Physical Exam Physical Exam He is alert,supine in bed and seems to be comfortable and he walked with roller walker with physical therapy for 50' yesterday. Plan Plan of Care To get him up as tolerated and hopefully home when medically stable with home health follow up. Comment Review of Relevant I have reviewed the following items david (where applicable) has been applied. Labs Laboratory Tests Test 08/11/21 11:46 08/11/21 12:00 08/11/21 18:23 08/11/21 18:50 Glucose (Fingerstick) 148 mg/dL (70-99) 121 mg/dL (70-99) Hemoglobin 8.0 g/dL (13.0-17.5) 8.1 g/dL (13.0-17.5) Test 08/11/21 21:18 08/12/21 07:24 08/12/21 09:20 08/12/21 09:25 Glucose (Fingerstick) 118 mg/dL (70-99) 152 mg/dL (70-99) Sodium Level 150 mmol/L (136-145) Potassium Level 3.9 mmol/L (3.5-5.1) Chloride Level 111 mmol/L (98-107) Carbon Dioxide Level 31 mmol/L (21-32) Anion Gap 8 (6-14) Blood Urea Nitrogen 20 mg/dL (8-26) Creatinine 0.9 mg/dL (0.7-1.3) Estimated GFR (Cockcroft-Gault) 82.3 Glucose Level 144 mg/dL (70-99) Calcium Level 7.5 mg/dL (8.5-10.1) White Blood Count 19.1 x10^3/uL (4.0-11.0) Red Blood Count 2.70 x10^6/uL (4.30-5.70) Hemoglobin 7.8 g/dL (13.0-17.5) Hematocrit 24.3 % (39.0-53.0) Mean Corpuscular Volume 90 fL (79-100) Mean Corpuscular Hemoglobin 29 pg (25-35) Mean Corpuscular Hemoglobin Concent 32 g/dL (31-37) Red Cell Distribution Width 15.3 % (11.5-14.5) Platelet Count 344 x10^3/uL (140-400) Neutrophils (%) (Auto) 78 % (31-73) Lymphocytes (%) (Auto) 10 % (24-48) Monocytes (%) (Auto) 10 % (0-9) Eosinophils (%) (Auto) 2 % (0-3) Basophils (%) (Auto) 1 % (0-3) Neutrophils # (Auto) 14.9 x10^3/uL (1.8-7.7) Lymphocytes # (Auto) 1.8 x10^3/uL (1.0-4.8) Monocytes # (Auto) 1.9 x10^3/uL (0.0-1.1) Eosinophils # (Auto) 0.4 x10^3/uL (0.0-0.7) Basophils # (Auto) 0.1 x10^3/uL (0.0-0.2) Prothrombin Time 15.5 SEC (11.7-14.0) Prothromb Time International Ratio 1.2 (0.8-1.1) Test 08/12/21 10:55 08/12/21 17:13 08/12/21 20:43 08/13/21 06:00 Glucose (Fingerstick) 142 mg/dL (70-99) 136 mg/dL (70-99) 128 mg/dL (70-99) White Blood Count 18.1 x10^3/uL (4.0-11.0) Red Blood Count 2.61 x10^6/uL (4.30-5.70) Hemoglobin 7.6 g/dL (13.0-17.5) Hematocrit 23.4 % (39.0-53.0) Mean Corpuscular Volume 90 fL (79-100) Mean Corpuscular Hemoglobin 29 pg (25-35) Mean Corpuscular Hemoglobin Concent 32 g/dL (31-37) Red Cell Distribution Width 15.3 % (11.5-14.5) Platelet Count 345 x10^3/uL (140-400) Neutrophils (%) (Auto) 77 % (31-73) Lymphocytes (%) (Auto) 11 % (24-48) Monocytes (%) (Auto) 11 % (0-9) Eosinophils (%) (Auto) 2 % (0-3) Basophils (%) (Auto) 0 % (0-3) Neutrophils # (Auto) 13.9 x10^3/uL (1.8-7.7) Lymphocytes # (Auto) 2.0 x10^3/uL (1.0-4.8) Monocytes # (Auto) 1.9 x10^3/uL (0.0-1.1) Eosinophils # (Auto) 0.3 x10^3/uL (0.0-0.7) Basophils # (Auto) 0.0 x10^3/uL (0.0-0.2) Prothrombin Time 14.4 SEC (11.7-14.0) Prothromb Time International Ratio 1.1 (0.8-1.1) Sodium Level 150 mmol/L (136-145) Potassium Level 3.4 mmol/L (3.5-5.1) Chloride Level 111 mmol/L (98-107) Carbon Dioxide Level 30 mmol/L (21-32) Anion Gap 9 (6-14) Blood Urea Nitrogen 8 mg/dL (8-26) Creatinine 1.1 mg/dL (0.7-1.3) Estimated GFR (Cockcroft-Gault) 65.3 Glucose Level 103 mg/dL (70-99) Calcium Level 7.6 mg/dL (8.5-10.1) Test 08/13/21 07:55 Glucose (Fingerstick) 117 mg/dL (70-99) Laboratory Tests Test 08/12/21 09:20 08/12/21 09:25 08/12/21 10:55 08/12/21 17:13 Sodium Level 150 mmol/L (136-145) Potassium Level 3.9 mmol/L (3.5-5.1) Chloride Level 111 mmol/L (98-107) Carbon Dioxide Level 31 mmol/L (21-32) Anion Gap 8 (6-14) Blood Urea Nitrogen 20 mg/dL (8-26) Creatinine 0.9 mg/dL (0.7-1.3) Estimated GFR (Cockcroft-Gault) 82.3 Glucose Level 144 mg/dL (70-99) Calcium Level 7.5 mg/dL (8.5-10.1) White Blood Count 19.1 x10^3/uL (4.0-11.0) Red Blood Count 2.70 x10^6/uL (4.30-5.70) Hemoglobin 7.8 g/dL (13.0-17.5) Hematocrit 24.3 % (39.0-53.0) Mean Corpuscular Volume 90 fL (79-100) Mean Corpuscular Hemoglobin 29 pg (25-35) Mean Corpuscular Hemoglobin Concent 32 g/dL (31-37) Red Cell Distribution Width 15.3 % (11.5-14.5) Platelet Count 344 x10^3/uL (140-400) Neutrophils (%) (Auto) 78 % (31-73) Lymphocytes (%) (Auto) 10 % (24-48) Monocytes (%) (Auto) 10 % (0-9) Eosinophils (%) (Auto) 2 % (0-3) Basophils (%) (Auto) 1 % (0-3) Neutrophils # (Auto) 14.9 x10^3/uL (1.8-7.7) Lymphocytes # (Auto) 1.8 x10^3/uL (1.0-4.8) Monocytes # (Auto) 1.9 x10^3/uL (0.0-1.1) Eosinophils # (Auto) 0.4 x10^3/uL (0.0-0.7) Basophils # (Auto) 0.1 x10^3/uL (0.0-0.2) Prothrombin Time 15.5 SEC (11.7-14.0) Prothromb Time International Ratio 1.2 (0.8-1.1) Glucose (Fingerstick) 142 mg/dL (70-99) 136 mg/dL (70-99) Test 08/12/21 20:43 08/13/21 06:00 10/22/21 07:55 Glucose (Fingerstick) 128 mg/dL (70-99) 117 mg/dL (70-99) White Blood Count 18.1 x10^3/uL (4.0-11.0) Red Blood Count 2.61 x10^6/uL (4.30-5.70) Hemoglobin 7.6 g/dL (13.0-17.5) Hematocrit 23.4 % (39.0-53.0) Mean Corpuscular Volume 90 fL (79-100) Mean Corpuscular Hemoglobin 29 pg (25-35) Mean Corpuscular Hemoglobin Concent 32 g/dL (31-37) Red Cell Distribution Width 15.3 % (11.5-14.5) Platelet Count 345 x10^3/uL (140-400) Neutrophils (%) (Auto) 77 % (31-73) Lymphocytes (%) (Auto) 11 % (24-48) Monocytes (%) (Auto) 11 % (0-9) Eosinophils (%) (Auto) 2 % (0-3) Basophils (%) (Auto) 0 % (0-3) Neutrophils # (Auto) 13.9 x10^3/uL (1.8-7.7) Lymphocytes # (Auto) 2.0 x10^3/uL (1.0-4.8) Monocytes # (Auto) 1.9 x10^3/uL (0.0-1.1) Eosinophils # (Auto) 0.3 x10^3/uL (0.0-0.7) Basophils # (Auto) 0.0 x10^3/uL (0.0-0.2) Prothrombin Time 14.4 SEC (11.7-14.0) Prothromb Time International Ratio 1.1 (0.8-1.1) Sodium Level 150 mmol/L (136-145) Potassium Level 3.4 mmol/L (3.5-5.1) Chloride Level 111 mmol/L (98-107) Carbon Dioxide Level 30 mmol/L (21-32) Anion Gap 9 (6-14) Blood Urea Nitrogen 8 mg/dL (8-26) Creatinine 1.1 mg/dL (0.7-1.3) Estimated GFR (Cockcroft-Gault) 65.3 Glucose Level 103 mg/dL (70-99) Calcium Level 7.6 mg/dL (8.5-10.1) Microbiology 08/04/21 Urine Culture - Final, Complete Medications Current Medications Fentanyl Citrate (Fentanyl 2ml Vial) 25 mcg PRN Q5MIN PRN IVP MILD PAIN 1-3 Last administered on 08/02/21at 11:51; Start 08/02/21 at 06:00; Stop 08/03/21 at 05:59; Status DC Fentanyl Citrate (Fentanyl 2ml Vial) 50 mcg PRN Q5MIN PRN IVP MODERATE PAIN 4- 6; Start 08/02/21 at 06:00; Stop 08/03/21 at 05:59; Status DC Morphine Sulfate (Morphine Sulfate) 1 mg PRN Q10MIN PRN IVP SEVERE PAIN 7-10 Last administered on 08/02/21at 09:39; Start 08/02/21 at 06:00; Stop 08/03/21 at 05:59; Status DC Ringer's Solution 1,000 ml @ 30 mls/hr Q24H IV Last administered on 08/02/21at 07:04; Start 08/02/21 at 06:00; Stop 08/02/21 at 17:59; Status DC Hydromorphone HCl (Dilaudid) 0.5 mg PRN Q10MIN PRN IVP SEVERE PAIN 7-10, 2nd CHOICE; Start 08/02/21 at 06:00; Stop 08/03/21 at 05:59; Status DC Prochlorperazine Edisylate (Compazine) 5 mg PACU PRN PRN IVP NAUSEA, MRX1; Start 08/02/21 at 06:00; Stop 08/03/21 at 05:59; Status DC Morphine Sulfate 5 mg/Ketorolac Tromethamine 30 mg/Ropivacaine 60 ml/Epinephrine HCl 0.5 mg/ Miscellaneous 63 ml @ 63 mls/hr 1X PERIOP ONCE INT ART ; Start 08/02/21 at 06:00; Stop 08/02/21 at 07:00; Status DC Meloxicam (Mobic) 15 mg 1X PREOP PRN PO PRIOR TO PROCEDURE Last administered on 08/02/21at 07:05; Start 08/02/21 at 06:00; Stop 08/02/21 at 18:00; Status DC Gabapentin (Neurontin) 300 mg 1X PREOP PRN PO PRIOR TO PROCEDURE Last administered on 08/02/21at 07:06; Start 08/02/21 at 06:00; Stop 08/02/21 at 18:00; Status DC Acetaminophen (Tylenol) 1,000 mg 1X PREOP PRN PO PRIOR TO PROCEDURE Last administered on 08/02/21at 07:05; Start 08/02/21 at 06:00; Stop 08/02/21 at 18:00; Status DC Clindamycin Phosphate 50 ml @ 100 mls/hr 1X PREOP PRN IV PRIOR TO PROCEDURE Last administered on 08/02/21at 07:40; Start 08/02/21 at 06:00; Stop 08/02/21 at 18:00; Status DC Tranexamic Acid 50 ml @ 50 mls/hr 1X PERIOP ONCE INJ ; Start 08/02/21 at 06:00; Stop 08/02/21 at 07:00; Status DC Tranexamic Acid 50 ml @ 50 mls/hr 1X PERIOP ONCE INJ ; Start 08/02/21 at 08:00; Stop 08/02/21 at 08:59; Status DC Tranexamic Acid 0 ml @ As Directed STK-MED ONCE .ROUTE ; Start 08/02/21 at 06:55; Stop 08/02/21 at 06:55; Status DC Tranexamic Acid 50 ml @ As Directed STK-MED ONCE .ROUTE ; Start 08/02/21 at 06:55; Stop 08/02/21 at 06:56; Status Cancel Insulin Human Lispro (HumaLOG VIAL for OP,RR ONLY) 0-10 units PRN Q1HR PRN SQ PER PROTOCOL Last administered on 08/02/21at 11:25; Start 08/02/21 at 07:00; Stop 08/03/21 at 06:59; Status DC Propofol (Diprivan) 200 mg STK-MED ONCE IV ; Start 08/02/21 at 07:10; Stop 08/02/21 at 07:10; Status DC Lidocaine HCl (Lidocaine Pf 2% Vial) 5 ml STK-MED ONCE .ROUTE ; Start 08/02/21 at 07:10; Stop 08/02/21 at 07:11; Status DC Dexamethasone Sodium Phosphate (Decadron) 4 mg STK-MED ONCE .ROUTE ; Start 08/02/21 at 07:11; Stop 08/02/21 at 07:11; Status DC Ondansetron HCl (Zofran) 4 mg STK-MED ONCE .ROUTE ; Start 08/02/21 at 07:11; Stop 08/02/21 at 07:11; Status DC Rocuronium [place] (Zemuron) 100 mg STK-MED ONCE .ROUTE ; Start 08/02/21 at 07:13; Stop 08/02/21 at 07:13; Status DC Fentanyl Citrate (Fentanyl 5ml Vial) 250 mcg STK-MED ONCE .ROUTE ; Start 08/02/21 at 07:13; Stop 08/02/21 at 07:13; Status DC Glycopyrrolate (Robinul) 1 mg STK-MED ONCE .ROUTE ; Start 08/02/21 at 07:57; Stop 08/02/21 at 07:57; Status DC Neostigmine [place] (Neostigmine Methylsulfate) 5 mg STK-MED ONCE .ROUTE ; Start 08/02/21 at 07:58; Stop 08/02/21 at 07:58; Status DC Phenylephrine HCl (PHENYLEPHRINE in 0.9% NACL PF) 1 mg STK-MED ONCE IV ; Start 08/02/21 at 08:10; Stop 08/02/21 at 08:10; Status DC Ephedrine Sulfate (ePHEDrine PF IN SALINE SYRINGE) 50 mg STK-MED ONCE IV ; Start 08/02/21 at 08:27; Stop 08/02/21 at 08:28; Status DC Fentanyl Citrate (Fentanyl 2ml Vial) 100 mcg STK-MED ONCE .ROUTE ; Start at 09:20; Stop 08/02/21 at 09:20; Status DC Morphine Sulfate (Morphine Sulfate) 2 mg STK-MED ONCE .ROUTE ; Start 08/02/21 at 09:20; Stop 08/02/21 at 09:20; Status DC Morphine Sulfate (Morphine Sulfate) 2 mg PRN Q2HR PRN IVP PAIN; Start 08/02/21 at 11:45; Status Cancel Hydromorphone HCl (Dilaudid) 0.4 mg PRN Q4HRS PRN IVP PAIN Last administered on 08/13/21at 02:07; Start 08/02/21 at 11:45 Oxycodone/ Acetaminophen (Percocet 5/325) 1 tab PRN Q4HRS PRN PO PAIN Last administered on 08/03/21at 20:31; Start 08/02/21 at 11:45; Stop 08/05/21 at 09:19; Status DC Fentanyl Citrate (Fentanyl 2ml Vial) 100 mcg STK-MED ONCE .ROUTE ; Start 08/02/21 at 11:40; Stop 08/02/21 at 11:41; Status DC Morphine Sulfate (Morphine Sulfate) 2 mg PRN Q1HR PRN IVP PAIN-SEE COMMENTS; Start 08/02/21 at 11:45; Stop 08/05/21 at 09:19; Status DC Fentanyl Citrate (Fentanyl 2ml Vial) 25 mcg PRN Q1HR PRN IVP PAIN, 2nd CHOICE; Start 08/02/21 at 11:45; Stop 08/02/21 at 12:15; Status DC Diphenhydramine HCl (Benadryl) 25 mg PRN Q6HRS PRN IVP ITCHING; Start 08/02/21 at 11:45 Multivitamins (Thera M Plus) 1 tab DAILY PO Last administered on 08/09/21at 09:00; Start 08/02/21 at 12:00 Senna/Docusate Sodium (Senna Plus) 1 tab DAILY PO Last administered on 08/09/21at 09:31; Start 08/02/21 at 12:00 Ferrous Sulfate (Feosol) 325 mg BIDWMEALS PO Last administered on 08/04/21at 08:22; Start 08/02/21 at 17:00; Stop 08/04/21 at 11:11; Status DC Sodium Chloride 1,000 ml @ 100 mls/hr Q10H IV Last administered on 08/08/21at 07:01; Start 08/02/21 at 11:45; Stop 08/08/21 at 10:29; Status DC Clindamycin Phosphate 50 ml @ 100 mls/hr Q6H IV Last administered on 08/03/21at 01:02; Start 08/02/21 at 13:00; Stop 08/03/21 at 01:29; Status DC Zolpidem Tartrate (Ambien) 5 mg PRN QHS PRN PO INSOMNIA, MAY REPEAT IN 1HR Last administered on 08/09/21at 20:56; Start 08/02/21 at 11:45 Sodium Chloride (Normal Saline Flush) 10 ml QSHIFT PRN IV AFTER MEDS AND BLOOD DRAWS; Start 08/02/21 at 11:45 Acetaminophen (Tylenol) 1,000 mg Q6H PO Last administered on 08/13/21at 08:23; Start 08/03/21 at 09:00 Meloxicam (Mobic) 15 mg DAILY PO Last administered on 08/04/21at 08:20; Start 08/03/21 at 09:00; Stop 08/04/21 at 11:11; Status DC Tramadol HCl (Ultram) 50 mg Q6H PO Last administered on 08/04/21at 07:19; Start 08/03/21 at 06:00; Stop 08/04/21 at 11:11; Status DC Gabapentin (Neurontin) 100 mg Q12H PO Last administered on 08/03/21at 18:20; Start 08/03/21 at 06:00; Stop 08/03/21 at 23:56; Status DC Ondansetron HCl (Zofran) 4 mg Q6HRS IVP Last administered on 08/02/21at 17:52; Start 08/02/21 at 12:00; Stop 08/03/21 at 06:01; Status DC Oxycodone HCl (Roxicodone) 5 mg PRN Q4HRS PRN PO Pain score 4-6 Last administered on 08/05/21at 01:03; Start 08/02/21 at 11:45; Stop 08/05/21 at 09:19; Status DC Aspirin (Olga Lidia Aspirin) 325 mg DAILYWBKFT PO Last administered on 08/04/21at 08:26; Start 08/03/21 at 08:00; Stop 08/05/21 at 15:18; Status DC Fentanyl Citrate (Fentanyl 2ml Vial) 25 mcg PRN Q2HR PRN IVP PAIN; Start 08/02/21 at 12:00; Stop 08/05/21 at 09:19; Status DC Fentanyl Citrate (Fentanyl 2ml Vial) 50 mcg PRN Q2HR PRN IVP SEVERE PAIN; Start 08/02/21 at 12:00; Stop 08/05/21 at 09:19; Status DC Insulin Glargine (Lantus Syringe) 35 unit QHS SQ Last administered on 08/12/21at 20:40; Start 08/02/21 at 21:00 Linagliptin (Tradjenta) 5 mg DAILY PO Last administered on 08/09/21 09:32; Start 08/03/21 at 09:00 Metformin HCl (Glucophage) 1,000 mg BIDWMEALS PO Last administered on 08/04/21 08:22; Start 08/02/21 at 17:00; Stop 08/04/21 at 11:11; Status DC Amiodarone HCl (Cordarone) 200 mg DAILY PO Last administered on 08/11/21 08:31; Start 08/03/21 at 09:00 Amlodipine Besylate (Norvasc) 5 mg DAILY PO Last administered on 08/09/21 09:00; Start 08/03/21 at 09:00 Isosorbide Mononitrate (Imdur) 30 mg DAILY PO Last administered on 08/11/21at 08:31; Start 08/03/21 at 09:00 Lisinopril (Prinivil) 20 mg DAILY PO Last administered on 08/09/21 09:32; Start 08/03/21 at 09:00 Metoprolol Tartrate (Lopressor) 25 mg BID PO Last administered on 08/11/21 08:31; Start 08/02/21 at 21:00 Potassium Chloride (Klor-Con) 20 meq DAILY PO Last administered on 08/04/21 08:21; Start 08/03/21 at 09:00; Stop 08/04/21 at 11:11; Status DC Simvastatin (Zocor) 20 mg HS PO Last administered on 08/08/21at 20:44; Start 08/02/21 at 21:00 Tamsulosin HCl (Flomax) 0.4 mg DAILY PO Last administered on 08/09/21 09:32; Start 08/03/21 at 09:00 Warfarin Sodium (Coumadin) 7.5 mg DAILY16 PO Last administered on 08/04/21at 15:32; Start 08/02/21 at 17:00; Stop 08/05/21 at 15:15; Status DC Non-Formulary Medication (Albuterol Sulfate (Albuterol Sulfate Conc Neb Soln)) 2.5 mg BID NEB ; Start 08/02/21 at 21:00; Status UNV Non-Formulary Medication (Albuterol Sulfate (Proventil Hfa)) 1 puff PRN Q6HRS PRN INH SHORTNESS OF BREATH; Start 08/02/21 at 16:15; Status UNV Non-Formulary Medication (Budesonide/ Formoterol Fumarate (Symbicort 160-4.5 Mcg Inhaler)) 2 puff BID IH ; Start 08/02/21 at 21:00; Status UNV Vitamin D (Vitamin D3) 2,000 unit DAILY PO Last administered on 08/09/21at 09:31; Start 08/03/21 at 09:00 Cyanocobalamin (Vitamin B-12) 200 mcg DAILY PO Last administered on 08/09/21 09:32; Start 08/03/21 at 09:00 Latanoprost (Xalatan) 1 drop QHS OU Last administered on 08/12/21at 20:35; Start 08/02/21 at 21:00 Cetirizine HCl (ZyrTEC) 10 mg DAILY PO Last administered on 08/09/21at 09:33; Start 08/03/21 at 09:00 Warfarin Sodium (Coumadin Per Pharmacy) 1 each PRN DAILY PRN MC SEE COMMENTS Last administered on 08/12/21at 16:55; Start 08/02/21 at 16:30 Budesonide (Pulmicort) 0.5 mg RTBID NEB Last administered on 08/04/21at 19:51; Start 08/02/21 at 20:00; Stop 08/05/21 at 17:30; Status DC Albuterol Sulfate (Ventolin Neb Soln) 2.5 mg RTQID NEB Last administered on 08/04/21at 19:51; Start 08/02/21 at 20:00; Stop 08/05/21 at 17:30; Status DC Albuterol Sulfate (Ventolin Neb Soln) 2.5 mg PRN Q6HRS PRN NEB SHORTNESS OF BREATH Last administered on 08/08/21at 11:35; Start 08/02/21 at 16:30 Insulin Human Lispro (HumaLOG) 0-5 UNITS TIDWMEALS SQ Last administered on 08/07/21at 12:10; Start 08/03/21 at 08:00 Dextrose (Dextrose 50%-Water Syringe) 12.5 gm PRN Q15MIN PRN IV SEE COMMENTS; Start 08/02/21 at 22:45 Insulin Human Lispro (HumaLOG VIAL for OP,RR ONLY) 4 unit STK-MED ONCE SQ ; Start 08/02/21 at 11:30; Stop 08/03/21 at 16:34; Status DC Insulin Human Lispro (HumaLOG VIAL for OP,RR ONLY) 4 unit STK-MED ONCE SQ ; Start 08/02/21 at 11:30; Stop 08/03/21 at 16:34; Status DC Insulin Human Lispro (HumaLOG VIAL for OP,RR ONLY) 4 unit STK-MED ONCE SQ ; Start 08/02/21 at 11:30; Stop 08/03/21 at 16:34; Status DC Sodium Chloride 500 ml @ 250 mls/hr Q2H IV Last administered on 08/03/21at 16:45; Start 08/03/21 at 16:45; Stop 08/03/21 at 18:44; Status DC Ondansetron HCl (Zofran) 4 mg PRN Q6HRS PRN IVP NAUSEA/VOMITING Last administered on 08/11/21at 23:59; Start 08/04/21 at 08:15 Ceftriaxone Sodium (Rocephin) 1 gm Q24H IVP Last administered on 08/04/21at 20:48; Start 08/04/21 at 18:00; Stop 08/05/21 at 09:40; Status DC Pantoprazole Sodium (PROTONIX VIAL for IV PUSH) 40 mg DAILYAC IVP Last administered on 08/09/21at 09:07; Start 08/05/21 at 08:00; Stop 08/09/21 at 10:54; Status DC Meropenem 500 mg/ Sodium Chloride 50 ml @ 100 mls/hr Q8HRS IV Last administered on 08/11/21at 22:00; Start 08/05/21 at 14:00; Stop 08/11/21 at 22:00; Status DC Linezolid/Dextrose 300 ml @ 300 mls/hr Q12HR IV Last administered on 1at 22:02; Start 08/05/21 at 10:00; Stop 08/11/21 at 22:00; Status DC Warfarin Sodium (Coumadin - No Dose Today) 1 each 1X WARF ONCE MC ; Start 08/06/21 at 16:00; Stop 08/06/21 at 16:01; Status DC Lactobacillus Rhamnosus (Culturelle) 1 cap BID PO Last administered on 08/09/21at 09:31; Start 08/06/21 at 21:00 Polyethylene Glycol (miraLAX PACKET) 17 gm PRN DAILY PRN PO CONSTIPATION; Start 08/06/21 at 13:30 Metoclopramide HCl (Reglan Vial) 10 mg PRN Q6HRS PRN IVP NAUSEA/VOMITING 2ND CHOICE Last administered on 08/06/21at 15:33; Start 08/06/21 at 15:30; Stop 08/10/21 at 12:54; Status DC Warfarin Sodium (Coumadin) 7.5 mg 1X WARF ONCE PO Last administered on 08/07/21at 18:04; Start 08/07/21 at 16:00; Stop 08/07/21 at 16:01; Status DC Potassium Chloride (Klor-Con) 20 meq BID92 PO Last administered on 08/09/21at 14:38; Start 08/08/21 at 10:30 Warfarin Sodium (Coumadin) 7.5 mg 1X WARF ONCE PO Last administered on 08/08/21at 15:36; Start 08/08/21 at 16:00; Stop 08/08/21 at 16:01; Status DC Potassium Chloride (Klor-Con) 40 meq 1X ONCE PO Last administered on 08/09/21at 05:05; Start 08/09/21 at 05:00; Stop 08/09/21 at 05:01; Status DC Potassium Chloride/Water 100 ml @ 100 mls/hr Q1H IV Last administered on 08/09/21at 09:10; Start 08/09/21 at 05:15; Stop 08/09/21 at 09:14; Status DC Warfarin Sodium (Coumadin - No Dose Today) 1 each 1X WARF ONCE MC ; Start 07/23 06/12 at 16:00; Stop 08/09/21 at 16:01; Status DC Pantoprazole Sodium (Protonix) 40 mg DAILYAC PO ; Start 08/10/21 at 07:30; Stop 08/10/21 at 08:59; Status DC Acetaminophen (Tylenol) 650 mg 1X PRN PRN PO PRE-TRANSFUSION; Start 08/10/21 at 09:00; Stop 08/11/21 at 08:59; Status DC Diphenhydramine HCl (Benadryl Oral Elixir) 12.5 mg 1X PRN PRN PO PRE- TRANSFUSION; Start 08/10/21 at 09:00; Stop 08/11/21 at 08:59; Status DC Diphenhydramine HCl (Benadryl) 25 mg PRN 1X PRN PO PRE-TRANSFUSION; Start at 09:00; Stop 08/11/21 at 08:59; Status DC Pantoprazole Sodium 80 mg/ Sodium Chloride 100 ml @ 10 mls/hr Q10H IV Last administered on 08/12/21at 20:35; Start 08/10/21 at 09:00 Phytonadione (Vitamin K Ampule) 10 mg 1X ONCE SQ Last administered on 08/10/21at 10:09; Start 08/10/21 at 09:00; Stop 08/10/21 at 09:01; Status DC Metoclopramide HCl (Reglan Vial) 10 mg 1X ONCE IVP Last administered on 08/10/21at 13:34; Start 08/10/21 at 13:00; Stop 08/10/21 at 13:01; Status DC Warfarin Sodium (Coumadin - No Dose Today) 1 each 1X WARF ONCE MC Last administered on 08/10/21at 16:00; Start 08/10/21 at 16:00; Stop 08/10/21 at 16:01; Status DC Propofol (Diprivan) 200 mg STK-MED ONCE IV ; Start 08/10/21 at 16:08; Stop 08/10/21 at 16:09; Status DC Lidocaine HCl (Lidocaine Pf 2% Vial) 5 ml STK-MED ONCE .ROUTE ; Start 08/10/21 at 16:08; Stop 08/10/21 at 16:09; Status DC Propofol (Diprivan) 200 mg STK-MED ONCE IV ; Start 08/10/21 at 16:27; Stop 08/10/21 at 16:28; Status DC Propofol (Diprivan) 200 mg STK-MED ONCE IV ; Start 08/10/21 at 16:43; Stop 08/10/21 at 16:43; Status DC Warfarin Sodium (Coumadin - No Dose Today) 1 each 1X WARF ONCE MC Last administered on 08/11/21at 16:00; Start 08/11/21 at 16:00; Stop 08/11/21 at 16:01; Status DC Albuterol/ Ipratropium (Duoneb) 3 ml RTQID NEB Last administered on 08/13/21at 07:53; Start 08/12/21 at 09:15 Active Scripts Active Ondansetron Odt (Ondansetron) 4 Mg Tab.rapdis 1 Tab PO PRN Q6-8HRS Cefdinir 300 Mg Capsule 1 Cap PO BID Stool Softener-Stimulant Lax (Sennosides/Docusate Sodium) 1 Each Tablet 1 Tab PO DAILY 30 Days Culturelle (Lactobacillus Rhamnosus Gg) 1 Each Cap.sprink 1 Cap PO BID 15 Days Lantus (Insulin Glargine,Hum.rec.anlog) 100 Unit/1 Ml Vial 35 Unit SQ QHS 30 Days Reported Latanoprost 0.005% Eye Drop (Latanoprost/Pf) 7.5 Ml Drops 1 Drop OU QHS Symbicort 160-4.5 Mcg Inhaler (Budesonide/Formoterol Fumarate) 10.2 Gm Hfa.aer.ad 2 Puff IH BID Loratadine 10 Mg Tablet 10 Mg PO DAILY Vitamin B12 (Cyanocobalamin (Vitamin B-12)) 2,500 Mcg Tablet 200 Mcg PO DAILY Vitamin D3 (Cholecalciferol (Vitamin D3)) 50 Mcg Capsule 50 Mcg PO DAILY Alogliptin (Alogliptin Benzoate) 25 Mg Tablet 25 Mg PO DAILY Albuterol Sulfate Conc Neb Soln (Albuterol Sulfate) 2.5 Mg/0.5 Ml Vial.neb 2.5 Mg NEB BID Flomax (Tamsulosin Hcl) 0.4 Mg Cap.er.24h 0.4 Mg PO DAILY Warfarin Sodium 7.5 Mg Tablet 7.5 Mg PO DAILY Simvastatin 20 Mg Tablet 20 Mg PO HS Amlodipine Besylate 5 Mg Tablet 5 Mg PO DAILY Amiodarone Hcl 200 Mg Tablet 1 Tab PO DAILY Proventil Hfa (Albuterol Sulfate) 6.7 Gm Hfa.aer.ad 1 Puff INH PRN Q6HRS PRN Metoprolol Tartrate 25 Mg Tablet 1 Tab PO BID Metformin Hcl 1,000 Mg Tablet 1,000 Mg PO BIDWMEALS Potassium Chloride (Potassium Chloride) 20 Meq Tablet.er 20 Meq PO DAILY Lisinopril 40 Mg Tablet 20 Mg PO DAILY Imdur (Isosorbide Mononitrate) 30 Mg Tab.er.24h 1 Tab PO DAILY Vitals/I & O Vital Sign - Last 24 Hours 08/12/21 08/12/21 08/12/21 08/12/21 10:06 10:45 11:00 12:11 Temp 98.4 98.4 Pulse 84 Resp 19 20 24 B/P (MAP) 115/46 (69) Pulse Ox 93 93 90 93 O2 Delivery Nasal Cannula Nasal Cannula Nasal Cannula Nasal Cannula O2 Flow Rate 2.0 2.0 2.0 2.0 08/12/21 08/12/21 08/12/21 08/12/21 15:00 15:31 16:39 19:00 Temp 99.3 98.1 99.3 98.1 Pulse 83 88 Resp 18 20 16 B/P (MAP) 114/48 (70) 133/56 (81) Pulse Ox 97 93 89 90 O2 Delivery Room Air Nasal Cannula Room Air Nasal Cannula O2 Flow Rate 2.0 2.0 08/12/21 08/12/21 08/12/21 08/12/21 19:52 20:00 20:16 23:00 Temp 98.6 98.6 Pulse 83 89 Resp 16 B/P (MAP) 114/48 150/71 (97) Pulse Ox 90 92 O2 Delivery Nasal Cannula Room Air Nasal Cannula O2 Flow Rate 2.0 2.0 08/13/21 08/13/21 08/13/21 08/13/21 02:07 02:37 03:00 07:00 Temp 97.7 97.9 97.7 97.9 Pulse 81 80 Resp 18 18 B/P (MAP) 129/37 (67) 149/65 (93) Pulse Ox 92 92 92 98 O2 Delivery Nasal Cannula Nasal Cannula Nasal Cannula Nasal Cannula O2 Flow Rate 2.0 2.0 2.0 2.0 08/13/21 07:55 Pulse Ox 97 O2 Delivery Room Air Intake and Output 08/12/21 08/12/21 08/13/21 15:00 23:00 07:00 Intake Total 636 ml 0 ml Balance 636 ml 0 ml Justifications for Admission Other Justification KATERINE ALVARENGA MD Aug 13, 2021 09:18
--- NOTE | 2021-08-13 09:21 | PDOC ---
PROGRESS NOTES Date of Service: DATE: 08/13/21 TIME: 09:17 Subjective Subjective feels slightly better today Objective Objective Vital Signs Date Time Temp Pulse Resp B/P (MAP) Pulse Ox O2 Delivery O2 Flow Rate FiO2 08/13/21 07:55 97 Room Air 08/13/21 07:00 97.9 80 18 149/65 (93) 2.0 97.9 Intake and Output 08/13/21 07:00 Intake Total 636 ml Balance 636 ml Intake Oral 0 ml Blood Product IV Normal Saline Flush 636 ml Physical Exam Abdomen: Soft, Other (distended) Heart: Normal S1 Extremities: No clubbing General: Alert HEENT: Atraumatic Lungs: Clear to auscultation MUSCULOSKELETAL: No deformity, Osteoarthritic changes both hands, Other Neuro: Normal speech Psych/Mental Status: Other (grumpy, does not remember yesterdays events) Skin: No breakdown Assessment Assessment FINAL IMPRESSION: upper GI bleed ,Huge clot sitting in pylorus and causing obstruction , clot overlying ulcer seen on EGD 08/10/21 1. Status post right hip total replacement, total hip arthroplasty 08/04/21,POD#9 2. History of chronic obstructive pulmonary disease. 3. Diabetes. 4. Atrial fibrillation. 5. History of coronary artery disease. 6. History of previous strokes. PLAN:Pt pulled NGT out transfused 2 u prbc,Hb 8.0 stable wbc 18 reactive , Na 150,pot normal holding coumadin due to bleed , inr 1.2 spoke with GI nurse practitioner, iv protonix+protnic infusion.NGT to suction rehab consult dr trotter d/trudy IV antibiotics , finished 7 days antibiotics. pt less grumpy today ,not able to accept aidee fact that he has issues with his stomach ulcer and bleeding and blood clot that we can feed him . Comment Review of Relevant I have reviewed the following items david (where applicable) has been applied. Labs Laboratory Tests Test 08/12/21 09:20 08/12/21 09:25 08/12/21 10:55 08/12/21 17:13 Sodium Level 150 mmol/L (136-145) Potassium Level 3.9 mmol/L (3.5-5.1) Chloride Level 111 mmol/L (98-107) Carbon Dioxide Level 31 mmol/L (21-32) Anion Gap 8 (6-14) Blood Urea Nitrogen 20 mg/dL (8-26) Creatinine 0.9 mg/dL (0.7-1.3) Estimated GFR (Cockcroft-Gault) 82.3 Glucose Level 144 mg/dL (70-99) Calcium Level 7.5 mg/dL (8.5-10.1) White Blood Count 19.1 x10^3/uL (4.0-11.0) Red Blood Count 2.70 x10^6/uL (4.30-5.70) Hemoglobin 7.8 g/dL (13.0-17.5) Hematocrit 24.3 % (39.0-53.0) Mean Corpuscular Volume 90 fL (79-100) Mean Corpuscular Hemoglobin 29 pg (25-35) Mean Corpuscular Hemoglobin Concent 32 g/dL (31-37) Red Cell Distribution Width 15.3 % (11.5-14.5) Platelet Count 344 x10^3/uL (140-400) Neutrophils (%) (Auto) 78 % (31-73) Lymphocytes (%) (Auto) 10 % (24-48) Monocytes (%) (Auto) 10 % (0-9) Eosinophils (%) (Auto) 2 % (0-3) Basophils (%) (Auto) 1 % (0-3) Neutrophils # (Auto) 14.9 x10^3/uL (1.8-7.7) Lymphocytes # (Auto) 1.8 x10^3/uL (1.0-4.8) Monocytes # (Auto) 1.9 x10^3/uL (0.0-1.1) Eosinophils # (Auto) 0.4 x10^3/uL (0.0-0.7) Basophils # (Auto) 0.1 x10^3/uL (0.0-0.2) Prothrombin Time 15.5 SEC (11.7-14.0) Prothromb Time International Ratio 1.2 (0.8-1.1) Glucose (Fingerstick) 142 mg/dL (70-99) 136 mg/dL (70-99) Test 08/12/21 20:43 08/13/21 06:00 08/13/21 07:55 Glucose (Fingerstick) 128 mg/dL (70-99) 117 mg/dL (70-99) White Blood Count 18.1 x10^3/uL (4.0-11.0) Red Blood Count 2.61 x10^6/uL (4.30-5.70) Hemoglobin 7.6 g/dL (13.0-17.5) Hematocrit 23.4 % (39.0-53.0) Mean Corpuscular Volume 90 fL (79-100) Mean Corpuscular Hemoglobin 29 pg (25-35) Mean Corpuscular Hemoglobin Concent 32 g/dL (31-37) Red Cell Distribution Width 15.3 % (11.5-14.5) Platelet Count 345 x10^3/uL (140-400) Neutrophils (%) (Auto) 77 % (31-73) Lymphocytes (%) (Auto) 11 % (24-48) Monocytes (%) (Auto) 11 % (0-9) Eosinophils (%) (Auto) 2 % (0-3) Basophils (%) (Auto) 0 % (0-3) Neutrophils # (Auto) 13.9 x10^3/uL (1.8-7.7) Lymphocytes # (Auto) 2.0 x10^3/uL (1.0-4.8) Monocytes # (Auto) 1.9 x10^3/uL (0.0-1.1) Eosinophils # (Auto) 0.3 x10^3/uL (0.0-0.7) Basophils # (Auto) 0.0 x10^3/uL (0.0-0.2) Prothrombin Time 14.4 SEC (11.7-14.0) Prothromb Time International Ratio 1.1 (0.8-1.1) Sodium Level 150 mmol/L (136-145) Potassium Level 3.4 mmol/L (3.5-5.1) Chloride Level 111 mmol/L (98-107) Carbon Dioxide Level 30 mmol/L (21-32) Anion Gap 9 (6-14) Blood Urea Nitrogen 8 mg/dL (8-26) Creatinine 1.1 mg/dL (0.7-1.3) Estimated GFR (Cockcroft-Gault) 65.3 Glucose Level 103 mg/dL (70-99) Calcium Level 7.6 mg/dL (8.5-10.1) Microbiology 08/04/21 Urine Culture - Final, Complete Vitals/I & O Vital Sign - Last 24 Hours 08/12/21 08/12/21 08/12/21 08/12/21 10:06 10:45 11:00 12:11 Temp 98.4 98.4 Pulse 84 Resp 19 20 24 B/P (MAP) 115/46 (69) Pulse Ox 93 93 90 93 O2 Delivery Nasal Cannula Nasal Cannula Nasal Cannula Nasal Cannula O2 Flow Rate 2.0 2.0 2.0 2.0 08/12/21 08/12/21 08/12/21 08/12/21 15:00 15:31 16:39 19:00 Temp 99.3 98.1 99.3 98.1 Pulse 83 88 Resp 18 20 16 B/P (MAP) 114/48 (70) 133/56 (81) Pulse Ox 97 93 89 90 O2 Delivery Room Air Nasal Cannula Room Air Nasal Cannula O2 Flow Rate 2.0 2.0 08/12/21 08/12/21 08/12/21 08/12/21 19:52 20:00 20:16 23:00 Temp 98.6 98.6 Pulse 83 89 Resp 16 B/P (MAP) 114/48 150/71 (97) Pulse Ox 90 92 O2 Delivery Nasal Cannula Room Air Nasal Cannula O2 Flow Rate 2.0 2.0 08/13/21 08/13/21 08/13/21 08/13/21 02:07 02:37 03:00 07:00 Temp 97.7 97.9 97.7 97.9 Pulse 81 80 Resp 18 18 B/P (MAP) 129/37 (67) 149/65 (93) Pulse Ox 92 92 92 98 O2 Delivery Nasal Cannula Nasal Cannula Nasal Cannula Nasal Cannula O2 Flow Rate 2.0 2.0 2.0 2.0 08/13/21 07:55 Pulse Ox 97 O2 Delivery Room Air Intake and Output 08/12/21 08/12/21 08/13/21 15:00 23:00 07:00 Intake Total 636 ml 0 ml Balance 636 ml 0 ml Justifications for Admission Other Justification COLEEN LOPEZ MD Aug 13, 2021 09:21
[2021-08-13] MEDS: POTASSIUM CL 20MEQ D5-0.2%NACL 1,000 ML IV SCH ×2 (09:30→22:50)
[2021-08-13 11:00] VITALS: BP 147/52
[2021-08-13 11:20] LABS: % BANDS 1 % (0-9); % LYMPHS 8 % (24-48); % MONOS 7 % (0-10); % SEGS 84 % (35-66); NUCLEATED RBC 1
[2021-08-13 11:21] LABS: PLT ESTIMATE ADEQUATE (ADEQUATE)
[2021-08-13] MEDS: PANTOPRAZOLE SODIUM IV DRIP 80 MG in IV NORMAL SALINE 100ML 100 ML IV SCH ×2 (12:51→17:00)
[2021-08-13 13:35] LABS: URIC ACID 3.5 mg/dL (3.5-7.2)
[2021-08-13] MEDS: POTASSIUM CHLORIDE 20 MEQ TABLET.ER. PO SCH ×2 (14:00→16:52)
--- NOTE | 2021-08-13 14:02 | PDOC ---
G I PROGRESS NOTE Subjective No complaints. Denies pain, N, V. Objective Discussed case with Heme/Onc; no way to lyse clot. Physical Exam Lungs clear anteriorly. IRRR Abdomen soft, not tender nor distended. Review of Relevant I have reviewed the following items david (where applicable) has been applied. Labs Laboratory Tests Test 08/11/21 18:23 08/11/21 18:50 08/11/21 21:18 08/12/21 07:24 Glucose (Fingerstick) 121 mg/dL (70-99) 118 mg/dL (70-99) 152 mg/dL (70-99) Hemoglobin 8.1 g/dL (13.0-17.5) Test 08/12/21 09:20 08/12/21 09:25 08/12/21 10:55 08/12/21 17:13 Sodium Level 150 mmol/L (136-145) Potassium Level 3.9 mmol/L (3.5-5.1) Chloride Level 111 mmol/L (98-107) Carbon Dioxide Level 31 mmol/L (21-32) Anion Gap 8 (6-14) Blood Urea Nitrogen 20 mg/dL (8-26) Creatinine 0.9 mg/dL (0.7-1.3) Estimated GFR (Cockcroft-Gault) 82.3 Glucose Level 144 mg/dL (70-99) Calcium Level 7.5 mg/dL (8.5-10.1) White Blood Count 19.1 x10^3/uL (4.0-11.0) Red Blood Count 2.70 x10^6/uL (4.30-5.70) Hemoglobin 7.8 g/dL (13.0-17.5) Hematocrit 24.3 % (39.0-53.0) Mean Corpuscular Volume 90 fL (79-100) Mean Corpuscular Hemoglobin 29 pg (25-35) Mean Corpuscular Hemoglobin Concent 32 g/dL (31-37) Red Cell Distribution Width 15.3 % (11.5-14.5) Platelet Count 344 x10^3/uL (140-400) Neutrophils (%) (Auto) 78 % (31-73) Lymphocytes (%) (Auto) 10 % (24-48) Monocytes (%) (Auto) 10 % (0-9) Eosinophils (%) (Auto) 2 % (0-3) Basophils (%) (Auto) 1 % (0-3) Neutrophils # (Auto) 14.9 x10^3/uL (1.8-7.7) Lymphocytes # (Auto) 1.8 x10^3/uL (1.0-4.8) Monocytes # (Auto) 1.9 x10^3/uL (0.0-1.1) Eosinophils # (Auto) 0.4 x10^3/uL (0.0-0.7) Basophils # (Auto) 0.1 x10^3/uL (0.0-0.2) Prothrombin Time 15.5 SEC (11.7-14.0) Prothromb Time International Ratio 1.2 (0.8-1.1) Glucose (Fingerstick) 142 mg/dL (70-99) 136 mg/dL (70-99) Test 08/12/21 20:43 08/13/21 06:00 08/13/21 07:55 08/13/21 11:49 Glucose (Fingerstick) 128 mg/dL (70-99) 117 mg/dL (70-99) 125 mg/dL (70-99) White Blood Count 18.1 x10^3/uL (4.0-11.0) Red Blood Count 2.61 x10^6/uL (4.30-5.70) Hemoglobin 7.6 g/dL (13.0-17.5) Hematocrit 23.4 % (39.0-53.0) Mean Corpuscular Volume 90 fL (79-100) Mean Corpuscular Hemoglobin 29 pg (25-35) Mean Corpuscular Hemoglobin Concent 32 g/dL (31-37) Red Cell Distribution Width 15.3 % (11.5-14.5) Platelet Count 345 x10^3/uL (140-400) Neutrophils (%) (Auto) 77 % (31-73) Lymphocytes (%) (Auto) 11 % (24-48) Monocytes (%) (Auto) 11 % (0-9) Eosinophils (%) (Auto) 2 % (0-3) Basophils (%) (Auto) 0 % (0-3) Neutrophils # (Auto) 13.9 x10^3/uL (1.8-7.7) Lymphocytes # (Auto) 2.0 x10^3/uL (1.0-4.8) Monocytes # (Auto) 1.9 x10^3/uL (0.0-1.1) Eosinophils # (Auto) 0.3 x10^3/uL (0.0-0.7) Basophils # (Auto) 0.0 x10^3/uL (0.0-0.2) Segmented Neutrophils % 84 % (35-66) Band Neutrophils % 1 % (0-9) Lymphocytes % 8 % (24-48) Monocytes % 7 % (0-10) Nucleated Red Blood Cells 1 Platelet Estimate Adequate (ADEQUATE) Prothrombin Time 14.4 SEC (11.7-14.0) Prothromb Time International Ratio 1.1 (0.8-1.1) Sodium Level 150 mmol/L (136-145) Potassium Level 3.4 mmol/L (3.5-5.1) Chloride Level 111 mmol/L (98-107) Carbon Dioxide Level 30 mmol/L (21-32) Anion Gap 9 (6-14) Blood Urea Nitrogen 8 mg/dL (8-26) Creatinine 1.1 mg/dL (0.7-1.3) Estimated GFR (Cockcroft-Gault) 65.3 Glucose Level 103 mg/dL (70-99) Calcium Level 7.6 mg/dL (8.5-10.1) Test 08/13/21 12:45 Red Blood Count 2.48 x10^6/uL (4.30-5.70) Absolute Reticulocyte Count 0.068 x10^6/uL (0.020-0.120) Percent Reticulocyte Count 2.8 % (0.5-2.3) Immature Reticulocyte Fraction 0.46 (0.20-0.60) Uric Acid 3.5 mg/dL (3.5-7.2) Iron Level 22 ug/dL (65-175) Total Iron Binding Capacity 155 ug/dL (250-450) Iron Saturation 14 % (15-34) Ferritin 430 ng/mL (26-388) Lactate Dehydrogenase 275 U/L (85-227) Laboratory Tests Test 08/12/21 17:13 08/12/21 20:43 08/13/21 06:00 08/13/21 07:55 Glucose (Fingerstick) 136 mg/dL (70-99) 128 mg/dL (70-99) 117 mg/dL (70-99) White Blood Count 18.1 x10^3/uL (4.0-11.0) Red Blood Count 2.61 x10^6/uL (4.30-5.70) Hemoglobin 7.6 g/dL (13.0-17.5) Hematocrit 23.4 % (39.0-53.0) Mean Corpuscular Volume 90 fL (79-100) Mean Corpuscular Hemoglobin 29 pg (25-35) Mean Corpuscular Hemoglobin Concent 32 g/dL (31-37) Red Cell Distribution Width 15.3 % (11.5-14.5) Platelet Count 345 x10^3/uL (140-400) Neutrophils (%) (Auto) 77 % (31-73) Lymphocytes (%) (Auto) 11 % (24-48) Monocytes (%) (Auto) 11 % (0-9) Eosinophils (%) (Auto) 2 % (0-3) Basophils (%) (Auto) 0 % (0-3) Neutrophils # (Auto) 13.9 x10^3/uL (1.8-7.7) Lymphocytes # (Auto) 2.0 x10^3/uL (1.0-4.8) Monocytes # (Auto) 1.9 x10^3/uL (0.0-1.1) Eosinophils # (Auto) 0.3 x10^3/uL (0.0-0.7) Basophils # (Auto) 0.0 x10^3/uL (0.0-0.2) Segmented Neutrophils % 84 % (35-66) Band Neutrophils % 1 % (0-9) Lymphocytes % 8 % (24-48) Monocytes % 7 % (0-10) Nucleated Red Blood Cells 1 Platelet Estimate Adequate (ADEQUATE) Prothrombin Time 14.4 SEC (11.7-14.0) Prothromb Time International Ratio 1.1 (0.8-1.1) Sodium Level 150 mmol/L (136-145) Potassium Level 3.4 mmol/L (3.5-5.1) Chloride Level 111 mmol/L (98-107) Carbon Dioxide Level 30 mmol/L (21-32) Anion Gap 9 (6-14) Blood Urea Nitrogen 8 mg/dL (8-26) Creatinine 1.1 mg/dL (0.7-1.3) Estimated GFR (Cockcroft-Gault) 65.3 Glucose Level 103 mg/dL (70-99) Calcium Level 7.6 mg/dL (8.5-10.1) Test 08/13/21 11:49 08/13/21 12:45 Glucose (Fingerstick) 125 mg/dL (70-99) Red Blood Count 2.48 x10^6/uL (4.30-5.70) Absolute Reticulocyte Count 0.068 x10^6/uL (0.020-0.120) Percent Reticulocyte Count 2.8 % (0.5-2.3) Immature Reticulocyte Fraction 0.46 (0.20-0.60) Uric Acid 3.5 mg/dL (3.5-7.2) Iron Level 22 ug/dL (65-175) Total Iron Binding Capacity 155 ug/dL (250-450) Iron Saturation 14 % (15-34) Ferritin 430 ng/mL (26-388) Lactate Dehydrogenase 275 U/L (85-227) Microbiology 08/04/21 Urine Culture - Final, Complete Slight dip in hemoglobin. Medications Current Medications Fentanyl Citrate (Fentanyl 2ml Vial) 25 mcg PRN Q5MIN PRN IVP MILD PAIN 1-3 Last administered on 08/02/21at 11:51; Start 08/02/21 at 06:00; Stop 08/03/21 at 05:59; Status DC Fentanyl Citrate (Fentanyl 2ml Vial) 50 mcg PRN Q5MIN PRN IVP MODERATE PAIN 4- 6; Start 08/02/21 at 06:00; Stop 08/03/21 at 05:59; Status DC Morphine Sulfate (Morphine Sulfate) 1 mg PRN Q10MIN PRN IVP SEVERE PAIN 7-10 Last administered on 08/02/21at 09:39; Start 08/02/21 at 06:00; Stop 08/03/21 at 05:59; Status DC Ringer's Solution 1,000 ml @ 30 mls/hr Q24H IV Last administered on 08/02/21at 07:04; Start 08/02/21 at 06:00; Stop 08/02/21 at 17:59; Status DC Hydromorphone HCl (Dilaudid) 0.5 mg PRN Q10MIN PRN IVP SEVERE PAIN 7-10, 2nd CHOICE; Start 08/02/21 at 06:00; Stop 08/03/21 at 05:59; Status DC Prochlorperazine Edisylate (Compazine) 5 mg PACU PRN PRN IVP NAUSEA, MRX1; Start 08/02/21 at 06:00; Stop 08/03/21 at 05:59; Status DC Morphine Sulfate 5 mg/Ketorolac Tromethamine 30 mg/Ropivacaine 60 ml/Epinephrine HCl 0.5 mg/ Miscellaneous 63 ml @ 63 mls/hr 1X PERIOP ONCE INT ART ; Start 08/02/21 at 06:00; Stop 08/02/21 at 07:00; Status DC Meloxicam (Mobic) 15 mg 1X PREOP PRN PO PRIOR TO PROCEDURE Last administered on 08/02/21at 07:05; Start 08/02/21 at 06:00; Stop 08/02/21 at 18:00; Status DC Gabapentin (Neurontin) 300 mg 1X PREOP PRN PO PRIOR TO PROCEDURE Last administered on 08/02/21at 07:06; Start 08/02/21 at 06:00; Stop 08/02/21 at 18:00; Status DC Acetaminophen (Tylenol) 1,000 mg 1X PREOP PRN PO PRIOR TO PROCEDURE Last administered on 08/02/21at 07:05; Start 08/02/21 at 06:00; Stop 08/02/21 at 18:00; Status DC Clindamycin Phosphate 50 ml @ 100 mls/hr 1X PREOP PRN IV PRIOR TO PROCEDURE Last administered on 08/02/21at 07:40; Start 08/02/21 at 06:00; Stop 08/02/21 at 18:00; Status DC Tranexamic Acid 50 ml @ 50 mls/hr 1X PERIOP ONCE INJ ; Start 08/02/21 at 06:00; Stop 08/02/21 at 07:00; Status DC Tranexamic Acid 50 ml @ 50 mls/hr 1X PERIOP ONCE INJ ; Start 08/02/21 at 08:00; Stop 08/02/21 at 08:59; Status DC Tranexamic Acid 0 ml @ As Directed STK-MED ONCE .ROUTE ; Start 08/02/21 at 06:55; Stop 08/02/21 at 06:55; Status DC Tranexamic Acid 50 ml @ As Directed STK-MED ONCE .ROUTE ; Start 08/02/21 at 06:55; Stop 08/02/21 at 06:56; Status Cancel Insulin Human Lispro (HumaLOG VIAL for OP,RR ONLY) 0-10 units PRN Q1HR PRN SQ PER PROTOCOL Last administered on 08/02/21at 11:25; Start 08/02/21 at 07:00; Stop 08/03/21 at 06:59; Status DC Propofol (Diprivan) 200 mg STK-MED ONCE IV ; Start 08/02/21 at 07:10; Stop 08/02/21 at 07:10; Status DC Lidocaine HCl (Lidocaine Pf 2% Vial) 5 ml STK-MED ONCE .ROUTE ; Start 08/02/21 at 07:10; Stop 08/02/21 at 07:11; Status DC Dexamethasone Sodium Phosphate (Decadron) 4 mg STK-MED ONCE .ROUTE ; Start 08/02/21 at 07:11; Stop 08/02/21 at 07:11; Status DC Ondansetron HCl (Zofran) 4 mg STK-MED ONCE .ROUTE ; Start 08/02/21 at 07:11; Stop 08/02/21 at 07:11; Status DC Rocuronium [place] (Zemuron) 100 mg STK-MED ONCE .ROUTE ; Start 08/02/21 at 07:13; Stop 08/02/21 at 07:13; Status DC Fentanyl Citrate (Fentanyl 5ml Vial) 250 mcg STK-MED ONCE .ROUTE ; Start 08/02/21 at 07:13; Stop 08/02/21 at 07:13; Status DC Glycopyrrolate (Robinul) 1 mg STK-MED ONCE .ROUTE ; Start 08/02/21 at 07:57; Stop 08/02/21 at 07:57; Status DC Neostigmine [place] (Neostigmine Methylsulfate) 5 mg STK-MED ONCE .ROUTE ; Start 08/02/21 at 07:58; Stop 08/02/21 at 07:58; Status DC Phenylephrine HCl (PHENYLEPHRINE in 0.9% NACL PF) 1 mg STK-MED ONCE IV ; Start 08/02/21 at 08:10; Stop 08/02/21 at 08:10; Status DC Ephedrine Sulfate (ePHEDrine PF IN SALINE SYRINGE) 50 mg STK-MED ONCE IV ; Start 08/02/21 at 08:27; Stop 08/02/21 at 08:28; Status DC Fentanyl Citrate (Fentanyl 2ml Vial) 100 mcg STK-MED ONCE .ROUTE ; Start 08/02/21 at 09:20; Stop 08/02/21 at 09:20; Status DC Morphine Sulfate (Morphine Sulfate) 2 mg STK-MED ONCE .ROUTE ; Start 08/02/21 a t 09:20; Stop 08/02/21 at 09:20; Status DC Morphine Sulfate (Morphine Sulfate) 2 mg PRN Q2HR PRN IVP PAIN; Start 08/02/21 at 11:45; Status Cancel Hydromorphone HCl (Dilaudid) 0.4 mg PRN Q4HRS PRN IVP PAIN Last administered on 08/13/21at 02:07; Start 08/02/21 at 11:45 Oxycodone/ Acetaminophen (Percocet 5/325) 1 tab PRN Q4HRS PRN PO PAIN Last administered on 08/03/21at 20:31; Start 08/02/21 at 11:45; Stop 08/05/21 at 09:19; Status DC Fentanyl Citrate (Fentanyl 2ml Vial) 100 mcg STK-MED ONCE .ROUTE ; Start 08/02/21 at 11:40; Stop 08/02/21 at 11:41; Status DC Morphine Sulfate (Morphine Sulfate) 2 mg PRN Q1HR PRN IVP PAIN-SEE COMMENTS; Start 08/02/21 at 11:45; Stop 08/05/21 at 09:19; Status DC Fentanyl Citrate (Fentanyl 2ml Vial) 25 mcg PRN Q1HR PRN IVP PAIN, 2nd CHOICE; Start 08/02/21 at 11:45; Stop 08/02/21 at 12:15; Status DC Diphenhydramine HCl (Benadryl) 25 mg PRN Q6HRS PRN IVP ITCHING; Start 08/02/21 at 11:45 Multivitamins (Thera M Plus) 1 tab DAILY PO Last administered on 08/09/21at 09:00; Start 08/02/21 at 12:00 Senna/Docusate Sodium (Senna Plus) 1 tab DAILY PO Last administered on 08/09/21at 09:31; Start 08/02/21 at 12:00 Ferrous Sulfate (Feosol) 325 mg BIDWMEALS PO Last administered on 08/04/21at 08:22; Start 08/02/21 at 17:00; Stop 08/04/21 at 11:11; Status DC Sodium Chloride 1,000 ml @ 100 mls/hr Q10H IV Last administered on 08/08/21at 07:01; Start 08/02/21 at 11:45; Stop 08/08/21 at 10:29; Status DC Clindamycin Phosphate 50 ml @ 100 mls/hr Q6H IV Last administered on 08/03/21at 01:02; Start 08/02/21 at 13:00; Stop 08/03/21 at 01:29; Status DC Zolpidem Tartrate (Ambien) 5 mg PRN QHS PRN PO INSOMNIA, MAY REPEAT IN 1HR Last administered on 08/09/21at 20:56; Start 08/02/21 at 11:45 Sodium Chloride (Normal Saline Flush) 10 ml QSHIFT PRN IV AFTER MEDS AND BLOOD DRAWS; Start 08/02/21 at 11:45 Acetaminophen (Tylenol) 1,000 mg Q6H PO Last administered on 08/13/21at 08:23; Start 08/03/21 at 09:00 Meloxicam (Mobic) 15 mg DAILY PO Last administered on 08/04/21at 08:20; Start 08/03/21 at 09:00; Stop 08/04/21 at 11:11; Status DC Tramadol HCl (Ultram) 50 mg Q6H PO Last administered on 08/04/21at 07:19; Start 08/03/21 at 06:00; Stop 08/04/21 at 11:11; Status DC Gabapentin (Neurontin) 100 mg Q12H PO Last administered on 08/03/21at 18:20; Start 08/03/21 at 06:00; Stop 08/03/21 at 23:56; Status DC Ondansetron HCl (Zofran) 4 mg Q6HRS IVP Last administered on 08/02/21at 17:52; Start 08/02/21 at 12:00; Stop 08/03/21 at 06:01; Status DC Oxycodone HCl (Roxicodone) 5 mg PRN Q4HRS PRN PO Pain score 4-6 Last administered on 08/05/21at 01:03; Start 08/02/21 at 11:45; Stop 08/05/21 at 09:19; Status DC Aspirin (Olga Lidia Aspirin) 325 mg [id number] PO Last administered on 08/04/21at 08:26; Start 08/03/21 at 08:00; Stop 08/05/21 at 15:18; Status DC Fentanyl Citrate (Fentanyl 2ml Vial) 25 mcg PRN Q2HR PRN IVP PAIN; Start 08/02/21 at 12:00; Stop 08/05/21 at 09:19; Status DC Fentanyl Citrate (Fentanyl 2ml Vial) 50 mcg PRN Q2HR PRN IVP SEVERE PAIN; Start 08/02/21 at 12:00; Stop 08/05/21 at 09:19; Status DC Insulin Glargine (Lantus Syringe) 35 unit QHS SQ Last administered on 08/12/21at 20:40; Start 08/02/21 at 21:00 Linagliptin (Tradjenta) 5 mg DAILY PO Last administered on 08/09/21at 09:32; Start 08/03/21 at 09:00 Metformin HCl (Glucophage) 1,000 mg BIDWMEALS PO Last administered on 08/04/21at 08:22; Start 08/02/21 at 17:00; Stop 08/04/21 at 11:11; Status DC Amiodarone HCl (Cordarone) 200 mg DAILY PO Last administered on 08/11/21at 08:31; Start 08/03/21 at 09:00 Amlodipine Besylate (Norvasc) 5 mg DAILY PO Last administered on 08/09/21at 09:00; Start 08/03/21 at 09:00 Isosorbide Mononitrate (Imdur) 30 mg DAILY PO Last administered on 08/11/21at 08:31; Start 08/03/21 at 09:00 Lisinopril (Prinivil) 20 mg DAILY PO Last administered on 08/09/21at 09:32; Start 08/03/21 at 09:00 Metoprolol Tartrate (Lopressor) 25 mg BID PO Last administered on 08/11/21 08:31; Start 08/02/21 at 21:00 Potassium Chloride (Klor-Con) 20 meq DAILY PO Last administered on 08/04/21 08:21; Start 08/03/21 at 09:00; Stop 08/04/21 at 11:11; Status DC Simvastatin (Zocor) 20 mg HS PO Last administered on 08/08/21 20:44; Start 08/02/21 at 21:00 Tamsulosin HCl (Flomax) 0.4 mg DAILY PO Last administered on 08/09/21 09:32; Start 08/03/21 at 09:00 Warfarin Sodium (Coumadin) 7.5 mg DAILY16 PO Last administered on 08/04/21 15:32; Start 08/02/21 at 17:00; Stop 08/05/21 at 15:15; Status DC Non-Formulary Medication (Albuterol Sulfate (Albuterol Sulfate Conc Neb Soln)) 2.5 mg BID NEB ; Start 08/02/21 at 21:00; Status UNV Non-Formulary Medication (Albuterol Sulfate (Proventil Hfa)) 1 puff PRN Q6HRS PRN INH SHORTNESS OF BREATH; Start 08/02/21 at 16:15; Status UNV Non-Formulary Medication (Budesonide/ Formoterol Fumarate (Symbicort 160-4.5 Mcg Inhaler)) 2 puff BID IH ; Start 08/02/21 at 21:00; Status UNV Vitamin D (Vitamin D3) 2,000 unit DAILY PO Last administered on 08/09/21 09:31; Start 08/03/21 at 09:00 Cyanocobalamin (Vitamin B-12) 200 mcg DAILY PO Last administered on 08/09/21 09:32; Start 08/03/21 at 09:00 Latanoprost (Xalatan) 1 drop QHS OU Last administered on 08/12/21 20:35; Start 08/02/21 at 21:00 Cetirizine HCl (ZyrTEC) 10 mg DAILY PO Last administered on 08/09/21 09:33; Start 08/03/21 at 09:00 Warfarin Sodium (Coumadin Per Pharmacy) 1 each PRN DAILY PRN MC SEE COMMENTS Last administered on 10/21/21at 16:55; Start 08/02/21 at 16:30 Budesonide (Pulmicort) 0.5 mg RTBID NEB Last administered on 08/04/21at 19:51; Start 08/02/21 at 20:00; Stop 08/05/21 at 17:30; Status DC Albuterol Sulfate (Ventolin Neb Soln) 2.5 mg RTQID NEB Last administered on 08/04/21at 19:51; Start 08/02/21 at 20:00; Stop 08/05/21 at 17:30; Status DC Albuterol Sulfate (Ventolin Neb Soln) 2.5 mg PRN Q6HRS PRN NEB SHORTNESS OF BREATH Last administered on 08/08/21at 11:35; Start 08/02/21 at 16:30 Insulin Human Lispro (HumaLOG) 0-5 UNITS TIDWMEALS SQ Last administered on 08/07/21at 12:10; Start 08/03/21 at 08:00 Dextrose (Dextrose 50%-Water Syringe) 12.5 gm PRN Q15MIN PRN IV SEE COMMENTS; Start 08/02/21 at 22:45 Insulin Human Lispro (HumaLOG VIAL for OP,RR ONLY) 4 unit STK-MED ONCE SQ ; Start 08/02/21 at 11:30; Stop 08/03/21 at 16:34; Status DC Insulin Human Lispro (HumaLOG VIAL for OP,RR ONLY) 4 unit STK-MED ONCE SQ ; Start 08/02/21 at 11:30; Stop 08/03/21 at 16:34; Status DC Insulin Human Lispro (HumaLOG VIAL for OP,RR ONLY) 4 unit STK-MED ONCE SQ ; Start 08/02/21 at 11:30; Stop 08/03/21 at 16:34; Status DC Sodium Chloride 500 ml @ 250 mls/hr Q2H IV Last administered on 08/03/21at 16:45; Start 08/03/21 at 16:45; Stop 08/03/21 at 18:44; Status DC Ondansetron HCl (Zofran) 4 mg PRN Q6HRS PRN IVP NAUSEA/VOMITING Last administered on 08/11/21at 23:59; Start 08/04/21 at 08:15 Ceftriaxone Sodium (Rocephin) 1 gm Q24H IVP Last administered on 08/04/21at 20:48; Start 08/04/21 at 18:00; Stop 08/05/21 at 09:40; Status DC Pantoprazole Sodium (PROTONIX VIAL for IV PUSH) 40 mg DAILYAC IVP Last administered on 08/09/21at 09:07; Start 08/05/21 at 08:00; Stop 08/09/21 at 10:54; Status DC Meropenem 500 mg/ Sodium Chloride 50 ml @ 100 mls/hr Q8HRS IV Last administered on 08/11/21at 22:00; Start 08/05/21 at 14:00; Stop 08/11/21 at 22:00; Status DC Linezolid/Dextrose 300 ml @ 300 mls/hr Q12HR IV Last administered on 08/11/21 at 22:02; Start 08/05/21 at 10:00; Stop 08/11/21 at 22:00; Status DC Warfarin Sodium (Coumadin - No Dose Today) 1 each 1X WARF ONCE MC ; Start 08/06/21 at 16:00; Stop 08/06/21 at 16:01; Status DC Lactobacillus Rhamnosus (Culturelle) 1 cap BID PO Last administered on 08/09/21at 09:31; Start 08/06/21 at 21:00 Polyethylene Glycol (miraLAX PACKET) 17 gm PRN DAILY PRN PO CONSTIPATION; Start 08/06/21 at 13:30 Metoclopramide HCl (Reglan Vial) 10 mg PRN Q6HRS PRN IVP NAUSEA/VOMITING 2ND CHOICE Last administered on 08/06/21at 15:33; Start 08/06/21 at 15:30; Stop 08/10/21 at 12:54; Status DC Warfarin Sodium (Coumadin) 7.5 mg 1X WARF ONCE PO Last administered on 08/07/21at 18:04; Start 08/07/21 at 16:00; Stop 08/07/21 at 16:01; Status DC Potassium Chloride (Klor-Con) 20 meq [id number] PO Last administered on 08/09/21at 14:38; Start 08/08/21 at 10:30 Warfarin Sodium (Coumadin) 7.5 mg 1X WARF ONCE PO Last administered on 08/08/21at 15:36; Start 08/08/21 at 16:00; Stop 08/08/21 at 16:01; Status DC Potassium Chloride (Klor-Con) 40 meq 1X ONCE PO Last administered on 08/09/21at 05:05; Start 08/09/21 at 05:00; Stop 08/09/21 at 05:01; Status DC Potassium Chloride/Water 100 ml @ 100 mls/hr Q1H IV Last administered on 08/09/21at 09:10; Start 08/09/21 at 05:15; Stop 08/09/21 at 09:14; Status DC Warfarin Sodium (Coumadin - No Dose Today) 1 each 1X WARF ONCE MC ; Start 08/09/21 at 16:00; Stop 08/09/21 at 16:01; Status DC Pantoprazole Sodium (Protonix) 40 mg DAILYAC PO ; Start 08/10/21 at 07:30; S top 08/10/21 at 08:59; Status DC Acetaminophen (Tylenol) 650 mg 1X PRN PRN PO PRE-TRANSFUSION; Start 08/10/21 at 09:00; Stop 08/11/21 at 08:59; Status DC Diphenhydramine HCl (Benadryl Oral Elixir) 12.5 mg 1X PRN PRN PO PRE- TRANSFUSION; Start 08/10/21 at 09:00; Stop 08/11/21 at 08:59; Status DC Diphenhydramine HCl (Benadryl) 25 mg PRN 1X PRN PO PRE-TRANSFUSION; Start 07/23 07/13 at 09:00; Stop 08/11/21 at 08:59; Status DC Pantoprazole Sodium 80 mg/ Sodium Chloride 100 ml @ 10 mls/hr Q10H IV Last administered on 08/13/21at 12:51; Start 08/10/21 at 09:00 Phytonadione (Vitamin K Ampule) 10 mg 1X ONCE SQ Last administered on 08/10/21at 10:09; Start 08/10/21 at 09:00; Stop 08/10/21 at 09:01; Status DC Metoclopramide HCl (Reglan Vial) 10 mg 1X ONCE IVP Last administered on 08/10/21at 13:34; Start 08/10/21 at 13:00; Stop 08/10/21 at 13:01; Status DC Warfarin Sodium (Coumadin - No Dose Today) 1 each 1X WARF ONCE MC Last administered on 08/10/21at 16:00; Start 08/10/21 at 16:00; Stop 08/10/21 at 16:01; Status DC Propofol (Diprivan) 200 mg STK-MED ONCE IV ; Start 08/10/21 at 16:08; Stop 08/10/21 at 16:09; Status DC Lidocaine HCl (Lidocaine Pf 2% Vial) 5 ml STK-MED ONCE .ROUTE ; Start 08/10/21 at 16:08; Stop 08/10/21 at 16:09; Status DC Propofol (Diprivan) 200 mg STK-MED ONCE IV ; Start 08/10/21 at 16:27; Stop 08/10/21 at 16:28; Status DC Propofol (Diprivan) 200 mg STK-MED ONCE IV ; Start 08/10/21 at 16:43; Stop 08/10/21 at 16:43; Status DC Warfarin Sodium (Coumadin - No Dose Today) 1 each 1X WARF ONCE MC Last administered on 08/11/21at 16:00; Start 08/11/21 at 16:00; Stop 08/11/21 at 16:01; Status DC Albuterol/ Ipratropium (Duoneb) 3 ml RTQID NEB Last administered on 08/13/21at 07:53; Start 08/12/21 at 09:15 Potassium Chloride/Dextrose/ Sod Cl 1,000 ml @ 75 mls/hr [id number] IV ; Start 08/13/21 at 09:30 Active Scripts Active Ondansetron Odt (Ondansetron) 4 Mg Tab.rapdis 1 Tab PO PRN Q6-8HRS Cefdinir 300 Mg Capsule 1 Cap PO BID Stool Softener-Stimulant Lax (Sennosides/Docusate Sodium) 1 Each Tablet 1 Tab PO DAILY 30 Days Culturelle (Lactobacillus Rhamnosus Gg) 1 Each Cap.sprink 1 Cap PO BID 15 Days Lantus (Insulin Glargine,Hum.rec.anlog) 100 Unit/1 Ml Vial 35 Unit SQ QHS 30 Days Reported Latanoprost 0.005% Eye Drop (Latanoprost/Pf) 7.5 Ml Drops 1 Drop OU QHS Symbicort 160-4.5 Mcg Inhaler (Budesonide/Formoterol Fumarate) 10.2 Gm Hfa.aer.ad 2 Puff IH BID Loratadine 10 Mg Tablet 10 Mg PO DAILY Vitamin B12 (Cyanocobalamin (Vitamin B-12)) 2,500 Mcg Tablet 200 Mcg PO DAILY Vitamin D3 (Cholecalciferol (Vitamin D3)) 50 Mcg Capsule 50 Mcg PO DAILY Alogliptin (Alogliptin Benzoate) 25 Mg Tablet 25 Mg PO DAILY Albuterol Sulfate Conc Neb Soln (Albuterol Sulfate) 2.5 Mg/0.5 Ml Vial.neb 2.5 M g NEB BID Flomax (Tamsulosin Hcl) 0.4 Mg Cap.er.24h 0.4 Mg PO DAILY Warfarin Sodium 7.5 Mg Tablet 7.5 Mg PO DAILY Simvastatin 20 Mg Tablet 20 Mg PO HS Amlodipine Besylate 5 Mg Tablet 5 Mg PO DAILY Amiodarone Hcl 200 Mg Tablet 1 Tab PO DAILY Proventil Hfa (Albuterol Sulfate) 6.7 Gm Hfa.aer.ad 1 Puff INH PRN Q6HRS PRN Metoprolol Tartrate 25 Mg Tablet 1 Tab PO BID Metformin Hcl 1,000 Mg Tablet 1,000 Mg PO BIDWMEALS Potassium Chloride (Potassium Chloride) 20 Meq Tablet.er 20 Meq PO DAILY Lisinopril 40 Mg Tablet 20 Mg PO DAILY Imdur (Isosorbide Mononitrate) 30 Mg Tab.er.24h 1 Tab PO DAILY Vitals/I & O Vital Sign - Last 24 Hours 08/12/21 08/12/21 08/12/21 08/12/21 15:00 15:31 16:39 19:00 Temp 99.3 98.1 99.3 98.1 Pulse 83 88 Resp 18 20 16 B/P (MAP) 114/48 (70) 133/56 (81) Pulse Ox 97 93 89 90 O2 Delivery Room Air Nasal Cannula Room Air Nasal Cannula O2 Flow Rate 2.0 2.0 08/12/21 08/12/21 08/12/21 08/12/21 19:52 20:00 20:16 23:00 Temp 98.6 98.6 Pulse 83 89 Resp 16 B/P (MAP) 114/48 150/71 (97) Pulse Ox 90 92 O2 Delivery Nasal Cannula Room Air Nasal Cannula O2 Flow Rate 2.0 2.0 08/13/21 08/13/21 08/13/2108/13/21 02:07 02:37 03:00 07:00 Temp 97.7 97.9 97.7 97.9 Pulse 81 80 Resp 18 18 B/P (MAP) 129/37 (67) 149/65 (93) Pulse Ox 92 92 92 98 O2 Delivery Nasal Cannula Nasal Cannula Nasal Cannula Nasal Cannula O2 Flow Rate 2.0 2.0 2.0 2.0 08/13/21 08/13/21 07:55 11:00 Temp 97.5 97.5 Pulse 82 Resp 18 B/P (MAP) 147/52 (83) Pulse Ox 97 97 O2 Delivery Room Air Nasal Cannula O2 Flow Rate 2.0 Intake and Output 08/12/21 08/12/21 08/13/21 15:00 23:00 07:00 Intake Total 636 ml 0 ml Balance 636 ml 0 ml Assessment UGI bleed, site/nature of lesion(s) unclear. Seems stable. GERD GOO from "hematobezoar"--gone? Plan of Care Note Try clears. Advance if tolerated and PO PPI. If vomits, NG and consider contrast study (not barium) to confirm/refute gastric outlet obstruction. Off the weekend. Coverage available if needed. Justicifation of Admission Dx: Justifications for Admission: Justification of Admission Dx: Yes Stroke - Ischemic: Stroke-Ischemic CARIE FRASER MD Aug 13, 2021 14:02
[2021-08-13 15:00] VITALS: BP 119/60
[2021-08-13] MEDS: AMIODARONE HCL 200 MG TABLET. PO SCH (16:51)
[2021-08-13] MEDS: TAMSULOSIN 0.4 MG CAP.ER.24H. PO SCH (16:51)
[2021-08-13] MEDS: CHOLECALCIFEROL (VITAMIN D3) 1,000 UNIT TABLET PO SCH (16:51)
[2021-08-13] MEDS: ISOSORBIDE MONONITRATE ER 30 MG TAB.ER.24H PO SCH (16:52)
[2021-08-13] MEDS: MULTIVITAMIN with MINERAL TABLET. PO SCH (16:52)
[2021-08-13] MEDS: LINAGLIPTIN 5 MG TABLET PO SCH (16:53)
[2021-08-13] MEDS: LISINOPRIL 20 MG TABLET PO SCH (16:53)
[2021-08-13] MEDS: CYANOCOBALAMIN (VITAMIN B-12) 100 MCG TABLET. PO SCH (16:53)
[2021-08-13] MEDS: SENNOSIDES/DOCUSATE 8.6/50MG TABLET. PO SCH (16:53)
[2021-08-13] MEDS: CETIRIZINE HCL 10 MG TABLET. PO SCH (16:53)
[2021-08-13 19:00] VITALS: BP 140/78
[2021-08-13] MEDS: INSULIN GLARGINE SYRINGE. SQ SCH (21:00)
[2021-08-13] MEDS: LATANOPROST 0.005% OPHTH SOLUTION 2.5ML BOTTLE. OU SCH (22:59)
[2021-08-13] MEDS: SIMVASTATIN 20 MG TABLET PO SCH (22:59)
[2021-08-13 23:53] VITALS: BP 111/35
[2021-08-14] VITALS (11 sets, daily range): BP systolic 77–128; BP diastolic 38–59
[2021-08-14] MEDS: ACETAMINOPHEN 500 MG TABLET PO SCH ×4 (03:00→21:13)
[2021-08-14] MEDS: HYDROmorphone 2 MG/ML VIAL IVP PRN ×3 (05:34→21:13)
[2021-08-14 07:37] LABS: BASO % 0 % (0-3); EOS # 0.3 x10^3/uL (0.0-0.7); EOS % 2 % (0-3); LYMPH # 1.8 x10^3/uL (1.0-4.8); LYMPH % 9 % (24-48); MEAN CORPUSCULAR HEMOGLOBIN 30 pg (25-35); MEAN CORPUSCULAR HGB CONC 33 g/dL (31-37); MEAN CORPUSCULAR VOLUME 90 fL (79-100); MONO # 2.1 x10^3/uL (0.0-1.1); MONO % 10 % (0-9); NEUT # 16.2 x10^3/uL (1.8-7.7); NEUT % 79 % (31-73); PLATELET COUNT 355 x10^3/uL (140-400); RED BLOOD COUNT 2.17 x10^6/uL (4.30-5.70); RED CELL DISTRIBUTION WIDTH 15.1 % (11.5-14.5); WHITE BLOOD COUNT 20.4 x10^3/uL (4.0-11.0)
[2021-08-14 08:02] LABS: HEMATOCRIT 19.6 % (39.0-53.0); HEMOGLOBIN 6.5 g/dL (13.0-17.5)
[2021-08-14] MEDS: IPRATRPIUM/ALBUTEROL 0.5/2.5MG 3 ML NEBU. NEB SCH ×4 (08:17→20:00)
[2021-08-14] MEDS: PANTOPRAZOLE IV PUSH 40 MG VIAL. IVP SCH ×2 (08:35→17:28)
[2021-08-14] MEDS: INSULIN LISPRO 300 UNITS/3 ML VIAL. SQ SCH ×3 (08:37→17:32)
[2021-08-14 08:38] LABS: CALCIUM 7.5 mg/dL (8.5-10.1); GFR 72.8; POTASSIUM 3.6 mmol/L (3.5-5.1)
[2021-08-14] MEDS: CETIRIZINE HCL 10 MG TABLET. PO SCH (09:17)
[2021-08-14] MEDS: LACTOBACILLUS RHAMNOSUS GG 1 CAPSULE. PO SCH ×2 (09:17→21:12)
[2021-08-14] MEDS: TAMSULOSIN 0.4 MG CAP.ER.24H. PO SCH (09:17)
[2021-08-14] MEDS: CHOLECALCIFEROL (VITAMIN D3) 1,000 UNIT TABLET PO SCH (09:17)
[2021-08-14] MEDS: MULTIVITAMIN with MINERAL TABLET. PO SCH (09:17)
[2021-08-14] MEDS: CYANOCOBALAMIN (VITAMIN B-12) 100 MCG TABLET. PO SCH (09:17)
[2021-08-14] MEDS: POTASSIUM CHLORIDE 20 MEQ TABLET.ER. PO SCH ×2 (09:18→14:38)
[2021-08-14] MEDS: ISOSORBIDE MONONITRATE ER 30 MG TAB.ER.24H PO SCH (09:18)
[2021-08-14] MEDS: AMIODARONE HCL 200 MG TABLET. PO SCH (09:18)
[2021-08-14] MEDS: LINAGLIPTIN 5 MG TABLET PO SCH (09:18)
[2021-08-14] MEDS: LISINOPRIL 20 MG TABLET PO SCH (09:19)
[2021-08-14] MEDS: SENNOSIDES/DOCUSATE 8.6/50MG TABLET. PO SCH (09:19)
[2021-08-14] MEDS: METOPROLOL TART IMMED RELEASE 25 MG TABLET. PO SCH ×2 (09:19→21:00)
--- NOTE | 2021-08-14 09:34 | PDOC ---
PROGRESS NOTES Date of Service DATE: 08/14/21 TIME: 09:29 Subjective Subjective No new complaints. Objective Objective Vital Signs Date Time Temp Pulse Resp B/P (MAP) Pulse Ox O2 Delivery O2 Flow Rate FiO2 08/14/21 09:22 Nasal Cannula 2.0 08/14/21 09:19 78 110/43 08/14/21 08:18 99 08/14/21 03:00 98.9 18 98.9 Intake and Output 08/14/21 07:00 Intake Total 0 ml Balance 0 ml Intake Oral 0 ml # Voids 2 Physical Exam Physical Exam He is alert,sitting in bedside chair and is tolerating clear liquid diet and passing gases. He is anemic and he continues to get up and walk with roller walker. Plan Plan of Care To continue present rehab efforts as tolerated. Comment Review of Relevant I have reviewed the following items david (where applicable) has been applied. Labs Laboratory Tests Test 08/12/21 10:55 08/12/21 17:13 08/12/21 20:43 08/13/21 06:00 Glucose (Fingerstick) 142 mg/dL (70-99) 136 mg/dL (70-99) 128 mg/dL (70-99) White Blood Count 18.1 x10^3/uL (4.0-11.0) Red Blood Count 2.61 x10^6/uL (4.30-5.70) Hemoglobin 7.6 g/dL (13.0-17.5) Hematocrit 23.4 % (39.0-53.0) Mean Corpuscular Volume 90 fL (79-100) Mean Corpuscular Hemoglobin 29 pg (25-35) Mean Corpuscular Hemoglobin Concent 32 g/dL (31-37) Red Cell Distribution Width 15.3 % (11.5-14.5) Platelet Count 345 x10^3/uL (140-400) Neutrophils (%) (Auto) 77 % (31-73) Lymphocytes (%) (Auto) 11 % (24-48) Monocytes (%) (Auto) 11 % (0-9) Eosinophils (%) (Auto) 2 % (0-3) Basophils (%) (Auto) 0 % (0-3) Neutrophils # (Auto) 13.9 x10^3/uL (1.8-7.7) Lymphocytes # (Auto) 2.0 x10^3/uL (1.0-4.8) Monocytes # (Auto) 1.9 x10^3/uL (0.0-1.1) Eosinophils # (Auto) 0.3 x10^3/uL (0.0-0.7) Basophils # (Auto) 0.0 x10^3/uL (0.0-0.2) Segmented Neutrophils % 84 % (35-66) Band Neutrophils % 1 % (0-9) Lymphocytes % 8 % (24-48) Monocytes % 7 % (0-10) Nucleated Red Blood Cells 1 Platelet Estimate Adequate (ADEQUATE) Prothrombin Time 14.4 SEC (11.7-14.0) Prothromb Time International Ratio 1.1 (0.8-1.1) Sodium Level 150 mmol/L (136-145) Potassium Level 3.4 mmol/L (3.5-5.1) Chloride Level 111 mmol/L (98-107) Carbon Dioxide Level 30 mmol/L (21-32) Anion Gap 9 (6-14) Blood Urea Nitrogen 8 mg/dL (8-26) Creatinine 1.1 mg/dL (0.7-1.3) Estimated GFR (Cockcroft-Gault) 65.3 Glucose Level 103 mg/dL (70-99) Calcium Level 7.6 mg/dL (8.5-10.1) Test 08/13/21 07:55 08/13/21 11:49 08/13/21 12:45 08/13/21 16:43 Glucose (Fingerstick) 117 mg/dL (70-99) 125 mg/dL (70-99) 196 mg/dL (70-99) Red Blood Count 2.48 x10^6/uL (4.30-5.70) Absolute Reticulocyte Count 0.068 x10^6/uL (0.020-0.120) Percent Reticulocyte Count 2.8 % (0.5-2.3) Immature Reticulocyte Fraction 0.46 (0.20-0.60) Haptoglobin 235 mg/dL (34-355) Uric Acid 3.5 mg/dL (3.5-7.2) Iron Level 22 ug/dL (65-175) Total Iron Binding Capacity 155 ug/dL (250-450) Iron Saturation 14 % (15-34) Ferritin 430 ng/mL (26-388) Lactate Dehydrogenase 275 U/L (85-227) Test 08/13/21 20:36 08/14/21 07:00 08/14/21 08:29 Glucose (Fingerstick) 244 mg/dL (70-99) 180 mg/dL (70-99) White Blood Count 20.4 x10^3/uL (4.0-11.0) Red Blood Count 2.17 x10^6/uL (4.30-5.70) Hemoglobin 6.5 g/dL (13.0-17.5) Hematocrit 19.6 % (39.0-53.0) Mean Corpuscular Volume 90 fL (79-100) Mean Corpuscular Hemoglobin 30 pg (25-35) Mean Corpuscular Hemoglobin Concent 33 g/dL (31-37) Red Cell Distribution Width 15.1 % (11.5-14.5) Platelet Count 355 x10^3/uL (140-400) Neutrophils (%) (Auto) 79 % (31-73) Lymphocytes (%) (Auto) 9 % (24-48) Monocytes (%) (Auto) 10 % (0-9) Eosinophils (%) (Auto) 2 % (0-3) Basophils (%) (Auto) 0 % (0-3) Neutrophils # (Auto) 16.2 x10^3/uL (1.8-7.7) Lymphocytes # (Auto) 1.8 x10^3/uL (1.0-4.8) Monocytes # (Auto) 2.1 x10^3/uL (0.0-1.1) Eosinophils # (Auto) 0.3 x10^3/uL (0.0-0.7) Basophils # (Auto) 0.0 x10^3/uL (0.0-0.2) Sodium Level 146 mmol/L (136-145) Potassium Level 3.6 mmol/L (3.5-5.1) Chloride Level 109 mmol/L (98-107) Carbon Dioxide Level 31 mmol/L (21-32) Anion Gap 6 (6-14) Blood Urea Nitrogen 19 mg/dL (8-26) Creatinine 1.0 mg/dL (0.7-1.3) Estimated GFR (Cockcroft-Gault) 72.8 Glucose Level 185 mg/dL (70-99) Calcium Level 7.5 mg/dL (8.5-10.1) Laboratory Tests Test 08/13/21 11:49 08/13/21 12:45 08/13/21 16:43 08/13/21 20:36 Glucose (Fingerstick) 125 mg/dL (70-99) 196 mg/dL (70-99) 244 mg/dL (70-99) Red Blood Count 2.48 x10^6/uL (4.30-5.70) Absolute Reticulocyte Count 0.068 x10^6/uL (0.020-0.120) Percent Reticulocyte Count 2.8 % (0.5-2.3) Immature Reticulocyte Fraction 0.46 (0.20-0.60) Haptoglobin 235 mg/dL (34-355) Uric Acid 3.5 mg/dL (3.5-7.2) Iron Level 22 ug/dL (65-175) Total Iron Binding Capacity 155 ug/dL (250-450) Iron Saturation 14 % (15-34) Ferritin 430 ng/mL (26-388) Lactate Dehydrogenase 275 U/L (85-227) Test 08/14/21 07:00 08/14/21 08:29 White Blood Count 20.4 x10^3/uL (4.0-11.0) Red Blood Count 2.17 x10^6/uL (4.30-5.70) Hemoglobin 6.5 g/dL (13.0-17.5) Hematocrit 19.6 % (39.0-53.0) Mean Corpuscular Volume 90 fL (79-100) Mean Corpuscular Hemoglobin 30 pg (25-35) Mean Corpuscular Hemoglobin Concent 33 g/dL (31-37) Red Cell Distribution Width 15.1 % (11.5-14.5) Platelet Count 355 x10^3/uL (140-400) Neutrophils (%) (Auto) 79 % (31-73) Lymphocytes (%) (Auto) 9 % (24-48) Monocytes (%) (Auto) 10 % (0-9) Eosinophils (%) (Auto) 2 % (0-3) Basophils (%) (Auto) 0 % (0-3) Neutrophils # (Auto) 16.2 x10^3/uL (1.8-7.7) Lymphocytes # (Auto) 1.8 x10^3/uL (1.0-4.8) Monocytes # (Auto) 2.1 x10^3/uL (0.0-1.1) Eosinophils # (Auto) 0.3 x10^3/uL (0.0-0.7) Basophils # (Auto) 0.0 x10^3/uL (0.0-0.2) Sodium Level 146 mmol/L (136-145) Potassium Level 3.6 mmol/L (3.5-5.1) Chloride Level 109 mmol/L (98-107) Carbon Dioxide Level 31 mmol/L (21-32) Anion Gap 6 (6-14) Blood Urea Nitrogen 19 mg/dL (8-26) Creatinine 1.0 mg/dL (0.7-1.3) Estimated GFR (Cockcroft-Gault) 72.8 Glucose Level 185 mg/dL (70-99) Calcium Level 7.5 mg/dL (8.5-10.1) Glucose (Fingerstick) 180 mg/dL (70-99) Microbiology 08/04/21 Urine Culture - Final, Complete Medications Current Medications Fentanyl Citrate (Fentanyl 2ml Vial) 25 mcg PRN Q5MIN PRN IVP MILD PAIN 1-3 Last administered on 08/02/21at 11:51; Start 08/02/21 at 06:00; Stop 08/03/21 at 05:59; Status DC Fentanyl Citrate (Fentanyl 2ml Vial) 50 mcg PRN Q5MIN PRN IVP MODERATE PAIN 4- 6; Start 08/02/21 at 06:00; Stop 08/03/21 at 05:59; Status DC Morphine Sulfate (Morphine Sulfate) 1 mg PRN Q10MIN PRN IVP SEVERE PAIN 7-10 Last administered on 08/02/21at 09:39; Start 08/02/21 at 06:00; Stop 08/03/21 at 05:59; Status DC Ringer's Solution 1,000 ml @ 30 mls/hr Q24H IV Last administered on 08/02/21at 07:04; Start 08/02/21 at 06:00; Stop 08/02/21 at 17:59; Status DC Hydromorphone HCl (Dilaudid) 0.5 mg PRN Q10MIN PRN IVP SEVERE PAIN 7-10, 2nd CHOICE; Start 08/02/21 at 06:00; Stop 08/03/21 at 05:59; Status DC Prochlorperazine Edisylate (Compazine) 5 mg PACU PRN PRN IVP NAUSEA, MRX1; Start 08/02/21 at 06:00; Stop 08/03/21 at 05:59; Status DC Morphine Sulfate 5 mg/Ketorolac Tromethamine 30 mg/Ropivacaine 60 ml/Epinephrine HCl 0.5 mg/ Miscellaneous 63 ml @ 63 mls/hr 1X PERIOP ONCE INT ART ; Start 08/02/21 at 06:00; Stop 08/02/21 at 07:00; Status DC Meloxicam (Mobic) 15 mg 1X PREOP PRN PO PRIOR TO PROCEDURE Last administered on 08/02/21at 07:05; Start 08/02/21 at 06:00; Stop 08/02/21 at 18:00; Status DC Gabapentin (Neurontin) 300 mg 1X PREOP PRN PO PRIOR TO PROCEDURE Last administered on 08/02/21at 07:06; Start 08/02/21 at 06:00; Stop 08/02/21 at 18:00; Status DC Acetaminophen (Tylenol) 1,000 mg 1X PREOP PRN PO PRIOR TO PROCEDURE Last administered on 08/02/21at 07:05; Start 08/02/21 at 06:00; Stop 08/02/21 at 18:00; Status DC Clindamycin Phosphate 50 ml @ 100 mls/hr 1X PREOP PRN IV PRIOR TO PROCEDURE Last administered on 08/02/21at 07:40; Start 08/02/21 at 06:00; Stop 08/02/21 at 18:00; Status DC Tranexamic Acid 50 ml @ 50 mls/hr 1X PERIOP ONCE INJ ; Start 08/02/21 at 06:00; Stop 08/02/21 at 07:00; Status DC Tranexamic Acid 50 ml @ 50 mls/hr 1X PERIOP ONCE INJ ; Start 08/02/21 at 08:00; Stop 08/02/21 at 08:59; Status DC Tranexamic Acid 0 ml @ As Directed STK-MED ONCE .ROUTE ; Start 08/02/21 at 06:55; Stop 08/02/21 at 06:55; Status DC Tranexamic Acid 50 ml @ As Directed STK-MED ONCE .ROUTE ; Start 08/02/21 at 06:55; Stop 08/02/21 at 06:56; Status Cancel Insulin Human Lispro (HumaLOG VIAL for OP,RR ONLY) 0-10 units PRN Q1HR PRN SQ PER PROTOCOL Last administered on 08/02/21at 11:25; Start 08/02/21 at 07:00; Stop 08/03/21 at 06:59; Status DC Propofol (Diprivan) 200 mg STK-MED ONCE IV ; Start 08/02/21 at 07:10; Stop 08/02/21 at 07:10; Status DC Lidocaine HCl (Lidocaine Pf 2% Vial) 5 ml STK-MED ONCE .ROUTE ; Start 08/02/21 at 07:10; Stop 08/02/21 at 07:11; Status DC Dexamethasone Sodium Phosphate (Decadron) 4 mg STK-MED ONCE .ROUTE ; Start 08/02/21 at 07:11; Stop 08/02/21 at 07:11; Status DC Ondansetron HCl (Zofran) 4 mg STK-MED ONCE .ROUTE ; Start 08/02/21 at 07:11; Stop 08/02/21 at 07:11; Status DC Rocuronium Broad Top (Zemuron) 100 mg STK-MED ONCE .ROUTE ; Start 08/02/21 at 07:13; Stop 08/02/21 at 07:13; Status DC Fentanyl Citrate (Fentanyl 5ml Vial) 250 mcg STK-MED ONCE .ROUTE ; Start 08/02/21 at 07:13; Stop 08/02/21 at 07:13; Status DC Glycopyrrolate (Robinul) 1 mg STK-MED ONCE .ROUTE ; Start 08/02/21 at 07:57; Stop 08/02/21 at 07:57; Status DC Neostigmine Broad Top (Neostigmine Methylsulfate) 5 mg STK-MED ONCE .ROUTE ; Start 08/02/21 at 07:58; Stop 08/02/21 at 07:58; Status DC Phenylephrine HCl (PHENYLEPHRINE in 0.9% NACL PF) 1 mg STK-MED ONCE IV ; Start 08/02/21 at 08:10; Stop 08/02/21 at 08:10; Status DC Ephedrine Sulfate (ePHEDrine PF IN SALINE SYRINGE) 50 mg STK-MED ONCE IV ; Start 08/02/21 at 08:27; Stop 08/02/21 at 08:28; Status DC Fentanyl Citrate (Fentanyl 2ml Vial) 100 mcg STK-MED ONCE .ROUTE ; Start 08/02/21 at 09:20; Stop 08/02/21 at 09:20; Status DC Morphine Sulfate (Morphine Sulfate) 2 mg STK-MED ONCE .ROUTE ; Start 08/02/21 at 09:20; Stop 08/02/21 at 09:20; Status DC Morphine Sulfate (Morphine Sulfate) 2 mg PRN Q2HR PRN IVP PAIN; Start 08/02/21 at 11:45; Status Cancel Hydromorphone HCl (Dilaudid) 0.4 mg PRN Q4HRS PRN IVP PAIN Last administered on 08/14/21at 08:40; Start 08/02/21 at 11:45 Oxycodone/ Acetaminophen (Percocet 5/325) 1 tab PRN Q4HRS PRN PO PAIN Last administered on 08/03/21at 20:31; Start 08/02/21 at 11:45; Stop 08/05/21 at 09 :19; Status DC Fentanyl Citrate (Fentanyl 2ml Vial) 100 mcg STK-MED ONCE .ROUTE ; Start 08/02/21 at 11:40; Stop 08/02/21 at 11:41; Status DC Morphine Sulfate (Morphine Sulfate) 2 mg PRN Q1HR PRN IVP PAIN-SEE COMMENTS; Start 08/02/21 at 11:45; Stop 08/05/21 at 09:19; Status DC Fentanyl Citrate (Fentanyl 2ml Vial) 25 mcg PRN Q1HR PRN IVP PAIN, 2nd CHOICE; Start 08/02/21 at 11:45; Stop 08/02/21 at 12:15; Status DC Diphenhydramine HCl (Benadryl) 25 mg PRN Q6HRS PRN IVP ITCHING; Start 08/02/21 at 11:45 Multivitamins (Thera M Plus) 1 tab DAILY PO Last administered on 08/14/21at 09:17; Start 08/02/21 at 12:00 Senna/Docusate Sodium (Senna Plus) 1 tab DAILY PO Last administered on 08/14/21 09:19; Start 08/02/21 at 12:00 Ferrous Sulfate (Feosol) 325 mg BIDWMEALS PO Last administered on 08/04/21at 08:22; Start 08/02/21 at 17:00; Stop 08/04/21 at 11:11; Status DC Sodium Chloride 1,000 ml @ 100 mls/hr Q10H IV Last administered on 08/08/21at 07:01; Start 08/02/21 at 11:45; Stop 08/08/21 at 10:29; Status DC Clindamycin Phosphate 50 ml @ 100 mls/hr Q6H IV Last administered on 08/03/21at 01:02; Start 08/02/21 at 13:00; Stop 08/03/21 at 01:29; Status DC Zolpidem Tartrate (Ambien) 5 mg PRN QHS PRN PO INSOMNIA, MAY REPEAT IN 1HR Last administered on 08/09/21at 20:56; Start 08/02/21 at 11:45 Sodium Chloride (Normal Saline Flush) 10 ml QSHIFT PRN IV AFTER MEDS AND BLOOD DRAWS; Start 08/02/21 at 11:45 Acetaminophen (Tylenol) 1,000 mg Q6H PO Last administered on 08/14/21at 09:19; Start 08/03/21 at 09:00 Meloxicam (Mobic) 15 mg DAILY PO Last administered on 08/04/21at 08:20; Start 08/03/21 at 09:00; Stop 08/04/21 at 11:11; Status DC Tramadol HCl (Ultram) 50 mg Q6H PO Last administered on 08/04/21at 07:19; Start 08/03/21 at 06:00; Stop 08/04/21 at 11:11; Status DC Gabapentin (Neurontin) 100 mg Q12H PO Last administered on 08/03/21at 18:20; Start 08/03/21 at 06:00; Stop 08/03/21 at 23:56; Status DC Ondansetron HCl (Zofran) 4 mg Q6HRS IVP Last administered on 08/02/21at 17:52; Start 08/02/21 at 12:00; Stop 08/03/21 at 06:01; Status DC Oxycodone HCl (Roxicodone) 5 mg PRN Q4HRS PRN PO Pain score 4-6 Last adminis tered on 08/05/21at 01:03; Start 08/02/21 at 11:45; Stop 08/05/21 at 09:19; Status DC Aspirin (Olga Lidia Aspirin) 325 mg [id number] PO Last administered on 08/04/21at 08:26; Start 08/03/21 at 08:00; Stop 08/05/21 at 15:18; Status DC Fentanyl Citrate (Fentanyl 2ml Vial) 25 mcg PRN Q2HR PRN IVP PAIN; Start 08/02/21 at 12:00; Stop 08/05/21 at 09:19; Status DC Fentanyl Citrate (Fentanyl 2ml Vial) 50 mcg PRN Q2HR PRN IVP SEVERE PAIN; Start 08/02/21 at 12:00; Stop 08/05/21 at 09:19; Status DC Insulin Glargine (Lantus Syringe) 35 unit QHS SQ Last administered on 08/13/21at 21:00; Start 08/02/21 at 21:00 Linagliptin (Tradjenta) 5 mg DAILY PO Last administered on 08/14/21at 09:18; Start 08/03/21 at 09:00 Metformin HCl (Glucophage) 1,000 mg BIDWMEALS PO Last administered on 08/04/21at 08:22; Start 08/02/21 at 17:00; Stop 08/04/21 at 11:11; Status DC Amiodarone HCl (Cordarone) 200 mg DAILY PO Last administered on 08/14/21at 09:18; Start 08/03/21 at 09:00 Amlodipine Besylate (Norvasc) 5 mg DAILY PO Last administered on 08/14/21at 09:17; Start 08/03/21 at 09:00 Isosorbide Mononitrate (Imdur) 30 mg DAILY PO Last administered on 08/14/21at 09:18; Start 08/03/21 at 09:00 Lisinopril (Prinivil) 20 mg DAILY PO Last administered on 08/14/21at 09:19; Start 08/03/21 at 09:00 Metoprolol Tartrate (Lopressor) 25 mg BID PO Last administered on 08/14/21 09:19; Start 08/02/21 at 21:00 Potassium Chloride (Klor-Con) 20 meq DAILY PO Last administered on 08/04/21 08:21; Start 08/03/21 at 09:00; Stop 08/04/21 at 11:11; Status DC Simvastatin (Zocor) 20 mg HS PO Last administered on 08/13/21 22:59; Start 08/02/21 at 21:00 Tamsulosin HCl (Flomax) 0.4 mg DAILY PO Last administered on 08/14/21 09:17; Start 08/03/21 at 09:00 Warfarin Sodium (Coumadin) 7.5 mg DAILY16 PO Last administered on 08/04/21 15:32; Start 08/02/21 at 17:00; Stop 08/05/21 at 15:15; Status DC Non-Formulary Medication (Albuterol Sulfate (Albuterol Sulfate Conc Neb Soln)) 2.5 mg BID NEB ; Start 08/02/21 at 21:00; Status UNV Non-Formulary Medication (Albuterol Sulfate (Proventil Hfa)) 1 puff PRN Q6HRS PRN INH SHORTNESS OF BREATH; Start 08/02/21 at 16:15; Status UNV Non-Formulary Medication (Budesonide/ Formoterol Fumarate (Symbicort 160-4.5 Mcg Inhaler)) 2 puff BID IH ; Start 08/02/21 at 21:00; Status UNV Vitamin D (Vitamin D3) 2,000 unit DAILY PO Last administered on 08/14/21 09:17; Start 08/03/21 at 09:00 Cyanocobalamin (Vitamin B-12) 200 mcg DAILY PO Last administered on 08/14/21 09:17; Start 08/03/21 at 09:00 Latanoprost (Xalatan) 1 drop QHS OU Last administered on 08/13/21 22:59; Start 08/02/21 at 21:00 Cetirizine HCl (ZyrTEC) 10 mg DAILY PO Last administered on 08/14/21 09:17; Start 08/03/21 at 09:00 Warfarin Sodium (Coumadin Per Pharmacy) 1 each PRN DAILY PRN MC SEE COMMENTS Last administered on 08/13/21at 16:22; Start 08/02/21 at 16:30; Stop 08/13/21 at 16:28; Status DC Budesonide (Pulmicort) 0.5 mg RTBID NEB Last administered on 08/04/21at 19:51; Start 08/02/21 at 20:00; Stop 08/05/21 at 17:30; Status DC Albuterol Sulfate (Ventolin Neb Soln) 2.5 mg RTQID NEB Last administered on 08/04/21at 19:51; Start 08/02/21 at 20:00; Stop 08/05/21 at 17:30; Status DC Albuterol Sulfate (Ventolin Neb Soln) 2.5 mg PRN Q6HRS PRN NEB SHORTNESS OF BREATH Last administered on 08/08/21at 11:35; Start 08/02/21 at 16:30 Insulin Human Lispro (HumaLOG) 0-5 UNITS TIDWMEALS SQ Last administered on 08/14/21at 08:37; Start 08/03/21 at 08:00 Dextrose (Dextrose 50%-Water Syringe) 12.5 gm PRN Q15MIN PRN IV SEE COMMENTS; Start 08/02/21 at 22:45 Insulin Human Lispro (HumaLOG VIAL for OP,RR ONLY) 4 unit STK-MED ONCE SQ ; Start 08/02/21 at 11:30; Stop 08/03/21 at 16:34; Status DC Insulin Human Lispro (HumaLOG VIAL for OP,RR ONLY) 4 unit STK-MED ONCE SQ ; Start 08/02/21 at 11:30; Stop 08/03/21 at 16:34; Status DC Insulin Human Lispro (HumaLOG VIAL for OP,RR ONLY) 4 unit STK-MED ONCE SQ ; Start 08/02/21 at 11:30; Stop 08/03/21 at 16:34; Status DC Sodium Chloride 500 ml @ 250 mls/hr Q2H IV Last administered on 08/03/21at 16:45; Start 08/03/21 at 16:45; Stop 08/03/21 at 18:44; Status DC Ondansetron HCl (Zofran) 4 mg PRN Q6HRS PRN IVP NAUSEA/VOMITING Last administered on 08/11/21at 23:59; Start 08/04/21 at 08:15 Ceftriaxone Sodium (Rocephin) 1 gm Q24H IVP Last administered on 08/04/21at 20:48; Start 08/04/21 at 18:00; Stop 08/05/21 at 09:40; Status DC Pantoprazole Sodium (PROTONIX VIAL for IV PUSH) 40 mg DAILYAC IVP Last administered on 08/09/21at 09:07; Start 08/05/21 at 08:00; Stop 08/09/21 at 10:54; Status DC Meropenem 500 mg/ Sodium Chloride 50 ml @ 100 mls/hr Q8HRS IV Last administered on 08/11/21at 22:00; Start 08/05/21 at 14:00; Stop 08/11/21 at 22:00; Status DC Linezolid/Dextrose 300 ml @ 300 mls/hr Q12HR IV Last administered on 08/11/21at 22:02; Start 08/05/21 at 10:00; Stop 08/11/21 at 22:00; Status DC Warfarin Sodium (Coumadin - No Dose Today) 1 each 1X WARF ONCE MC ; Start 08/06/21 at 16:00; Stop 08/06/21 at 16:01; Status DC Lactobacillus Rhamnosus (Culturelle) 1 cap BID PO Last administered on 08/14/21at 09:17; Start 08/06/21 at 21:00 Polyethylene Glycol (miraLAX PACKET) 17 gm PRN DAILY PRN PO CONSTIPATION; Start 08/06/21 at 13:30 Metoclopramide HCl (Reglan Vial) 10 mg PRN Q6HRS PRN IVP NAUSEA/VOMITING 2ND CHOICE Last administered on 08/06/21at 15:33; Start 08/06/21 at 15:30; Stop 08/10/21 at 12:54; Status DC Warfarin Sodium (Coumadin) 7.5 mg 1X WARF ONCE PO Last administered on 08/07/21at 18:04; Start 08/07/21 at 16:00; Stop 08/07/21 at 16:01; Status DC Potassium Chloride (Klor-Con) 20 meq [id number] PO Last administered on 08/14/21at 09:18; Start 08/08/21 at 10:30 Warfarin Sodium (Coumadin) 7.5 mg 1X WARF ONCE PO Last administered on 08/08/21at 15:36; Start 08/08/21 at 16:00; Stop 08/08/21 at 16:01; Status DC Potassium Chloride (Klor-Con) 40 meq 1X ONCE PO Last administered on 08/09/21at 05:05; Start 08/09/21 at 05:00; Stop 08/09/21 at 05:01; Status DC Potassium Chloride/Water 100 ml @ 100 mls/hr Q1H IV Last administered on 08/09/21at 09:10; Start 08/09/21 at 05:15; Stop 08/09/21 at 09:14; Status DC Warfarin Sodium (Coumadin - No Dose Today) 1 each 1X WARF ONCE MC ; Start 08/09/21 at 16:00; Stop 08/09/21 at 16:01; Status DC Pantoprazole Sodium (Protonix) 40 mg DAILYAC PO ; Start 08/10/21 at 07:30; Stop 08/10/21 at 08:59; Status DC Acetaminophen (Tylenol) 650 mg 1X PRN PRN PO PRE-TRANSFUSION; Start 08/10/21 at 09:00; Stop 08/11/21 at 08:59; Status DC Diphenhydramine HCl (Benadryl Oral Elixir) 12.5 mg 1X PRN PRN PO PRE- TRANSFUSION; Start 08/10/21 at 09:00; Stop 08/11/21 at 08:59; Status DC Diphenhydramine HCl (Benadryl) 25 mg PRN 1X PRN PO PRE-TRANSFUSION; Start 08/10/21 at 09:00; Stop 08/11/21 at 08:59; Status DC Pantoprazole Sodium 80 mg/ Sodium Chloride 100 ml @ 10 mls/hr Q10H IV Last administered on 08/13/21at 12:51; Start 08/10/21 at 09:00; Stop 08/13/21 at 21:00; Status DC Phytonadione (Vitamin K Ampule) 10 mg 1X ONCE SQ Last administered on 08/10/21at 10:09; Start 08/10/21 at 09:00; Stop 08/10/21 at 09:01; Status DC Metoclopramide HCl (Reglan Vial) 10 mg 1X ONCE IVP Last administered on 08/10/21at 13:34; Start 08/10/21 at 13:00; Stop 08/10/21 at 13:01; Status DC Warfarin Sodium (Coumadin - No Dose Today) 1 each 1X WARF ONCE MC Last administered on 08/10/21at 16:00; Start 08/10/21 at 16:00; Stop 08/10/21 at 16:01; Status DC Propofol (Diprivan) 200 mg STK-MED ONCE IV ; Start 08/10/21 at 16:08; Stop at 16:09; Status DC Lidocaine HCl (Lidocaine Pf 2% Vial) 5 ml STK-MED ONCE .ROUTE ; Start 08/10/21 at 16:08; Stop 08/10/21 at 16:09; Status DC Propofol (Diprivan) 200 mg STK-MED ONCE IV ; Start 08/10/21 at 16:27; Stop 08/10/21 at 16:28; Status DC Propofol (Diprivan) 200 mg STK-MED ONCE IV ; Start 08/10/21 at 16:43; Stop 08/10/21 at 16:43; Status DC Warfarin Sodium (Coumadin - No Dose Today) 1 each 1X WARF ONCE MC Last administered on 08/11/21at 16:00; Start 08/11/21 at 16:00; Stop 08/11/21 at 16:01; Status DC Albuterol/ Ipratropium (Duoneb) 3 ml RTQID NEB Last administered on 08/14/21at 08:17; Start 08/12/21 at 09:15 Potassium Chloride/Dextrose/ Sod Cl 1,000 ml @ 75 mls/hr [id number] IV Last administered on 08/13/21at 22:50; Start 08/13/21 at 09:30 Pantoprazole Sodium (PROTONIX VIAL for IV PUSH) 40 mg BIDAC IVP Last administered on 08/14/21at 08:35; Start 08/14/21 at 07:30 Active Scripts Active Ondansetron Odt (Ondansetron) 4 Mg Tab.rapdis 1 Tab PO PRN Q6-8HRS Cefdinir 300 Mg Capsule 1 Cap PO BID Stool Softener-Stimulant Lax (Sennosides/Docusate Sodium) 1 Each Tablet 1 Tab PO DAILY 30 Days Culturelle (Lactobacillus Rhamnosus Gg) 1 Each Cap.sprink 1 Cap PO BID 15 Days Lantus (Insulin Glargine,Hum.rec.anlog) 100 Unit/1 Ml Vial 35 Unit SQ QHS 30 Days Reported Latanoprost 0.005% Eye Drop (Latanoprost/Pf) 7.5 Ml Drops 1 Drop OU QHS Symbicort 160-4.5 Mcg Inhaler (Budesonide/Formoterol Fumarate) 10.2 Gm Hfa.aer.ad 2 Puff IH BID Loratadine 10 Mg Tablet 10 Mg PO DAILY Vitamin B12 (Cyanocobalamin (Vitamin B-12)) 2,500 Mcg Tablet 200 Mcg PO DAILY Vitamin D3 (Cholecalciferol (Vitamin D3)) 50 Mcg Capsule 50 Mcg PO DAILY Alogliptin (Alogliptin Benzoate) 25 Mg Tablet 25 Mg PO DAILY Albuterol Sulfate Conc Neb Soln (Albuterol Sulfate) 2.5 Mg/0.5 Ml Vial.neb 2.5 Mg NEB BID Flomax (Tamsulosin Hcl) 0.4 Mg Cap.er.24h 0.4 Mg PO DAILY Warfarin Sodium 7.5 Mg Tablet 7.5 Mg PO DAILY Simvastatin 20 Mg Tablet 20 Mg PO HS Amlodipine Besylate 5 Mg Tablet 5 Mg PO DAILY Amiodarone Hcl 200 Mg Tablet 1 Tab PO DAILY Proventil Hfa (Albuterol Sulfate) 6.7 Gm Hfa.aer.ad 1 Puff INH PRN Q6HRS PRN Metoprolol Tartrate 25 Mg Tablet 1 Tab PO BID Metformin Hcl 1,000 Mg Tablet 1,000 Mg PO BIDWMEALS Potassium Chloride (Potassium Chloride) 20 Meq Tablet.er 20 Meq PO DAILY Lisinopril 40 Mg Tablet 20 Mg PO DAILY Imdur (Isosorbide Mononitrate) 30 Mg Tab.er.24h 1 Tab PO DAILY Vitals/I & O Vital Sign - Last 24 Hours 08/13/21 08/13/21 08/13/21 08/13/21 11:00 15:00 15:37 15:45 Temp 97.5 98.0 97.5 98.0 Pulse 82 84 Resp 18 19 20 B/P (MAP) 147/52 (83) 119/60 (79) Pulse Ox 97 98 97 O2 Delivery Nasal Cannula Nasal Cannula Nasal Cannula Nasal Cannula O2 Flow Rate 2.0 2.0 2.0 3.0 08/13/21 08/13/21 08/13/2122/21 16:10 16:51 16:52 16:53 Pulse 84 84 84 Resp 20 B/P (MAP) 137/48 137/48 137/48 Pulse Ox 93 O2 Delivery Nasal Cannula O2 Flow Rate 2.0 08/13/21 08/13/21 08/13/21 08/13/21 16:54 19:00 20:15 20:57 Temp 98.2 98.2 Pulse 84 89 Resp 18 B/P (MAP) 137/48 140/78 (98) Pulse Ox 99 98 O2 Delivery Nasal Cannula Nasal Cannula Nasal Cannula O2 Flow Rate 2.0 2.0 3.0 08/13/21 08/13/21 08/14/21 08/14/21 22:58 23:53 03:00 05:34 Temp 100.0 98.9 100.0 98.9 Pulse 89 85 78 Resp 18 18 B/P (MAP) 140/78 111/35 (60) 110/43 (65) Pulse Ox 94 99 99 O2 Delivery Nasal Cannula Nasal Cannula Nasal Cannula O2 Flow Rate 2.0 2.0 2.0 08/14/21 08/14/21 08/14/21 08/14/21 06:04 08:18 08:40 09:17 Pulse 78 B/P (MAP) 110/43 Pulse Ox 99 99 O2 Delivery Nasal Cannula Nasal Cannula Room Air O2 Flow Rate 2.0 3.0 08/14/21 08/14/21 08/14/21 08/14/21 09:18 09:18 09:19 09:19 Pulse 78 78 78 78 B/P (MAP) 110/43 110/43 110/43 110/43 08/14/21 09:22 O2 Delivery Nasal Cannula O2 Flow Rate 2.0 Intake and Output 08/13/21 08/13/21 08/14/21 15:00 23:00 07:00 Intake Total 0 ml Balance 0 ml Justifications for Admission Other Justification KATERINE ALVARENGA MD Aug 14, 2021 09:34
--- NOTE | 2021-08-14 10:26 | PDOC ---
PROGRESS NOTES Date of Service: DATE: 08/14/21 TIME: 10:22 Subjective Subjective no new problems ,no vomiting able to tolerate clear liquid diet Objective Objective Vital Signs Date Time Temp Pulse Resp B/P (MAP) Pulse Ox O2 Delivery O2 Flow Rate FiO2 08/14/21 09:22 Nasal Cannula 2.0 08/14/21 09:19 78 110/43 08/14/21 08:18 99 08/14/21 07:00 98.5 16 98.5 Intake and Output 08/14/21 07:00 Intake Total 0 ml Balance 0 ml Intake Oral 0 ml # Voids 2 Physical Exam Abdomen: Soft, Other (distended) Heart: Normal S1 Extremities: No clubbing General: Alert HEENT: Atraumatic Lungs: Clear to auscultation MUSCULOSKELETAL: No deformity, Osteoarthritic changes both hands, Other Neuro: Normal speech Psych/Mental Status: Other (grumpy, does not remember yesterdays events) Skin: No breakdown Assessment Assessment FINAL IMPRESSION: upper GI bleed ,Huge clot sitting in pylorus and causing obstruction , clot overlying ulcer seen on EGD 08/10/21 1. Status post right hip total replacement, total hip arthroplasty 08/04/21,POD#9 2. History of chronic obstructive pulmonary disease. 3. Diabetes. 4. Atrial fibrillation. 5. History of coronary artery disease. 6. History of previous strokes. PLAN: Hb 6.5 today ,transfuse 2 u prbc. wbc 20 reactive, completed 7 day course of broad spectrum antibiotics. Na 146 trending down,iv fluids holding coumadin due to bleed , inr 1.2 spoke with RN. Comment Review of Relevant I have reviewed the following items david (where applicable) has been applied. Labs Laboratory Tests Test 08/13/21 11:49 08/13/21 12:45 08/13/21 16:43 08/13/21 20:36 Glucose (Fingerstick) 125 mg/dL (70-99) 196 mg/dL (70-99) 244 mg/dL (70-99) Red Blood Count 2.48 x10^6/uL (4.30-5.70) Absolute Reticulocyte Count 0.068 x10^6/uL (0.020-0.120) Percent Reticulocyte Count 2.8 % (0.5-2.3) Immature Reticulocyte Fraction 0.46 (0.20-0.60) Haptoglobin 235 mg/dL (34-355) Uric Acid 3.5 mg/dL (3.5-7.2) Iron Level 22 ug/dL (65-175) Total Iron Binding Capacity 155 ug/dL (250-450) Iron Saturation 14 % (15-34) Ferritin 430 ng/mL (26-388) Lactate Dehydrogenase 275 U/L (85-227) Test 08/14/21 07:00 08/14/21 08:29 White Blood Count 20.4 x10^3/uL (4.0-11.0) Red Blood Count 2.17 x10^6/uL (4.30-5.70) Hemoglobin 6.5 g/dL (13.0-17.5) Hematocrit 19.6 % (39.0-53.0) Mean Corpuscular Volume 90 fL (79-100) Mean Corpuscular Hemoglobin 30 pg (25-35) Mean Corpuscular Hemoglobin Concent 33 g/dL (31-37) Red Cell Distribution Width 15.1 % (11.5-14.5) Platelet Count 355 x10^3/uL (140-400) Neutrophils (%) (Auto) 79 % (31-73) Lymphocytes (%) (Auto) 9 % (24-48) Monocytes (%) (Auto) 10 % (0-9) Eosinophils (%) (Auto) 2 % (0-3) Basophils (%) (Auto) 0 % (0-3) Neutrophils # (Auto) 16.2 x10^3/uL (1.8-7.7) Lymphocytes # (Auto) 1.8 x10^3/uL (1.0-4.8) Monocytes # (Auto) 2.1 x10^3/uL (0.0-1.1) Eosinophils # (Auto) 0.3 x10^3/uL (0.0-0.7) Basophils # (Auto) 0.0 x10^3/uL (0.0-0.2) Sodium Level 146 mmol/L (136-145) Potassium Level 3.6 mmol/L (3.5-5.1) Chloride Level 109 mmol/L (98-107) Carbon Dioxide Level 31 mmol/L (21-32) Anion Gap 6 (6-14) Blood Urea Nitrogen 19 mg/dL (8-26) Creatinine 1.0 mg/dL (0.7-1.3) Estimated GFR (Cockcroft-Gault) 72.8 Glucose Level 185 mg/dL (70-99) Calcium Level 7.5 mg/dL (8.5-10.1) Glucose (Fingerstick) 180 mg/dL (70-99) Microbiology 08/04/21 Urine Culture - Final, Complete Medications Current Medications Pantoprazole Sodium (PROTONIX VIAL for IV PUSH) 40 mg BIDAC IVP Last administered on 08/14/21at 08:35; Start 08/14/21 at 07:30 Vitals/I & O Vital Sign - Last 24 Hours 08/13/21 08/13/21 08/13/21 08/13/21 11:00 15:00 15:37 15:45 Temp 97.5 98.0 97.5 98.0 Pulse 82 84 Resp 18 19 20 B/P (MAP) 147/52 (83) 119/60 (79) Pulse Ox 97 98 97 O2 Delivery Nasal Cannula Nasal Cannula Nasal Cannula Nasal Cannula O2 Flow Rate 2.0 2.0 2.0 3.0 08/13/21 08/13/21 08/13/21 08/13/21 16:10 16:51 16:52 16:53 Pulse 84 84 84 Resp 20 B/P (MAP) 137/48 137/48 137/48 Pulse Ox 93 O2 Delivery Nasal Cannula O2 Flow Rate 2.0 08/13/21 08/13/21 08/13/21 08/13/21 16:54 19:00 20:15 20:57 Temp 98.2 98.2 Pulse 84 89 Resp 18 B/P (MAP) 137/48 140/78 (98) Pulse Ox 99 98 O2 Delivery Nasal Cannula Nasal Cannula Nasal Cannula O2 Flow Rate 2.0 2.0 3.0 08/13/21 08/13/21 08/14/21 08/14/21 22:58 23:53 03:00 05:34 Temp 100.0 98.9 100.0 98.9 Pulse 89 85 78 Resp 18 18 B/P (MAP) 140/78 111/35 (60) 110/43 (65) Pulse Ox 94 99 99 O2 Delivery Nasal Cannula Nasal Cannula Nasal Cannula O2 Flow Rate 2.0 2.0 2.0 08/14/21 08/14/21 08/14/21 08/14/21 06:04 07:00 08:18 08:40 Temp 98.5 98.5 Pulse 58 Resp 16 B/P (MAP) 128/53 (78) Pulse Ox 99 95 99 O2 Delivery Nasal Cannula Nasal Cannula Nasal Cannula Room Air O2 Flow Rate 2.0 2.0 3.0 08/14/21 08/14/21 08/14/21 08/14/21 09:17 09:18 09:18 09:19 Pulse 78 78 78 78 B/P (MAP) 110/43 110/43 110/43 110/43 08/14/21 08/14/21 09:19 09:22 Pulse 78 B/P (MAP) 110/43 O2 Delivery Nasal Cannula O2 Flow Rate 2.0 Intake and Output 08/13/21 08/13/21 08/14/21 15:00 23:00 07:00 Intake Total 0 ml Balance 0 ml Justifications for Admission Other Justification COLEEN LOPEZ MD Aug 14, 2021 10:26
--- NOTE | 2021-08-14 16:22 | PDOC ---
Provider Note Date of Service: DATE: 08/14/21 TIME: 16:21 Provider Note Patient seen and evaluated today. There postop and undergoing postoperative treatment. No interval complications. He is advanced to clear liquid diet. Did have dark stool no hip complaints Vital signs are stable and patient is afebrile No acute distress Hip incision is clean dry and intact. Negative Jalil and Homans. Diagnosis and plan: Status post total hip replacement Weight-bear as tolerated. Posterior hip precautions. Ortho stable for discharge. Justifications for Admission Other Justification MELISSA THORNTON DO Aug 14, 2021 4:22 pm
[2021-08-14] MEDS: POTASSIUM CL 20MEQ D5-0.2%NACL 1,000 ML IV SCH (21:10)
[2021-08-14] MEDS: LATANOPROST 0.005% OPHTH SOLUTION 2.5ML BOTTLE. OU SCH (21:11)
[2021-08-14] MEDS: SIMVASTATIN 20 MG TABLET PO SCH (21:12)
[2021-08-14] MEDS: INSULIN GLARGINE SYRINGE. SQ SCH (22:26)
[2021-08-15 03:00] VITALS: BP 104/54
[2021-08-15] MEDS: ACETAMINOPHEN 500 MG TABLET PO SCH ×4 (03:00→21:27)
[2021-08-15] MEDS: HYDROcodone/APAP 5/325MG 1 TAB TABLET PO PRN (06:40)
[2021-08-15 07:00] VITALS: BP 120/43
[2021-08-15 07:43] LABS: BASO # 0.1 x10^3/uL (0.0-0.2); BASO % 1 % (0-3); EOS # 0.7 x10^3/uL (0.0-0.7); EOS % 3 % (0-3); HEMATOCRIT 21.7 % (39.0-53.0); HEMOGLOBIN 7.3 g/dL (13.0-17.5); LYMPH # 2.2 x10^3/uL (1.0-4.8); LYMPH % 11 % (24-48); MEAN CORPUSCULAR HEMOGLOBIN 30 pg (25-35); MEAN CORPUSCULAR HGB CONC 34 g/dL (31-37); MEAN CORPUSCULAR VOLUME 90 fL (79-100); MONO % 10 % (0-9); NEUT # 15.4 x10^3/uL (1.8-7.7); NEUT % 76 % (31-73); PLATELET COUNT 364 x10^3/uL (140-400); RED BLOOD COUNT 2.42 x10^6/uL (4.30-5.70); RED CELL DISTRIBUTION WIDTH 14.7 % (11.5-14.5); WHITE BLOOD COUNT 20.4 x10^3/uL (4.0-11.0)
[2021-08-15] MEDS: IPRATRPIUM/ALBUTEROL 0.5/2.5MG 3 ML NEBU. NEB SCH ×4 (08:00→20:12)
[2021-08-15] MEDS: INSULIN LISPRO 300 UNITS/3 ML VIAL. SQ SCH ×3 (08:00→17:00)
[2021-08-15 08:29] LABS: CALCIUM 7.7 mg/dL (8.5-10.1); GFR 72.8; POTASSIUM 3.4 mmol/L (3.5-5.1)
[2021-08-15] MEDS: PANTOPRAZOLE IV PUSH 40 MG VIAL. IVP SCH (08:44)
[2021-08-15] MEDS: POTASSIUM CL 20MEQ D5-0.2%NACL 1,000 ML IV SCH (08:44)
[2021-08-15] MEDS: TAMSULOSIN 0.4 MG CAP.ER.24H. PO SCH (08:45)
[2021-08-15] MEDS: LINAGLIPTIN 5 MG TABLET PO SCH (08:45)
[2021-08-15] MEDS: CETIRIZINE HCL 10 MG TABLET. PO SCH (08:45)
[2021-08-15] MEDS: POTASSIUM CHLORIDE 20 MEQ TABLET.ER. PO SCH ×2 (08:45→14:48)
[2021-08-15] MEDS: CYANOCOBALAMIN (VITAMIN B-12) 100 MCG TABLET. PO SCH (08:45)
[2021-08-15] MEDS: SENNOSIDES/DOCUSATE 8.6/50MG TABLET. PO SCH (08:46)
[2021-08-15] MEDS: CHOLECALCIFEROL (VITAMIN D3) 1,000 UNIT TABLET PO SCH (08:46)
[2021-08-15] MEDS: LISINOPRIL 20 MG TABLET PO SCH (09:00)
[2021-08-15] MEDS: MULTIVITAMIN with MINERAL TABLET. PO SCH (10:42)
[2021-08-15] MEDS: LACTOBACILLUS RHAMNOSUS GG 1 CAPSULE. PO SCH ×2 (10:43→21:27)
[2021-08-15] MEDS: ISOSORBIDE MONONITRATE ER 30 MG TAB.ER.24H PO SCH (10:43)
[2021-08-15] MEDS: AMIODARONE HCL 200 MG TABLET. PO SCH (10:43)
--- NOTE | 2021-08-15 10:43 | PDOC ---
PROGRESS NOTES Date of Service: DATE: 08/15/21 TIME: 10:39 Subjective Subjective doing well able to tolerate clear liquid diet Objective Objective Vital Signs Date Time Temp Pulse Resp B/P (MAP) Pulse Ox O2 Delivery O2 Flow Rate FiO2 08/15/21 07:10 19 Nasal Cannula 3.0 08/15/21 07:00 97.8 56 120/43 (68) 98 97.8 Intake and Output 08/15/21 07:00 Intake Total 1715 ml Balance 1715 ml IV Total 1000 ml Blood Product IV Normal Saline Flush 715 ml # Voids 2 Physical Exam Abdomen: Soft, Other (distended) Heart: Normal S1 Extremities: No clubbing General: Alert HEENT: Atraumatic Lungs: Clear to auscultation MUSCULOSKELETAL: No deformity, Osteoarthritic changes both hands, Other Neuro: Normal speech Psych/Mental Status: Other (grumpy, does not remember yesterdays events) Skin: No breakdown Assessment Assessment FINAL IMPRESSION: upper GI bleed ,Huge clot sitting in pylorus and causing obstruction , clot overlying ulcer seen on EGD 08/10/21 1. Status post right hip total replacement, total hip arthroplasty 08/04/21,POD#9 2. History of chronic obstructive pulmonary disease. 3. Diabetes. 4. Atrial fibrillation. 5. History of coronary artery disease. 6. History of previous strokes. PLAN: Hb 7today ,transfuse 1 u prbc.( Total 3 U prbc this admission) wbc 20 reactive, completed 7 day course of broad spectrum antibiotics. d/c,iv fluids, advance to full liquid diet holding coumadin due to gi bleed , inr 1.2 spoke with RN. Comment Review of Relevant I have reviewed the following items david (where applicable) has been applied. Labs Laboratory Tests Test 08/14/21 12:27 08/14/21 17:16 08/14/21 20:24 08/15/21 06:45 Glucose (Fingerstick) 238 mg/dL (70-99) 176 mg/dL (70-99) 180 mg/dL (70-99) White Blood Count 20.4 x10^3/uL (4.0-11.0) Red Blood Count 2.42 x10^6/uL (4.30-5.70) Hemoglobin 7.3 g/dL (13.0-17.5) Hematocrit 21.7 % (39.0-53.0) Mean Corpuscular Volume 90 fL (79-100) Mean Corpuscular Hemoglobin 30 pg (25-35) Mean Corpuscular Hemoglobin Concent 34 g/dL (31-37) Red Cell Distribution Width 14.7 % (11.5-14.5) Platelet Count 364 x10^3/uL (140-400) Neutrophils (%) (Auto) 76 % (31-73) Lymphocytes (%) (Auto) 11 % (24-48) Monocytes (%) (Auto) 10 % (0-9) Eosinophils (%) (Auto) 3 % (0-3) Basophils (%) (Auto) 1 % (0-3) Neutrophils # (Auto) 15.4 x10^3/uL (1.8-7.7) Lymphocytes # (Auto) 2.2 x10^3/uL (1.0-4.8) Monocytes # (Auto) 2.0 x10^3/uL (0.0-1.1) Eosinophils # (Auto) 0.7 x10^3/uL (0.0-0.7) Basophils # (Auto) 0.1 x10^3/uL (0.0-0.2) Sodium Level 143 mmol/L (136-145) Potassium Level 3.4 mmol/L (3.5-5.1) Chloride Level 107 mmol/L (98-107) Carbon Dioxide Level 30 mmol/L (21-32) Anion Gap 6 (6-14) Blood Urea Nitrogen 17 mg/dL (8-26) Creatinine 1.0 mg/dL (0.7-1.3) Estimated GFR (Cockcroft-Gault) 72.8 Glucose Level 126 mg/dL (70-99) Calcium Level 7.7 mg/dL (8.5-10.1) Test 08/15/21 08:19 Glucose (Fingerstick) 127 mg/dL (70-99) Microbiology 08/04/21 Urine Culture - Final, Complete Medications Current Medications Acetaminophen/ Hydrocodone Bitart (Lortab 5/325) 1 tab PRN Q6HRS PRN PO PAIN Last administered on 08/15/21at 06:40; Start 08/14/21 at 20:30 Vitals/I & O Vital Sign - Last 24 Hours 08/14/21 08/14/21 08/14/21 08/14/21 11:00 12:17 13:10 13:28 Temp 97.8 97.8 98.2 97.8 97.8 98.2 Pulse 82 82 76 Resp 16 16 16 B/P (MAP) 120/59 (79) 120/39 77/38 Pulse Ox 93 99 O2 Delivery Nasal Cannula Nasal Cannula O2 Flow Rate 3.0 3.0 08/14/21 08/14/21 08/14/21 08/14/21 14:34 15:43 15:45 16:50 Temp 98.3 98.4 98.4 98.3 98.4 98.4 Pulse 77 74 74 Resp 14 16 16 B/P (MAP) 99/49 98/49 (65) 98/49 Pulse Ox 98 98 O2 Delivery Nasal Cannula Nasal Cannula O2 Flow Rate 3.0 3.0 08/14/21 08/14/21 08/14/21 08/14/21 17:06 19:00 20:00 20:03 Temp 98.1 98.8 98.1 98.8 Pulse 77 81 Resp 16 17 B/P (MAP) 106/49 113/43 (66) Pulse Ox 99 98 O2 Delivery Nasal Cannula Nasal Cannula Nasal Cannula O2 Flow Rate 3.0 2.0 3.0 08/14/21 08/14/21 08/14/21 08/14/21 21:00 21:13 21:43 23:00 Temp 98.9 98.9 Pulse 88 78 Resp 19 20 26 B/P (MAP) 106/49 108/46 (66) Pulse Ox 98 O2 Delivery Nasal Cannula Room Air Nasal Cannula O2 Flow Rate 3.0 08/15/21 08/15/21 08/15/21 08/15/21 03:00 06:40 07:00 07:10 Temp 98.6 97.8 98.6 97.8 Pulse 73 56 Resp 16 20 16 19 B/P (MAP) 104/54 (71) 120/43 (68) Pulse Ox 94 98 O2 Delivery Nasal Cannula Nasal Cannula Nasal Cannula Nasal Cannula O2 Flow Rate 3.0 3.0 3.0 3.0 Intake and Output 08/14/21 08/14/21 08/15/21 15:00 23:00 07:00 Intake Total 325 ml 1390 ml Balance 325 ml 1390 ml Justifications for Admission Other Justification COLEEN LOPEZ MD Aug 15, 2021 10:43
[2021-08-15] MEDS: METOPROLOL TART IMMED RELEASE 25 MG TABLET. PO SCH ×2 (10:44→21:00)
[2021-08-15 11:00] VITALS: BP 102/46
[2021-08-15 15:00] VITALS: BP 107/51
[2021-08-15] MEDS ORDERED: POTASSIUM CHLORIDE 20 MEQ TABLET.ER. PO ONE (17:00)
[2021-08-15] MEDS: PANTOPRAZOLE 40 MG TABLET.DR. PO SCH (17:45)
[2021-08-15 19:00] VITALS: BP 97/54
[2021-08-15] MEDS: SIMVASTATIN 20 MG TABLET PO SCH (21:27)
[2021-08-15] MEDS: LATANOPROST 0.005% OPHTH SOLUTION 2.5ML BOTTLE. OU SCH (21:27)
[2021-08-15 23:00] VITALS: BP 103/46
[2021-08-15] MEDS: INSULIN GLARGINE SYRINGE. SQ SCH (23:13)
[2021-08-16] MEDS: HYDROcodone/APAP 5/325MG 1 TAB TABLET PO PRN ×2 (00:38→08:51)
[2021-08-16 03:00] VITALS: BP 98/48
[2021-08-16] MEDS: ACETAMINOPHEN 500 MG TABLET PO SCH ×3 (03:00→15:00)
[2021-08-16 07:00] VITALS: BP 131/59
[2021-08-16 07:26] LABS: BASO # 0.1 x10^3/uL (0.0-0.2); BASO % 1 % (0-3); EOS # 0.4 x10^3/uL (0.0-0.7); EOS % 2 % (0-3); HEMATOCRIT 22.8 % (39.0-53.0); HEMOGLOBIN 7.3 g/dL (13.0-17.5); LYMPH # 2.1 x10^3/uL (1.0-4.8); LYMPH % 11 % (24-48); MEAN CORPUSCULAR HEMOGLOBIN 29 pg (25-35); MEAN CORPUSCULAR HGB CONC 32 g/dL (31-37); MEAN CORPUSCULAR VOLUME 91 fL (79-100); MONO % 10 % (0-9); NEUT % 76 % (31-73); PLATELET COUNT 408 x10^3/uL (140-400); RED CELL DISTRIBUTION WIDTH 14.4 % (11.5-14.5); WHITE BLOOD COUNT 19.6 x10^3/uL (4.0-11.0)
[2021-08-16] MEDS: IPRATRPIUM/ALBUTEROL 0.5/2.5MG 3 ML NEBU. NEB SCH ×3 (07:58→16:20)
[2021-08-16] MEDS: INSULIN LISPRO 300 UNITS/3 ML VIAL. SQ SCH ×3 (08:00→17:00)
--- NOTE | 2021-08-16 08:26 | PDOC ---
PROGRESS NOTES Date of Service: DATE: 08/16/21 TIME: 08:24 Subjective Subjective Pt feels good want to go home Objective Objective Vital Signs Date Time Temp Pulse Resp B/P (MAP) Pulse Ox O2 Delivery O2 Flow Rate FiO2 08/16/21 07:58 97 Nasal Cannula 3.0 08/16/21 03:00 98.1 76 18 98/48 (65) 98.1 Intake and Output 08/16/21 07:00 Intake Total 1075 ml Balance 1075 ml IV Total 1075 ml # Voids 3 Physical Exam Abdomen: Soft, Other (distended) Heart: Normal S1 Extremities: No clubbing General: Alert HEENT: Atraumatic Lungs: Clear to auscultation MUSCULOSKELETAL: No deformity, Osteoarthritic changes both hands, Other Neuro: Normal speech Psych/Mental Status: Other (grumpy, does not remember yesterdays events) Skin: No breakdown Assessment Assessment FINAL IMPRESSION: upper GI bleed ,Huge clot sitting in pylorus and causing obstruction , clot overlying ulcer seen on EGD 08/10/21 1. Status post right hip total replacement, total hip arthroplasty 08/04/21,POD#9 2. History of chronic obstructive pulmonary disease. 3. Diabetes. 4. Atrial fibrillation. 5. History of coronary artery disease. 6. History of previous strokes. PLAN:d/c home with home health pt/otif ok with GI. ? when to resume coumadin , when oked with GI ortho f/u.out pt Hb 7.3 today ,transfused 1 u prbc sat.( Total 3 U prbc this admission) wbc 20 reactive, completed 7 day course of broad spectrum antibiotics. d/c,iv fluids, advance to full liquid diet holding coumadin due to gi bleed , inr 1.2 spoke with RN. Comment Review of Relevant I have reviewed the following items david (where applicable) has been applied. Labs Laboratory Tests Test 08/15/21 12:06 08/15/21 17:37 08/15/21 19:33 08/16/21 07:05 Glucose (Fingerstick) 122 mg/dL (70-99) 104 mg/dL (70-99) 129 mg/dL (70-99) White Blood Count 19.6 x10^3/uL (4.0-11.0) Red Blood Count 2.50 x10^6/uL (4.30-5.70) Hemoglobin 7.3 g/dL (13.0-17.5) Hematocrit 22.8 % (39.0-53.0) Mean Corpuscular Volume 91 fL (79-100) Mean Corpuscular Hemoglobin 29 pg (25-35) Mean Corpuscular Hemoglobin Concent 32 g/dL (31-37) Red Cell Distribution Width 14.4 % (11.5-14.5) Platelet Count 408 x10^3/uL (140-400) Neutrophils (%) (Auto) 76 % (31-73) Lymphocytes (%) (Auto) 11 % (24-48) Monocytes (%) (Auto) 10 % (0-9) Eosinophils (%) (Auto) 2 % (0-3) Basophils (%) (Auto) 1 % (0-3) Neutrophils # (Auto) 15.0 x10^3/uL (1.8-7.7) Lymphocytes # (Auto) 2.1 x10^3/uL (1.0-4.8) Monocytes # (Auto) 2.0 x10^3/uL (0.0-1.1) Eosinophils # (Auto) 0.4 x10^3/uL (0.0-0.7) Basophils # (Auto) 0.1 x10^3/uL (0.0-0.2) Microbiology 08/04/21 Urine Culture - Final, Complete Medications Current Medications Pantoprazole Sodium (Protonix) 40 mg BIDAC PO Last administered on 08/15/21at 17:45; Start 08/15/21 at 16:30 Potassium Chloride (Klor-Con) 40 meq 1X ONCE PO Last administered on 08/15/21at 17:46; Start 08/15/21 at 17:00; Stop 08/15/21 at 17:01; Status DC Vitals/I & O Vital Sign - Last 24 Hours 08/15/21 08/15/21 08/15/21 08/15/21 09:00 09:00 10:43 10:43 Pulse 81 81 56 56 B/P (MAP) 102/46 102/46 120/43 120/43 08/15/21 08/15/21 08/15/21 08/15/21 10:44 11:00 11:32 15:00 Temp 98.1 98.1 98.1 98.1 Pulse 56 81 76 Resp 16 16 B/P (MAP) 120/43 102/46 (64) 107/51 (69) Pulse Ox 90 98 98 O2 Delivery Nasal Cannula Nasal Cannula Nasal Cannula O2 Flow Rate 3.0 3.0 3.0 08/15/21 08/15/21 08/15/21 08/15/21 16:11 19:00 20:00 20:14 Temp 98.3 98.3 Pulse 80 Resp 18 B/P (MAP) 97/54 (68) Pulse Ox 97 96 100 O2 Delivery Nasal Cannula Nasal Cannula Nasal Cannula Nasal Cannula O2 Flow Rate 3.0 3.0 3.0 3.0 08/15/21 08/15/21 08/16/21 08/16/21 21:00 23:00 00:38 01:05 Temp 98.1 98.1 Pulse 78 78 Resp 20 19 19 B/P (MAP) 103/46 103/46 (65) Pulse Ox 91 O2 Delivery Room Air Nasal Cannula Nasal Cannula O2 Flow Rate 3.0 3.0 3.0 08/16/21 08/16/21 03:00 07:58 Temp 98.1 98.1 Pulse 76 Resp 18 B/P (MAP) 98/48 (65) Pulse Ox 92 97 O2 Delivery Nasal Cannula Nasal Cannula O2 Flow Rate 3.0 3.0 Intake and Output 08/15/21 08/15/21 08/16/21 15:00 23:00 07:00 Intake Total 1075 ml Balance 1075 ml Justifications for Admission Other Justification COLEEN LOPEZ MD Aug 16, 2021 08:26
--- NOTE | 2021-08-16 08:34 | SNU/HH DC ---
DISCHARGE WITH HOME HEALTH DISCHARGE INFORMATION: Discharge Date: Aug 16, 2021 Condition on Discharge: Stable CODE STATUS: Code Status: Full HOME HEALTH: Face to Face: I certify this patient is under my care and that I, or a nurse practitioner or jonah jacinto's assistant associate full professor working with me, had a face to face encounter that meets the physician face to face encounter requirements with this patient on []. Medical Complications: COPD Custodial For: Assess Cardiopulm Status, Assess/Skilled Observatio, Diabetic Care RN For Eval/Treatment: Yes Physical Therapy For: Evalulation/Treatment Occupational Therapy For: Evaluation/Treatment Home Health Aide For: Self-care DIRECTOR OF PAYROLL For: Community Resources Pt Meets Homebound Status: Poor coordination w/ amb., Extreme weakness w/ amb. POST DISCHARGE ORDERS: Activity Instructions for Disc: Activity as tolerated, Walk in house Weight Bearing Status after Di: No restrictions, Full weight bearing Bathing Instructions: Shower-keep dressing dry, No Tub Bath until see DIET AFTER DISCHARGE: ADA (Cardiac) Wound/Incision Care: Ice to area for comfort, Keep wound/cast CDI, Do not change dressing Other wound/incision instructi: remove battery pack MondayAugust 09 unscrew tubing tape end downwards CHECKS AFTER DISCHARGE: Checks after discharge: Check blood sugar, ac/hs Comment: coumadin follow normal routine see MD that ordered FOLLOW-UP: Follow up with: in 5 days Follow Up With: call [phone] for a 2 week post op appt with Dr. Hoyt Warfarin Follow UP: see md that ordered coumadin for atrial fib Additional Instructions: cbc in 3 days TREATMENT/EQUIPMENT ORDERS: Adaptive Equipment Issued: Front wheeled walker CERTIFICATION STATEMENT: Certification Statement: Certification Statement: Based on the above finding, I certify that this patient is confined to the home and needs intermittent mcfp care, physical therapy and/or speech therapy, or continues to need occupational therapy.~ This patient is under my care, and I have initiated the establishment of the plan of care.~ This patient will be followed by myself or a community physician who will periodically review the plan of care. Home Meds Active Scripts Ondansetron (ONDANSETRON ODT) 4 Mg Tab.rapdis, 1 TAB PO PRN Q6-8HRS for nausea, #16 TAB Prov:JUAN RAMON PRETTY MD 08/08/21 Sennosides/Docusate Sodium (Stool Softener-Stimulant Lax) 1 Each Tablet, 1 TAB PO DAILY for constipation for 30 Days, #30 TAB Prov:JUAN RAMON PRETTY MD 08/08/21 Lactobacillus Rhamnosus Gg (CULTURELLE) 1 Each Cap.sprink, 1 CAP PO BID for antibiotic use for 15 Days, #30 CAP Prov:JUAN RAMON PRETTY MD 08/08/21 Insulin Glargine,Hum.rec.anlog (LANTUS) 100 Unit/1 Ml Vial, 35 UNIT SQ QHS for 30 Days, VIAL Prov:DIAN CARMEN SKETCH LINER 08/04/14 Reported Medications Latanoprost/Pf (Latanoprost 0.005% Eye Drop) 7.5 Ml Drops, 1 DROP OU QHS for GLAUCOMA, DROP 07/19/21 Budesonide/Formoterol Fumarate (SYMBICORT 160-4.5 MCG INHALER) 10.2 Gm Hfa.aer.ad, 2 PUFF IH BID for TREAT ASTHMA, #1 INHALER 5 Refills 07/19/21 Loratadine (LORATADINE) 10 Mg Tablet, 10 MG PO DAILY for ALLERGY RELIEF, TAB 07/19/21 Cyanocobalamin (Vitamin B-12) (Vitamin B12) 2,500 Mcg Tablet, 200 MCG PO DAILY for SUPPLEMENT, TAB 07/19/21 Cholecalciferol (Vitamin D3) (Vitamin D3) 50 Mcg Capsule, 50 MCG PO DAILY for SUPPLEMENT, CAP 07/19/21 Alogliptin Benzoate (Alogliptin) 25 Mg Tablet, 25 MG PO DAILY for DIABETES, TAB 07/19/21 Albuterol Sulfate (ALBUTEROL SULFATE CONC NEB SOLN) 2.5 Mg/0.5 Ml Vial.neb, 2.5 MG NEB BID for FOR ASTHMA, EACH 0 Refills 07/19/21 Tamsulosin Hcl (FLOMAX) 0.4 Mg Cap.er.24h, 0.4 MG PO DAILY for PROSTATE ISSUES, TAB 07/19/21 Warfarin Sodium (WARFARIN SODIUM) 7.5 Mg Tablet, 7.5 MG PO DAILY for BLOOD THINNER FOR AFIB, TAB 07/19/21 Simvastatin (SIMVASTATIN) 20 Mg Tablet, 20 MG PO HS for FOR CHOLESTEROL, #30 TAB 0 Refills 07/19/21 Amlodipine Besylate (AMLODIPINE BESYLATE) 5 Mg Tablet, 5 MG PO DAILY for HTN, TAB 12/10/19 Amiodarone Hcl (AMIODARONE HCL) 200 Mg Tablet, 1 TAB PO DAILY for Atrial Fib, #90 TAB 1 Refill 12/10/19 Albuterol Sulfate (Proventil Hfa) 6.7 Gm Hfa.aer.ad, 1 PUFF INH PRN Q6HRS PRN for SHORTNESS OF BREATH, INHALER 12/10/19 Metoprolol Tartrate (METOPROLOL TARTRATE) 25 Mg Tablet, 1 TAB PO BID for BP, #60 TAB 2 Refills 09/25/19 Metformin Hcl (METFORMIN HCL) 1,000 Mg Tablet, 1000 MG PO BIDWMEALS for DIABETES, TAB 01/08/18 Potassium Chloride (POTASSIUM CHLORIDE ) 20 Meq Tablet.er, 20 MEQ PO DAILY for SUPPLEMENT, TAB.SR 07/25/17 Lisinopril (LISINOPRIL) 40 Mg Tablet, 20 MG PO DAILY for heart, blood pressure, #30 TAB 5 Refills 08/02/14 Isosorbide Mononitrate (IMDUR) 30 Mg Tab.er.24h, 1 TAB PO DAILY for angina, #30 TAB 5 Refills 08/02/14 COLEEN LOPEZ MD Aug 16, 2021 08:34
[2021-08-16] MEDS ORDERED: PANT40TA77 PO (08:36)
[2021-08-16] MEDS: LINAGLIPTIN 5 MG TABLET PO SCH (08:39)
[2021-08-16] MEDS: POTASSIUM CHLORIDE 20 MEQ TABLET.ER. PO SCH ×2 (08:39→14:00)
[2021-08-16] MEDS: CYANOCOBALAMIN (VITAMIN B-12) 100 MCG TABLET. PO SCH (08:39)
[2021-08-16] MEDS: SENNOSIDES/DOCUSATE 8.6/50MG TABLET. PO SCH (08:40)
[2021-08-16] MEDS: LISINOPRIL 20 MG TABLET PO SCH (08:40)
[2021-08-16] MEDS: LACTOBACILLUS RHAMNOSUS GG 1 CAPSULE. PO SCH (08:41)
[2021-08-16] MEDS: CHOLECALCIFEROL (VITAMIN D3) 1,000 UNIT TABLET PO SCH (08:41)
[2021-08-16] MEDS: MULTIVITAMIN with MINERAL TABLET. PO SCH (08:41)
[2021-08-16] MEDS: PANTOPRAZOLE 40 MG TABLET.DR. PO SCH ×2 (08:42→16:30)
[2021-08-16] MEDS: TAMSULOSIN 0.4 MG CAP.ER.24H. PO SCH (08:42)
[2021-08-16] MEDS: ISOSORBIDE MONONITRATE ER 30 MG TAB.ER.24H PO SCH (08:42)
[2021-08-16] MEDS: CETIRIZINE HCL 10 MG TABLET. PO SCH (08:43)
[2021-08-16] MEDS: METOPROLOL TART IMMED RELEASE 25 MG TABLET. PO SCH (08:43)
[2021-08-16] MEDS: AMIODARONE HCL 200 MG TABLET. PO SCH (08:56)
--- NOTE | 2021-08-16 09:17 | PDOC ---
Date of Service: DATE: 08/16/21 TIME: 09:12 Subjective: Subjective: No complaints. Tolerating diet, no bleeding, wants to go home. Objective: Objective: D/w Dr. Rae - pt w/ stable Hgb, tolerating full liquids, asking to go home - checking to see if this is okay w/ GI, recs for timing to resume Coumadin, and if interval EGD should be considered at any point. Needed transfusion over the weekend. Vital Signs: Vital Signs Date Time Temp Pulse Resp B/P (MAP) Pulse Ox O2 Delivery O2 Flow Rate FiO2 08/16/21 08:56 81 147/91 08/16/21 08:51 97 Nasal Cannula 3.0 08/16/21 07:00 97.4 18 97.4 Labs: Laboratory Tests Test 08/15/21 12:06 08/15/21 17:37 08/15/21 19:33 08/16/21 07:05 Glucose (Fingerstick) 122 mg/dL 104 mg/dL 129 mg/dL White Blood Count 19.6 x10^3/uL Red Blood Count 2.50 x10^6/uL Hemoglobin 7.3 g/dL Hematocrit 22.8 % Mean Corpuscular Volume 91 fL Mean Corpuscular Hemoglobin 29 pg Mean Corpuscular Hemoglobin Concent 32 g/dL Red Cell Distribution Width 14.4 % Platelet Count 408 x10^3/uL Neutrophils (%) (Auto) 76 % Lymphocytes (%) (Auto) 11 % Monocytes (%) (Auto) 10 % Eosinophils (%) (Auto) 2 % Basophils (%) (Auto) 1 % Neutrophils # (Auto) 15.0 x10^3/uL Lymphocytes # (Auto) 2.1 x10^3/uL Monocytes # (Auto) 2.0 x10^3/uL Eosinophils # (Auto) 0.4 x10^3/uL Basophils # (Auto) 0.1 x10^3/uL Test 08/16/21 08:26 Glucose (Fingerstick) 70 mg/dL PE: GEN: NAD - up in chair LUNGS: diminished anteriorly, NC 1L (he says "should be 3") HEART: RRR ABD: non-tender, non-distended NEURO/PSYCH: A & O 3 A/P: UGI bleed, GOO from hematobezoar, GERD Anemia Recent hip surgery, h/o A Fib -- D/w Dr. Ridley - plan for EGD this afternoon (ate full liquid breakfast, then took pills w/ pudding around 9:00) to re-eval. Coumadin recs pending this. Justicifation of Admission Dx: Justifications for Admission: Justification of Admission Dx: Yes Stroke - Ischemic: Stroke-Ischemic ROHIT CROWDER Aug 16, 2021 09:17
[2021-08-16 10:11] LABS: KAPPA FREE 33.3 mg/L (3.3-19.4); KAPPA LAMBDA RATIO 1.29 (0.26-1.65); LAMBDA FREE 25.9 mg/L (5.7-26.3)
[2021-08-16 11:00] VITALS: BP 136/52
[2021-08-16 13:39] VITALS: BP 151/65
[2021-08-16] MEDS ORDERED: LIDOCAINE 2% PF 5 ML VIAL. ONE (13:58)
[2021-08-16] MEDS ORDERED: GLYCOPYRROLATE 1 MG/5 ML VIAL. ONE (13:58)
[2021-08-16] MEDS ORDERED: PROPOFOL 10 MG/ML (20ML) VIAL. IV ONE (13:58)
[2021-08-16] MEDS ORDERED: PHENYLEPHRINE in 0.9% NACL PF 1 MG/10 ML SYRINGE. IV ONE (13:58)
[2021-08-16] MEDS ORDERED: ePHEDrine PF IN SALINE 50 MG/10 ML SYRINGE. IV ONE (13:58)
--- NOTE | 2021-08-16 14:20 | PDOC4 ---
PROCEDURE Procedure EGD/biopsy/clip Indication: recent UGI bleeding, cause uncertain. Can re-start warfarin? Meds: per anesthesia. Findings: E--Grade C reflux from 30-40cm. G--Normal D--Apparent ulcer distal bulb with clot and "ooze". Clipped. Firm 8mm "polyp" in second portion, biopsied. Dean. well. IMP: DU with clot, clipped. Duodenal polyp, biopsied. Severe reflux. Prior extensive clot had resolved. REC: Chronic PPI. Would not anticoagulate; Watchman? OK to dismiss to close f/u. Await biopsies. CARIE FRASER MD Aug 16, 2021 14:20
[2021-08-16 15:00] VITALS: BP 125/80
[2021-08-16] MEDS ORDERED: IV RINGERS,LACTATED 1000ML 1,000 ML IV SCH (15:00)
--- NOTE | 2021-08-16 15:17 | PDOC ---
PROGRESS NOTES Date of Service DATE: 08/16/21 TIME: 15:15 Subjective Subjective He feels good when I saw him this AM prior to his EGD. Objective Objective Vital Signs Date Time Temp Pulse Resp B/P (MAP) Pulse Ox O2 Delivery O2 Flow Rate FiO2 08/16/21 14:45 97.5 73 20 121/59 98 Nasal Cannula 3.0 97.5 Intake and Output 08/16/21 07:00 Intake Total 1075 ml Balance 1075 ml IV Total 1075 ml # Voids 3 Physical Exam Physical Exam He is alert,sitting in bedside recliner and seems to be in no distress and eating good and eager to go home and he is walking independently with roller walker. Plan Plan of Care Agree with plans for home when medically stable. Comment Review of Relevant I have reviewed the following items david (where applicable) has been applied. Labs Laboratory Tests Test 08/14/21 17:16 08/14/21 20:24 08/15/21 06:45 08/15/21 08:19 Glucose (Fingerstick) 176 mg/dL (70-99) 180 mg/dL (70-99) 127 mg/dL (70-99) White Blood Count 20.4 x10^3/uL (4.0-11.0) Red Blood Count 2.42 x10^6/uL (4.30-5.70) Hemoglobin 7.3 g/dL (13.0-17.5) Hematocrit 21.7 % (39.0-53.0) Mean Corpuscular Volume 90 fL (79-100) Mean Corpuscular Hemoglobin 30 pg (25-35) Mean Corpuscular Hemoglobin Concent 34 g/dL (31-37) Red Cell Distribution Width 14.7 % (11.5-14.5) Platelet Count 364 x10^3/uL (140-400) Neutrophils (%) (Auto) 76 % (31-73) Lymphocytes (%) (Auto) 11 % (24-48) Monocytes (%) (Auto) 10 % (0-9) Eosinophils (%) (Auto) 3 % (0-3) Basophils (%) (Auto) 1 % (0-3) Neutrophils # (Auto) 15.4 x10^3/uL (1.8-7.7) Lymphocytes # (Auto) 2.2 x10^3/uL (1.0-4.8) Monocytes # (Auto) 2.0 x10^3/uL (0.0-1.1) Eosinophils # (Auto) 0.7 x10^3/uL (0.0-0.7) Basophils # (Auto) 0.1 x10^3/uL (0.0-0.2) Sodium Level 143 mmol/L (136-145) Potassium Level 3.4 mmol/L (3.5-5.1) Chloride Level 107 mmol/L (98-107) Carbon Dioxide Level 30 mmol/L (21-32) Anion Gap 6 (6-14) Blood Urea Nitrogen 17 mg/dL (8-26) Creatinine 1.0 mg/dL (0.7-1.3) Estimated GFR (Cockcroft-Gault) 72.8 Glucose Level 126 mg/dL (70-99) Calcium Level 7.7 mg/dL (8.5-10.1) Test 08/15/21 12:06 08/15/21 17:37 08/15/21 19:33 08/16/21 07:05 Glucose (Fingerstick) 122 mg/dL (70-99) 104 mg/dL (70-99) 129 mg/dL (70-99) White Blood Count 19.6 x10^3/uL (4.0-11.0) Red Blood Count 2.50 x10^6/uL (4.30-5.70) Hemoglobin 7.3 g/dL (13.0-17.5) Hematocrit 22.8 % (39.0-53.0) Mean Corpuscular Volume 91 fL (79-100) Mean Corpuscular Hemoglobin 29 pg (25-35) Mean Corpuscular Hemoglobin Concent 32 g/dL (31-37) Red Cell Distribution Width 14.4 % (11.5-14.5) Platelet Count 408 x10^3/uL (140-400) Neutrophils (%) (Auto) 76 % (31-73) Lymphocytes (%) (Auto) 11 % (24-48) Monocytes (%) (Auto) 10 % (0-9) Eosinophils (%) (Auto) 2 % (0-3) Basophils (%) (Auto) 1 % (0-3) Neutrophils # (Auto) 15.0 x10^3/uL (1.8-7.7) Lymphocytes # (Auto) 2.1 x10^3/uL (1.0-4.8) Monocytes # (Auto) 2.0 x10^3/uL (0.0-1.1) Eosinophils # (Auto) 0.4 x10^3/uL (0.0-0.7) Basophils # (Auto) 0.1 x10^3/uL (0.0-0.2) Test 08/16/21 08:26 08/16/21 11:44 Glucose (Fingerstick) 70 mg/dL (70-99) 117 mg/dL (70-99) Laboratory Tests Test 08/15/21 17:37 08/15/21 19:33 08/16/21 07:05 08/16/21 08:26 Glucose (Fingerstick) 104 mg/dL (70-99) 129 mg/dL (70-99) 70 mg/dL (70-99) White Blood Count 19.6 x10^3/uL (4.0-11.0) Red Blood Count 2.50 x10^6/uL (4.30-5.70) Hemoglobin 7.3 g/dL (13.0-17.5) Hematocrit 22.8 % (39.0-53.0) Mean Corpuscular Volume 91 fL (79-100) Mean Corpuscular Hemoglobin 29 pg (25-35) Mean Corpuscular Hemoglobin Concent 32 g/dL (31-37) Red Cell Distribution Width 14.4 % (11.5-14.5) Platelet Count 408 x10^3/uL (140-400) Neutrophils (%) (Auto) 76 % (31-73) Lymphocytes (%) (Auto) 11 % (24-48) Monocytes (%) (Auto) 10 % (0-9) Eosinophils (%) (Auto) 2 % (0-3) Basophils (%) (Auto) 1 % (0-3) Neutrophils # (Auto) 15.0 x10^3/uL (1.8-7.7) Lymphocytes # (Auto) 2.1 x10^3/uL (1.0-4.8) Monocytes # (Auto) 2.0 x10^3/uL (0.0-1.1) Eosinophils # (Auto) 0.4 x10^3/uL (0.0-0.7) Basophils # (Auto) 0.1 x10^3/uL (0.0-0.2) Test 08/16/21 11:44 Glucose (Fingerstick) 117 mg/dL (70-99) Microbiology 08/04/21 Urine Culture - Final, Complete Medications Current Medications Fentanyl Citrate (Fentanyl 2ml Vial) 25 mcg PRN Q5MIN PRN IVP MILD PAIN 1-3 Last administered on 08/02/21at 11:51; Start 08/02/21 at 06:00; Stop 08/03/21 at 05:59; Status DC Fentanyl Citrate (Fentanyl 2ml Vial) 50 mcg PRN Q5MIN PRN IVP MODERATE PAIN 4- 6; Start 08/02/21 at 06:00; Stop 08/03/21 at 05:59; Status DC Morphine Sulfate (Morphine Sulfate) 1 mg PRN Q10MIN PRN IVP SEVERE PAIN 7-10 Last administered on 08/02/21at 09:39; Start 08/02/21 at 06:00; Stop 08/03/21 at 05:59; Status DC Ringer's Solution 1,000 ml @ 30 mls/hr Q24H IV Last administered on 08/02/21at 07:04; Start 08/02/21 at 06:00; Stop 08/02/21 at 17:59; Status DC Hydromorphone HCl (Dilaudid) 0.5 mg PRN Q10MIN PRN IVP SEVERE PAIN 7-10, 2nd CHOICE; Start 08/02/21 at 06:00; Stop 08/03/21 at 05:59; Status DC Prochlorperazine Edisylate (Compazine) 5 mg PACU PRN PRN IVP NAUSEA, MRX1; Start 08/02/21 at 06:00; Stop 08/03/21 at 05:59; Status DC Morphine Sulfate 5 mg/Ketorolac Tromethamine 30 mg/Ropivacaine 60 ml/Epinephrine HCl 0.5 mg/ Miscellaneous 63 ml @ 63 mls/hr 1X PERIOP ONCE INT ART ; Start 08/02/21 at 06:00; Stop 08/02/21 at 07:00; Status DC Meloxicam (Mobic) 15 mg 1X PREOP PRN PO PRIOR TO PROCEDURE Last administered on 08/02/21at 07:05; Start 08/02/21 at 06:00; Stop 08/02/21 at 18:00; Status DC Gabapentin (Neurontin) 300 mg 1X PREOP PRN PO PRIOR TO PROCEDURE Last administered on 08/02/21at 07:06; Start 08/02/21 at 06:00; Stop 08/02/21 at 18:00; Status DC Acetaminophen (Tylenol) 1,000 mg 1X PREOP PRN PO PRIOR TO PROCEDURE Last administered on 08/02/21at 07:05; Start 08/02/21 at 06:00; Stop 08/02/21 at 18:00; Status DC Clindamycin Phosphate 50 ml @ 100 mls/hr 1X PREOP PRN IV PRIOR TO PROCEDURE Last administered on 08/02/21at 07:40; Start 08/02/21 at 06:00; Stop 08/02/21 at 18:00; Status DC Tranexamic Acid 50 ml @ 50 mls/hr 1X PERIOP ONCE INJ ; Start 08/02/21 at 06:00; Stop 08/02/21 at 07:00; Status DC Tranexamic Acid 50 ml @ 50 mls/hr 1X PERIOP ONCE INJ ; Start 08/02/21 at 08:00; Stop 08/02/21 at 08:59; Status DC Tranexamic Acid 0 ml @ As Directed STK-MED ONCE .ROUTE ; Start 08/02/21 at 06:55; Stop 08/02/21 at 06:55; Status DC Tranexamic Acid 50 ml @ As Directed STK-MED ONCE .ROUTE ; Start 08/02/21 at 06:55; Stop 08/02/21 at 06:56; Status Cancel Insulin Human Lispro (HumaLOG VIAL for OP,RR ONLY) 0-10 units PRN Q1HR PRN SQ PER PROTOCOL Last administered on 08/02/21at 11:25; Start 08/02/21 at 07:00; Stop 08/03/21 at 06:59; Status DC Propofol (Diprivan) 200 mg STK-MED ONCE IV ; Start 08/02/21 at 07:10; Stop 08/02/21 at 07:10; Status DC Lidocaine HCl (Lidocaine Pf 2% Vial) 5 ml STK-MED ONCE .ROUTE ; Start 08/02/21 at 07:10; Stop 08/02/21 at 07:11; Status DC Dexamethasone Sodium Phosphate (Decadron) 4 mg STK-MED ONCE .ROUTE ; Start 08/02/21 at 07:11; Stop 08/02/21 at 07:11; Status DC Ondansetron HCl (Zofran) 4 mg STK-MED ONCE .ROUTE ; Start 08/02/21 at 07:11; Stop 08/02/21 at 07:11; Status DC Rocuronium [place] (Zemuron) 100 mg STK-MED ONCE .ROUTE ; Start 08/02/21 at 07:13; Stop 08/02/21 at 07:13; Status DC Fentanyl Citrate (Fentanyl 5ml Vial) 250 mcg STK-MED ONCE .ROUTE ; Start 08/02/21 at 07:13; Stop 08/02/21 at 07:13; Status DC Glycopyrrolate (Robinul) 1 mg STK-MED ONCE .ROUTE ; Start 08/02/21 at 07:57; Stop 08/02/21 at 07:57; Status DC Neostigmine [place] (Neostigmine Methylsulfate) 5 mg STK-MED ONCE .ROUTE ; Start 08/02/21 at 07:58; Stop 08/02/21 at 07:58; Status DC Phenylephrine HCl (PHENYLEPHRINE in 0.9% NACL PF) 1 mg STK-MED ONCE IV ; Start 08/02/21 at 08:10; Stop 08/02/21 at 08:10; Status DC Ephedrine Sulfate (ePHEDrine PF IN SALINE SYRINGE) 50 mg STK-MED ONCE IV ; Start 08/02/21 at 08:27; Stop 08/02/21 at 08:28; Status DC Fentanyl Citrate (Fentanyl 2ml Vial) 100 mcg STK-MED ONCE .ROUTE ; Start 08/02/21 at 09:20; Stop 08/02/21 at 09:20; Status DC Morphine Sulfate (Morphine Sulfate) 2 mg STK-MED ONCE .ROUTE ; Start 08/02/21 at 09:20; Stop 08/02/21 at 09:20; Status DC Morphine Sulfate (Morphine Sulfate) 2 mg PRN Q2HR PRN IVP PAIN; Start 08/02/21 at 11:45; Status Cancel Hydromorphone HCl (Dilaudid) 0.4 mg PRN Q4HRS PRN IVP PAIN Last administered on 08/14/21at 21:13; Start 08/02/21 at 11:45 Oxycodone/ Acetaminophen (Percocet 5/325) 1 tab PRN Q4HRS PRN PO PAIN Last administered on 08/03/21at 20:31; Start 08/02/21 at 11:45; Stop 08/05/21 at 09:19; Status DC Fentanyl Citrate (Fentanyl 2ml Vial) 100 mcg STK-MED ONCE .ROUTE ; Start 1 at 11:40; Stop 08/02/21 at 11:41; Status DC Morphine Sulfate (Morphine Sulfate) 2 mg PRN Q1HR PRN IVP PAIN-SEE COMMENTS; Start 08/02/21 at 11:45; Stop 08/05/21 at 09:19; Status DC Fentanyl Citrate (Fentanyl 2ml Vial) 25 mcg PRN Q1HR PRN IVP PAIN, 2nd CHOICE; Start 08/02/21 at 11:45; Stop 08/02/21 at 12:15; Status DC Diphenhydramine HCl (Benadryl) 25 mg PRN Q6HRS PRN IVP ITCHING; Start 08/02/21 at 11:45 Multivitamins (Thera M Plus) 1 tab DAILY PO Last administered on 08/16/21at 08:41; Start 08/02/21 at 12:00 Senna/Docusate Sodium (Senna Plus) 1 tab DAILY PO Last administered on 08/16/21at 08:40; Start 08/02/21 at 12:00 Ferrous Sulfate (Feosol) 325 mg BIDWMEALS PO Last administered on 08/04/21at 08:22; Start 08/02/21 at 17:00; Stop 08/04/21 at 11:11; Status DC Sodium Chloride 1,000 ml @ 100 mls/hr Q10H IV Last administered on 08/08/21at 07:01; Start 08/02/21 at 11:45; Stop 08/08/21 at 10:29; Status DC Clindamycin Phosphate 50 ml @ 100 mls/hr Q6H IV Last administered on 1at 01:02; Start 08/02/21 at 13:00; Stop 08/03/21 at 01:29; Status DC Zolpidem Tartrate (Ambien) 5 mg PRN QHS PRN PO INSOMNIA, MAY REPEAT IN 1HR Last administered on 08/09/21at 20:56; Start 08/02/21 at 11:45 Sodium Chloride (Normal Saline Flush) 10 ml QSHIFT PRN IV AFTER MEDS AND BLOOD DRAWS; Start 08/02/21 at 11:45; Stop 08/15/21 at 10:44; Status DC Acetaminophen (Tylenol) 1,000 mg Q6H PO Last administered on 08/16/21at 08:38; Start 08/03/21 at 09:00 Meloxicam (Mobic) 15 mg DAILY PO Last administered on 08/04/21at 08:20; Start 08/03/21 at 09:00; Stop 08/04/21 at 11:11; Status DC Tramadol HCl (Ultram) 50 mg Q6H PO Last administered on 08/04/21at 07:19; Start 08/03/21 at 06:00; Stop 08/04/21 at 11:11; Status DC Gabapentin (Neurontin) 100 mg Q12H PO Last administered on 08/03/21at 18:20; Start 08/03/21 at 06:00; Stop 08/03/21 at 23:56; Status DC Ondansetron HCl (Zofran) 4 mg Q6HRS IVP Last administered on 08/02/21at 17:52; Start 08/02/21 at 12:00; Stop 08/03/21 at 06:01; Status DC Oxycodone HCl (Roxicodone) 5 mg PRN Q4HRS PRN PO Pain score 4-6 Last administered on 08/05/21at 01:03; Start 08/02/21 at 11:45; Stop 08/05/21 at 09:19; Status DC Aspirin (Olga Lidia Aspirin) 325 mg [id number] PO Last administered on 08/04/21at 08:26; Start 08/03/21 at 08:00; Stop 08/05/21 at 15:18; Status DC Fentanyl Citrate (Fentanyl 2ml Vial) 25 mcg PRN Q2HR PRN IVP PAIN; Start 08/02/21 at 12:00; Stop 08/05/21 at 09:19; Status DC Fentanyl Citrate (Fentanyl 2ml Vial) 50 mcg PRN Q2HR PRN IVP SEVERE PAIN; Start 08/02/21 at 12:00; Stop 08/05/21 at 09:19; Status DC Insulin Glargine (Lantus Syringe) 35 unit QHS SQ Last administered on 08/15/21 23:13; Start 08/02/21 at 21:00 Linagliptin (Tradjenta) 5 mg DAILY PO Last administered on 08/16/21 08:39; Start 08/03/21 at 09:00 Metformin HCl (Glucophage) 1,000 mg BIDWMEALS PO Last administered on 08/04/21 08:22; Start 08/02/21 at 17:00; Stop 08/04/21 at 11:11; Status DC Amiodarone HCl (Cordarone) 200 mg DAILY PO Last administered on 08/16/21 08: 56; Start 08/03/21 at 09:00 Amlodipine Besylate (Norvasc) 5 mg DAILY PO Last administered on 08/16/21 08:41; Start 08/03/21 at 09:00 Isosorbide Mononitrate (Imdur) 30 mg DAILY PO Last administered on 08/16/21 08:42; Start 08/03/21 at 09:00 Lisinopril (Prinivil) 20 mg DAILY PO Last administered on 08/16/21 08:40; Start 08/03/21 at 09:00 Metoprolol Tartrate (Lopressor) 25 mg BID PO Last administered on 08/16/21 08:43; Start 08/02/21 at 21:00 Potassium Chloride (Klor-Con) 20 meq DAILY PO Last administered on 08/04/21 08:21; Start 08/03/21 at 09:00; Stop 08/04/21 at 11:11; Status DC Simvastatin (Zocor) 20 mg HS PO Last administered on 08/15/21 21:27; Start 08/02/21 at 21:00 Tamsulosin HCl (Flomax) 0.4 mg DAILY PO Last administered on 08/16/21 08:42; Start 08/03/21 at 09:00 Warfarin Sodium (Coumadin) 7.5 mg DAILY16 PO Last administered on 08/04/21at 15:32; Start 08/02/21 at 17:00; Stop 08/05/21 at 15:15; Status DC Non-Formulary Medication (Albuterol Sulfate (Albuterol Sulfate Conc Neb Soln)) 2.5 mg BID NEB ; Start 08/02/21 at 21:00; Status UNV Non-Formulary Medication (Albuterol Sulfate (Proventil Hfa)) 1 puff PRN Q6HRS PRN INH SHORTNESS OF BREATH; Start 08/02/21 at 16:15; Status UNV Non-Formulary Medication (Budesonide/ Formoterol Fumarate (Symbicort 160-4.5 Mcg Inhaler)) 2 puff BID IH ; Start 08/02/21 at 21:00; Status UNV Vitamin D (Vitamin D3) 2,000 unit DAILY PO Last administered on 08/16/21at 08:41; Start 08/03/21 at 09:00 Cyanocobalamin (Vitamin B-12) 200 mcg DAILY PO Last administered on 08/16/21 08:39; Start 08/03/21 at 09:00 Latanoprost (Xalatan) 1 drop QHS OU Last administered on 08/15/21at 21:27; Start 08/02/21 at 21:00 Cetirizine HCl (ZyrTEC) 10 mg DAILY PO Last administered on 08/16/21 08:43; Start 08/03/21 at 09:00 Warfarin Sodium (Coumadin Per Pharmacy) 1 each PRN DAILY PRN MC SEE COMMENTS Last administered on 08/13/21at 16:22; Start 08/02/21 at 16:30; Stop 08/13/21 at 16:28; Status DC Budesonide (Pulmicort) 0.5 mg RTBID NEB Last administered on 08/04/21 19:51; Start 08/02/21 at 20:00; Stop 08/05/21 at 17:30; Status DC Albuterol Sulfate (Ventolin Neb Soln) 2.5 mg RTQID NEB Last administered on 08/04/21at 19:51; Start 08/02/21 at 20:00; Stop 08/05/21 at 17:30; Status DC Albuterol Sulfate (Ventolin Neb Soln) 2.5 mg PRN Q6HRS PRN NEB SHORTNESS OF BREATH Last administered on 10/17/21at 11:35; Start 08/02/21 at 16:30 Insulin Human Lispro (HumaLOG) 0-5 UNITS TIDWMEALS SQ Last administered on 08/14/21at 17:32; Start 08/03/21 at 08:00 Dextrose (Dextrose 50%-Water Syringe) 12.5 gm PRN Q15MIN PRN IV SEE COMMENTS; Start 08/02/21 at 22:45 Insulin Human Lispro (HumaLOG VIAL for OP,RR ONLY) 4 unit STK-MED ONCE SQ ; Start 08/02/21 at 11:30; Stop 08/03/21 at 16:34; Status DC Insulin Human Lispro (HumaLOG VIAL for OP,RR ONLY) 4 unit STK-MED ONCE SQ ; Start 08/02/21 at 11:30; Stop 08/03/21 at 16:34; Status DC Insulin Human Lispro (HumaLOG VIAL for OP,RR ONLY) 4 unit STK-MED ONCE SQ ; Start 08/02/21 at 11:30; Stop 08/03/21 at 16:34; Status DC Sodium Chloride 500 ml @ 250 mls/hr Q2H IV Last administered on 08/03/21at 16:45; Start 08/03/21 at 16:45; Stop 08/03/21 at 18:44; Status DC Ondansetron HCl (Zofran) 4 mg PRN Q6HRS PRN IVP NAUSEA/VOMITING Last administered on 08/11/21at 23:59; Start 08/04/21 at 08:15 Ceftriaxone Sodium (Rocephin) 1 gm Q24H IVP Last administered on 08/04/21at 20:48; Start 08/04/21 at 18:00; Stop 08/05/21 at 09:40; Status DC Pantoprazole Sodium (PROTONIX VIAL for IV PUSH) 40 mg DAILYAC IVP Last administered on 08/09/21at 09:07; Start 08/05/21 at 08:00; Stop 08/09/21 at 10:54; Status DC Meropenem 500 mg/ Sodium Chloride 50 ml @ 100 mls/hr Q8HRS IV Last administered on 08/11/21at 22:00; Start 08/05/21 at 14:00; Stop 08/11/21 at 22:00; Status DC Linezolid/Dextrose 300 ml @ 300 mls/hr Q12HR IV Last administered on 08/11/21at 22:02; Start 08/05/21 at 10:00; Stop 08/11/21 at 22:00; Status DC Warfarin Sodium (Coumadin - No Dose Today) 1 each 1X WARF ONCE MC ; Start 08/06/21 at 16:00; Stop 08/06/21 at 16:01; Status DC Lactobacillus Rhamnosus (Culturelle) 1 cap BID PO Last administered on 08/16/21at 08:41; Start 08/06/21 at 21:00 Polyethylene Glycol (miraLAX PACKET) 17 gm PRN DAILY PRN PO CONSTIPATION; Start 08/06/21 at 13:30 Metoclopramide HCl (Reglan Vial) 10 mg PRN Q6HRS PRN IVP NAUSEA/VOMITING 2ND CHOICE Last administered on 08/06/21at 15:33; Start 08/06/21 at 15:30; Stop at 12:54; Status DC Warfarin Sodium (Coumadin) 7.5 mg 1X WARF ONCE PO Last administered on 08/07/21at 18:04; Start 08/07/21 at 16:00; Stop 08/07/21 at 16:01; Status DC Potassium Chloride (Klor-Con) 20 meq BID92 PO Last administered on 08/16/21at 08:39; Start 08/08/21 at 10:30 Warfarin Sodium (Coumadin) 7.5 mg 1X WARF ONCE PO Last administered on 08/08/21at 15:36; Start 08/08/21 at 16:00; Stop 08/08/21 at 16:01; Status DC Potassium Chloride (Klor-Con) 40 meq 1X ONCE PO Last administered on 08/09/21at 05:05; Start 08/09/21 at 05:00; Stop 08/09/21 at 05:01; Status DC Potassium Chloride/Water 100 ml @ 100 mls/hr Q1H IV Last administered on 08/09/21at 09:10; Start 08/09/21 at 05:15; Stop 08/09/21 at 09:14; Status DC Warfarin Sodium (Coumadin - No Dose Today) 1 each 1X WARF ONCE MC ; Start 08/09/21 at 16:00; Stop 08/09/21 at 16:01; Status DC Pantoprazole Sodium (Protonix) 40 mg DAILYAC PO ; Start 08/10/21 at 07:30; Stop 08/10/21 at 08:59; Status DC Acetaminophen (Tylenol) 650 mg 1X PRN PRN PO PRE-TRANSFUSION; Start 08/10/21 at 09:00; Stop 08/11/21 at 08:59; Status DC Diphenhydramine HCl (Benadryl Oral Elixir) 12.5 mg 1X PRN PRN PO PRE- TRANSFUSION; Start 08/10/21 at 09:00; Stop 08/11/21 at 08:59; Status DC Diphenhydramine HCl (Benadryl) 25 mg PRN 1X PRN PO PRE-TRANSFUSION; Start 08/10/21 at 09:00; Stop 08/11/21 at 08:59; Status DC Pantoprazole Sodium 80 mg/ Sodium Chloride 100 ml @ 10 mls/hr Q10H IV Last administered on 08/13/21at 12:51; Start 08/10/21 at 09:00; Stop 08/13/21 at 21:00; Status DC Phytonadione (Vitamin K Ampule) 10 mg 1X ONCE SQ Last administered on 08/10/21at 10:09; Start 08/10/21 at 09:00; Stop 08/10/21 at 09:01; Status DC Metoclopramide HCl (Reglan Vial) 10 mg 1X ONCE IVP Last administered on 08/10/21at 13:34; Start 08/10/21 at 13:00; Stop 08/10/21 at 13:01; Status DC Warfarin Sodium (Coumadin - No Dose Today) 1 each 1X WARF ONCE MC Last administered on 08/10/21at 16:00; Start 08/10/21 at 16:00; Stop 08/10/21 at 16:01; Status DC Propofol (Diprivan) 200 mg STK-MED ONCE IV ; Start 08/10/21 at 16:08; Stop 08/10/21 at 16:09; Status DC Lidocaine HCl (Lidocaine Pf 2% Vial) 5 ml STK-MED ONCE .ROUTE ; Start 08/10/21 at 16:08; Stop 08/10/21 at 16:09; Status DC Propofol (Diprivan) 200 mg STK-MED ONCE IV ; Start 08/10/21 at 16:27; Stop 08/10/21 at 16:28; Status DC Propofol (Diprivan) 200 mg STK-MED ONCE IV ; Start 08/10/21 at 16:43; Stop 08/10/21 at 16:43; Status DC Warfarin Sodium (Coumadin - No Dose Today) 1 each 1X WARF ONCE MC Last administered on 08/11/21at 16:00; Start 08/11/21 at 16:00; Stop 08/11/21 at 16:01; Status DC Albuterol/ Ipratropium (Duoneb) 3 ml RTQID NEB Last administered on 08/16/21at 12:07; Start 08/12/21 at 09:15 Potassium Chloride/Dextrose/ Sod Cl 1,000 ml @ 75 mls/hr [id number] IV Last administered on 08/15/21at 08:44; Start 08/13/21 at 09:30; Stop 08/15/21 at 10:44; Status DC Pantoprazole Sodium (PROTONIX VIAL for IV PUSH) 40 mg BIDAC IVP Last administered on 08/15/21at 08:44; Start 08/14/21 at 07:30; Stop 08/15/21 at 10:44; Status DC Acetaminophen/ Hydrocodone Bitart (Lortab 5/325) 1 tab PRN Q6HRS PRN PO PAIN Last administered on 08/16/21at 08:51; Start 08/14/21 at 20:30 Pantoprazole Sodium (Protonix) 40 mg BIDAC PO Last administered on 08/16/21at 08:42; Start 08/15/21 at 16:30 Potassium Chloride (Klor-Con) 40 meq 1X ONCE PO Last administered on 08/15/21at 17:46; Start 08/15/21 at 17:00; Stop 08/15/21 at 17:01; Status DC Propofol (Diprivan) 200 mg STK-MED ONCE IV ; Start 08/16/21 at 13:58; Stop 08/16/21 at 13:58; Status DC Glycopyrrolate (Robinul) 1 mg STK-MED ONCE .ROUTE ; Start 08/16/21 at 13:58; Stop 08/16/21 at 13:58; Status DC Lidocaine HCl (Lidocaine Pf 2% Vial) 5 ml STK-MED ONCE .ROUTE ; Start 08/16/21 at 13:58; Stop 08/16/21 at 13:58; Status DC Ephedrine Sulfate (ePHEDrine PF IN SALINE SYRINGE) 50 mg STK-MED ONCE IV ; Start 08/16/21 at 13:58; Stop 08/16/21 at 13:58; Status DC Phenylephrine HCl (PHENYLEPHRINE in 0.9% NACL PF) 1 mg STK-MED ONCE IV ; Start 08/16/21 at 13:58; Stop 08/16/21 at 13:58; Status DC Ringer's Solution 1,000 ml @ 100 mls/hr Q10H IV Last administered on 08/16/21at 13:55; Start 08/16/21 at 15:00 Active Scripts Active Protonix (Pantoprazole Sodium) 40 Mg Tablet.dr 40 Mg PO BID 30 Days Ondansetron Odt (Ondansetron) 4 Mg Tab.rapdis 1 Tab PO PRN Q6-8HRS Stool Softener-Stimulant Lax (Sennosides/Docusate Sodium) 1 Each Tablet 1 Tab PO DAILY 30 Days Culturelle (Lactobacillus Rhamnosus Gg) 1 Each Cap.sprink 1 Cap PO BID 15 Days Lantus (Insulin Glargine,Hum.rec.anlog) 100 Unit/1 Ml Vial 35 Unit SQ QHS 30 Days Reported Latanoprost 0.005% Eye Drop (Latanoprost/Pf) 7.5 Ml Drops 1 Drop OU QHS Symbicort 160-4.5 Mcg Inhaler (Budesonide/Formoterol Fumarate) 10.2 Gm Hfa.aer.ad 2 Puff IH BID Loratadine 10 Mg Tablet 10 Mg PO DAILY Vitamin B12 (Cyanocobalamin (Vitamin B-12)) 2,500 Mcg Tablet 200 Mcg PO DAILY Vitamin D3 (Cholecalciferol (Vitamin D3)) 50 Mcg Capsule 50 Mcg PO DAILY Alogliptin (Alogliptin Benzoate) 25 Mg Tablet 25 Mg PO DAILY Albuterol Sulfate Conc Neb Soln (Albuterol Sulfate) 2.5 Mg/0.5 Ml Vial.neb 2.5 Mg NEB BID Flomax (Tamsulosin Hcl) 0.4 Mg Cap.er.24h 0.4 Mg PO DAILY Warfarin Sodium 7.5 Mg Tablet 7.5 Mg PO DAILY Simvastatin 20 Mg Tablet 20 Mg PO HS Amlodipine Besylate 5 Mg Tablet 5 Mg PO DAILY Amiodarone Hcl 200 Mg Tablet 1 Tab PO DAILY Proventil Hfa (Albuterol Sulfate) 6.7 Gm Hfa.aer.ad 1 Puff INH PRN Q6HRS PRN Metoprolol Tartrate 25 Mg Tablet 1 Tab PO BID Metformin Hcl 1,000 Mg Tablet 1,000 Mg PO BIDWMEALS Potassium Chloride (Potassium Chloride) 20 Meq Tablet.er 20 Meq PO DAILY Lisinopril 40 Mg Tablet 20 Mg PO DAILY Imdur (Isosorbide Mononitrate) 30 Mg Tab.er.24h 1 Tab PO DAILY Vitals/I & O Vital Sign - Last 24 Hours 08/15/21 08/15/21 08/15/21 08/15/21 16:11 19:00 20:00 20:14 Temp 98.3 98.3 Pulse 80 Resp 18 B/P (MAP) 97/54 (68) Pulse Ox 97 96 100 O2 Delivery Nasal Cannula Nasal Cannula Nasal Cannula Nasal Cannula O2 Flow Rate 3.0 3.0 3.0 3.0 08/15/21 08/15/21 08/16/21 08/16/21 21:00 23:00 00:38 01:05 Temp 98.1 98.1 Pulse 78 78 Resp 20 19 19 B/P (MAP) 103/46 103/46 (65) Pulse Ox 91 O2 Delivery Room Air Nasal Cannula Nasal Cannula O2 Flow Rate 3.0 3.0 3.0 08/16/21 08/16/21 08/16/21 08/16/21 03:00 07:00 07:58 08:40 Temp 98.1 97.4 98.1 97.4 Pulse 76 81 81 Resp 18 18 B/P (MAP) 98/48 (65) 131/59 (83) 147/91 Pulse Ox 92 92 97 O2 Delivery Nasal Cannula Nasal Cannula Nasal Cannula O2 Flow Rate 3.0 3.0 3.0 08/16/21 08/16/21 08/16/21 08/16/21 08:41 08:42 08:43 08:51 Pulse 81 81 81 B/P (MAP) 147/91 147/91 147/91 Pulse Ox 97 O2 Delivery Nasal Cannula O2 Flow Rate 3.0 08/16/21 08/16/21 08/16/21 08/16/21 08:56 11:00 12:07 12:07 Temp 98.0 98.0 Pulse 81 65 Resp 18 B/P (MAP) 147/91 136/52 (80) Pulse Ox 95 95 O2 Delivery Nasal Cannula Nasal Cannula Nasal Cannula O2 Flow Rate 3.0 3.0 3.0 08/16/21 08/16/21 08/16/21 08/16/21 13:39 14:15 14:25 14:35 Temp 98.1 97.5 97.5 97.5 98.1 97.5 97.5 97.5 Pulse 81 72 73 71 Resp 20 20 20 20 B/P (MAP) 95/51 100/55 131/57 Pulse Ox 97 91 97 98 O2 Delivery Nasal Cannula Nasal Cannula Nasal Cannula O2 Flow Rate 3.0 3.0 3.0 08/16/21 14:45 Temp 97.5 97.5 Pulse 73 Resp 20 B/P (MAP) 121/59 Pulse Ox 98 O2 Delivery Nasal Cannula O2 Flow Rate 3.0 Intake and Output 08/15/21 08/15/21 08/16/21 15:00 23:00 07:00 Intake Total 1075 ml Balance 1075 ml Justifications for Admission Other Justification KATERINE ALVARENGA MD Aug 16, 2021 15:17
--- NOTE | 2021-08-16 18:35 | NUR ---
Discharge Note: JOLEEN ZIMMERMAN [facility] [employer] Discharge instructions and discharge home medications reviewed with Patient and a copy given. All questions have been answered and understanding verbalized. The following instructions and handouts were given: follow up instructions, medication education, prescriptions Discontinued lines and drains: 20 right AC, tip intact. patient tolerated well. Patient discharged to home with home health via friend.
[2021-08-16 23:15] LABS: ALBUM 2.4 g/dL (2.9-4.4); ALPHA 1 0.5 g/dL (0.0-0.4); ALPHA 2 0.9 g/dL (0.4-1.0); BETA 0.8 g/dL (0.7-1.3); GAMMA 0.5 g/dL (0.4-1.8); SPEP AG RATIO 0.9 (0.7-1.7)
--- NOTE | 2021-08-17 15:22 | PATHOLOGY ---
[facility] Accession Number: [id number] . 01 Material submitted: . duodenum - DUODENAL POLYP BIOPSY . 01 Clinical history: . GI BLEEDING EGD OA . 02 Diagnosis: Duodenal biopsies, duodenal polyp: - Ulcerated segments of duodenal mucosa and granulation tissue showing marked acute inflammation, surface foveolar metaplasia, and focal reactive glandular epithelial atypia. (JPM:[facility]; 08/17/2021) P 08/17/2021 0934 Local . 02 Comment: There is no evidence of malignancy. (JP:[facility]; 08/17/2021) . 02 Electronically signed: . Jesus Schmitt MD, Pathologist NPI- [id number] . 01 Gross description: . The specimen is submitted in formalin, labeled "Lucius Landis, duodenal polyp biopsy". Received are 3 segments of pale chavez tissue ranging in size from 0.2 to 0.3 cm in maximum dimensions. The specimen is submitted entirely in cassette A1. ([facility]; 08/16/2021) NRI/NRI 08/16/2021 191 Local . 02 Pathologist provided ICD-10: K29.80 . 02 CPT . 339300 Specimen Comment: A courtesy copy of this report has been sent to [phone] Specimen Comment: [id number], Specimen Comment: Report sent to , DR LOPEZ / DR KWAN Specimen Comment: A duplicate report has been generated due to demographic updates. Performed at: 01 [facility] [address], [place], [place] [id number] MD Polo Fletcher MD Phone: [phone] Performed at: 02 [facility] [address] [place], [place] [id number] MD Jesus Schmitt MD Phone: [phone]
--- NOTE | 2021-08-18 09:13 | PDOC ---
Provider Note Date of Service: DATE: 08/18/21 TIME: 09:12 Provider Note Discharge summary dictated.#[id number]. Justifications for Admission Other Justification COLEEN LOPEZ MD Aug 18, 2021 09:13
--- NOTE | 2021-08-18 09:28 | DS ---
DATE OF DISCHARGE: 08/16/2021 REASON FOR ADMISSION TO THE HOSPITAL: Elective admission for right hip replacement. PROCEDURES DONE: 1. Right hip replacement. 2. Gastrointestinal bleed. 3. Blood transfusion. 4. EGD x 2. OTHER COMPLICATIONS NOTED: Aspiration pneumonia, GI bleed. HOSPITAL COURSE: The patient is a 76-year-old male who has a history of previous AFib, diabetes, hypertension, COPD, on Coumadin. The patient was having lot of hip pain, had seen Dr. Naik orthopedic. The patient had a right hip total arthroplasty. The patient was admitted to the hospital, he was doing relatively well for 48 hours, he developed bladder retention after Kraus catheter was removed. Then, the patient needed to have a straight catheterization. Next day, the patient started having nausea and vomiting, got progressively worse and the patient developed aspiration pneumonia. The patient was treated with broad spectrum antibiotics. Couple of days later, the patient developed upper GI bleeding with vomiting blood and black stools. The patient was admitted to the ICU, was given transfusion, 2 units of packed RBC and hemoglobin remained stable and the patient had EGD, the first EGD done on 08/10 which shows a huge clot in the pylorus occluding, unable to dislodge after attempting with forceps and other measures and it was a huge clot, was in the pylorus causing problems. The patient was in the ICU, put on IV Protonix drip, was kept n.p.o. after 48 hours. The patient was started on clear liquid diet. The patient is not able to take Coumadin because of the upper GI bleed, was put on SCDs and compression pumps. The patient had another EGD a week later on 08/16 and it shows an ulcer in the distal bulb and there is a clot and some oozing. It was clipped and there was also a polyp, 8 mm in the second portion of the duodenum and it was felt that the patient was not a good candidate for Coumadin. Not restarted Coumadin, recommend Watchman's procedure and the patient is tolerating clear liquid diet, GI soft diet. He is anxious to go home and the patient was discharged home with home PT, OT and did not resume Coumadin because of the recent GI bleed. They recommended Watchman's procedure. We will check with GI. FINAL IMPRESSION: 1. Right hip total arthroplasty for osteoarthritis. 2. Unfortunately, the patient had upper GI bleed, duodenal ulcer with a clot, which was clipped. 3. Aspiration pneumonia. 4. Bladder retention after Kraus was removed after the hip replacement. 5. Chronic atrial fibrillation. DISPOSITION: Home. We will discuss with Cardiology and further recommendations to follow. KARINE DR: Mahad TID: [id number]
--- NOTE | 2021-08-18 12:23 | HP ---
DATE OF SERVICE: 08/18/2021 ADMIT DATE: 08/04/2021 BRIEF HISTORY: The patient is a 76-year-old male who is having significant right hip pain. This is bothering him for the last few years, increasing in severity, but over the last few months, it has become with the inability to be able to ambulate. He cannot sleep at night. It causes him to be woken up at night, also causes him from getting to sleep, at this point is now radiating toward the knee. He has been trying anti-inflammatories, pain medication, modifying his activities even the use occasionally of a cane, but no significant relief this point. I evaluated him in the office and he wishes to proceed with right total hip arthroplasty secondary to this pain, and nonresponse to conservative measures. His review of systems are unremarkable other than the right hip involved. PAST MEDICAL HISTORY: Hypertension, coronary artery disease, diabetes, hyperlipidemia with a history of atrial fibrillation and COPD. PAST SURGICAL HISTORY: Cardiac catheter stent in 02/2011, total knee replacement, tonsillectomy, rotator cuff and cervical spine fusion. FAMILY HISTORY: Hypertension. SOCIAL HISTORY: The patient is currently using tobacco every day. Smokes approximately 21-30 cigarettes per day. No alcohol use at this point. MEDICATIONS: Numerous and are listed on the original chart and reviewed. Those are currently all active at this point. ALLERGIES: PENICILLIN. PHYSICAL EXAMINATION: VITAL SIGNS: He is 210 pounds, 67 inches tall. His heart rate and blood pressure are stable today. GENERAL: He is alert and oriented x 3. He is well developed and well nourished. At this time, slightly overweight. HEENT: Completely within normal limits at this point. NECK: Completely within normal limits at this point. PULMONARY: Completely within normal limits at this point. CARDIAC: Completely within normal limits at this point. ABDOMEN: No abnormalities noted. NEUROLOGIC: No abnormalities noted. EXTREMITIES: Examination of the right hip reveals significant pain. Internal rotation is 5 degrees, external rotation is 15-20 degrees. Abduction is only 30 degrees and is actually painful at this point. There is no pain along the area of the greater trochanter at this point. He has a flexion contracture of the hip of 5 degrees, can flex only up to 90 degrees at this point. No atrophy of musculature, right versus left. Distal neurovascular status is fully intact. IMPRESSION: Osteoarthritis, right hip. BMI showing obesity. PLAN: At this time, he has been consented for right total hip arthroplasty. He understands the risks, complications as well as benefits and expectations of surgery, postoperative protocol and followup, and all questions answered to his satisfaction at this point. We will proceed with a total hip replacement. BARBARA DR: Harris TID: [id number]
== END 2021-08-16 18:20 | disposition still patient (30) | DRG 469 ==
LOC: SURG 06:13 → 4 NORTH 11:32 → 4 SOUTHEST 08-03 10:30 → OBSVTOIN 08-04 12:25 → 4 NORTH 08-05 19:30 → 1 WEST ICU 08-10 08:38 → 5 NORTH 08-11 20:39
PROVIDERS: ADMIT Internal Medicine; ATTEND Orthopaedic Surgery
PROC: 30233K1 Transfusion of Nonautologous Frozen Plasma into Peripheral Vein, Percutaneous Approach (ICD-10-PCS; 2021-08-10)
PROC: 30233N1 Transfusion of Nonautologous Red Blood Cells into Peripheral Vein, Percutaneous Approach (ICD-10-PCS; 2021-08-10)
PROC: 0DB68ZZ Excision of Stomach, Via Natural or Artificial Opening Endoscopic (ICD-10-PCS; 2021-08-10)
PROC: 0SR90JZ Replacement of Right Hip Joint with Synthetic Substitute, Open Approach (ICD-10-PCS; principal; 2021-08-10 15:00)
PROC: 0DB98ZX Excision of Duodenum, Via Natural or Artificial Opening Endoscopic, Diagnostic (ICD-10-PCS; 2021-08-16)
PROC: 0W3P8ZZ Control Bleeding in Gastrointestinal Tract, Via Natural or Artificial Opening Endoscopic (ICD-10-PCS; 2021-08-16)
DX: M16.11 Unilateral primary osteoarthritis, right hip (principal); J69.0 Pneumonitis due to inhalation of food and vomit; N17.9 Acute kidney failure, unspecified; I48.20 Chronic atrial fibrillation, unspecified; J44.0 Chronic obstructive pulmonary disease with (acute) lower respiratory infection; J84.9 Interstitial pulmonary disease, unspecified; K56.7 Ileus, unspecified; K92.0 Hematemesis; K92.2 Gastrointestinal hemorrhage, unspecified; D64.9 Anemia, unspecified; E11.9 Type 2 diabetes mellitus without complications; E66.9 Obesity, unspecified; E78.5 Hyperlipidemia, unspecified; E87.6 Hypokalemia; F17.210 Nicotine dependence, cigarettes, uncomplicated; I11.0 Hypertensive heart disease with heart failure; I25.10 Atherosclerotic heart disease of native coronary artery without angina pectoris; I50.9 Heart failure, unspecified; K21.00 Gastro-esophageal reflux disease with esophagitis, without bleeding; K31.7 Polyp of stomach and duodenum; N32.89 Other specified disorders of bladder; Z79.01 Long term (current) use of anticoagulants; Z82.49 Family history of ischemic heart disease and other diseases of the circulatory system; Z86.73 Personal history of transient ischemic attack (TIA), and cerebral infarction without residual deficits; Z90.49 Acquired absence of other specified parts of digestive tract; Z95.5 Presence of coronary angioplasty implant and graft; Z96.651 Presence of right artificial knee joint; Z98.1 Arthrodesis status; Z88.0 Allergy status to penicillin
CPT/HCPCS: 36415; 36430; 43235; 43239; 43255; 71045; 73501; 74018; 74176; 80048; 80053; 80076; 81001; 82271; 82525; 82607; 82668; 82728; 82962; 83010; 83520; 83540; 83550; 83615; 83690; 84165; 84550; 85007; 85014; 85018; 85025; 85027; 85045; 85610; 86850; 86900; 86901; 86920; 86927; 87086; 88305; 94640; 94760; A4213; A4930; A6258; A6550; C1755; C1776; C9113; G0378; G0379; J0171; J0696; J1100; J1170; J1815; J1885; J2020; J2185; J2270; J2370; J2405; J2704; J2710; J2765; J2795; J3010; J3430; J3480; J3490; J7030; J7120; P9016; P9017; 97110-GP; 97116-GP; 97530-GO; 97530-GP; 97535-GO; J7613; J7626

== ENCOUNTER 2021-11-15 21:06 | Emergency (ER) | payer OTHER, MEDICAID ==
[~2021-11-15] VITALS: Ht 170.2 cm; Wt 86.0 kg
[~2021-11-15 21:06] MED LIST changes: -ACETAMINOPHEN 500 MG TABLET PO PRN; +CEFD300C PO; -CLINDAMYCIN 900MG PREMIX 50 ML IV PRN; -GABAPENTIN 300 MG CAPSULE. PO PRN; -HYDROmorphone 2 MG/ML VIAL IVP PRN; -IV RINGERS,LACTATED 1000ML 1,000 ML IV SCH; +LACT1CAP19 PO; -MELOXICAM 7.5 MG TABLET PO PRN; +ONDA4TAB12 PO; +PANT40TA77 PO; -PROCHLORPERAZINE 10 MG/2 ML VIAL. IVP PRN; +SENN-209 PO; -TRANEXAMIC ACID 1,000 MG in IV NS 50ML -- 1ST BAG INJ ONE; -TV=62ml MORPHINE 5 MG, KETOROLAC 30 MG, ROPIV, EPI INT ART ONE; -fentaNYL PF VIAL 100 MCG/2 ML VIAL IVP PRN
[2021-11-15] MEDS ORDERED: methylPREDNISolone SOD SUCC PF 125 MG/2 ML VIAL. IV ONE (21:15)
[2021-11-15] MEDS ORDERED: IPRATRPIUM/ALBUTEROL 0.5/2.5MG 3 ML NEBU. NEB ONE (21:15)
[2021-11-15] MEDS ORDERED: IPRATRPIUM/ALBUTEROL 0.5/2.5MG 3 ML NEBU. ONE (21:19)
--- NOTE | 2021-11-15 21:45 | PHYS DOC ---
Past Medical History Past Medical History: A-Fib, COPD, Diabetes-Type II, GERD, Hypertension, Lung Disease, LA Additional Past Medical Histor: BLOOD IN STOOL. Afib Past Surgical History: Cholecystectomy, Knee Replacement, Other Additional Past Surgical Histo: 3 stents , neck surg, left shoulder; hernia Smoking Status: Current Every Day Smoker Alcohol Use: None Drug Use: None General Adult EDM: Chief Complaint: SHORTNESS OF BREATH HPI: HPI: Patient is a 76 year [id number] male past medical history of COPD chronically on 2 L nasal cannula at night presents for evaluation after an episode of coughing shortness of breath dizziness and syncope. Patient states he was having difficulty breathing due to coughing he suddenly became dizzy and then passed out. Patient states he collapsed to the ground hit his head and injured his left hip. On exam patient is alert and oriented x4. He moves all ext remities passively and actively. Left lower extremity is not shortened or rotated. There are no open head wounds. Review of Systems: Review of Systems: Review of systems: Constitutional symptoms- No fever, no chills. Eyes- No Discharge, No Visual Loss Respiratory symptoms- Positive shortness of breath, No wheezing, No Dyspnea on Exertion Cardiovascular Systems; No chest pain, No Palpitations, No syncope Gastrointestinal symptoms: NO abdominal pain, no nausea, no vomiting or diarrhea. Genitourinary symptoms: No dysuria. Musculoskeletal symptoms: No back pain Positive extremity pain. NEUROLOGICAL Symptoms: Positive headache, no generalized weakness; No focal Weakness Skin: No rash. Heart Score: C/O Chest Pain: N/A Risk Factors: Risk Factors: DM, Current or recent (<one month) smoker, HTN, HLP, family history of CAD, obesity. Risk Scores: Score 0 - 3: 2.5% MACE over next 6 weeks - Discharge Home Score 4 - 6: 20.3% MACE over next 6 weeks - Admit for Clinical Observation Score 7 - 10: 72.7% MACE over next 6 weeks - Early Invasive Strategies Current Medications: Current Medications Medications (Trade) Dose Ordered Sig/Jeffry Start Time Stop Time Status Last Admin Dose Admin Albuterol/ Ipratropium (Duoneb) 3 ml 1X ONCE 11/15/21 21:15 11/15/21 21:19 DC 11/15/21 21:22 3 ML Methylprednisolone Sodium Succinate (SOLU-Medrol 125MG VIAL) 125 mg 1X ONCE 11/15/21 21:15 11/15/21 21:19 DC Allergies: Allergies: Allergies Coded Allergies Type Severity Reaction Last Updated Verified Penicillins Allergy Intermediate Hives 10/11/21 Yes Physical Exam: PE: General: alert, no acute distress. Skin: warm, dry and intact, no erythema, no rash. HENT: bilateral external ears normal, oropharynx moist, nose normal. Head:: Normocephalic, atraumatic. Neck: Trachea midline. Eyes: EOMI, Normal conjunctiva, No drainage CARDIOVASCULAR: Regular rate and rhythm RESPIRATORY: No respiratory distress Back: Full range of motion. MUSCULOSKELETAL: Full range of motion of bilateral upper and lower extremities. GASTROINTESTINAL: Abdomen soft without rebound or guarding. NEUROLOGICAL: Alert and noted to person, place and time. No neurological deficits observed Psychiatric: Cooperative. Normal judgment Current Patient Data: Vital Signs: Vital Signs Date Time Temp Pulse Resp B/P (MAP) Pulse Ox O2 Delivery O2 Flow Rate FiO2 11/15/21 21:24 Nasal Cannula 2.0 11/15/21 21:06 98.3 85 22 158/72 (100) 99 98.3 EKG: EKG: Performed at 2136 Rate 85 Normal sinus rhythm with PVCs No ST elevation No ST depression No acute LA [] Radiology/Procedures: Radiology/Procedures: [] Course & Med Decision Making: Course & Med Decision Making Patient was evaluated for chief complaint. Work-up consisted of laboratory analysis radiologic imaging and EKG. Treatment included DuoNeb and Solu-Medrol. CT imaging head and cervical spine negative for acute traumatic injury. X-ray left hip shows no acute fractures or dislocations. Pertinent Labs and Imaging studies reviewed. (See chart for details) [] Dragon Disclaimer: Dragon Disclaimer: This electronic medical record was generated, in whole or in part, using a voice recognition dictation system. Departure Departure Impression: Primary Impression: Syncopal episodes Additional Impressions: Vaso vagal episode Fall Hip pain Disposition: HOME / SELF CARE / HOMELESS Referrals: COLEEN LOPEZ MD (PCP) Patient Instructions: Fall Prevention and Home Safety, Hip Pain, Syncope Scripts Hydrocodone/Acetaminophen (Hydrocodone-Acetamin 5-325 mg) 1 Each Tablet 1 EACH PO Q6HRS PRN for PAIN for 10 Days, #20 TAB Prov: YISEL MORLAES DO 11/15/21 YISEL MORALES DO Nov 15, 2021 21:45
--- NOTE | 2021-11-15 21:57 | EKG ---
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
[2021-11-15 22:09] LABS: CALCIUM 8.1 mg/dL (8.5-10.1); CREATININE 0.9 mg/dL (0.7-1.3); GFR 82.3; POTASSIUM 3.7 mmol/L (3.5-5.1)
[2021-11-15 22:12] LABS: ALBUMIN 2.4 g/dL (3.4-5.0); ALBUMIN/GLOBULIN RATIO 0.6 (1.0-1.7); TOTAL BILIRUBIN 0.4 mg/dL (0.2-1.0); TOTAL PROTEIN 6.4 g/dL (6.4-8.2)
--- NOTE | 2021-11-15 22:12 | RAD ---
Exam: CT head and cervical spine INDICATION: Fall TECHNIQUE: Sequential axial images through the head and cervical spine were obtained without the admi nistration of IV contrast. Exposure: One or more of the following in the visualized dose reduction techniques were utilized for this examination: 1. Automated exposure control 2. Adjustment of the MA and/or KV according to patient size 3. Use of iterative of reconstructive technique Comparisons: None FINDINGS: Head: No focal parenchymal lesion or hemorrhage is identified. There is no midline shift or sulcal effaceme nt. Mild patchy hypodensity in the periventricular white matter. Small lacunar infarct at the left basal ganglia. No acute vascular territory infarction is identified. Poole-white distinction is preserved. The ventricular system is within normal limits without compression hydrocephalus. The basal cisterns are well maintained. The visualized portions of the paranasal sinuses and mastoid air cells are well-pneumatized. No acute fractures. Cervical spine: Straightening of cervical spine which may positional. Vertebral body heights are well-maintained. Anterior cervical fusion hardware at C4-C5 with interbody screws Fracture through the cervical spine is not identified. Visualized paraspinal soft tissues are unremarkable. IMPRESSION: 1. No acute intracranial abnormality. 2. Negative CT C-spine for acute traumatic injury. Electronically signed by: Eze Pierre MD (11/15/2021 10:09 PM) JUAN MIGUEL
--- NOTE | 2021-11-15 22:51 | RAD ---
Exam: XR BILATERAL HIP (WITH OR WITHOUT PELVIS) LEFT 2 VIEWS History: Fall, pain Comparison: 08/25/2021 Findings: Osseous mineralization is normal. No acute fracture or dislocaton. Right total hip arthroplasty witho ut evidence of complication. Mild to moderate degenerative changes of the left hip. The pubic rami an d sacroiliac joints are intact. Soft tissues are unremarkable. Impression: 1. No acute osseous abnormality of the left hip. Electronically signed by: Huang Davis MD (11/15/2021 10:48 PM) [facility]
[2021-11-15 23:16] LABS: HEMATOCRIT 33.6 % (39.0-53.0); HEMOGLOBIN 10.6 g/dL (13.0-17.5); RED BLOOD COUNT 4.34 x10^6/uL (4.30-5.70); RED CELL DISTRIBUTION WIDTH 22.8 % (11.5-14.5); WHITE BLOOD COUNT 13.9 x10^3/uL (4.0-11.0)
[2021-11-15] MEDS ORDERED: HYDROcodone/APAP 5/325MG 1 TAB TABLET PO ONE (23:45)
[2021-11-15] MEDS ORDERED: HYDR-2759 PO (23:48)
[2021-11-16 02:15] VITALS: BP 151/70
== END 2021-11-16 06:34 | disposition home or self-care (01) ==
LOC: ER 21:06
DX: R55 Syncope and collapse (principal); M25.552 Pain in left hip; G89.11 Acute pain due to trauma; R51.9 Headache, unspecified; M54.2 Cervicalgia; Z88.0 Allergy status to penicillin; J44.9 Chronic obstructive pulmonary disease, unspecified; I48.91 Unspecified atrial fibrillation; E11.9 Type 2 diabetes mellitus without complications; K21.9 Gastro-esophageal reflux disease without esophagitis; I10 Essential (primary) hypertension; I25.2 Old myocardial infarction; F17.200 Nicotine dependence, unspecified, uncomplicated; W18.39XA Other fall on same level, initial encounter; Y93.89 Activity, other specified; Y92.89 Other specified places as the place of occurrence of the external cause; Y99.8 Other external cause status
CPT/HCPCS: 36415; 70450; 72125; 73502; 80053; 85027; 93005; 94640; 94760; 96374; 99285; J2930